=== PATIENT | female | born 1955 | race Caucasian/White ===

== ENCOUNTER 2017-01-05 08:18 | Emergency (ER) | payer OTHER ==
[~2017-01-05] VITALS: Ht 162.6 cm; Wt 109.1 kg
[~2017-01-05 08:18] MED LIST: ALBU18HF IH; FLUO40CA10 PO; LANT3I SC; LAS20 PO; LORA10TA3 PO; MONT10TA24 PO; NOVO3I SC; PANT40TA3 PO; PRED10TA PO; QUET300T5 PO; TIOT18CA INHALATION; TRAM-40 PO; TRAM50TA2 PO
[2017-01-05 08:22] VITALS: Ht 162.6 cm; Wt 109.1 kg
[2017-01-05] MEDS ORDERED: LORAZEPAM 1 MG TAB PO ONE (09:00)
[2017-01-05 09:19] LABS: ADD UMIC YES; URINE BILIRUBIN (Dip) NEGATIVE (NEGATIVE); URINE BLOOD (Dip) TRACE (NEGATIVE); URINE COLOR LT. YELLOW (YELLOW); URINE GLUCOSE (Dip) NEGATIVE (NEGATIVE); URINE KETONES (Dip) NEGATIVE (NEGATIVE); URINE LEUKOCYTE ESTERASE (Dip) NEGATIVE (NEGATIVE); URINE NITRITE (Dip) NEGATIVE (NEGATIVE); URINE TOTAL PROTEIN (Dip) NEGATIVE (NEGATIVE); URINE UROBILINOGEN (Dip) 0.2 E.U./dL (0.1-1.0)
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
[2017-01-05 09:40] LABS: BACTERIA,URINE FEW; URINE RBCS 0-2 /HPF (0)
[2017-01-05 09:42] LABS: OPIATES Positive (NEGATIVE)
[2017-01-05 09:50] LABS: BARBITURATES Negative (NEGATIVE); BENZODIAZEPINES Negative (NEGATIVE); CANNABINOIDS Negative (NEGATIVE); COCAINE Negative (NEGATIVE)
[2017-01-05 09:59] LABS: ADD SCAN DIFF NO
[2017-01-05 10:04] LABS: BASOPHIL # 0.1 10^3/ul (0.0-0.1); BASOPHILS % 0.5 % (0.0-2.0); EOSINOPHILS # 0.1 10^3/ul (0.0-0.5); EOSINOPHILS % 0.6 % (0.0-7.0); HEMATOCRIT 42.3 % (37.0-47.0); HEMOGLOBIN 13.3 g/dl (12.0-16.0); LYMPHOCYTES # 3.1 10^3/ul (0.8-2.9); LYMPHOCYTES % 30.4 % (15.0-51.0); MEAN CORPUSCULAR HGB CONC 31.4 g/dl (32.0-37.0); MEAN CORPUSCULAR VOLUME 66.8 fl (82.0-101.0); MONOCYTES % 9.7 % (0.0-11.0); NEUTROPHILS % 58.5 % (39.0-77.0); PLATELET COUNT 263 10^3/UL (140-415); RED BLOOD COUNT 6.33 10^6/ul (4.20-5.40); RED CELL DISTRIBUTION WIDTH 15.7 % (11.5-14.5); WHITE BLOOD COUNT 10.3 10^3/ul (4.8-10.8)
[2017-01-05 10:09] LABS: ALBUMIN 4.2 g/dl (3.3-4.9)
[2017-01-05 10:10] LABS: CHLORIDE 88 mmol/L (97-110); SODIUM 129 mmol/L (135-144)
[2017-01-05 10:12] LABS: ALBUMIN/GLOBULIN RATIO 1.07; ANION GAP 16 (8-16); ASPARTATE AMINO TRANSFERASE 33 IU/L (15-46); BILIRUBIN,INDIRECT 0.3 mg/dl (0-1.1); BILIRUBIN,TOTAL 0.3 mg/dl (0.2-1.3); CARBON DIOXIDE 29 mmol/L (21-31); CREATININE 0.51 mg/dl (0.44-1.00); TOTAL PROTEIN 8.1 g/dl (6.1-8.1)
[2017-01-05 10:13] LABS: ALANINE AMINOTRANSFERASE 21 IU/L (13-69); ALKALINE PHOSPHATASE 93 IU/L (42-121); BLOOD UREA NITROGEN 8 mg/dl (7-20); CALCIUM 9.7 mg/dl (8.4-10.2); GLUCOSE 110 mg/dl (70-220)
[2017-01-05 10:30] LABS: ACETAMINOPHEN < 10.0 ug/ml (10.0-30.0); ETHANOL < 10.0 mg/dl; SALICYLATE < 1.0 mg/dl (5.0-30.0)
[2017-01-05] MEDS ORDERED: IBUPROFEN 800 MG TAB PO ONE (12:00)
--- NOTE | 2017-01-05 12:52 | ERA ---
ER Documentation Chief Complaint Date/Time DATE: 01/05/17 TIME: 12:50 Chief Complaint BROUGHT IN VIA EMS DUE TO VERBALIZING SUICIDAL AND HOMICIDAL THOUGHTS HPI Patient is a 61-year-old female with anxiety and depression as well as diabetes who presents with thoughts of suicide. She had one episode of vomiting and diarrhea. She swallowed a handful of Soma and a suicide attempt. She also has a plan to stab herself in the neck with a knife. The patient was brought in by ambulance. She also says that she wants to kill her Arik Garcia. ROS All systems reviewed and are negative except as per history of present illness. Medications Home Meds Active Scripts Tramadol HCl (Tramadol HCl) 50 Mg Tablet, 50 MG PO Q12, #12 TAB Prov:JUNAID CHAHAL DO 10/30/16 Prednisone (Prednisone) 10 Mg Tab, 10 MG PO DAILY, #70 TAB Prov:NORY BARNETT MD 04/19/16 Insulin Glargine* (Lantus*) 100 Unit/Ml Soln, 25 UNIT SC HS, #1 VIAL Prov:NORY BARNETT MD 04/19/16 Insulin Aspart* (Novolog Insulin Pen*) 100 Unit/Ml Soln, 7 UNIT SC WITH MEALS, # 1 VIAL Prov:NORY BARNETT MD 04/19/16 Reported Medications Quetiapine Fumarate* (Seroquel* XR) 300 Mg Tab.sr.24h, 300 MG PO DAILY, #30 TAB 12/29/15 Tiotropium [place]* (Spiriva*) 18 Mcg Cap.w.dev, 1 CAP INHALATION DAILY, #30 CAP 12/29/15 Pantoprazole* (Protonix*) 40 Mg Tablet.dr, 40 MG PO DAILY, TAB 12/29/15 Tramadol Hcl* (Ultram*) 50 Mg Tablet, 50 MG PO Q8 Y for PAIN, TAB 12/29/15 Fluoxetine Hcl* (Prozac*) 40 Mg Capsule, 40 MG PO DAILY, CAP 12/29/15 Montelukast Sodium* (Montelukast Sodium*) 10 Mg Tablet, 10 MG PO DAILY 10/23/15 Loratadine* (Loratadine*) 10 Mg Tablet, 10 MG PO DAILY 10/23/15 Furosemide (Lasix) 20 Mg Tab, 20 MG PO BID 12/18/15 Albuterol Sulfate* (Ventolin HFA*) 18 Gm Hfa.aer.ad, 2 PUFF IH Q6 Y for WHEEZING AND RESP DISTRESS, EA 01/29/15 Allergies Allergies: Coded Allergies: No Known Allergies (Verified Allergy, Mild, 02/09/16) PMhx/Soc History of Surgery: Yes (partial hysterectomy) Anesthesia Reaction: No Hx Neurological Disorder: No Hx Cardiac Disorders: Yes (HTN) Hx Psychiatric Problems: Yes (Paranoid Schizophrenia, Depression) Hx Miscellaneous Medical Probl: No Hx Alcohol Use: Yes Hx Substance Use: Yes (Heroin) Hx Tobacco Use: Yes Smoking Status: Never smoker FmHx Family History: diabetes Physical Exam Vitals Vital Signs Date Time Temp Pulse Resp B/P Pulse Ox O2 Delivery O2 Flow Rate FiO2 01/05/17 08:22 98.5 104 18 180/91 98 Physical Exam Const: No acute distress Head: Atraumatic Eyes: Normal Conjunctiva ENT: Normal External Ears, Nose and Mouth. Neck: Full range of motion..~ No meningismus. Resp: Clear to auscultation bilaterally Cardio: Regular rate and rhythm, no murmurs Abd: Soft, non tender, non distended. Normal bowel sounds Skin: No petechiae or rashes Back: No midline or flank tenderness Ext: No cyanosis, or edema Neur: Awake and alert Psych: Admits to suicidal ideation with plan to stab herself in the neck Result Diagram: 01/05/17 0953 01/05/17 0953 Results 24 hrs Laboratory Tests Test 01/05/17 08:41 01/05/17 09:53 Urine Amphetamines Screen Negative Urine Bacteria FEW Urine Barbiturates Negative Urine Benzodiazepines Screen Negative Urine Bilirubin NEGATIVE Urine Cannabinoids Negative Urine Clarity CLEAR Urine Cocaine Screen Negative Urine Color LT. YELLOW Urine Glucose NEGATIVE% Urine Hemoglobin TRACE Urine Ketones NEGATIVE Urine Leukocyte Esterase NEGATIVE Urine Microscopic RBC 0-2/HPF Urine Microscopic WBC 0-2/HPF Urine Nitrite NEGATIVE Urine Opiates Screen Positive Urine Specific [place] 1.010 Urine Total Protein NEGATIVE Urine Urobilinogen 0.2 E.U./dL Urine pH 6.0 Acetaminophen Level < 10.0ug/ml Alanine Aminotransferase (ALT/SGPT) 21IU/L Albumin 4.2g/dl Albumin/Globulin Ratio 1.07 Alkaline Phosphatase 93IU/L Anion Gap 16 Aspartate Amino Transf (AST/SGOT) 33IU/L Basophils # 0.110^3/ul Basophils % 0.5% Blood Urea Nitrogen 8mg/dl Calcium Level 9.7mg/dl Carbon Dioxide Level 29mmol/L Chloride Level 88mmol/L Creatinine 0.51mg/dl Direct Bilirubin 0.00mg/dl Eosinophils # 0.110^3/ul Eosinophils % 0.6% Ethyl Alcohol Level < 10.0mg/dl Globulin 3.90g/dl Glucose Level 110mg/dl Hematocrit 42.3% Hemoglobin 13.3g/dl Indirect Bilirubin 0.3mg/dl Lymphocytes # 3.110^3/ul Lymphocytes % 30.4% Mean Corpuscular Hemoglobin 21.0pg Mean Corpuscular Hemoglobin Concent 31.4g/dl Mean Corpuscular Volume 66.8fl Mean Platelet Volume 11.0fl Monocytes # 1.010^3/ul Monocytes % 9.7% Neutrophils # 6.010^3/ul Neutrophils % 58.5% Nucleated Red Blood Cells # 0.010^3/ul Nucleated Red Blood Cells % 0.0/100WBC Platelet Count 35913^3/UL Potassium Level 4.0mmol/L Red Blood Count 6.3310^6/ul Red Cell Distribution Width 15.7% Salicylates Level < 1.0mg/dl Sodium Level 129mmol/L Total Bilirubin 0.3mg/dl Total Protein 8.1g/dl White Blood Count 10.310^3/ul Current Medications Medications (Trade) Dose Ordered Sig/Patric Route PRN Reason Start Time Stop Time Status Last Admin Dose Admin Lorazepam (Ativan) 1 mg ONCE ONCE PO 01/05/17 09:00 01/05/17 09:01 DC 01/05/17 08:43 Ibuprofen (Motrin) 800 mg ONCE ONCE PO 01/05/17 12:00 01/05/17 12:01 DC 01/05/17 12:04 Procedures/MDM EKG read by me: Rate/Rhythm: Regular rate and rhythm at a normal rate Intervals: Normal Impression: No evidence of ischemia or arrhythmia Smoking Cessation Therapy: Pt. was lectured for greater than 3 minutes on the health risks of continued smoking and the benefits of cessation. Patient is a 5-year-old female with psychiatric disease presents with homicidal and suicidal ideation. She had taken an overdose of Soma but is maintaining her airway and has no altered mental status at this time. Her laboratory studies are normal. Her urine drug screen shows positive for opiates. At this point the patient was given Ativan and ibuprofen. I believe she is now medically clear and she is willing to be transferred to a voluntary psychiatric facility. She did have a psychiatric evaluation done by Dr. Barnes from psychiatry. We will attempt to transfer the patient for voluntary admission at this time she is medically clear. Departure Diagnosis: Primary Impression: Homicidal ideation Additional Impression: Suicidal ideation Condition: FINA Contreras MD Jan 05, 2017 12:52
[2017-01-05 17:29] VITALS: BP 134/76; PULSE 86; RESP 18; TEMP 98.6
--- NOTE | 2017-01-05 19:21 | PSY ---
Date/Time of Note Date/Time of Note DATE: 01/05/17 TIME: 19:14 Psychiatric Subjective Eval Consent Pt consented to telemedicine: Yes Subjective Evaluation Patient location: emergency Chief Complaint: BROUGHT IN VIA EMS DUE TO VERBALIZING SUICIDAL AND HOMICIDAL THOUGHTS Reason for consult: Re-evaluation History of present illness Patient is a 61 year old female with schizophrenia who was brought in due to thoughts of wanting to kill herself and her . She was evaluated and transferred to an inpatient facility. However, she informed the facility that she required O2 at night and facility could not accommodate that need. Patient was transferred back to the ER. Patient reports that she has been increasing her use of [place] and then "flushed it down the toilette." She has been more irritable lately because of this. Also, she reports she has not been taking her Prozac and Seroquel for one week. She reports thoughts of wanting to and does not feel safe out of the hospital. She has thoughts of wanting to kill her because "he is responsible for all this." Pt admits to hearing her father's voice and her sister's voice. She states they are both and "there has been a lot of around me." Past psychiatric history See above. Past admissions Hospitalization: yes Family History Please see previous consult today Medical history Problems Medical Problems: (1) Abdominal pain Status: Acute (2) Anxiety Status: Acute (3) Anxiety attack Status: Acute (4) Constipation Status: Acute (5) COPD exacerbation Status: Acute (6) COPD with exacerbation Status: Acute (7) Dehydration Status: Acute (8) Homicidal ideation Status: Acute (9) Hypoxemia Status: Acute (10) Morbid obesity Status: Acute (11) Multiple complaints Status: Acute (12) Personality disorder Status: Acute (13) Schizophrenia, chronic with acute exacerbation Status: Acute (14) Seizure disorder Status: Acute (15) Shortness of breath Status: Acute (16) Suicidal ideation Status: Acute Allergies: Coded Allergies: No Known Allergies (Verified Allergy, Mild, 02/09/16) Substance Abuse Substance use: No known substance abuse (May have issue with norco) Social History Marital status: Level of education: hs DPA/Conservatorship: No Occupation/Penitentiary: disabled, lives with her Psychiatric Objective Eval Mental Status Examination: Appearance: Poor Hygiene Eye Contact: Fair Psychomotor Activity: Normal Behavior: Cooperative Speech: Soft AFFECT: Flat Mood: Depressed Though Process: Perseverative Thought Content: Hallucinations Suicidal: Yes Homicidal: Yes On 72 hour hold: No Orientation: x4 Cognition: Alert Insight: Impared Judgement: Impared Laboratory Results Laboratory Tests Test 01/05/17 08:41 01/05/17 09:53 Urine Amphetamines Screen Negative Urine Bacteria FEW Urine Barbiturates Negative Urine Benzodiazepines Screen Negative Urine Bilirubin NEGATIVE Urine Cannabinoids Negative Urine Clarity CLEAR Urine Cocaine Screen Negative Urine Color LT. YELLOW Urine Glucose NEGATIVE% Urine Hemoglobin TRACE Urine Ketones NEGATIVE Urine Leukocyte Esterase NEGATIVE Urine Microscopic RBC 0-2/HPF Urine Microscopic WBC 0-2/HPF Urine Nitrite NEGATIVE Urine Opiates Screen Positive Urine Specific [place] 1.010 Urine Total Protein NEGATIVE Urine Urobilinogen 0.2 E.U./dL Urine pH 6.0 Acetaminophen Level < 10.0ug/ml Alanine Aminotransferase (ALT/SGPT) 21IU/L Albumin 4.2g/dl Albumin/Globulin Ratio 1.07 Alkaline Phosphatase 93IU/L Anion Gap 16 Aspartate Amino Transf (AST/SGOT) 33IU/L Basophils # 0.110^3/ul Basophils % 0.5% Blood Urea Nitrogen 8mg/dl Calcium Level 9.7mg/dl Carbon Dioxide Level 29mmol/L Chloride Level 88mmol/L Creatinine 0.51mg/dl Direct Bilirubin 0.00mg/dl Eosinophils # 0.110^3/ul Eosinophils % 0.6% Ethyl Alcohol Level < 10.0mg/dl Globulin 3.90g/dl Glucose Level 110mg/dl Hematocrit 42.3% Hemoglobin 13.3g/dl Indirect Bilirubin 0.3mg/dl Lymphocytes # 3.110^3/ul Lymphocytes % 30.4% Mean Corpuscular Hemoglobin 21.0pg Mean Corpuscular Hemoglobin Concent 31.4g/dl Mean Corpuscular Volume 66.8fl Mean Platelet Volume 11.0fl Monocytes # 1.010^3/ul Monocytes % 9.7% Neutrophils # 6.010^3/ul Neutrophils % 58.5% Nucleated Red Blood Cells # 0.010^3/ul Nucleated Red Blood Cells % 0.0/100WBC Platelet Count 13715^3/UL Potassium Level 4.0mmol/L Red Blood Count 6.3310^6/ul Red Cell Distribution Width 15.7% Salicylates Level < 1.0mg/dl Sodium Level 129mmol/L Total Bilirubin 0.3mg/dl Total Protein 8.1g/dl White Blood Count 10.310^3/ul Assessment and Plan Assessment/Diagnosis [place] I: Schizophrenia F20.9 Recommendation/Plan Medication Management Per inpatient psychiatry. Can offer Zyprexa Zydis 5mg po q 6h prn agitation/ psychosis. Psychotherapy N/A Pt. Caregiver/Family Education N.A Previous note indicates warning to being given for Tarasoff. Follow-up/Disposition Transfer to inpatient psychiatry 5150 Recommendation: Place Hold (Patient with suicidal and homicidal ideation. Not safe out of the hospital. ) GENI MCDONALD Jan 05, 2017 19:21
[2017-01-05] MEDS ORDERED: CLON0.2T5 PO (20:39)
[2017-01-05] MEDS ORDERED: CLON2TAB3 PO (22:06)
== END 2017-01-05 17:30 | disposition short-term general hospital (02) ==
LOC: E/R 08:18
DX: F32.9 Major depressive disorder, single episode, unspecified (principal); R45.850 Homicidal ideations; R45.851 Suicidal ideations; E11.9 Type 2 diabetes mellitus without complications; I10 Essential (primary) hypertension; J44.9 Chronic obstructive pulmonary disease, unspecified; Z79.4 Long term (current) use of insulin; Z87.891 Personal history of nicotine dependence
CPT/HCPCS: 80053; 80306; 80307; 81001; 81003; 85025; 93005; Z7502; Z7610

== ENCOUNTER 2017-01-05 18:19 | Inpatient (IN) | payer OTHER ==
[~2017-01-05] VITALS: Ht 162.6 cm; Wt 109.0 kg
[2017-01-05 18:42] VITALS: Ht 162.6 cm; Wt 109.0 kg
--- NOTE | 2017-01-05 19:49 | ERA ---
ER Documentation Chief Complaint Date/Time DATE: 01/05/17 TIME: 19:46 Chief Complaint Sent back from [facility], already evaluated prior to transfer out HPI This is a 61-year-old female who is seen in the ER here earlier today because she wanted to stab and kill her . She also is complaining that she thinks that he is poisoning her. The patient was seen by tele-psych and was transferred to a psych facility however they sent her back because the patient is requiring oxygen at night and I do not have oxygen at this facility. She still states that she wants to stab her because she thinks that he is trying to poison him. She was reevaluated by psychiatry again and the same result is to transfer her to a psych facility this time to facility that has oxygen capabilities and do not need to repeat blood work ROS All systems reviewed and are negative except as per history of present illness. Medications Home Meds Active Scripts Tramadol HCl (Tramadol HCl) 50 Mg Tablet, 50 MG PO Q12, #12 TAB Prov:JUNAID CHAHAL DO 10/30/16 Prednisone (Prednisone) 10 Mg Tab, 10 MG PO DAILY, #70 TAB Prov:NORY BARNETT MD 04/19/16 Insulin Glargine* (Lantus*) 100 Unit/Ml Soln, 25 UNIT SC HS, #1 VIAL Prov:NORY BARNETT MD 04/19/16 Insulin Aspart* (Novolog Insulin Pen*) 100 Unit/Ml Soln, 7 UNIT SC WITH MEALS, # 1 VIAL Prov:NORY BARNETT MD 04/19/16 Reported Medications Quetiapine Fumarate* (Seroquel* XR) 300 Mg Tab.sr.24h, 300 MG PO DAILY, #30 TAB 12/29/15 Tiotropium [place]* (Spiriva*) 18 Mcg Cap.w.dev, 1 CAP INHALATION DAILY, #30 CAP 12/29/15 Pantoprazole* (Protonix*) 40 Mg Tablet.dr, 40 MG PO DAILY, TAB 12/29/15 Tramadol Hcl* (Ultram*) 50 Mg Tablet, 50 MG PO Q8 Y for PAIN, TAB 12/29/15 Fluoxetine Hcl* (Prozac*) 40 Mg Capsule, 40 MG PO DAILY, CAP 12/29/15 Montelukast Sodium* (Montelukast Sodium*) 10 Mg Tablet, 10 MG PO DAILY 10/23/15 Loratadine* (Loratadine*) 10 Mg Tablet, 10 MG PO DAILY 10/23/15 Furosemide (Lasix) 20 Mg Tab, 20 MG PO BID 10/23/15 Albuterol Sulfate* (Ventolin HFA*) 18 Gm Hfa.aer.ad, 2 PUFF IH Q6 Y for WHEEZING AND RESP DISTRESS, EA 01/29/15 Allergies Allergies: Coded Allergies: No Known Allergies (Verified Allergy, Mild, 02/09/16) PMhx/Soc History of Surgery: Yes (partial hysterectomy) Anesthesia Reaction: No Hx Neurological Disorder: No Hx Cardiac Disorders: Yes (HTN) Hx Psychiatric Problems: Yes (Paranoid Schizophrenia, Depression) Hx Miscellaneous Medical Probl: No Hx Alcohol Use: Yes Hx Substance Use: Yes (Heroin) Hx Tobacco Use: Yes Smoking Status: Current every day smoker FmHx Family History: No coronary disease Physical Exam Vitals Vital Signs Date Time Temp Pulse Resp B/P Pulse Ox O2 Delivery O2 Flow Rate FiO2 01/05/17 18:42 98.2 80 18 131/76 96 Physical Exam Const: Well-developed, well-nourished Head: Atraumatic, normocephalic Eyes: Normal Conjunctiva, PERRLA, EOMI, normal sclera, no nystagmus ENT: Normal External Ears, Nose and Mouth, moist mucus membranes. Neck: Full range of motion. No meningismus, no lymphadenopathy. Resp: Clear to auscultation bilaterally, no wheezing, rhonchi, rales Cardio: Regular rate and rhythm, no murmurs, S1 S2 present Abd: Soft, non tender x 4, non distended. Normal bowel sounds, no guarding or rebound, no pulsitile abdominal masses or bruits Skin: No petechiae or rashes, no ecchymosis , no maculopapular rash Back: No midline or flank tenderness Ext: No cyanosis, or edema, FROM x 4, normal inspection, neurovascularly intact x 4 Neur: Awake and alert, STR 5/5 x 4, sensation intact x 4, no focal findings, cerebellum intact Psych: [Homicidal, paranoid Departure Diagnosis: Primary Impression: Homicidal behavior Additional Impression: Paranoia Condition: Stable RODERICK BEAULIEU DO Jan 05, 2017 19:49
[2017-01-05] MEDS ORDERED: CLON0.2T5 PO (20:39)
[2017-01-05] MEDS ORDERED: QUETIAPINE 100 MG TAB PO ONE (21:00)
[2017-01-05] MEDS ORDERED: CLON2TAB3 PO (22:06)
[2017-01-06] MEDS ORDERED: traMADol 50 MG TAB PO ONE (03:00)
[2017-01-06] MEDS ORDERED: LORAZEPAM 0.5 MG TAB PO ONE (03:00)
[2017-01-06] MEDS ORDERED: CARISOPRODOL 350 MG TAB PO ONE (04:30)
[2017-01-06] MEDS ORDERED: clonAZEPAM 0.5 MG TAB PO ONE (08:30)
--- NOTE | 2017-01-06 10:01 | EN ---
Date/Time of Note Date/Time of Note DATE: 01/06/17 TIME: 10:00 ER Progress Note Observation Note: Time: 4 hours Family Hx: No Hypertension Evaluation: Patient was returned from psychiatric facility due to the fact that she does require oxygen at nighttime secondary to her COPD. This patient was complaining of anxiety was given 2 mg p.o. of Klonopin. This patient will try to be placed at a psychiatric facility with oxygen JUNAID CHAHAL DO Jan 06, 2017 10:01
[2017-01-06] MEDS ORDERED: HYDROCODONE/APAP (5/325) TAB PO ONE (13:30)
[2017-01-06] MEDS ORDERED: NICOTINE (21 MG/24 HR) PATCH TRANSDERM ONE (13:30)
--- NOTE | 2017-01-06 14:06 | PSY ---
Date/Time of Note Date/Time of Note DATE: 01/06/17 TIME: 13:55 Psychiatric Subjective Eval Consent Pt consented to telemedicine: Yes Subjective Evaluation Patient location: emergency Chief Complaint: Sent back from [facility], already evaluated prior to transfer out History of present illness Spoke with Monie MAHONEY, pt is 61 yo disabled female with hx schizophrenia who was seen by this hand sign writer 2 days ago; [facility] because she was paranoid and says she wants to kill her because she thought he had poisoned her. [facility] because she needs O2 at night. Pt states, seh still thinks about killing her and she will go home eventually "by herself". he was at her bedside. Pt was irritated by his presence and kept saying she does nto want him to be at home. She reports AH as well, non command. NO Vh . + Pi no SI. + HI toward her . I asked her if he feels safe about her and he acted quited odd : he said "she, probably, wouldn't do it" and gave the phone back to the pt. Past psychiatric history prior in Hospitalization: yes Medical history Problems Medical Problems: (1) Abdominal pain Status: Acute (2) Anxiety Status: Acute (3) Anxiety attack Status: Acute (4) Constipation Status: Acute (5) COPD exacerbation Status: Acute (6) COPD with exacerbation Status: Acute (7) Dehydration Status: Acute (8) Homicidal behavior Status: Acute (9) Homicidal ideation Status: Acute (10) Hypoxemia Status: Acute (11) Morbid obesity Status: Acute (12) Multiple complaints Status: Acute (13) Paranoia Status: Acute (14) Personality disorder Status: Acute (15) Schizophrenia, chronic with acute exacerbation Status: Acute (16) Seizure disorder Status: Acute (17) Shortness of breath Status: Acute (18) Suicidal ideation Status: Acute Allergies: Coded Allergies: No Known Allergies (Verified Allergy, Mild, 01/05/17) Substance Abuse Substance use: No known substance abuse Social History Marital status: DPA/Conservatorship: No Psychiatric Objective Eval Mental Status Examination: Appearance: Disheveled Eye Contact: Good Behavior: Cooperative Speech: Clear AFFECT: Appropriate Mood: Irritable Though Process: Circumstantial Thought Content: Delusions Suicidal: No Homicidal: Yes On 72 hour hold: Yes Cognition: Alert Insight: Impared Judgement: Impared Assessment and Plan Assessment/Diagnosis [place] I: SCHIZOAFFECTIVE D/O [place] II: DEFERED [place] III: PER RECORD [place] IV: MODERATE [place] V: GAF 25 Recommendation/Plan Medication Management PLEASE CONITNUE PT'S MEDS, PLEASE CONSIDER INCREASING SEROQUEL TO 300 MG POQHS ; FALLS PRECAUTIONS; MONITOR ECG Psychotherapy DEFER TO INPT Pt. Caregiver/Family Education TARASOFF IF NOT DONE Follow-up/Disposition 5150 FOR DTO; TRANSFER TO INPT PSYCH. 5150 Recommendation: Continue Hold JORDAN BOONE MD Jan 06, 2017 14:06
[2017-01-06] MEDS ORDERED: IBUPROFEN 800 MG TAB PO ONE (16:30)
[2017-01-06] MEDS: FLUOXETINE 20 MG CAP PO SCH (22:53)
[2017-01-06] MEDS: QUETIAPINE 100 MG TAB PO SCH (22:53)
[2017-01-06] MEDS: clonAZEPAM 0.5 MG TAB PO SCH (22:53)
[2017-01-06] MEDS: TIOTROPIUM 18 MCG CAPSULE INHA DEV INH SCH (22:53)
[2017-01-07] MEDS ORDERED: HYDROCODONE/APAP (5/325) TAB PO ONE ×2 (05:00→07:30)
[2017-01-07] MEDS ORDERED: clonAZEPAM 0.5 MG TAB PO SCH (09:00)
[2017-01-07] MEDS ORDERED: FLUOXETINE 20 MG CAP PO SCH (09:00)
[2017-01-07] MEDS: FLUOXETINE 20 MG CAP PO SCH (09:10)
[2017-01-07] MEDS: TIOTROPIUM 18 MCG CAPSULE INHA DEV INH SCH (09:11)
[2017-01-07] MEDS: clonAZEPAM 0.5 MG TAB PO SCH ×3 (09:12→20:28)
[2017-01-07] MEDS: QUETIAPINE 100 MG TAB PO SCH (20:28)
[2017-01-07] MEDS ORDERED: IBUPROFEN 600 MG TAB PO ONE (20:30)
[2017-01-08] MEDS ORDERED: ACETAMINOPHEN 325 MG TAB PO ONE ×2 (05:30→19:30)
[2017-01-08] MEDS ORDERED: IBUPROFEN 600 MG TAB PO ONE (08:00)
[2017-01-08] MEDS: TIOTROPIUM 18 MCG CAPSULE INHA DEV INH SCH (09:00)
[2017-01-08] MEDS: clonAZEPAM 0.5 MG TAB PO SCH ×3 (09:07→21:00)
[2017-01-08] MEDS: FLUOXETINE 20 MG CAP PO SCH ×2 (09:07→09:54)
[2017-01-08] MEDS: QUETIAPINE 100 MG TAB PO SCH (09:54)
[2017-01-09] MEDS ORDERED: IBUPROFEN 600 MG TAB PO ONE (00:30)
[2017-01-09] MEDS ORDERED: LORAZEPAM 1 MG TAB PO ONE (02:00)
--- NOTE | 2017-01-09 02:22 | PSY ---
Date/Time of Note Date/Time of Note DATE: 01/09/17 TIME: 01:57 Psychiatric Subjective Eval Consent Pt consented to telemedicine: Yes Subjective Evaluation Patient location: emergency Chief Complaint: Sent back from [facility], already evaluated prior to transfer out History of present illness patient is a 61 yo female with PPH Of schizophrenia who was on a 72 hr hold for DTO now , she states that she is in the ER because she wants to kill her , she tells that what she has not thought on how, she states that " he gets on my nerve" , she states that she has tried to kill him before but cant tell me how, she states that she has tried to kill herself before but denies feeling suicidal now. she states that she hears voices telling her to kill her . she believes that he is trying to kill her by poisoning her. Hospitalization: yes Family History denies Medical history Problems Medical Problems: (1) Abdominal pain Status: Acute (2) Anxiety Status: Acute (3) Anxiety attack Status: Acute (4) Constipation Status: Acute (5) COPD exacerbation Status: Acute (6) COPD with exacerbation Status: Acute (7) Dehydration Status: Acute (8) Homicidal behavior Status: Acute (9) Homicidal ideation Status: Acute (10) Hypoxemia Status: Acute (11) Morbid obesity Status: Acute (12) Multiple complaints Status: Acute (13) Paranoia Status: Acute (14) Personality disorder Status: Acute (15) Schizophrenia, chronic with acute exacerbation Status: Acute (16) Seizure disorder Status: Acute (17) Shortness of breath Status: Acute (18) Suicidal ideation Status: Acute Allergies: Coded Allergies: No Known Allergies (Verified Allergy, Mild, 01/05/17) Substance Abuse Substance use: No known substance abuse Social History Marital status: Level of education: hs DPA/Conservatorship: No Occupation/Assisted: disability Psychiatric Objective Eval Review of Systems: Review of Systems: Not Applicable Physical Examination: Physical Examination: Applicable Sleep: Insomnia Appetite: Decreased Energy: Decreased Interest: Decreased Mental Status Examination: Appearance: Disheveled Eye Contact: Good Psychomotor Activity: Normal Behavior: Cooperative Speech: Clear AFFECT: Libile Mood: Irritable Though Process: Linear Thought Content: Hallucinations Suicidal: No Homicidal: Yes On 72 hour hold: No Orientation: x2 Cognition: Alert Insight: Impared Judgement: Impared Attention Span: Intact Assessment and Plan Assessment/Diagnosis [place] I: schizophrenia paranoid type [place] II: deferred [place] III: as per record [place] IV: poor social support [place] V: gaf 25 Recommendation/Plan Medication Management continue current medication and consider adding seroquel 100 mg po qam Follow-up/Disposition Please admit patient on unvoluntary status due to Danger to other, In my opinion, patient currently MEETS criterion for inpatient care and CANNOT be safely treated at a lower level of care today as evidenced by the following risk factors: Current and Recent homicidal Ideation Previous suicide attempt Significant recent DETERIORATION in function, behavior and thought processes Command hallucinations with violent content Substance ABUSE in conjunction with another psychiatric disorder Non-Compliance with Outpatient Treatment Patient has failed outpatient and requires further inpatient assessment Medication changes require observation unavailable at a lower level of care 5150 Recommendation: MONIAC Steen MD Jan 09, 2017 02:17
[2017-01-09] MEDS: QUETIAPINE 100 MG TAB PO SCH (05:07)
[2017-01-09] MEDS: TIOTROPIUM 18 MCG CAPSULE INHA DEV INH SCH (09:00)
[2017-01-09] MEDS: clonAZEPAM 0.5 MG TAB PO SCH ×4 (09:00→23:00)
[2017-01-09] MEDS ORDERED: ALBUTEROL 0.5% (NEB) 2.5 MG/0.5 ML AMP HHN STA ×2 (09:16→13:02)
[2017-01-09] MEDS ORDERED: QUETIAPINE 100 MG TAB PO ONE (09:30)
[2017-01-09] MEDS ORDERED: predniSONE 50 MG TAB PO ONE (09:30)
--- NOTE | 2017-01-09 14:07 | EN ---
Date/Time of Note Date/Time of Note DATE: 01/09/17 TIME: 14:05 ER Progress Note I assumed care at 6 AM on 01/09/2017. Patient has been reassessed by tele-psych. Patient continues to meet criteria for 5150 hold and involuntary placement. She continues to be homicidal. From a medical standpoint, she continues to have wheezing which is been treated with intermittent albuterol treatments. She has no hypoxia or evidence of increased work of breathing has not required ongoing oxygen therapy. I have continued occasional bronchodilator therapy and has medicated both for asthma as well as her psychiatric medications. Patient will remain under observation until such time as an appropriate placement can be obtained. VICENTE YEAGER Jan 09, 2017 14:06
[2017-01-09] MEDS ORDERED: ALBUTEROL 0.5% (NEB) 2.5 MG/0.5 ML AMP INH STA (16:11)
[2017-01-09] MEDS ORDERED: IPRATROPIUM (NEB) 0.5 MG/2.5 ML AMP INH STA (16:11)
[2017-01-09] MEDS ORDERED: predniSONE 20 MG TAB PO STA (16:11)
[2017-01-09] MEDS ORDERED: IPRATROPIUM (NEB) 0.5 MG/2.5 ML AMP ONE (16:17)
[2017-01-09] MEDS ORDERED: ALBUTEROL 0.5% (NEB) 2.5 MG/0.5 ML AMP ONE (16:17)
[2017-01-09] MEDS ORDERED: ALBUTEROL 0.083% (NEB) 2.5 MG/3 ML AMP HHN ONE (16:30)
[2017-01-09 17:23] LABS: Allen Test ACCEPTAB; Arterial Base Excess 4.8 mmol/L (-3.0-3); Arterial COHb 0.5 % (0.0-3.0); Arterial Fraction of Oxyhgb 85.5 % (93.0-99.0); Arterial HCO3 30.4 mmol/L (22.0-26.0); Arterial MetHb 0.4 % (0.0-1.5); Arterial Total Hemglobin 13.9 g/dl (12.0-18.0); MODE ROOM AIR
--- NOTE | 2017-01-09 18:26 | EN ---
Date/Time of Note Date/Time of Note DATE: 01/09/17 TIME: 18:17 ER Progress Note HPI: 61-year-old woman has been here for over 95 hours after being placed on a 5150 psychiatric hold for homicidal ideation. Her 72 hour hold has and at this time she is not on a psychiatric hold. utilities ground worker saw and evaluated the patient this afternoon at the bedside and called the psychiatric mobile response team and discussed her case with them. PMRT refused to place the patient on another 72 hours psychiatric hold and did not feel she was a threat to herself or others. Their recommendation was for outpatient management. I spoke to the patient at the bedside, besides shortness of breath and wheezing she denies wanting to hurt herself or others, specifically she has no plans of killing her any longer. Past medical history: Psychiatric illness, COPD, hypertension, obesity Physical exam: GENERAL: Well-developed, well-nourished, well-hydrated, in no apparent distress , looks nontoxic in appearance HEENT: Moist mucous membranes, pink conjunctiva, no cervical spine tenderness or step-off deformities, no goiter, no jaundice or icterus, extraocular movements intact without pain. No submandibular induration, and no pharyngeal erythema NEURO: Alert and oriented 3, cranial nerves II through XII intact bilaterally, pupils equal round reactive to light, no focal deficits or facial asymmetry, sensation intact distally Strength 5/5 in upper and lower extremities bilaterally CARDIAC: Regular rate and rhythm, no murmurs rubs or gallops LUNGS: Bilateral wheezing, no crackles or stridor ABDOMEN: Soft nontender, no guarding, no rigidity, no rebound, no psoas sign no obturator sign. Normoactive bowel sounds SKIN: Warm and dry to touch, no abrasions, contusions, or hematomas, no lacerations, no ecchymosis, no target lesions, and without ulcers EXTREMITIES: No clubbing cyanosis or edema, calves are bilaterally symmetrical, no Homans sign, no popliteal cord sign. Distal pulses equal and bilateral PSYCH: Depressed affect Medical decision making: I administered albuterol 10 mg via nebulizer, ipratropium 1 mg via nebulizer, and prednisone 60 mg p.o. ABG performed, read by me revealed a pH of 7.41, PCO2 49, PO2 52 revealing chronic hypoventilation and hypoxemia secondary to severe COPD. I spoke to Dr. Manriquez regarding the patient's recent mental health issues and her medical issues. At this time she does not present an acute danger to herself or others, PMRT refused the second hold at this time, and she is not medically cleared. In fact she is currently having a COPD exacerbation and will require inpatient management. Diagnostic impression: #1 acute exacerbation of chronic obstructive pulmonary disease #2. Stable psychiatric illness JONO PULIDO MD Jan 09, 2017 18:26
--- NOTE | 2017-01-09 20:39 | QN ---
Documentation Comment [id number] MARIAM PASCUAL MD Jan 09, 2017 20:39
[2017-01-09 21:09] VITALS: TEMP 98.2
[2017-01-09 21:47] VITALS: PULSE 71
[2017-01-09 22:34] VITALS: BP 141/62; RESP 22
[2017-01-10] VITALS (13 sets, daily range): BP systolic 121–149; BP diastolic 59–73; PULSE 78–157; RESP 18–19
--- NOTE | 2017-01-10 03:19 | HP ---
DATE OF ADMISSION: 01/08/2017 HISTORY OF PRESENT ILLNESS: The patient is a 61-year-old female who has a history of COPD, initially was seen by Dr. Teja Santiago and then by Cali Fernandez. The patient has history of COPD, hypertension, obesity, psychiatric illness. The patient, as per Dr. Fernandez, is not on 5150 hold. At this point , the patient is cleared by the team to be admitted for COPD. The patient is denying any chest pain or palpitations at this point. PAST MEDICAL HISTORY: Positive for COPD, hypertension, obesity, history of paranoid schizophrenia, personality disorders, seizure disorder, anemia. ALLERGY HISTORY: NEGATIVE. FAMILY HISTORY: Negative. SOCIAL HISTORY: Positive for smoking. MEDICATION HISTORY: The patient has been on, in the past 1. Seroquel. 2. Ultram 3. Spiriva. 4. Protonix. 5. Singulair. 6. Loratadine. REVIEW OF SYSTEMS HEENT: Unremarkable. RESPIRATORY: On and off shortness of breath. CARDIOVASCULAR: No chest pain, palpitation. ABDOMEN: No dyspepsia. EXTREMITIES: On and off swelling. CENTRAL NERVOUS SYSTEM: Unremarkable. PHYSICAL EXAMINATION: GENERAL: The patient is overweight, obese female, awake and alert, not agitated , resting comfortably in bed. VITAL SIGNS: Pulse 80, blood pressure 110/56. HEAD: Atraumatic, normocephalic. Pupils equal, reactive to light. NECK: Supple. No JVD. LUNGS: Clear with few rhonchi. CARDIOVASCULAR: S1, S2 normal. ABDOMEN: Soft, obese, bowel sounds present, no palpable mass or hepatosplenomegaly. No guarding, rebound tenderness. EXTREMITIES: No cyanosis, clubbing. Edema positive. CENTRAL NERVOUS SYSTEM: The patient is awake, alert with no focal deficit. LABORATORY DATA: pH 7.41, pCO2 of 48, pO2 of 52. The patient had, on 2015, pCO2 of 46, pO2 of 65 in the past. IMPRESSION: The patient has 1. Chronic obstructive pulmonary disease. 2. Obesity. 3. Hypertension. 4. anxiety 5. Personal history of psychiatric disorder. PLAN: Continue home medication, oxygen, bronchodilator, and empiric antibiotics. Orders were done. Dictated By: MARIAM CHRISTINA/SOFIA Conf#: [id number] [facility]#: [id number] MTDD
[2017-01-10] MEDS: clonAZEPAM 0.5 MG TAB PO SCH ×3 (03:36→20:21)
[2017-01-10] MEDS ORDERED: LORAZEPAM 2 MG INJ IV PRN (06:30)
[2017-01-10] MEDS ORDERED: ALBUTEROL/IPRATROPIUM (NEB) 3 ML AMP HHN PRN (06:30)
[2017-01-10] MEDS: morphine 2 MG INJ IV PRN ×4 (07:04→19:30)
[2017-01-10] MEDS ORDERED: QUETIAPINE FUMARATE 300 MG PO SCH (09:00)
[2017-01-10] MEDS ORDERED: METHYLPREDNISOLONE 40 MG INJ IV SCH (09:00)
[2017-01-10] MEDS ORDERED: QUETIAPINE 100 MG TAB PO SCH (09:00)
[2017-01-10] MEDS: [UNRECOGNIZED DRUG - REMARK] XX SCH ×2 (10:40→16:00)
[2017-01-10] MEDS: TIOTROPIUM 18 MCG CAPSULE INHA DEV INH SCH (10:44)
[2017-01-10] MEDS: FLUOXETINE 20 MG CAP PO SCH (10:44)
[2017-01-10] MEDS: METHYLPREDNISOLONE 125 MG INJ IV SCH ×2 (10:44→20:21)
[2017-01-10] MEDS: ENOXAPARIN 40 MG/0.4 ML SYG SC SCH (10:51)
--- NOTE | 2017-01-10 21:14 | PN ---
Date/Time of Note Date/Time of Note DATE: 01/10/17 TIME: 21:13 Assessment/Plan VTE Prophylaxis VTE Prophylaxis Intervention: other Assessment/Plan Chief Complaint/Hosp Course IMPRESSION: The patient has 1. Chronic obstructive pulmonary disease. 2. Obesity. 3. Hypertension. 4. anxiety 5. Personal history of psychiatric disorder. plan labs ck abg Problems: Subjective 24 Hr Interval Summary Respiratory: shortness of breath (better) Cardiovascular: no complaints Exam/Review of Systems Vital Signs Vitals Vital Signs Date Time Temp Pulse Resp B/P Pulse Ox O2 Delivery O2 Flow Rate FiO2 01/10/17 20:07 82 01/10/17 19:50 98.4 19 130/59 93 01/10/17 08:05 Nasal Cannula 2.0 01/09/17 14:43 21 Intake and Output 01/09/17 01/09/17 01/10/17 15:00 23:00 07:00 Intake Total 900 ml Balance 900 ml Exam Respiratory: diminished breath sounds Cardiovascular: regular rate and rhythm Gastrointestinal: bowel sounds (+), soft Musculoskeletal: nl extremities to inspection Medications Medications Current Medications Clonazepam (Klonopin) 2 mg TID PO Last administered on 01/10/17 20:21; Admin Dose 2 MG; Start 01/09/17 at 21:00 Fluoxetine HCl (Prozac) 40 mg DAILY PO Last administered on 01/10/17 10:44; Admin Dose 40 MG; Start 01/10/17 at 09:00 Tiotropium [place] (Spiriva) 1 inh DAILY INH Last administered on 01/10/17 10: 44; Admin Dose 1 INH; Start 01/10/17 at 09:00 Miscellaneous Information 300 mg DAILY PO ; Start 01/10/17 at 09:00; Status UNV Morphine Sulfate (morphine) 2 mg Q4H PRN IV PAIN LEVEL 6-10 Last administered on 01/10/17 19:30; Admin Dose 2 MG; Start 01/10/17 at 06:30 Levofloxacin (Levaquin) 500 mg DAILY@06 PO ; Start 01/11/17 at 06:00 Lorazepam (Ativan) 1 mg Q6H PRN IV AGITATION/ANXIETY; Start 01/10/17 at 06:30 Enoxaparin Sodium (Lovenox) 40 mg DAILY SC Last administered on 01/10/17 10:51 ; Admin Dose 40 MG; Start 01/10/17 at 09:00 Methylprednisolone Sodium Succinate (Solu-Medrol) 60 mg Q12 IV Last administered on 01/10/17t 20:21; Admin Dose 60 MG; Start 01/10/17 at 09:00 Miscellaneous Information (*Order Clarification Bulletin) MEDICATION REQUIRES CLARIFICATI... Q8H XX ; Start 01/10/17 at 08:00 MARIAM PASCUAL MD Jan 10, 2017 21:14
[2017-01-11] VITALS (11 sets, daily range): BP systolic 130–145; BP diastolic 68–75; PULSE 77–104; RESP 19–22
[2017-01-11 00:04] LABS: AADO2 Arterial 40.4 mmHg (7.0-24.0); Allen Test ACCEPTAB; Arterial Base Excess 6.8 mmol/L (-3.0-3); Arterial COHb 0.4 % (0.0-3.0); Arterial Fraction of Oxyhgb 95.1 % (93.0-99.0); Arterial HCO3 33.8 mmol/L (22.0-26.0); Arterial MetHb 0.3 % (0.0-1.5); MODE NASAL CANNULA
[2017-01-11] MEDS: morphine 2 MG INJ IV PRN ×2 (02:46→06:51)
[2017-01-11] MEDS: LEVOFLOXACIN 500 MG TAB PO SCH (05:43)
[2017-01-11 07:24] LABS: ADD SCAN DIFF NO
[2017-01-11 07:40] LABS: POTASSIUM 3.9 mmol/L (3.5-5.1)
[2017-01-11 07:43] LABS: ALBUMIN/GLOBULIN RATIO 1.33; BILIRUBIN,INDIRECT 0.1 mg/dl (0-1.1); BILIRUBIN,TOTAL 0.1 mg/dl (0.2-1.3); CREATININE 0.5 mg/dl (0.44-1.00)
[2017-01-11 07:44] LABS: CALCIUM 9.3 mg/dl (8.4-10.2)
[2017-01-11 07:56] LABS: BASOPHILS % 0.1 % (0.0-2.0); HEMATOCRIT 42.5 % (37.0-47.0); HEMOGLOBIN 12.9 g/dl (12.0-16.0); LYMPHOCYTES # 1.4 10^3/ul (0.8-2.9); LYMPHOCYTES % 14.5 % (15.0-51.0); MEAN CORPUSCULAR HEMOGLOBIN 20.9 pg (29.0-33.0); MEAN CORPUSCULAR HGB CONC 30.4 g/dl (32.0-37.0); MEAN CORPUSCULAR VOLUME 68.8 fl (82.0-101.0); MEAN PLATELET VOLUME 11.5 fl (7.4-10.4); MONOCYTE # 0.3 10^3/ul (0.3-0.9); MONOCYTES % 3.3 % (0.0-11.0); NEUTROPHIL # 8.1 10^3/ul (1.6-7.5); NEUTROPHILS % 81.4 % (39.0-77.0); PLATELET COUNT 233 10^3/UL (140-415); RED BLOOD COUNT 6.18 10^6/ul (4.20-5.40); WHITE BLOOD COUNT 9.9 10^3/ul (4.8-10.8)
[2017-01-11] MEDS: [UNRECOGNIZED DRUG - REMARK] XX SCH ×3 (10:12→16:00)
[2017-01-11] MEDS: TIOTROPIUM 18 MCG CAPSULE INHA DEV INH SCH (10:13)
[2017-01-11] MEDS: METHYLPREDNISOLONE 125 MG INJ IV SCH (10:13)
[2017-01-11] MEDS: FLUOXETINE 20 MG CAP PO SCH (10:14)
[2017-01-11] MEDS: clonAZEPAM 0.5 MG TAB PO SCH ×3 (10:14→20:04)
[2017-01-11] MEDS: ENOXAPARIN 40 MG/0.4 ML SYG SC SCH (10:25)
[2017-01-11] MEDS ORDERED: predniSONE 20 MG TAB PO SCH (11:30)
[2017-01-11] MEDS: HYDROCODONE/APAP (5/325) TAB PO PRN ×3 (11:38→19:59)
--- NOTE | 2017-01-11 19:28 | PN ---
Date/Time of Note Date/Time of Note DATE: 01/11/17 TIME: 19:27 Assessment/Plan VTE Prophylaxis VTE Prophylaxis Intervention: other Lines/Catheters [facility] Saline Lock Assessment/Plan Chief Complaint/Hosp Course IMPRESSION: The patient has 1. Chronic obstructive pulmonary disease. 2. Obesity. 3. Hypertension. 4. anxiety 5. Personal history of psychiatric disorder. plan labs Problems: Subjective 24 Hr Interval Summary Respiratory: shortness of breath (better) Exam/Review of Systems Vital Signs Vitals Vital Signs Date Time Temp Pulse Resp B/P Pulse Ox O2 Delivery O2 Flow Rate FiO2 01/11/17 16:42 79 01/11/17 12:00 98.3 137/70 95 Nasal Cannula 2.0 01/11/17 08:00 22 01/09/17 14:43 21 Intake and Output 01/10/17 01/10/17 01/11/17 15:00 23:00 07:00 Intake Total 1700 ml 1800 ml Balance 1700 ml 1800 ml Exam Respiratory: clear to auscultation Cardiovascular: regular rate and rhythm Gastrointestinal: soft Genitourinary - Female: nl adnexae Results Result Diagram: 01/11/17 0640 01/11/17 0640 Results 24 hrs Laboratory Tests Test 01/10/17 22:00 01/11/17 06:40 Arterial Blood HCO3 33.8 H Arterial Blood Base Excess 6.8 H Arterial Blood Oxygen Saturation 95.8 Scottie Test ACCEPTAB Arterial Blood Gas Puncture Site Right Radial Arterial Blood Carboxyhemoglobin 0.4 Arterial Blood Date Drawn 01/10/2017 11:55:37 PM Arterial Blood Methemoglobin 0.3 Arterial Blood pCO2 (Temp correct) 58.8 H Arterial Blood pH (Temp corrected) 7.378 Arterial Blood pO2 (Temp corrected) 82.6 Blood Gas A-a O2 Differential 40.4 H Blood Gas Modality NASAL CANNULA Blood Gas Notified Time 01/11/2017 12:03:30 AM Blood Gas Notified Whom KAYLAN GUERIN Blood Gas Specimen Source Blood arterial Blood Gas Temperature 37.0 FiO2 27.0 Oxyhemoglobin Percent 95.1 Total Hemoglobin 14.0 Alanine Aminotransferase (ALT/SGPT) 34 Albumin 4.0 Albumin/Globulin Ratio 1.33 Alkaline Phosphatase 80 Anion Gap 14 Aspartate Amino Transf (AST/SGOT) 25 Basophils # 0.0 Basophils % 0.1 Blood Urea Nitrogen 21 H Calcium Level 9.3 Carbon Dioxide Level 34 H Chloride Level 98 Creatinine 0.50 Direct Bilirubin 0.00 Eosinophils # 0.0 Eosinophils % 0.0 Globulin 3.00 Glucose Level 194 Hematocrit 42.5 Hemoglobin 12.9 Indirect Bilirubin 0.1 Lymphocytes # 1.4 Lymphocytes % 14.5 L Mean Corpuscular Hemoglobin 20.9 L Mean Corpuscular Hemoglobin Concent 30.4 L Mean Corpuscular Volume 68.8 L Mean Platelet Volume 11.5 H Monocytes # 0.3 Monocytes % 3.3 Neutrophils # 8.1 H Neutrophils % 81.4 H Nucleated Red Blood Cells # 0.0 Nucleated Red Blood Cells % 0.0 Platelet Count 233 Potassium Level 3.9 Red Blood Count 6.18 H Red Cell Distribution Width 15.0 H Sodium Level 142 Total Bilirubin 0.1 L Total Protein 7.0 White Blood Count 9.9 Medications Medications Current Medications Clonazepam (Klonopin) 2 mg TID PO Last administered on 01/11/17 13:01; Admin Dose 2 MG; Start 01/09/17 at 21:00 Fluoxetine HCl (Prozac) 40 mg DAILY PO Last administered on 01/11/17 10:14; Admin Dose 40 MG; Start 01/10/17 at 09:00 Tiotropium [place] (Spiriva) 1 inh DAILY INH Last administered on 01/11/17 10: 13; Admin Dose 1 INH; Start 01/10/17 at 09:00 Miscellaneous Information 300 mg DAILY PO ; Start 01/10/17 at 09:00; Status UNV Morphine Sulfate (morphine) 2 mg Q4H PRN IV PAIN LEVEL 6-10 Last administered on 01/11/17 06:51; Admin Dose 2 MG; Start 01/10/17 at 06:30 Levofloxacin (Levaquin) 500 mg DAILY@06 PO Last administered on 01/11/17 05:43 ; Admin Dose 500 MG; Start 01/11/17 at 06:00 Lorazepam (Ativan) 1 mg Q6H PRN IV AGITATION/ANXIETY; Start 01/10/17 at 06:30 Enoxaparin Sodium (Lovenox) 40 mg DAILY SC Last administered on 01/11/17 10:25 ; Admin Dose 40 MG; Start 01/10/17 at 09:00 Miscellaneous Information (*Order Clarification Bulletin) MEDICATION REQUIRES CLARIFICATI... Q8H XX ; Start 01/10/17 at 08:00 Acetaminophen/ Hydrocodone Bitart ([place] (5/325)) 1 tab Q4H PRN PO pain Last administered on 01/11/17t 15:35; Admin Dose 1 TAB; Start 01/11/17 at 11:30 Prednisone (Prednisone) 40 mg BID PO ; Start 01/11/17 at 21:00 MARIAM PASCUAL MD Jan 11, 2017 19:28
[2017-01-11] MEDS: predniSONE 20 MG TAB PO SCH (20:04)
[2017-01-12] VITALS (13 sets, daily range): BP systolic 94–152; BP diastolic 47–74; PULSE 68–162; RESP 18
[2017-01-12] MEDS: HYDROCODONE/APAP (5/325) TAB PO PRN ×3 (06:18→15:19)
[2017-01-12] MEDS: LEVOFLOXACIN 500 MG TAB PO SCH (06:18)
[2017-01-12] MEDS: [UNRECOGNIZED DRUG - REMARK] XX SCH ×2 (07:54)
[2017-01-12] MEDS: clonAZEPAM 0.5 MG TAB PO SCH ×3 (08:36→20:46)
[2017-01-12] MEDS: TIOTROPIUM 18 MCG CAPSULE INHA DEV INH SCH (08:36)
[2017-01-12] MEDS: FLUOXETINE 20 MG CAP PO SCH (08:37)
[2017-01-12] MEDS: predniSONE 20 MG TAB PO SCH ×2 (08:37→20:47)
[2017-01-12] MEDS: ENOXAPARIN 40 MG/0.4 ML SYG SC SCH (08:44)
[2017-01-12] MEDS ORDERED: LORAZEPAM 1 MG TAB PO PRN (12:00)
[2017-01-12] MEDS: QUETIAPINE FUMARATE 50 MG PO SCH (18:44)
--- NOTE | 2017-01-12 20:59 | PN ---
Date/Time of Note Date/Time of Note DATE: 01/12/17 TIME: 20:58 Assessment/Plan VTE Prophylaxis VTE Prophylaxis Intervention: other Lines/Catheters IV Catheter Type (from Nrs): Saline Lock Assessment/Plan Chief Complaint/Hosp Course IMPRESSION: The patient has 1. Chronic obstructive pulmonary disease. 2. Obesity. 3. Hypertension. 4. anxiety 5. Personal history of psychiatric disorder. plan hhn home am Problems: Subjective 24 Hr Interval Summary Gastrointestinal: no complaints Genitourinary: no complaints Exam/Review of Systems Vital Signs Vitals Vital Signs Date Time Temp Pulse Resp B/P Pulse Ox O2 Delivery O2 Flow Rate FiO2 01/12/17 20:22 76 01/12/17 19:42 98.0 18 120/68 97 01/12/17 04:10 Nasal Cannula 2.0 01/09/17 14:43 21 Intake and Output 01/11/17 01/11/17 01/12/17 15:00 23:00 07:00 Intake Total 1680 ml 900 ml Balance 1680 ml 900 ml Exam Cardiovascular: regular rate and rhythm Gastrointestinal: soft Musculoskeletal: nl extremities to inspection Extremities: normal pulses Results Result Diagram: 01/11/17 0640 01/11/17 0640 Medications Medications Current Medications Clonazepam (Klonopin) 2 mg TID PO Last administered on 01/12/17 20:46; Admin Dose 2 MG; Start 01/09/17 at 21:00 Fluoxetine HCl (Prozac) 40 mg DAILY PO Last administered on 01/12/17 08:37; Admin Dose 40 MG; Start 01/10/17 at 09:00 Tiotropium [place] (Spiriva) 1 inh DAILY INH Last administered on 01/12/17 08: 36; Admin Dose 1 INH; Start 01/10/17 at 09:00 Morphine Sulfate (morphine) 2 mg Q4H PRN IV PAIN LEVEL 6-10 Last administered on 01/11/17 06:51; Admin Dose 2 MG; Start 01/10/17 at 06:30 Levofloxacin (Levaquin) 500 mg DAILY@06 PO Last administered on 01/12/17 06:18 ; Admin Dose 500 MG; Start 01/11/17 at 06:00 Enoxaparin Sodium (Lovenox) 40 mg DAILY SC Last administered on 01/12/17 08:44 ; Admin Dose 40 MG; Start 01/10/17 at 09:00 Acetaminophen/ Hydrocodone Bitart ([place] (5/325)) 1 tab Q4H PRN PO pain Last administered on 01/12/17 15:19; Admin Dose 1 TAB; Start 01/11/17 at 11:30 Prednisone (Prednisone) 40 mg BID PO Last administered on 01/12/17 20:47; Admin Dose 40 MG; Start 01/11/17 at 21:00 Lorazepam (Ativan) 1 mg Q6H PRN PO ANXIETY; Start 01/12/17 at 12:00 Quetiapine Fumarate (Seroquel Xr) 300 mg DAILY PO Last administered on 18:44; Admin Dose 300 MG; Start 01/12/17 at 16:30 MARIAM PASCUAL MD Jan 12, 2017 20:59
[2017-01-13] VITALS (13 sets, daily range): BP systolic 128–168; BP diastolic 64–107; PULSE 61–93; RESP 18–20
[2017-01-13] MEDS: HYDROCODONE/APAP (5/325) TAB PO PRN ×3 (00:52→19:28)
[2017-01-13] MEDS: LEVOFLOXACIN 500 MG TAB PO SCH (06:45)
[2017-01-13] MEDS: predniSONE 20 MG TAB PO SCH ×2 (08:50→20:56)
[2017-01-13] MEDS: clonAZEPAM 0.5 MG TAB PO SCH ×3 (08:50→20:59)
[2017-01-13] MEDS: FLUOXETINE 20 MG CAP PO SCH (08:50)
[2017-01-13] MEDS: ENOXAPARIN 40 MG/0.4 ML SYG SC SCH (08:54)
[2017-01-13] MEDS: QUETIAPINE FUMARATE 50 MG PO SCH (08:57)
[2017-01-13] MEDS: TIOTROPIUM 18 MCG CAPSULE INHA DEV INH SCH (08:58)
--- NOTE | 2017-01-13 13:24 | PDOCDIS ---
Discharge Instructions CONDITION Patient Condition: Stable ACTIVITY: Activity Restrictions: Slowly Increase Activity FOLLOW UP/APPOINTMENTS Appointments F/U OWN PCP 1 WK MARIAM PASCUAL MD Jan 13, 2017 13:24
[2017-01-13] MEDS ORDERED: LEVO500T10 PO (13:27)
[2017-01-13] MEDS ORDERED: HYDR-3498 PO (13:27)
[2017-01-13] MEDS ORDERED: LORA1TAB PO (13:27)
[2017-01-13] MEDS ORDERED: PRED10TA PO (13:27)
--- NOTE | 2017-01-13 14:13 | QN ---
Documentation Comment PT IS MEDICALLY CLEARED FOR DISCHARGE PT IS OFF O2 NOW MARIAM PASCUAL MD Jan 13, 2017 14:13
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
--- NOTE | 2017-01-13 17:48 | PN ---
Date/Time of Note Date/Time of Note DATE: 01/13/17 TIME: 17:47 Assessment/Plan VTE Prophylaxis VTE Prophylaxis Intervention: other Lines/Catheters [facility] Saline Lock Urinary Cath still in place: No Assessment/Plan Chief Complaint/Hosp Course IMPRESSION: The patient has 1. Chronic obstructive pulmonary disease. 2. Obesity. 3. Hypertension. 4. anxiety 5. Personal history of psychiatric disorder. plan hhn home Problems: Subjective 24 Hr Interval Summary Respiratory: no complaints Cardiovascular: no complaints Exam/Review of Systems Vital Signs Vitals Vital Signs Date Time Temp Pulse Resp B/P Pulse Ox O2 Delivery O2 Flow Rate FiO2 01/13/17 16:34 71 01/13/17 15:17 97.8 18 155/73 92 01/12/17 04:10 Nasal Cannula 2.0 01/09/17 14:43 21 Intake and Output 01/12/17 01/12/17 01/13/17 15:00 23:00 07:00 Intake Total 720 ml 310 ml Balance 720 ml 310 ml Exam Respiratory: clear to auscultation Cardiovascular: regular rate and rhythm Results Result Diagram: 01/11/17 0640 01/11/17 0640 Medications Medications Current Medications Clonazepam (Klonopin) 2 mg TID PO Last administered on 01/13/17 12:50; Admin Dose 2 MG; Start 01/09/17 at 21:00 Fluoxetine HCl (Prozac) 40 mg DAILY PO Last administered on 01/13/17 08:50; Admin Dose 40 MG; Start 01/10/17 at 09:00 Tiotropium [place] (Spiriva) 1 inh DAILY INH Last administered on 01/13/17 08: 58; Admin Dose 1 INH; Start 01/10/17 at 09:00 Morphine Sulfate (morphine) 2 mg Q4H PRN IV PAIN LEVEL 6-10 Last administered on 01/11/17 06:51; Admin Dose 2 MG; Start 01/10/17 at 06:30 Levofloxacin (Levaquin) 500 mg DAILY@06 PO Last administered on 01/13/17 06:45 ; Admin Dose 500 MG; Start 01/11/17 at 06:00 Enoxaparin Sodium (Lovenox) 40 mg DAILY SC Last administered on 01/13/17 08:54 ; Admin Dose 40 MG; Start 01/10/17 at 09:00 Acetaminophen/ Hydrocodone Bitart ([place] (5/325)) 1 tab Q4H PRN PO pain Last administered on 01/13/17 08:50; Admin Dose 1 TAB; Start 01/11/17 at 11:30 Prednisone (Prednisone) 40 mg BID PO Last administered on 01/13/17 08:50; Admin Dose 40 MG; Start 01/11/17 at 21:00 Lorazepam (Ativan) 1 mg Q6H PRN PO ANXIETY; Start 01/12/17 at 12:00 Quetiapine Fumarate (Seroquel Xr) 300 mg DAILY PO Last administered on 08:57; Admin Dose 300 MG; Start 01/12/17 at 16:30 MARIAM PASCUAL MD Jan 13, 2017 17:48
[2017-01-14] MEDS: LEVOFLOXACIN 500 MG TAB PO SCH (05:14)
[2017-01-14 07:00] VITALS: BP 135/83; RESP 20
[2017-01-14] MEDS: HYDROCODONE/APAP (5/325) TAB PO PRN ×2 (07:35→12:24)
[2017-01-14] MEDS: FLUOXETINE 20 MG CAP PO SCH (09:25)
[2017-01-14] MEDS: MUPIROCIN 2% 22 GM OINT TOP SCH (09:25)
[2017-01-14] MEDS: clonAZEPAM 0.5 MG TAB PO SCH ×3 (09:25→20:43)
[2017-01-14] MEDS: predniSONE 20 MG TAB PO SCH ×2 (09:25→20:42)
[2017-01-14] MEDS: TIOTROPIUM 18 MCG CAPSULE INHA DEV INH SCH (09:26)
[2017-01-14] MEDS: ENOXAPARIN 40 MG/0.4 ML SYG SC SCH (09:37)
[2017-01-14] MEDS: QUETIAPINE FUMARATE 50 MG PO SCH (10:23)
--- NOTE | 2017-01-14 11:27 | PN ---
Date/Time of Note Date/Time of Note DATE: 01/14/17 TIME: 11:20 Assessment/Plan VTE Prophylaxis VTE Prophylaxis Intervention: SCD's Lines/Catheters IV Catheter Type (from Nrs): Saline Lock Urinary Cath still in place: No Assessment/Plan Chief Complaint/Hosp Course The patient has 1. Chronic obstructive pulmonary disease. 2. Obesity. 3. Hypertension. 4. anxiety 5. Personal history of psychiatric disorder. 6. Pt is waiting transfer to mental institution, medically cleared Problems: Subjective 24 Hr Interval Summary Constitutional: other (pain and feeling needles in both legs) Eyes: no complaints ENT: no complaints Respiratory: no complaints Cardiovascular: no complaints Genitourinary: no complaints Musculoskeletal: other (leg pain 2/10, tingling) Skin: no complaints Neurologic: no complaints Endocrine: no complaints Lymphatic: no complaints Psychological: no complaints Immunologic: no complaints Exam/Review of Systems Vital Signs Vitals Vital Signs Date Time Temp Pulse Resp B/P Pulse Ox O2 Delivery O2 Flow Rate FiO2 01/14/17 07:00 98.4 69 20 135/83 96 01/12/17 04:10 Nasal Cannula 2.0 Intake and Output 01/13/17 01/13/17 01/14/17 15:00 23:00 07:00 Intake Total 720 ml 1020 ml Balance 720 ml 1020 ml Exam Constitutional: alert, oriented, well developed Psych: other (has a sitter), suicidal Head: atraumatic, normocephalic Eyes: EOMI, nl conjunctiva ENMT: nl external ears & nose Neck: supple Respiratory: clear to auscultation Cardiovascular: regular rate and rhythm Results Result Diagram: 01/11/1740 01/11/1740 Medications Medications Current Medications Clonazepam (Klonopin) 2 mg TID PO Last administered on 01/14/17 09:25; Admin Dose 2 MG; Start 01/09/17 at 21:00 Fluoxetine HCl (Prozac) 40 mg DAILY PO Last administered on 01/14/17 09:25; Admin Dose 40 MG; Start 01/10/17 at 09:00 Tiotropium [place] (Spiriva) 1 inh DAILY INH Last administered on 01/14/17 09: 26; Admin Dose 1 INH; Start 01/10/17 at 09:00 Morphine Sulfate (morphine) 2 mg Q4H PRN IV PAIN LEVEL 6-10 Last administered on 01/11/17 06:51; Admin Dose 2 MG; Start 01/10/17 at 06:30 Levofloxacin (Levaquin) 500 mg DAILY@06 PO Last administered on 01/14/17 05:14 ; Admin Dose 500 MG; Start 01/11/17 at 06:00 Enoxaparin Sodium (Lovenox) 40 mg DAILY SC Last administered on 01/14/17 09:37 ; Admin Dose 40 MG; Start 01/10/17 at 09:00 Acetaminophen/ Hydrocodone Bitart ([place] (5/325)) 1 tab Q4H PRN PO pain Last administered on 01/14/17 07:35; Admin Dose 1 TAB; Start 01/11/17 at 11:30 Prednisone (Prednisone) 40 mg BID PO Last administered on 01/14/17 09:25; Admin Dose 40 MG; Start 01/11/17 at 21:00 Lorazepam (Ativan) 1 mg Q6H PRN PO ANXIETY; Start 01/12/17 at 12:00 Quetiapine Fumarate (Seroquel Xr) 300 mg DAILY PO Last administered on 10:23; Admin Dose 300 MG; Start 01/12/17 at 16:30 Mupirocin (Bactroban) 1 applic DAILY TOP Last administered on 01/14/17 09:25; Admin Dose 1 APPLIC; Start 01/14/17 at 09:00 ORION QUINTERO Jan 14, 2017 11:27
[2017-01-14] MEDS: GABAPENTIN 100 MG CAP PO SCH ×2 (13:32→20:42)
[2017-01-14 20:30] VITALS: BP 135/60; PULSE 64; RESP 18
[2017-01-15] MEDS: LEVOFLOXACIN 500 MG TAB PO SCH (05:52)
[2017-01-15] MEDS: HYDROCODONE/APAP (5/325) TAB PO PRN ×3 (07:01→21:07)
[2017-01-15 07:22] VITALS: BP 137/71; RESP 20
[2017-01-15] MEDS: GABAPENTIN 100 MG CAP PO SCH ×3 (08:54→21:04)
[2017-01-15] MEDS: FLUOXETINE 20 MG CAP PO SCH (08:55)
[2017-01-15] MEDS: clonAZEPAM 0.5 MG TAB PO SCH ×3 (08:55→21:04)
[2017-01-15] MEDS: predniSONE 20 MG TAB PO SCH ×2 (08:55→21:04)
[2017-01-15] MEDS: TIOTROPIUM 18 MCG CAPSULE INHA DEV INH SCH (08:55)
[2017-01-15] MEDS: MUPIROCIN 2% 22 GM OINT TOP SCH (08:56)
[2017-01-15] MEDS: ENOXAPARIN 40 MG/0.4 ML SYG SC SCH (09:13)
[2017-01-15] MEDS: QUETIAPINE FUMARATE 50 MG PO SCH (09:25)
--- NOTE | 2017-01-15 16:53 | PN ---
Date/Time of Note Date/Time of Note DATE: 01/15/17 TIME: 16:52 Assessment/Plan VTE Prophylaxis VTE Prophylaxis Intervention: other Lines/Catheters IV [facility] Type (from [facility] Saline Lock Urinary Cath still in place: No Assessment/Plan Chief Complaint/Hosp Course IMPRESSION: The patient has 1. Chronic obstructive pulmonary disease. 2. Obesity. 3. Hypertension. 4. anxiety 5. Personal history of psychiatric disorder. plan hhn PLACEMENT Problems: Subjective 24 Hr Interval Summary Respiratory: no complaints Cardiovascular: no complaints Exam/Review of Systems Vital Signs Vitals Vital Signs Date Time Temp Pulse Resp B/P Pulse Ox O2 Delivery O2 Flow Rate FiO2 01/15/17 07:22 98.0 70 20 137/71 95 01/14/17 20:30 Room Air 01/12/17 04:10 2.0 Intake and Output 01/14/17 01/14/17 01/15/17 15:00 23:00 07:00 Intake Total 1640 ml 830 ml Balance 1640 ml 830 ml Exam Respiratory: clear to auscultation Cardiovascular: regular rate and rhythm Gastrointestinal: soft Musculoskeletal: nl extremities to inspection Results Result Diagram: 01/11/1740 01/11/17 0640 Medications Medications Current Medications Clonazepam (Klonopin) 2 mg TID PO Last administered on 01/15/17 12:45; Admin Dose 2 MG; Start 01/09/17 at 21:00 Fluoxetine HCl (Prozac) 40 mg DAILY PO Last administered on 01/15/17 08:55; Admin Dose 40 MG; Start 01/10/17 at 09:00 Tiotropium [place] (Spiriva) 1 inh DAILY INH Last administered on 01/15/17 08: 55; Admin Dose 1 INH; Start 01/10/17 at 09:00 Morphine Sulfate (morphine) 2 mg Q4H PRN IV PAIN LEVEL 6-10 Last administered on 01/11/17 06:51; Admin Dose 2 MG; Start 01/10/17 at 06:30 Levofloxacin (Levaquin) 500 mg DAILY@06 PO Last administered on 01/15/17 05:52 ; Admin Dose 500 MG; Start 01/11/17 at 06:00 Enoxaparin Sodium (Lovenox) 40 mg DAILY SC Last administered on 01/15/17 09:13 ; Admin Dose 40 MG; Start 01/10/17 at 09:00 Acetaminophen/ Hydrocodone Bitart ([place] (5/325)) 1 tab Q4H PRN PO pain Last administered on 01/15/17 12:45; Admin Dose 1 TAB; Start 01/11/17 at 11:30 Prednisone (Prednisone) 40 mg BID PO Last administered on 01/15/17 08:55; Admin Dose 40 MG; Start 01/11/17 at 21:00 Lorazepam (Ativan) 1 mg Q6H PRN PO ANXIETY; Start 01/12/17 at 12:00 Quetiapine Fumarate (Seroquel Xr) 300 mg DAILY PO Last administered on 09:25; Admin Dose 300 MG; Start 01/12/17 at 16:30 Mupirocin (Bactroban) 1 applic DAILY TOP Last administered on 01/15/17 08:56; Admin Dose 1 APPLIC; Start 01/14/17 at 09:00 Gabapentin (Neurontin) 100 mg TID PO Last administered on 01/15/17 12:45; Admin Dose 100 MG; Start 01/14/17 at 13:00 Zolpidem Tartrate (Ambien) 5 mg HS PRN PO INSOMNIA; Start 01/14/17 at 23:30 MARIAM PASCUAL MD Jan 15, 2017 16:53
[2017-01-15 20:00] VITALS: BP 151/73; PULSE 86; RESP 18
[2017-01-16] MEDS: LEVOFLOXACIN 500 MG TAB PO SCH (06:24)
[2017-01-16 07:34] VITALS: BP 140/76; RESP 18
[2017-01-16] MEDS: HYDROCODONE/APAP (5/325) TAB PO PRN ×2 (08:15→16:15)
[2017-01-16] MEDS: FLUOXETINE 20 MG CAP PO SCH (08:16)
[2017-01-16] MEDS: clonAZEPAM 0.5 MG TAB PO SCH ×3 (08:16→21:08)
[2017-01-16] MEDS: GABAPENTIN 100 MG CAP PO SCH ×3 (08:16→21:07)
[2017-01-16] MEDS: TIOTROPIUM 18 MCG CAPSULE INHA DEV INH SCH (08:16)
[2017-01-16] MEDS: MUPIROCIN 2% 22 GM OINT TOP SCH (08:17)
[2017-01-16] MEDS: predniSONE 20 MG TAB PO SCH ×2 (08:17→21:07)
[2017-01-16] MEDS: ENOXAPARIN 40 MG/0.4 ML SYG SC SCH (08:20)
[2017-01-16] MEDS: QUETIAPINE FUMARATE 50 MG PO SCH (08:54)
--- NOTE | 2017-01-16 16:12 | PN ---
Date/Time of Note Date/Time of Note DATE: 01/16/17 TIME: 16:10 Assessment/Plan VTE Prophylaxis VTE Prophylaxis Intervention: other Lines/Catheters [facility] Saline Lock Urinary Cath still in place: No Assessment/Plan Chief Complaint/Hosp Course IMPRESSION: The patient has 1. Chronic obstructive pulmonary disease. 2. Obesity. 3. Hypertension. 4. anxiety 5. Personal history of psychiatric disorder. 6 possible mrsa colonization plan PLACEMENT Problems: Subjective 24 Hr Interval Summary Subjective hx not possible: other (neg) Constitutional: no complaints Eyes: no complaints ENT: no complaints Respiratory: no complaints Cardiovascular: no complaints Gastrointestinal: no complaints Musculoskeletal: no complaints Skin: no complaints Neurologic: no complaints Exam/Review of Systems Vital Signs Vitals Vital Signs Date Time Temp Pulse Resp B/P Pulse Ox O2 Delivery O2 Flow Rate FiO2 01/16/17 07:34 98.2 80 18 140/76 96 01/15/17 20:00 Room Air Intake and Output 01/15/17 01/15/17 01/16/17 15:00 23:00 07:00 Intake Total 360 ml Balance 360 ml Exam Cardiovascular: regular rate and rhythm Gastrointestinal: soft Musculoskeletal: nl extremities to inspection Extremities: normal pulses Medications Medications Current Medications Clonazepam (Klonopin) 2 mg TID PO Last administered on 01/16/17 13:10; Admin Dose 2 MG; Start 01/09/17 at 21:00 Fluoxetine HCl (Prozac) 40 mg DAILY PO Last administered on 01/16/17 08:16; Admin Dose 40 MG; Start 01/10/17 at 09:00 Tiotropium [place] (Spiriva) 1 inh DAILY INH Last administered on 01/16/17 08: 16; Admin Dose 1 INH; Start 01/10/17 at 09:00 Morphine Sulfate (morphine) 2 mg Q4H PRN IV PAIN LEVEL 6-10 Last administered on 01/11/17 06:51; Admin Dose 2 MG; Start 01/10/17 at 06:30 Levofloxacin (Levaquin) 500 mg DAILY@06 PO Last administered on 01/16/17 06:24 ; Admin Dose 500 MG; Start 01/11/17 at 06:00 Enoxaparin Sodium (Lovenox) 40 mg DAILY SC Last administered on 01/16/17 08:20 ; Admin Dose 40 MG; Start 01/10/17 at 09:00 Acetaminophen/ Hydrocodone Bitart ([place] (5/325)) 1 tab Q4H PRN PO pain Last administered on 01/16/17 08:15; Admin Dose 1 TAB; Start 01/11/17 at 11:30 Prednisone (Prednisone) 40 mg BID PO Last administered on 01/16/17 08:17; Admin Dose 40 MG; Start 01/11/17 at 21:00 Lorazepam (Ativan) 1 mg Q6H PRN PO ANXIETY; Start 01/12/17 at 12:00 Quetiapine Fumarate (Seroquel Xr) 300 mg DAILY PO Last administered on 08:54; Admin Dose 300 MG; Start 01/12/17 at 16:30 Mupirocin (Bactroban) 1 applic DAILY TOP Last administered on 01/16/17 08:17; Admin Dose 1 APPLIC; Start 01/14/17 at 09:00 Gabapentin (Neurontin) 100 mg TID PO Last administered on 01/16/17 13:10; Admin Dose 100 MG; Start 01/14/17 at 13:00 Zolpidem Tartrate (Ambien) 5 mg HS PRN PO INSOMNIA; Start 01/14/17 at 23:30 Diagnostic Test (Pha) (Accucheck) 1 ea 02 XX ; Start 01/17/17 at 02:00 Miscellaneous Information 1 ea NOTE XX ; Start 01/16/17 at 16:30 Glucose (Glutose) 15 gm Q15M PRN PO DECREASED GLUCOSE; Start 01/16/17 at 16:30 Glucose (Glutose) 22.5 gm Q15M PRN PO DECREASED GLUCOSE; Start 01/16/17 at 16: 30 Dextrose (D50w Syringe) 25 ml Q15M PRN IV DECREASED GLUCOSE; Start 01/16/17 at 16:30 Dextrose (D50w Syringe) 50 ml Q15M PRN IV DECREASED GLUCOSE; Start 01/16/17 at 16:30 Glucagon (Glucagen) 1 mg Q15M PRN IM DECREASED GLUCOSE; Start 01/16/17 at 16:30 Glucose (Glutose) 15 gm Q15M PRN BUCCAL DECREASED GLUCOSE; Start 01/16/17 at 16 :30 MARIAM PASCUAL MD Jan 16, 2017 16:11
[2017-01-16] MEDS ORDERED: GLUCAGON 1 MG INJ IM PRN (16:30)
[2017-01-16] MEDS ORDERED: GLUCOSE GEL 15 GRAM TUBE BUCCAL PRN (16:30)
[2017-01-16] MEDS ORDERED: GLUCOSE GEL 15 GRAM TUBE PO PRN ×2 (16:30)
[2017-01-16] MEDS ORDERED: DEXTROSE 50% 50 ML SYRINGE IV PRN ×2 (16:30)
[2017-01-16] MEDS: INSULIN ASPART [NOVOLOG] 3 ML PEN SC SCH ×2 (17:37→21:14)
[2017-01-16] MEDS ORDERED: INSULIN ASPART [NOVOLOG] 3 ML PEN SC SCH (18:00)
[2017-01-16 19:17] VITALS: BP 139/65; RESP 18
[2017-01-17] MEDS: ZOLPIDEM 5 MG TAB PO PRN ×2 (01:56→21:19)
[2017-01-17] MEDS: ACCUCHECK XX SCH (01:58)
[2017-01-17] MEDS ORDERED: ACCUCHECK XX SCH ×2 (02:00)
[2017-01-17] MEDS: LEVOFLOXACIN 500 MG TAB PO SCH (05:34)
[2017-01-17 07:22] VITALS: BP 165/75; RESP 20
[2017-01-17] MEDS: INSULIN ASPART [NOVOLOG] 3 ML PEN SC SCH ×4 (07:40→21:00)
[2017-01-17] MEDS: predniSONE 20 MG TAB PO SCH ×2 (07:49→20:07)
[2017-01-17] MEDS: TIOTROPIUM 18 MCG CAPSULE INHA DEV INH SCH (07:49)
[2017-01-17] MEDS: FLUOXETINE 20 MG CAP PO SCH (07:49)
[2017-01-17] MEDS: GABAPENTIN 100 MG CAP PO SCH ×3 (07:50→20:07)
[2017-01-17] MEDS: clonAZEPAM 0.5 MG TAB PO SCH ×3 (07:50→21:00)
[2017-01-17] MEDS: ENOXAPARIN 40 MG/0.4 ML SYG SC SCH (08:06)
[2017-01-17] MEDS: QUETIAPINE FUMARATE 50 MG PO SCH (08:37)
[2017-01-17] MEDS: HYDROCODONE/APAP (5/325) TAB PO PRN ×2 (08:37→20:07)
[2017-01-17] MEDS: MUPIROCIN 2% 22 GM OINT TOP SCH (08:37)
[2017-01-17 19:26] VITALS: BP 142/74; RESP 16
[2017-01-18] MEDS: ACCUCHECK XX SCH (02:00)
[2017-01-18] MEDS: LEVOFLOXACIN 500 MG TAB PO SCH (06:14)
[2017-01-18] MEDS: INSULIN ASPART [NOVOLOG] 3 ML PEN SC SCH ×4 (08:15→22:00)
[2017-01-18 08:30] VITALS: BP 148/69; RESP 19
[2017-01-18] MEDS: GABAPENTIN 100 MG CAP PO SCH ×3 (08:40→20:19)
[2017-01-18] MEDS: TIOTROPIUM 18 MCG CAPSULE INHA DEV INH SCH (08:40)
[2017-01-18] MEDS: clonAZEPAM 0.5 MG TAB PO SCH ×3 (08:40→20:19)
[2017-01-18] MEDS: FLUOXETINE 20 MG CAP PO SCH (08:40)
[2017-01-18] MEDS: MUPIROCIN 2% 22 GM OINT TOP SCH (08:41)
[2017-01-18] MEDS: HYDROCODONE/APAP (5/325) TAB PO PRN ×3 (08:45→20:20)
[2017-01-18] MEDS: ENOXAPARIN 40 MG/0.4 ML SYG SC SCH (08:47)
[2017-01-18] MEDS ORDERED: predniSONE 20 MG TAB PO SCH (09:00)
[2017-01-18] MEDS: QUETIAPINE FUMARATE 50 MG PO SCH ×2 (09:00→11:24)
[2017-01-18 19:36] VITALS: BP 126/56; RESP 18
--- NOTE | 2017-01-18 20:06 | PN ---
Date/Time of Note Date/Time of Note DATE: 01/18/17 TIME: 20:05 Assessment/Plan VTE Prophylaxis VTE Prophylaxis Intervention: other Lines/Catheters IV Catheter Type (from Nrs): Saline Lock Urinary Cath still in place: No Assessment/Plan Chief Complaint/Hosp Course IMPRESSION: The patient has 1. Chronic obstructive pulmonary disease. 2. Obesity. 3. Hypertension. 4. anxiety 5. Personal history of psychiatric disorder. 6 possible mrsa colonization plan PLACEMENT Problems: Subjective 24 Hr Interval Summary Respiratory: no complaints Exam/Review of Systems Vital Signs Vitals Vital Signs Date Time Temp Pulse Resp B/P Pulse Ox O2 Delivery O2 Flow Rate FiO2 01/18/17 19:36 98.4 76 18 126/56 98 01/15/17 20:00 Room Air Intake and Output 01/17/17 01/17/17 01/18/17 15:00 23:00 07:00 Intake Total 1000 ml 640 ml Balance 1000 ml 640 ml Exam Neck: supple Respiratory: clear to auscultation Cardiovascular: regular rate and rhythm Gastrointestinal: soft Results Results 24 hrs Laboratory Tests Test 01/17/17 21:18 01/17/17 21:25 01/18/17 08:06 01/18/17 12:16 Bedside Glucose 141 133 318 H Hemoglobin A1c 6.4 H Test 01/18/17 17:15 Bedside Glucose 328 H Medications Medications Current Medications Clonazepam (Klonopin) 2 mg TID PO Last administered on 01/18/17 12:24; Admin Dose 2 MG; Start 01/09/17 at 21:00 Fluoxetine HCl (Prozac) 40 mg DAILY PO Last administered on 01/18/17 08:40; Admin Dose 40 MG; Start 01/10/17 at 09:00 Tiotropium [place] (Spiriva) 1 inh DAILY INH Last administered on 01/18/17 08: 40; Admin Dose 1 INH; Start 01/10/17 at 09:00 Morphine Sulfate (morphine) 2 mg Q4H PRN IV PAIN LEVEL 6-10 Last administered on 01/11/17 06:51; Admin Dose 2 MG; Start 01/10/17 at 06:30 Levofloxacin (Levaquin) 500 mg DAILY@06 PO Last administered on 01/18/17 06:14 ; Admin Dose 500 MG; Start 01/11/17 at 06:00 Enoxaparin Sodium (Lovenox) 40 mg DAILY SC Last administered on 01/18/17 08:47 ; Admin Dose 40 MG; Start 01/10/17 at 09:00 Acetaminophen/ Hydrocodone Bitart ([place] (5/325)) 1 tab Q4H PRN PO pain Last administered on 01/18/17 13:47; Admin Dose 1 TAB; Start 01/11/17 at 11:30 Lorazepam (Ativan) 1 mg Q6H PRN PO ANXIETY; Start 01/12/17 at 12:00 Quetiapine Fumarate (Seroquel Xr) 300 mg DAILY PO Last administered on 11:24; Admin Dose 300 MG; Start 01/12/17 at 16:30 Mupirocin (Bactroban) 1 applic DAILY TOP Last administered on 01/18/17 08:41; Admin Dose 1 APPLIC; Start 01/14/17 at 09:00 Gabapentin (Neurontin) 100 mg TID PO Last administered on 01/18/17 12:24; Admin Dose 100 MG; Start 01/14/17 at 13:00 Zolpidem Tartrate (Ambien) 5 mg HS PRN PO INSOMNIA Last administered on 21:19; Admin Dose 5 MG; Start 01/14/17 at 23:30 Miscellaneous Information 1 ea NOTE XX ; Start 01/16/17 at 16:30 Glucose (Glutose) 15 gm Q15M PRN PO DECREASED GLUCOSE; Start 01/16/17 at 16:30 Glucose (Glutose) 22.5 gm Q15M PRN PO DECREASED GLUCOSE; Start 01/16/17 at 16: 30 Dextrose (D50w Syringe) 25 ml Q15M PRN IV DECREASED GLUCOSE; Start 01/16/17 at 16:30 Dextrose (D50w Syringe) 50 ml Q15M PRN IV DECREASED GLUCOSE; Start 01/16/17 at 16:30 Glucagon (Glucagen) 1 mg Q15M PRN IM DECREASED GLUCOSE; Start 01/16/17 at 16:30 Glucose (Glutose) 15 gm Q15M PRN BUCCAL DECREASED GLUCOSE; Start 01/16/17 at 16 :30 Diagnostic Test (Pha) (Accucheck) 1 ea 02 XX Last administered on 01/17/17 01: 58; Admin Dose 1 EA; Start 01/17/17 at 02:00 Prednisone (Prednisone) 20 mg BID PO Last administered on 01/18/17t 08:40; Admin Dose 20 MG; Start 01/18/17 at 09:00 MARIAM PASCUAL MD Jan 18, 2017 20:06
[2017-01-18] MEDS ORDERED: INSULIN ASPART [NOVOLOG] 3 ML PEN SC ONE (22:30)
[2017-01-19] MEDS: ACCUCHECK XX SCH (02:00)
[2017-01-19] MEDS: LEVOFLOXACIN 500 MG TAB PO SCH (06:48)
[2017-01-19] MEDS: INSULIN ASPART [NOVOLOG] 3 ML PEN SC SCH ×2 (07:59→12:33)
[2017-01-19 08:30] VITALS: BP 109/61; PULSE 100; RESP 18
[2017-01-19] MEDS: FLUOXETINE 20 MG CAP PO SCH (08:38)
[2017-01-19] MEDS: GABAPENTIN 100 MG CAP PO SCH ×2 (08:38→12:28)
[2017-01-19] MEDS: ENOXAPARIN 40 MG/0.4 ML SYG SC SCH (08:45)
[2017-01-19] MEDS ORDERED: predniSONE 20 MG TAB PO SCH (09:00)
[2017-01-19] MEDS: TIOTROPIUM 18 MCG CAPSULE INHA DEV INH SCH (09:28)
[2017-01-19] MEDS: MUPIROCIN 2% 22 GM OINT TOP SCH (09:28)
[2017-01-19] MEDS: HYDROCODONE/APAP (5/325) TAB PO PRN (09:29)
[2017-01-19] MEDS: clonAZEPAM 0.5 MG TAB PO SCH ×2 (09:30→13:26)
[2017-01-19] MEDS ORDERED: LOPERAMIDE 2 MG CAP PO ONE (10:00)
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
[2017-01-19] MEDS: QUETIAPINE FUMARATE 50 MG PO SCH (10:36)
--- NOTE | 2017-01-19 12:17 | PN ---
Date/Time of Note Date/Time of Note DATE: 01/19/17 TIME: 12:16 Assessment/Plan VTE Prophylaxis VTE Prophylaxis Intervention: other Lines/Catheters IV [facility]ter Type (from [facility]): Saline Lock Urinary Cath still in place: No Assessment/Plan Chief Complaint/Hosp Course IMPRESSION: The patient has 1. Chronic obstructive pulmonary disease. 2. Obesity. 3. Hypertension. 4. anxiety 5. Personal history of psychiatric disorder. 6 mrsa treated now negative plan PLACEMENT Problems: Subjective 24 Hr Interval Summary Respiratory: no complaints Cardiovascular: no complaints Exam/Review of Systems Vital Signs Vitals Vital Signs Date Time Temp Pulse Resp B/P Pulse Ox O2 Delivery O2 Flow Rate FiO2 01/19/17 08:30 97.7 100 18 109/61 96 Room Air Intake and Output 01/18/17 01/18/17 01/19/17 15:00 23:00 07:00 Intake Total 780 ml Balance 780 ml Exam Neck: supple Respiratory: clear to auscultation Cardiovascular: regular rate and rhythm Gastrointestinal: soft Musculoskeletal: nl extremities to inspection Results Results 24 hrs Laboratory Tests Test 01/18/17 17:15 01/18/17 22:03 01/19/17 02:11 01/19/17 07:54 Bedside Glucose 328 H 324 H 193 111 Medications Medications Current Medications Clonazepam (Klonopin) 2 mg TID PO Last administered on 01/19/17 09:30; Admin Dose 2 MG; Start 01/09/17 at 21:00 Fluoxetine HCl (Prozac) 40 mg DAILY PO Last administered on 01/19/17 08:38; Admin Dose 40 MG; Start 01/10/17 at 09:00 Tiotropium [place] (Spiriva) 1 inh DAILY INH Last administered on 01/19/17 09: 28; Admin Dose 1 INH; Start 01/10/17 at 09:00 Morphine Sulfate (morphine) 2 mg Q4H PRN IV PAIN LEVEL 6-10 Last administered on 01/11/17 06:51; Admin Dose 2 MG; Start 01/10/17 at 06:30 Levofloxacin (Levaquin) 500 mg DAILY@06 PO Last administered on 01/19/17 06:48 ; Admin Dose 500 MG; Start 01/11/17 at 06:00 Enoxaparin Sodium (Lovenox) 40 mg DAILY SC Last administered on 01/19/17 08:45 ; Admin Dose 40 MG; Start 01/10/17 at 09:00 Acetaminophen/ Hydrocodone Bitart ([place] (5/325)) 1 tab Q4H PRN PO pain Last administered on 01/19/17 09:29; Admin Dose 1 TAB; Start 01/11/17 at 11:30 Lorazepam (Ativan) 1 mg Q6H PRN PO ANXIETY; Start 01/12/17 at 12:00 Quetiapine Fumarate (Seroquel Xr) 300 mg DAILY PO Last administered on 10:36; Admin Dose 300 MG; Start 01/12/17 at 16:30 Mupirocin (Bactroban) 1 applic DAILY TOP Last administered on 01/19/17 09:28; Admin Dose 1 APPLIC; Start 01/14/17 at 09:00 Gabapentin (Neurontin) 100 mg TID PO Last administered on 01/19/17 08:38; Admin Dose 100 MG; Start 01/14/17 at 13:00 Zolpidem Tartrate (Ambien) 5 mg HS PRN PO INSOMNIA Last administered on 21:19; Admin Dose 5 MG; Start 01/14/17 at 23:30 Miscellaneous Information 1 ea NOTE XX ; Start 01/16/17 at 16:30 Glucose (Glutose) 15 gm Q15M PRN PO DECREASED GLUCOSE; Start 01/16/17 at 16:30 Glucose (Glutose) 22.5 gm Q15M PRN PO DECREASED GLUCOSE; Start 01/16/17 at 16: 30 Dextrose (D50w Syringe) 25 ml Q15M PRN IV DECREASED GLUCOSE; Start 01/16/17 at 16:30 Dextrose (D50w Syringe) 50 ml Q15M PRN IV DECREASED GLUCOSE; Start 01/16/17 at 16:30 Glucagon (Glucagen) 1 mg Q15M PRN IM DECREASED GLUCOSE; Start 01/16/17 at 16:30 Glucose (Glutose) 15 gm Q15M PRN BUCCAL DECREASED GLUCOSE; Start 01/16/17 at 16 :30 Diagnostic Test (Pha) (Accucheck) 1 ea 02 XX Last administered on 01/17/17 01: 58; Admin Dose 1 EA; Start 01/17/17 at 02:00 Prednisone (Prednisone) 20 mg DAILY PO Last administered on 01/19/17 08:39; Admin Dose 20 MG; Start 01/19/17 at 09:00 MARIAM PASCUAL MD Jan 19, 2017 12:17
[2017-01-19] MEDS ORDERED: GABA100C14 PO (15:50)
[2017-01-19] MEDS ORDERED: ALBU8.5H3 INH (15:50)
[2017-01-19] MEDS ORDERED: QUET50TA4 PO (15:50)
[2017-01-19] MEDS ORDERED: MTF1000T PO (15:50)
[2017-01-19 16:11] VITALS: BP 131/67; RESP 20
== END 2017-01-19 16:50 | disposition other institution (70) | DRG 191 ==
LOC: E/R 18:19 → TEL 01-08 12:00 → MS2 01-13 19:30
PROVIDERS: ADMIT Internal Medicine Nephrology; ATTEND Internal Medicine Nephrology
DX: J44.1 Chronic obstructive pulmonary disease with (acute) exacerbation (principal); Z68.41 Body mass index [BMI] 40.0-44.9, adult; R45.851 Suicidal ideations; F20.0 Paranoid schizophrenia; F17.200 Nicotine dependence, unspecified, uncomplicated; I10 Essential (primary) hypertension; E66.01 Morbid (severe) obesity due to excess calories; G40.909 Epilepsy, unspecified, not intractable, without status epilepticus; R45.850 Homicidal ideations; F60.9 Personality disorder, unspecified; E86.0 Dehydration; J45.909 Unspecified asthma, uncomplicated; R09.02 Hypoxemia
CPT/HCPCS: 36600; 80053; 82803; 82962; 83036; 85025; 87081; 94640; 94644; 94664; 99285; J1650; J1815; J2060; J2270; J2930; J7512

== ENCOUNTER 2017-02-19 14:18 | Emergency (ER) | payer OTHER ==
[~2017-02-19] VITALS: Ht 162.6 cm; Wt 136.0 kg
[~2017-02-19 14:18] MED LIST changes: -ALBU18HF IH; +ALBU8.5H3 INH; +CLON2TAB3 PO; +GABA100C14 PO; +HYDR-3498 PO; -LANT3I SC; -LAS20 PO; +LEVO500T10 PO; -LORA10TA3 PO; +LORA1TAB PO; -MONT10TA24 PO; +MTF1000T PO; -NOVO3I SC; -PANT40TA3 PO; +QUET50TA4 PO; -TRAM-40 PO; -TRAM50TA2 PO
[2017-02-19 14:21] VITALS: Ht 162.6 cm; Wt 136.0 kg
[2017-02-19] MEDS ORDERED: IBUPROFEN 600 MG TAB PO ONE (16:00)
[2017-02-19] MEDS ORDERED: FLUC150T17 PO (16:02)
[2017-02-19] MEDS ORDERED: METR500T PO (16:02)
[2017-02-19] MEDS ORDERED: IBUP-1542 PO (16:02)
[2017-02-19] MEDS ORDERED: CEPH-443 PO (16:02)
[2017-02-19 16:13] LABS: ADD UMIC YES; URINE BILIRUBIN (Dip) 1+ (NEGATIVE); URINE BLOOD (Dip) NEGATIVE (NEGATIVE); URINE COLOR YELLOW (YELLOW); URINE GLUCOSE (Dip) NEGATIVE (NEGATIVE); URINE KETONES (Dip) NEGATIVE (NEGATIVE); URINE LEUKOCYTE ESTERASE (Dip) NEGATIVE (NEGATIVE); URINE NITRITE (Dip) NEGATIVE (NEGATIVE); URINE TOTAL PROTEIN (Dip) TRACE (NEGATIVE); URINE UROBILINOGEN (Dip) 1.0 E.U./dL (0.1-1.0)
[2017-02-19 16:25] LABS: ICTOTEST NEGATIVE (NEGATIVE); MUCUS,URINE FEW; SQUAMOUS EPITHELIAL CELL,UR MODERATE; URINE RBCS NONE SEEN /HPF (0)
--- NOTE | 2017-02-19 20:24 | ERD ---
ER Documentation Chief Complaint Date/Time DATE: 02/19/17 TIME: 20:21 Chief Complaint DYSURIA 2-3 DAYS HPI 61-year-old woman complains of dysuria 3 days with itching and white clumpy rash around the vaginal and external genitalia. She denies recent unprotected sex, no fevers or chills, no weight loss, no vaginal bleeding, no chest pain or shortness of breath, no pelvic pain or discomfort. ROS All systems reviewed and are negative except as per history of present illness. Medications Home Meds Active Scripts Ibuprofen* (Motrin*) 600 Mg Tab, 600 MG PO Q8 Y for PAIN AND/OR INFLAMMATION, # 30 TAB Prov:JONO PULIDO MD 02/19/17 Fluconazole* (Diflucan*) 150 Mg Tablet, 200 MG PO ONCE, #1 TAB Prov:JONO PULIDO MD 02/19/17 Metronidazole* (Flagyl*) 500 Mg Tablet, 500 MG PO BID for 5 Days, TAB Prov:JONO PULIDO MD 02/19/17 Cephalexin* (Keflex*) 500 Mg Capsule, 500 MG PO QID for 5 Days, CAP Prov:JONO PULIDO MD 02/19/17 Metformin* (Glucophage*) 1,000 Mg Tablet, 1000 MG PO DAILY, #30 TAB Prov:MARIAM PASCUAL MD 01/19/17 Albuterol Sulfate* (Proair HFA*) 8.5 Gm Hfa.aer.ad, 2 PUFF INH Q6, #1 INHALER Prov:MARIAM PASCUAL MD 01/19/17 Quetiapine Fumarate* (Seroquel* XR) 50 Mg Tab.sr.24h, 300 MG PO DAILY for 28 Days Prov:MARIAM PASCUAL MD 01/19/17 Gabapentin* (Gabapentin*) 100 Mg Capsule, 100 MG PO TID for 28 Days, CAP Prov:MARIAM PASCUAL MD 01/19/17 Prednisone* (Prednisone*) 10 Mg Tab, 10 MG PO DAILY for 10 Days, TAB Prov:MARIAM PASCUAL MD 01/13/17 Lorazepam* (Lorazepam*) 1 Mg Tablet, 1 MG PO Q6H Y for ANXIETY for 7 Days, TAB Prov:MARIAM PASCUAL MD 01/13/17 Levofloxacin* (Levofloxacin*) 500 Mg Tablet, 500 MG PO DAILY@06 for 7 Days, TAB Prov:MARIAM PASCUAL MD 01/13/17 Hydrocodone Bit-Acetaminophen (Hydrocodone Bit-APAP) 5-325MG Tablet, 1 TAB PO Q4H Y for pain for 14 Days, TAB Prov:MARIAM PASCUAL MD 01/13/17 Reported Medications Clonazepam* (Clonazepam*) 2 Mg Tablet, 2 MG PO TID, TAB 01/05/17 Quetiapine Fumarate* (Seroquel* XR) 300 Mg Tab.sr.24h, 300 MG PO DAILY, #30 TAB 12/29/15 Tiotropium [place]* (Spiriva*) 18 Mcg Cap.w.dev, 1 CAP INHALATION DAILY, #30 CAP 12/29/15 Fluoxetine Hcl* (Prozac*) 40 Mg Capsule, 40 MG PO DAILY, CAP 12/29/15 Allergies Allergies: Coded Allergies: No Known Allergies (Verified Allergy, Mild, 01/09/17) PMhx/Soc Obesity, asthma, psychiatric illness, hypertension, diabetes mellitus History of Surgery: Yes (hysterectomy) Anesthesia Reaction: No Hx Neurological Disorder: Yes (stroke , neuropathy to feet) Hx Respiratory Disorders: Yes (copd, pna, asthma) Hx Cardiac Disorders: Yes (enlarged heart, htn, ) Hx Psychiatric Problems: Yes (paranoid schizophrenic, depression, anxiety) Hx Miscellaneous Medical Probl: No Hx Alcohol Use: No Hx Substance Use: No (has prescribed norco, soma, klonipin) Hx Tobacco Use: Yes Smoking Status: Current some day smoker FmHx Family History: diabetes Physical Exam Vitals Vital Signs Date Time Temp Pulse Resp B/P Pulse Ox O2 Delivery O2 Flow Rate FiO2 02/19/17 14:21 98.8 84 16 169/87 98 Physical Exam GENERAL: Well-developed, well-nourished, well-hydrated, in no apparent distress , looks nontoxic in appearance HEENT: Moist mucous membranes, pink conjunctiva, no cervical spine tenderness or step-off deformities, no goiter, no jaundice or icterus, extraocular movements intact without pain. No submandibular induration, and no pharyngeal erythema NEURO: Alert and oriented 3, cranial nerves II through XII intact bilaterally, pupils equal round reactive to light, no focal deficits or facial asymmetry, sensation intact distally Strength 5/5 in upper and lower extremities bilaterally CARDIAC: Regular rate and rhythm, no murmurs rubs or gallops LUNGS: Clear bilaterally no wheezing crackles or stridor ABDOMEN: Soft nontender, no guarding, no rigidity, no rebound, no psoas sign no obturator sign. Normoactive bowel sounds SKIN: Warm and dry to touch, no abrasions, contusions, or hematomas, no lacerations, no ecchymosis, no target lesions, and without ulcers EXTREMITIES: No clubbing cyanosis or edema, calves are bilaterally symmetrical, no Homans sign, no popliteal cord sign. Distal pulses equal and bilateral PSYCH: Normal affect without agitation or irritability Results 24 hrs Laboratory Tests Test 02/19/17 15:48 Urine Color YELLOW Urine Clarity SLIGHTLY CLOUDY Urine pH 5.5 Urine Specific [place] 1.025 Urine Ketones NEGATIVE Urine Nitrite NEGATIVE Urine Bilirubin 1+ Urine Ictotest NEGATIVE Urine Urobilinogen 1.0 E.U./dL Urine Leukocyte Esterase NEGATIVE Urine Microscopic RBC NONE SEEN/HPF Urine Microscopic WBC 0-2/HPF Urine Squamous Epithelial Cells MODERATE Urine Calcium Oxalate Crystals FEW Urine Mucus FEW Urine Hemoglobin NEGATIVE Urine Glucose NEGATIVE% Urine Total Protein TRACE Current Medications Medications (Trade) Dose Ordered Sig/Patric Route PRN Reason Start Time Stop Time Status Last Admin Dose Admin Ibuprofen (Motrin) 600 mg ONCE ONCE PO 02/19/17 16:00 02/19/17 16:01 DC 02/19/17 16:03 Procedures/MDM Urine analysis was unremarkable and I suspect bacterial and Diana vaginitis, although I will prescribe her antibiotics as well. Patient will be treated as an outpatient with cephalexin, metronidazole, and fluconazole 1 after those medications are complete I administered ibuprofen 600 mg p.o. here for complaints of pain. Differential diagnoses considered, included but not limited to acute coronary syndrome, pulmonary embolism, aortic dissection, abdominal aortic aneurysm, sepsis, stroke, meningitis, encephalitis, pneumonia, appendicitis, cholecystitis , bowel obstruction, pyelonephritis, nephrolithiasis, cystitis, as well as metabolic, hematologic, and electrolyte abnormalities. As well as abscess, cellulitis, fractures, and dislocations. Patient feels much better at this time, and vital signs are normal, symptoms have improved. I did give strict instructions to return to the ED if symptoms continue or worsen, patient will otherwise follow-up with primary care physician. Patient understood instructions and agreed to plan. Departure Diagnosis: Primary Impression: Vaginal candidiasis Additional Impressions: BV (bacterial vaginosis) UTI (urinary tract infection) Urinary tract infection type: acute cystitis Hematuria presence: without hematuria Qualified Code: N30.00 - Acute cystitis without hematuria Condition: Good Patient Instructions: Vaginal Infection: Bacterial Vaginosis, Bladder Infection , Female (Adult), Vaginitis, Diana JONO PULIDO MD Feb 19, 2017 20:23
== END 2017-02-19 16:22 | disposition home or self-care (01) ==
LOC: FTE 14:18
DX: B37.3 Candidiasis of vulva and vagina (principal); N76.0 Acute vaginitis; N30.00 Acute cystitis without hematuria; I10 Essential (primary) hypertension; E11.9 Type 2 diabetes mellitus without complications; J44.9 Chronic obstructive pulmonary disease, unspecified; J45.909 Unspecified asthma, uncomplicated; F17.210 Nicotine dependence, cigarettes, uncomplicated; Z79.84 Long term (current) use of oral hypoglycemic drugs
CPT/HCPCS: 81001; 87086; Z7502; Z7610; 81003; 99284

== ENCOUNTER 2017-02-21 12:21 | Inpatient (IN) | payer OTHER ==
[~2017-02-21] VITALS: Ht 162.6 cm; Wt 115.0 kg
[~2017-02-21 12:21] MED LIST changes: +CEPH-443 PO; +FLUC150T17 PO; +IBUP-1542 PO; +METR500T PO
--- NOTE | 2017-02-21 12:25 | ERA ---
ER Documentation Chief Complaint Date/Time DATE: 02/21/17 TIME: 12:25 Chief Complaint Suicidal HPI The patient is a 71-year-old female, presenting to the ER because of acute suicidal ideation. She complains of auditory hallucination but asked her to kill herself with a knife. She has been off of Prozac and Klonopin for a week; she has similar symptoms previously and was hospitalized psychiatric hospital. She denies fever, chills, neck pain, chest pain, dyspnea. She complains of intermittent abdominal pain for 1 week, associated with constipation and painful urination. She was seen in the ER recently and treated with Keflex for UTI. She smokes a pack a day, denies drinking or using illicit drug Past medical history: Diabetes mellitus, COPD, hypertension, anxiety, personality disorder, schizophrenia, depression ROS All systems reviewed and are negative except as per history of present illness. Medications Home Meds Active Scripts Ibuprofen* (Motrin*) 600 Mg Tab, 600 MG PO Q8 Y for PAIN AND/OR INFLAMMATION, # 30 TAB Prov:JONO PULIDO MD 02/19/17 Fluconazole* (Diflucan*) 150 Mg Tablet, 200 MG PO ONCE, #1 TAB Prov:JONO PULIDO MD 02/19/17 Metronidazole* (Flagyl*) 500 Mg Tablet, 500 MG PO BID for 5 Days, TAB Prov:JONO PULIDO MD 02/19/17 Cephalexin* (Keflex*) 500 Mg Capsule, 500 MG PO QID for 5 Days, CAP Prov:JONO PULIDO MD 02/19/17 Metformin* (Glucophage*) 1,000 Mg Tablet, 1000 MG PO DAILY, #30 TAB Prov:MARIAM PASCUAL MD 01/19/17 Albuterol Sulfate* (Proair HFA*) 8.5 Gm Hfa.aer.ad, 2 PUFF INH Q6, #1 INHALER Prov:MARIAM PASCUAL MD 01/19/17 Quetiapine Fumarate* (Seroquel* XR) 50 Mg Tab.sr.24h, 300 MG PO DAILY for 28 Days Prov:MARIAM PASCUAL MD 01/19/17 Gabapentin* (Gabapentin*) 100 Mg Capsule, 100 MG PO TID for 28 Days, CAP Prov:MARIAM PASCUAL MD 01/19/17 Lorazepam* (Lorazepam*) 1 Mg Tablet, 1 MG PO Q6H Y for ANXIETY for 7 Days, TAB Prov:MARIAM PASCUAL MD 01/13/17 Levofloxacin* (Levofloxacin*) 500 Mg Tablet, 500 MG PO DAILY@06 for 7 Days, TAB Prov:MARIAM PASCUAL MD 01/13/17 Hydrocodone Bit-Acetaminophen (Hydrocodone Bit-APAP) 5-325MG Tablet, 1 TAB PO Q4H Y for pain for 14 Days, TAB Prov:MARIAM PASCUAL MD 01/13/17 Reported Medications Clonazepam* (Clonazepam*) 2 Mg Tablet, 2 MG PO TID, TAB 01/05/17 Quetiapine Fumarate* (Seroquel* XR) 300 Mg Tab.sr.24h, 300 MG PO DAILY, #30 TAB 12/29/15 Tiotropium [place]* (Spiriva*) 18 Mcg Cap.w.dev, 1 CAP INHALATION DAILY, #30 CAP 12/29/15 Fluoxetine Hcl* (Prozac*) 40 Mg Capsule, 40 MG PO DAILY, CAP 12/29/15 Discontinued Scripts Prednisone* (Prednisone*) 10 Mg Tab, 10 MG PO DAILY for 10 Days, TAB Prov:MARIAM PASCUAL MD 01/13/17 Allergies Allergies: Coded Allergies: No Known Allergies (Verified Allergy, Mild, 02/21/17) PMhx/Soc History of Surgery: Yes (hysterectomy) Anesthesia Reaction: No Hx Neurological Disorder: Yes (stroke , neuropathy to feet) Hx Respiratory Disorders: Yes (copd, pna, asthma) Hx Cardiac Disorders: Yes (enlarged heart, htn, ) Hx Psychiatric Problems: Yes (paranoid schizophrenic, depression, anxiety) Hx Miscellaneous Medical Probl: No Hx Alcohol Use: No Hx Substance Use: No (has prescribed norco, soma, klonipin) Hx Tobacco Use: Yes Physical Exam Vitals Vital Signs Date Time Temp Pulse Resp B/P Pulse Ox O2 Delivery O2 Flow Rate FiO2 02/21/17 16:53 98.6 72 16 168/82 98 Room Air 02/21/17 12:49 79 20 96 21 02/21/17 12:32 98.8 80 18 175/79 96 Physical Exam Const: No acute distress. Head: Atraumatic. Eyes: Normal Conjunctiva. ENT: Normal External Ears, Nose and Mouth. Neck: Full range of motion. No meningismus. Resp: Minimal bilateral expiratory wheezes Cardio: Regular rate and rhythm, no murmurs. Abd: Soft, non distended, normal bowel sounds, diffuse and vague abdominal tenderness, no rigidity, rebound, CVA tenderness Skin: No petechiae or rashes. Back: No midline or flank tenderness. Ext: No cyanosis, or edema. Neur: Awake and alert. No focal deficit Psych: Depressed and suicidal Result Diagram: 02/21/17 1300 02/21/17 1300 Results 24 hrs Laboratory Tests Test 02/21/17 13:00 02/21/17 13:11 White Blood Count 7.510^3/ul Red Blood Count 5.9510^6/ul Hemoglobin 12.1g/dl Hematocrit 39.8% Mean Corpuscular Volume 66.9fl Mean Corpuscular Hemoglobin 20.3pg Mean Corpuscular Hemoglobin Concent 30.4g/dl Red Cell Distribution Width 16.5% Platelet Count 54224^3/UL Mean Platelet Volume 10.7fl Neutrophils % 60.3% Lymphocytes % 29.4% Monocytes % 9.2% Eosinophils % 0.4% Basophils % 0.4% Nucleated Red Blood Cells % 0.0/100WBC Neutrophils # 4.510^3/ul Lymphocytes # 2.210^3/ul Monocytes # 0.710^3/ul Eosinophils # 0.010^3/ul Basophils # 0.010^3/ul Nucleated Red Blood Cells # 0.010^3/ul Sodium Level 138mmol/L Potassium Level 3.1mmol/L Chloride Level 102mmol/L Carbon Dioxide Level 26mmol/L Anion Gap 13 Blood Urea Nitrogen 6mg/dl Creatinine 0.51mg/dl Glucose Level 142mg/dl Calcium Level 9.0mg/dl Total Bilirubin 0.2mg/dl Direct Bilirubin 0.00mg/dl Indirect Bilirubin 0.2mg/dl Aspartate Amino Transf (AST/SGOT) 23IU/L Alanine Aminotransferase (ALT/SGPT) 34IU/L Alkaline Phosphatase 73IU/L Total Protein 6.3g/dl Albumin 3.4g/dl Globulin 2.90g/dl Albumin/Globulin Ratio 1.17 Lipase 72U/L Salicylates Level 2.8mg/dl Urine Opiates Screen POSITIVE Acetaminophen Level < 10.0ug/ml Urine Barbiturates Negative Urine Amphetamines Screen Negative Urine Benzodiazepines Screen POSITIVE Urine Cocaine Screen POSITIVE Urine Cannabinoids POSITIVE Ethyl Alcohol Level < 10.0mg/dl Bedside Urine pH (LAB) 5.5 Bedside Urine Protein (LAB) 1+ Bedside Urine Glucose (UA) Negative Bedside Urine Ketones (LAB) Negative Bedside Urine Blood Negative Bedside Urine Nitrite (LAB) Negative Bedside Urine Leukocyte Esterase (L Trace Current Medications Medications (Trade) Dose Ordered Sig/Patric Route PRN Reason Start Time Stop Time Status Last Admin Dose Admin Levalbuterol (Xopenex Neb) 1.25 mg ONCE ONCE HHN 02/21/17 13:00 02/21/17 13:01 DC 02/21/17 12:48 Ipratropium [place] (Atrovent 0.02% (Neb)) 0.5 mg ONCE ONCE HHN 02/21/17 13:00 02/21/17 13:01 DC 02/21/17 12:48 Ketorolac Tromethamine (Toradol) 60 mg ONCE STAT IM 02/21/17 13:21 02/21/17 13:22 DC 02/21/17 13:32 Potassium Chloride (Klor-Con 20) 40 meq ONCE STAT PO 02/21/17 13:51 02/21/17 13:56 DC 02/21/17 14:55 Lorazepam (Ativan) 0.5 mg ONCE ONCE PO 02/21/17 16:00 02/21/17 16:01 DC 02/21/17 15:49 Acetaminophen/ Hydrocodone Bitart ([place] (10/325)) 1 tab ONCE ONCE PO 02/21/17 17:00 02/21/17 17:01 DC 02/21/17 17:04 Ondansetron HCl (Zofran Odt) 4 mg ONCE STAT ODT 02/21/17 16:57 02/21/17 16:59 DC 02/21/17 17:05 Procedures/[place] [id number] Radiology Main Line: [phone] DIAGNOSTIC IMAGING REPORT Patient: INDIGO CHAVEZ : 1955 Age: 61 Sex: F MR #: [id number] DOS: 02/21/17 1236 Ordering MD: ALYSHA ANGELES MD Location: E/R Room/Bed: PROCEDURE: XR Chest. CLINICAL INDICATION: Altered level of consciousness. TECHNIQUE: Single frontal view of the chest was obtained COMPARISON: Chest x-ray 05/05/2016 06:39 p.m. FINDINGS: The soft tissues are normal. There are osteophytes in the thoracic spine. The heart, cardiomediastinal silhouette and hilar structures are normal. The pulmonary vasculature is normal. There is a left-sided aorta. The lungs are clear. The costophrenic angles are normal. IMPRESSION: 1. Spondylosis of the thoracic spine with no evidence of active cardiopulmonary disease. RPTAT:AAJJ Physician Ugo Date Time Electronically viewed and signed by Tomas Gutierrez Physician on 02/21/2017 13:47 JM/ CC: ALYSHA ANGELES MD [place] [id number] Radiology Main Line: [phone] DIAGNOSTIC IMAGING REPORT Patient: INDIGO CHAVEZ : 1955 Age: 61 Sex: F MR #: [id number] DOS: 02/21/17 1236 Ordering MD: ALYSHA ANGELES MD Location: E/R Room/Bed: PROCEDURE: CT Abdomen and Pelvis without contrast. CLINICAL INDICATION: Abdominal and pelvic pain. Lower abdominal pain. TECHNIQUE: CT scan of the abdomen and pelvis without contrast was performed. Coronal and sagittal reformatted images were obtained from the axial source images. Images were reviewed on a high-resolution PACS workstation. Total exam DLP is 1576.08 mGy-cm. CTDIvol is 23.79 mGy. One or more of the following dose reduction techniques were used: Automated exposure control, adjustment of the mA and/or kV according to patient size, use of iterative reconstruction technique. COMPARISON: CT scan of the abdomen and pelvis dated 10/30/2016 which demonstrated mild right basilar atelectasis, previous hysterectomy, atherosclerosis, and degenerative changes of the spine. FINDINGS: There is mild right basilar atelectasis, unchanged. The lung bases are otherwise normal. There is no pleural effusion. The liver is normal in size and attenuation. There is no focal hepatic lesion. The gallbladder and bile ducts are normal. The spleen is normal in size. There is no focal splenic lesion. Both adrenals are normal with no enlargement or mass. The pancreas is unremarkable with no mass or evidence of pancreatitis. There is no renal mass or hydronephrosis. There is no renal calculus or ureteral calculus. The abdominal aorta is not dilated. There is calcification in the aorta consistent with atherosclerosis. There is no retroperitoneal lymphadenopathy or mass. There is no pelvic lymphadenopathy or mass. The uterus is surgically absent. The bladder and distal ureters are normal. The periappendiceal region is unremarkable with no evidence of appendicitis. The appendix is well seen and appears normal. The bowel and mesentery are normal. There is no free fluid or free gas. There are degenerative changes of the spine. There is no fracture or lytic lesion. IMPRESSION: 1. Mild atelectasis at the right lung base posteriorly, unchanged. 2. Atherosclerosis. 3. Status post hysterectomy. 4. Normal appendix. 5. No urinary tract calculus or hydronephrosis. 6. Degenerative changes of the spine. 7. No significant change from 10/30/2016. RPTAT: QQ .Jignesh Shelley MD, MD Date Time Electronically viewed and signed by .Jignesh Shelley MD, MD on 02/21/2017 14:24 .R/ CC: ALYSHA ANGELES MD MEDICAL MAKING DECISION: The patient is a 61-year-old female, presenting with acute suicidal ideation, acute hypokalemia, acute abdominal pain of unclear etiology. She was treated with Xopenex 125 mg and Atrovent 0.5 for wheezing, Toradol 60 mg IM and [place] 10 mg p.o. for pain and Zofran ODT for nausea potassium chloride 40 mEq p.o. for low potassium and Ativan 0.5 mg p.o. for acute anxiety with good response The differential diagnoses considered include but are not limited to psychosis, decompensated psychiatric illness, medical noncompliance, acute anxiety attack, acute panic attack The differential diagnoses for acute abdominal pain considered include but are not limited to cholelithiasis, cholecystitis, cystitis, pancreatitis, hepatitis , gastritis, peptic ulcer disease, gastric ulcer, appendicitis, diverticulitis, cholangitis, choledocholithiasis, partial small bowel obstruction. Departure Diagnosis: Primary Impression: Suicidal ideation Additional Impressions: Hypokalemia Abdominal pain Condition: Stable Comments The patient was even admitted by telepsychiatrist who put her on 5150 hold ALYSHA ANGELES MD Feb 21, 2017 12:25
[2017-02-21] MEDS ORDERED: LEVALBUTEROL (NEB) 1.25 MG/0.5 ML AMP HHN ONE (13:00)
[2017-02-21] MEDS ORDERED: IPRATROPIUM (NEB) 0.5 MG/2.5 ML AMP HHN ONE (13:00)
[2017-02-21 13:11] LABS: URINE BLOOD (Dip) POC Negative (NEGATIVE)
[2017-02-21 13:17] LABS: ADD SCAN DIFF NO
[2017-02-21 13:19] LABS: BASOPHILS % 0.4 % (0.0-2.0); EOSINOPHILS % 0.4 % (0.0-7.0); HEMATOCRIT 39.8 % (37.0-47.0); HEMOGLOBIN 12.1 g/dl (12.0-16.0); LYMPHOCYTES # 2.2 10^3/ul (0.8-2.9); LYMPHOCYTES % 29.4 % (15.0-51.0); MEAN CORPUSCULAR HEMOGLOBIN 20.3 pg (29.0-33.0); MEAN CORPUSCULAR HGB CONC 30.4 g/dl (32.0-37.0); MEAN CORPUSCULAR VOLUME 66.9 fl (82.0-101.0); MEAN PLATELET VOLUME 10.7 fl (7.4-10.4); MONOCYTE # 0.7 10^3/ul (0.3-0.9); MONOCYTES % 9.2 % (0.0-11.0); NEUTROPHIL # 4.5 10^3/ul (1.6-7.5); NEUTROPHILS % 60.3 % (39.0-77.0); PLATELET COUNT 223 10^3/UL (140-415); RED BLOOD COUNT 5.95 10^6/ul (4.20-5.40); RED CELL DISTRIBUTION WIDTH 16.5 % (11.5-14.5); WHITE BLOOD COUNT 7.5 10^3/ul (4.8-10.8)
[2017-02-21] MEDS ORDERED: KETOROLAC 60 MG INJ IM STA (13:21)
[2017-02-21 13:33] LABS: ALBUMIN 3.4 g/dl (3.3-4.9)
[2017-02-21 13:34] LABS: CHLORIDE 102 mmol/L (97-110); POTASSIUM 3.1 mmol/L (3.5-5.1); SODIUM 138 mmol/L (135-144)
[2017-02-21 13:36] LABS: ANION GAP 13 (8-16); ASPARTATE AMINO TRANSFERASE 23 IU/L (15-46); BILIRUBIN,INDIRECT 0.2 mg/dl (0-1.1); BILIRUBIN,TOTAL 0.2 mg/dl (0.2-1.3); CARBON DIOXIDE 26 mmol/L (21-31); CREATININE 0.51 mg/dl (0.44-1.00)
[2017-02-21 13:37] LABS: ALANINE AMINOTRANSFERASE 34 IU/L (13-69); ALKALINE PHOSPHATASE 73 IU/L (42-121); BLOOD UREA NITROGEN 6 mg/dl (7-20); GLUCOSE 142 mg/dl (70-220); SALICYLATE 2.8 mg/dl (5.0-30.0); TOTAL PROTEIN 6.3 g/dl (6.1-8.1)
[2017-02-21 13:38] LABS: ACETAMINOPHEN < 10.0 ug/ml (10.0-30.0); ALBUMIN/GLOBULIN RATIO 1.17
--- NOTE | 2017-02-21 13:47 | RADRPT ---
PROCEDURE: XR Chest. CLINICAL INDICATION: Altered level of consciousness. TECHNIQUE: Single frontal view of the chest was obtained COMPARISON: Chest x-ray 05/05/2016 06:39 p.m. FINDINGS: The soft tissues are normal. There are osteophytes in the thoracic spine. The heart, cardiomediast inal silhouette and hilar structures are normal. The pulmonary vasculature is normal. There is a lef t-sided aorta. The lungs are clear. The costophrenic angles are normal. IMPRESSION: 1. Spondylosis of the thoracic spine with no evidence of active cardiopulmonary disease. RPTAT:AAJJ Physician Ugo Date Time Electronically viewed and signed by Tomas Gutierrez Physician on 02/21/2017 13:47 /
[2017-02-21 13:49] LABS: BARBITURATES Negative (NEGATIVE)
[2017-02-21] MEDS ORDERED: POTASSIUM CHLORIDE (SR) 20 MEQ TAB PO STA (13:51)
[2017-02-21 14:04] LABS: ETHANOL < 10.0 mg/dl
--- NOTE | 2017-02-21 14:25 | RADRPT ---
PROCEDURE: CT Abdomen and Pelvis without contrast. CLINICAL INDICATION: Abdominal and pelvic pain. Lower abdominal pain. TECHNIQUE: CT scan of the abdomen and pelvis without contrast was performed. Coronal and sagittal reformatted images were obtained from the axial source images. Images were reviewed on a high-resolu [employer] PACS workstation. Total exam DLP is 1576.08 mGy-cm. CTDIvol is 23.79 mGy. One or more of the following dose reduction techniques were used: Automated exposure control, adjustment of the mA and/ or kV according to patient size, use of iterative reconstruction technique. COMPARISON: CT scan of the abdomen and pelvis dated 10/30/2016 which demonstrated mild right basil ar atelectasis, previous hysterectomy, atherosclerosis, and degenerative changes of the spine. FINDINGS: There is mild right basilar atelectasis, unchanged. The lung bases are otherwise normal. There is no pleural effusion. The liver is normal in size and attenuation. There is no focal hepatic lesion. The gallbladder and bile ducts are normal. The spleen is normal in size. There is no focal splenic lesion. Both adrenals are normal with no enlargement or mass. The pancreas is unremarkable with no mass or evidence of pancreatitis. There is no renal mass or hydronephrosis. There is no renal calculus or ureteral calculus. The abdominal aorta is not dilated. There is calcification in the aorta consistent with atherosclero sis. There is no retroperitoneal lymphadenopathy or mass. There is no pelvic lymphadenopathy or mass. The uterus is surgically absent. The bladder and distal ureters are normal. The periappendiceal region is unremarkable with no evidence of appendicitis. The appendix is well se en and appears normal. The bowel and mesentery are normal. There is no free fluid or free gas. There are degenerative changes of the spine. There is no fracture or lytic lesion. IMPRESSION: 1. Mild atelectasis at the right lung base posteriorly, unchanged. 2. Atherosclerosis. 3. Status post hysterectomy. 4. Normal appendix. 5. No urinary tract calculus or hydronephrosis. 6. Degenerative changes of the spine. 7. No significant change from 10/30/2016. RPTAT: QQ .Jignesh Shelley MD, MD Date Time Electronically viewed and signed by .Jignesh Shelley MD, MD on 02/21/2017 14:24 .R/
[2017-02-21 15:53] LABS: BENZODIAZEPINES POSITIVE (NEGATIVE); CANNABINOIDS POSITIVE (NEGATIVE); COCAINE POSITIVE (NEGATIVE); OPIATES POSITIVE (NEGATIVE)
--- NOTE | 2017-02-21 15:59 | PSY ---
Date/Time of Note Date/Time of Note DATE: 02/21/17 TIME: 15:53 Psychiatric Subjective Eval Consent Pt consented to telemedicine: Yes Subjective Evaluation Patient location: emergency Chief Complaint: Pt BIB RA 89 for SI and abdominal pain, recent UTI. History of present illness Pt is 61 yo female with hx schizophrenia BIB EMS due to c/o abdominal pain, SI with a plan to stab herself and HI toward her . The pt is well known to me from priro evals and similar presentations. Pt is oriented to place and person, says today is "April 29, the 1999"; she does not know her meds but insists she needs to be given something for pain and anxiety, She says she will kill her if sent back home and herself as well. + command AH no VH. + PI. Irritable. Off meds. Past psychiatric history multiple inpt Hospitalization: no Family History denies Medical history Problems Medical Problems: (1) Abdominal pain Status: Acute (2) Anxiety Status: Acute (3) Anxiety attack Status: Acute (4) BV (bacterial vaginosis) Status: Acute (5) BV (bacterial vaginosis) Status: Acute (6) Constipation Status: Acute (7) COPD (chronic obstructive pulmonary disease) Status: Acute (8) COPD exacerbation Status: Acute (9) COPD with exacerbation Status: Acute (10) Dehydration Status: Acute (11) Homicidal behavior Status: Acute (12) Homicidal ideation Status: Acute (13) Hypoxemia Status: Acute (14) Morbid obesity Status: Acute (15) Multiple complaints Status: Acute (16) Paranoia Status: Acute (17) Personality disorder Status: Acute (18) Schizophrenia, chronic with acute exacerbation Status: Acute (19) Seizure disorder Status: Acute (20) Shortness of breath Status: Acute (21) Suicidal ideation Status: Acute (22) UTI (urinary tract infection) Status: Acute (23) UTI (urinary tract infection) Status: Acute (24) Vaginal candidiasis Status: Acute (25) Vaginal candidiasis Status: Acute Allergies: Coded Allergies: No Known Allergies (Verified Allergy, Mild, 02/21/17) Substance Abuse Substance use: No known substance abuse Social History Marital status: Level of education: High School. 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 Psychiatric Objective Eval Review of Systems: Review of Systems: Not Applicable Physical Examination: Physical Examination: Not Applicable Sleep: Insomnia Appetite: Increased Energy: Decreased Interest: Decreased Mental Status Examination: Appearance: Disheveled Eye Contact: Good Psychomotor Activity: Normal Behavior: Cooperative Speech: Clear AFFECT: Anxious Mood: Irritable Though Process: Circumstantial, Perseverative Thought Content: Hallucinations Suicidal: Yes Homicidal: Yes On 72 hour hold: No Orientation: x2 Cognition: Alert Insight: Impared Judgement: Impared Laboratory Results Laboratory Tests Test 02/21/17 13:00 02/21/17 13:11 White Blood Count 7.510^3/ul Red Blood Count 5.9510^6/ul Hemoglobin 12.1g/dl Hematocrit 39.8% Mean Corpuscular Volume 66.9fl Mean Corpuscular Hemoglobin 20.3pg Mean Corpuscular Hemoglobin Concent 30.4g/dl Red Cell Distribution Width 16.5% Platelet Count 40190^3/UL Mean Platelet Volume 10.7fl Neutrophils % 60.3% Lymphocytes % 29.4% Monocytes % 9.2% Eosinophils % 0.4% Basophils % 0.4% Nucleated Red Blood Cells % 0.0/100WBC Neutrophils # 4.510^3/ul Lymphocytes # 2.210^3/ul Monocytes # 0.710^3/ul Eosinophils # 0.010^3/ul Basophils # 0.010^3/ul Nucleated Red Blood Cells # 0.010^3/ul Sodium Level 138mmol/L Potassium Level 3.1mmol/L Chloride Level 102mmol/L Carbon Dioxide Level 26mmol/L Anion Gap 13 Blood Urea Nitrogen 6mg/dl Creatinine 0.51mg/dl Glucose Level 142mg/dl Calcium Level 9.0mg/dl Total Bilirubin 0.2mg/dl Direct Bilirubin 0.00mg/dl Indirect Bilirubin 0.2mg/dl Aspartate Amino Transf (AST/SGOT) 23IU/L Alanine Aminotransferase (ALT/SGPT) 34IU/L Alkaline Phosphatase 73IU/L Total Protein 6.3g/dl Albumin 3.4g/dl Globulin 2.90g/dl Albumin/Globulin Ratio 1.17 Lipase 72U/L Salicylates Level 2.8mg/dl Acetaminophen Level < 10.0ug/ml Urine Barbiturates Negative Urine Amphetamines Screen Negative Ethyl Alcohol Level < 10.0mg/dl Bedside Urine pH (LAB) 5.5 Bedside Urine Protein (LAB) 1+ Bedside Urine Glucose (UA) Negative Bedside Urine Ketones (LAB) Negative Bedside Urine Blood Negative Bedside Urine Nitrite (LAB) Negative Bedside Urine Leukocyte Esterase (L Trace Assessment and Plan Assessment/Diagnosis [place] I: SCHIZOAFFECTIVE DISORDER [place] II: BORDERLINE PD [place] III: PER RECORD [place] IV: MODERATE [place] V: GAF 25 Recommendation/Plan Medication Management PLEASE RESUME PT'S MEDS PER RECORD Psychotherapy DEFER TO INPT Pt. Caregiver/Family Education SW - PLEASE INFORM OF PT'S THREATS. PLEASE FILE TARASOFF. Follow-up/Disposition 5150 FOR DTS, DTO; TRANSFER TO INPT PSYCH IF MEDICALLY CLEARED. 5150 Recommendation: [facility] JORDAN BOONE MD Feb 21, 2017 15:59
[2017-02-21] MEDS ORDERED: LORAZEPAM 0.5 MG TAB PO ONE (16:00)
[2017-02-21] MEDS ORDERED: ONDANSETRON (ODT) 4 MG TAB ODT STA (16:57)
[2017-02-21] MEDS ORDERED: HYDROCODONE/APAP (10/325) TAB PO ONE ×2 (17:00→22:30)
[2017-02-21] MEDS ORDERED: LORAZEPAM 1 MG TAB PO ONE (22:30)
[2017-02-21] MEDS ORDERED: QUETIAPINE 100 MG TAB PO ONE (22:30)
[2017-02-22] MEDS ORDERED: HYDROCODONE/APAP (5/325) TAB PO ONE (13:00)
[2017-02-22] MEDS ORDERED: LORAZEPAM 1 MG TAB PO ONE (13:00)
[2017-02-22] MEDS ORDERED: LORAZEPAM 2 MG INJ IM ONE (22:30)
--- NOTE | 2017-02-23 05:10 | EN ---
Date/Time of Note Date/Time of Note DATE: 02/23/17 TIME: 05:10 ER Progress Note Observation Note: Time: 4 hours Family Hx: No Hypertension Evaluation: Patient in no acute distress, no agitation, pending transfer at this time] JUNAID CHAHAL DO Feb 23, 2017 05:10
[2017-02-23] MEDS ORDERED: LORAZEPAM 1 MG TAB PO ONE (09:30)
--- NOTE | 2017-02-23 09:50 | PSY ---
Date/Time of Note Date/Time of Note DATE: 02/23/17 TIME: 09:45 Psychiatric Subjective Eval Consent Pt consented to telemedicine: Yes Subjective Evaluation Patient location: emergency Chief Complaint: Pt BIB RA 89 for SI and abdominal pain, recent UTI. Reason for consult: re-eval History of present illness Spoke with Dr Schofield: pt denies SI and HI this AM to JOSE and . Pt tells me, she is sucidal and she "lied" earlier about it. Then I inquired if she is lying now and we should send her home, the patient replied: "Whatever - but you are going to see a bloody mess". Frustrated about not receiving her psych meds in ED. Irritable. Reprots HI toward her and command . Past psychiatric history multiple inpt Hospitalization: Suicidal Attempt(s) Family History denies Medical history Problems Medical Problems: (1) Abdominal pain Status: Acute (2) Anxiety Status: Acute (3) Anxiety attack Status: Acute (4) BV (bacterial vaginosis) Status: Acute (5) BV (bacterial vaginosis) Status: Acute (6) Constipation Status: Acute (7) COPD (chronic obstructive pulmonary disease) Status: Acute (8) COPD exacerbation Status: Acute (9) COPD with exacerbation Status: Acute (10) Dehydration Status: Acute (11) Homicidal behavior Status: Acute (12) Homicidal ideation Status: Acute (13) Hypokalemia Status: Acute (14) Hypoxemia Status: Acute (15) Morbid obesity Status: Acute (16) Multiple complaints Status: Acute (17) Paranoia Status: Acute (18) Personality disorder Status: Acute (19) Schizophrenia, chronic with acute exacerbation Status: Acute (20) Seizure disorder Status: Acute (21) Shortness of breath Status: Acute (22) Suicidal ideation Status: Acute (23) Suicidal ideation Status: Acute (24) UTI (urinary tract infection) Status: Acute (25) UTI (urinary tract infection) Status: Acute (26) Vaginal candidiasis Status: Acute (27) Vaginal candidiasis Status: Acute Allergies: Coded Allergies: No Known Allergies (Verified Allergy, Mild, 02/21/17) Substance Abuse Substance use: No known substance abuse Social History Marital status: Level of education: High School. 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 Psychiatric Objective Eval Mental Status Examination: Eye Contact: Good Psychomotor Activity: Normal Behavior: Cooperative Speech: Clear AFFECT: Appropriate Mood: Irritable Though Process: Perseverative Thought Content: Hallucinations Suicidal: Yes Homicidal: Yes Orientation: x2 Cognition: Alert Insight: Impared Judgement: Impared Laboratory Results Laboratory Tests Test 02/21/17 13:00 02/21/17 13:11 White Blood Count 7.510^3/ul Red Blood Count 5.9510^6/ul Hemoglobin 12.1g/dl Hematocrit 39.8% Mean Corpuscular Volume 66.9fl Mean Corpuscular Hemoglobin 20.3pg Mean Corpuscular Hemoglobin Concent 30.4g/dl Red Cell Distribution Width 16.5% Platelet Count 14726^3/UL Mean Platelet Volume 10.7fl Neutrophils % 60.3% Lymphocytes % 29.4% Monocytes % 9.2% Eosinophils % 0.4% Basophils % 0.4% Nucleated Red Blood Cells % 0.0/100WBC Neutrophils # 4.510^3/ul Lymphocytes # 2.210^3/ul Monocytes # 0.710^3/ul Eosinophils # 0.010^3/ul Basophils # 0.010^3/ul Nucleated Red Blood Cells # 0.010^3/ul Sodium Level 138mmol/L Potassium Level 3.1mmol/L Chloride Level 102mmol/L Carbon Dioxide Level 26mmol/L Anion Gap 13 Blood Urea Nitrogen 6mg/dl Creatinine 0.51mg/dl Glucose Level 142mg/dl Calcium Level 9.0mg/dl Total Bilirubin 0.2mg/dl Direct Bilirubin 0.00mg/dl Indirect Bilirubin 0.2mg/dl Aspartate Amino Transf (AST/SGOT) 23IU/L Alanine Aminotransferase (ALT/SGPT) 34IU/L Alkaline Phosphatase 73IU/L Total Protein 6.3g/dl Albumin 3.4g/dl Globulin 2.90g/dl Albumin/Globulin Ratio 1.17 Lipase 72U/L Salicylates Level 2.8mg/dl Urine Opiates Screen POSITIVE Acetaminophen Level < 10.0ug/ml Urine Barbiturates Negative Urine Amphetamines Screen Negative Urine Benzodiazepines Screen POSITIVE Urine Cocaine Screen POSITIVE Urine Cannabinoids POSITIVE Ethyl Alcohol Level < 10.0mg/dl Bedside Urine pH (LAB) 5.5 Bedside Urine Protein (LAB) 1+ Bedside Urine Glucose (UA) Negative Bedside Urine Ketones (LAB) Negative Bedside Urine Blood Negative Bedside Urine Nitrite (LAB) Negative Bedside Urine Leukocyte Esterase (L Trace Assessment and Plan Assessment/Diagnosis [place] I: SCHIZOAFFECTIVE DISORDER [employer] [employer] II: BORDERLINE PD [place] III: PER RECORD [place] [employer] IV: MODERATE [place] V: GAF 25 Recommendation/Plan Medication Management PLEASE RESUME PSYCHOTROPIC MEDS REGIME: PROZAC 20 MG POQD; SEROQUEL 100 MG POQAM AND 200 MG POQHS, KLONOPIN 0.5 MG PO TID. Psychotherapy DEFER TO INPT Pt. Caregiver/Family Education SW - PLEASE CONSIDER APS INVOLVEMENT - PT REPEATEDLY MAKES THREATS TOWARD HER . Follow-up/Disposition TRANSFER TO INPT PSYCH FOR DTS, DTO. JORDAN BOONE MD Feb 23, 2017 09:50
--- NOTE | 2017-02-23 10:13 | EN ---
Date/Time of Note Date/Time of Note DATE: 02/23/17 TIME: 10:12 ER Progress Note The patient was reevaluated by telemetry medicine psychiatry this morning. Dr. Barnes reevaluated the patient however the patient still reports suicidal and homicidal ideation despite what she was told her social service agency director. for this reason the patient cannot be cleared by psychiatry. The patient is awaiting placement. I have ordered some of her regular anxiety and psychiatric medications to be scheduled. Klonopin 2 mg p.o. 3 times daily as needed for anxiety Prozac 40 mg daily Seroquel 300 mg divided twice daily as we do not have the XR on our formulary The patient is pending psychiatric placement CLAUDIA HDEZ MD Feb 23, 2017 10:13
[2017-02-23] MEDS ORDERED: IBUPROFEN 200 MG TAB PO ONE (15:30)
[2017-02-23] MEDS: clonAZEPAM 0.5 MG TAB PO PRN (18:42)
[2017-02-23] MEDS: QUETIAPINE 100 MG TAB PO SCH ×2 (19:02→21:00)
[2017-02-23] MEDS: FLUOXETINE 20 MG CAP PO SCH (19:02)
--- NOTE | 2017-02-24 07:19 | PSY ---
Date/Time of Note Date/Time of Note DATE: 02/24/17 TIME: 07:18 Psychiatric Subjective Eval Consent Pt consented to telemedicine: Yes Subjective Evaluation Patient location: emergency Chief Complaint: Pt BIB RA 89 for SI and abdominal pain, recent UTI. Reason for consult: re-eval Hospitalization: Suicidal Attempt(s) Medical history Problems Medical Problems: (1) Abdominal pain Status: Acute (2) Anxiety Status: Acute (3) Anxiety attack Status: Acute (4) BV (bacterial vaginosis) Status: Acute (5) BV (bacterial vaginosis) Status: Acute (6) Constipation Status: Acute (7) COPD (chronic obstructive pulmonary disease) Status: Acute (8) COPD exacerbation Status: Acute (9) COPD with exacerbation Status: Acute (10) Dehydration Status: Acute (11) Homicidal behavior Status: Acute (12) Homicidal ideation Status: Acute (13) Hypokalemia Status: Acute (14) Hypoxemia Status: Acute (15) Morbid obesity Status: Acute (16) Multiple complaints Status: Acute (17) Paranoia Status: Acute (18) Personality disorder Status: Acute (19) Schizophrenia, chronic with acute exacerbation Status: Acute (20) Seizure disorder Status: Acute (21) Shortness of breath Status: Acute (22) Suicidal ideation Status: Acute (23) Suicidal ideation Status: Acute (24) UTI (urinary tract infection) Status: Acute (25) UTI (urinary tract infection) Status: Acute (26) Vaginal candidiasis Status: Acute (27) Vaginal candidiasis Status: Acute Allergies: Coded Allergies: No Known Allergies (Verified Allergy, Mild, 02/21/17) Social History Marital status: Level of education: High School. 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 SOURCES OF INFORMATION: The patient who appears to be somewhat reliable and the medical records; the nursing staff. CHIEF COMPLAINT: "suicidal". HISTORY OF PRESENT ILLNESS: The patient was interviewed via telemedicine in the presence of and under the supervision of nursing staff of the hospital. The consent to conducting this interview via telemedicine was obtained by the nursing staff at the hospital. MARU He reports that the patient presented with SI and HI. Pt threatened to stab her in the past. Is on a hold; per 5150 ppw, the patient is agitated, aggressive, stated she has SI with plan to stab herself and find the main artery, HI towards and friends, as well as having severe anxiety. The patient was evaluated by Dr. Barnes twice. Last evaluation was in February 23. According to that documentation, the patient initially denied having suicidal or homicidal ideation to the social economist as well as the emergency room physician, but later stated to the psychiatrist that she was lying about it. She then threatened that you're going to see a bloody mess. The patient was frustrated about not receiving her psychiatric medications while in the emergency room and was irritable on exam. The patient admitted to having command auditory hallucinations as well as homicidal ideation towards her . It was recommended the patient be continued on Prozac 20 mg by mouth daily, Seroquel 100 mg by mouth every morning, 200 mg by mouth at bedtime, clonazepam 0.5 mg by mouth 3 times a day. Inpatient admission to psychiatry was recommended. Diagnosis was schizoaffective disorder, borderline personality disorder. The patient was evaluated on February [address] Barnes. According to that evaluation , the patient with a history of schizophrenia was brought in by ambulance with suicidal ideation with a plan to stab herself as well as homicidal ideation toward her . The patient admitted to having command auditory hallucinations. The patient reports that she has had SI with plan to stab herself since 1 week ago. The patient reports still having suicidal thoughts at this time. The patient reports that she still has HI towards her because he is not treating her well. Reports that she did not talk to her at all when he visited. She reports that she is angry because her is not treating her well, and may be poisoning her food with a drug since approximately one week ago. Admits to having been depressed, and admits to anhedonia. Reports that her sleep was not good prior to coming to the hospital, but she slept okay yesterday with the Seroquel. Admits to low appetite, hopelessness, helplessness. Admits to AH telling her to kill herself. Admits to having VH of bugs on her sts. The patient denies having any side effects from her medications. The patient denies using alcohol heavily or regularly. The patient denies using any other substances. In terms of past psychiatric history, the patient reports having a history of multiple psychiatric hospitalizations for schizophrenia. The patient reports having a history of past suicide attempts. PAST MEDICAL HISTORY: stroke, copd, asthma, HTN, cardiomegaly, schizophrenia, depression/anxiety, DM. HOME MEDICATIONS: medications for DM and HTN (can't remember) seroquel 200 mg po bid, clonazepam 2 mg po qid, prosac 20 mg po qday. CURRENT PSYCHIATRIC MEDICATIONS: seroquel 150 mg po bid, clonazepam 2 mg po tid, prosac 40 mg po qday. ALLERGIES TO MEDICATIONS: NKDA. 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 LABORATORY TESTS: CBC unremarkable, CMP with potassium of 3.1, otherwise unremarkable, UDS positive for opiates, benzodiazepines, cocaine, cannabinoids. Alcohol was not detected. REVIEW OF SYSTEMS: Constitutional (e.g., fever, weight loss): negative; Eyes, Ears, Nose, Mouth, Throat: negative; Cardiovascular: negative; Respiratory: negative; Gastrointestinal: negative; Genitourinary: negative; Musculoskeletal: negative; Integumentary (skin and/or breast): negative; Neurological: negative; Psychiatric: as per HPI; Endocrine: negative; Hematologic/Lymphatic: negative; Allergic/Immunologic: negative. MENTAL STATUS EXAMINATION: General Appearance and Behavior: Calm, cooperative with the interview, pleasant with the current interviewer, makes poor eye contact, poorly groomed, no abnormal movements noted. Speech: Slow rate, regular rhythm, normal latency, low volume, decreased amount. Flow of thought: sequential, logical, goal-directed at times, illogical at other times. Content of thought: positive for auditory hallucinations, positive for visual hallucinations, positive for delusions, positive for suicidal ideation; no homicidal ideation. Mood: "depressed". Affect: dysthymic, dysphoric, not reactive. Attention: normal based on the interview. Insight: fair. Judgment: poor. Memory: normal based on the interview. Sensorium: alert and oriented to person, place and date. ASSESSMENT: The patient's presentation and history are consistent with the diagnosis of schizophrenia, Cluster B personality disorder traits, rule out cocaine use disorder. The patient presents with an exacerbation of psychosis in the context of possible cocaine and marijuana use. [place] I: schizophrenia. [place] II: Cluster B personality disorder traits. [place] III: see PMH. [place] IV: social stressors. [place] V: GAF: 10. PLAN: - Medication management: Would increase seroquel to 200 mg po bid. Would continue clonazepam 2 mg po tid, prosac 40 mg po qday. Would start haloperidol 5 mg IM PRN severe agitation q4 hours. Would start diphenhydramine 50 mg IM PRN severe agitation q4 hours. Would start lorazepam 2 mg IM PRN severe agitation q4 hours Will defer to the inpatient psychiatry team for other medication changes. - Labs: No other laboratory tests are needed at this time. - Psychotherapy: Provided supportive psychotherapy and psychoeducation. - Disposition: Would recommend involuntary admission to the inpatient psychiatric unit given the severity of the patient's psychiatric condition and the fact that the patient is an imminent danger to self and/or others so long as the patient has been cleared medically for admission to psychiatry. Inpatient psychiatric admission is at this time the least restrictive environment where the patient can receive the psychiatric care that is needed. Would place on suicide precautions. The patient fulfills criteria for being placed on involuntary hold due to being a danger to self and others. Discussed about the above plan with Dr. Cisneros. CAM GOODE MD Feb 24, 2017 07:19
[2017-02-24] MEDS: QUETIAPINE 100 MG TAB PO SCH ×2 (09:28→21:04)
[2017-02-24] MEDS: FLUOXETINE 20 MG CAP PO SCH (09:28)
[2017-02-24] MEDS: clonAZEPAM 0.5 MG TAB PO PRN ×2 (09:29→16:42)
--- NOTE | 2017-02-24 22:34 | PSY ---
Date/Time of Note Date/Time of Note DATE: 02/24/17 TIME: 22:30 Psychiatric Subjective Eval Consent Pt consented to telemedicine: Yes Subjective Evaluation Patient location: emergency Chief Complaint: Pt BIB RA 89 for SI and abdominal pain, recent UTI. Reason for consult: re-eval History of present illness Pt is depressed, irritable, hearing voices, wants to stab herself and "shut up" her . Patient is also wanting to beat up patients in the ER. She reports feeling bad for about one week. Does not feel safe out of the hospital. Voices are telling her to "do it" (stab herself). Past psychiatric history Multiple admissions. Diagnosed with schizophrenia versus schizoaffective. Hospitalization: yes Family History N/A Medical history Problems Medical Problems: (1) Abdominal pain Status: Acute (2) Anxiety Status: Acute (3) Anxiety attack Status: Acute (4) BV (bacterial vaginosis) Status: Acute (5) BV (bacterial vaginosis) Status: Acute (6) Constipation Status: Acute (7) COPD (chronic obstructive pulmonary disease) Status: Acute (8) COPD exacerbation Status: Acute (9) COPD with exacerbation Status: Acute (10) Dehydration Status: Acute (11) Homicidal behavior Status: Acute (12) Homicidal ideation Status: Acute (13) Hypokalemia Status: Acute (14) Hypoxemia Status: Acute (15) Morbid obesity Status: Acute (16) Multiple complaints Status: Acute (17) Paranoia Status: Acute (18) Personality disorder Status: Acute (19) Schizophrenia, chronic with acute exacerbation Status: Acute (20) Seizure disorder Status: Acute (21) Shortness of breath Status: Acute (22) Suicidal ideation Status: Acute (23) Suicidal ideation Status: Acute (24) UTI (urinary tract infection) Status: Acute (25) UTI (urinary tract infection) Status: Acute (26) Vaginal candidiasis Status: Acute (27) Vaginal candidiasis Status: Acute Allergies: Coded Allergies: No Known Allergies (Verified Allergy, Mild, 02/21/17) Substance Abuse Substance use: No known substance abuse Social History Marital status: Level of education: High School. 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 Agree with Seroquel 200mg bid while in ER. Psychotherapy N.A Pt. Caregiver/Family Education N/A Follow-up/Disposition Transfer to inpatient psychiatry. Continue/restart 5150 as patient is a danger to self and a danger to her . Please provide information to ( Ayah). 5[address] Recommendation: [facility] GENI MCDONALD Feb 24, 2017 22:34
[2017-02-25] MEDS: QUETIAPINE 100 MG TAB PO SCH ×2 (11:32→22:03)
[2017-02-25] MEDS: FLUOXETINE 20 MG CAP PO SCH (11:32)
--- NOTE | 2017-02-25 20:47 | PSY ---
Date/Time of Note Date/Time of Note DATE: 02/25/17 TIME: 23:43 Psychiatric Subjective Eval Consent Pt consented to telemedicine: Yes Subjective Evaluation Patient location: emergency Chief Complaint: Pt BIB RA 89 for SI and abdominal pain, recent UTI. Reason for consult: re-eval History of present illness Pls refer to previous notes for full hx. Briefly, pt is 61 yo female with schizophrenia vs schizoaffective do. She came to the ER with SI to kill self as well as CAH and HI to kill her . ER staff has been trying to send pt to hospital but she is on permanent oxygen and so has been difficult to dispo. This MD was asked to reconsult today as pt wants to go home. MD spoke with pt. Pt denies ever having or saying HI or CAH, but admits to previous SI. Reports she just wants to go home and is tired of being in ER. MD explained the importance of monitoring and ensuring Si and HI are gone. Pt agreed with MD rec and agreed to stay. Rest of hx as per previous notes. Plan: continue current plan to admit to inpatient unit. Continue current meds. Hospitalization: yes Family History as in previous notes Medical history Problems Medical Problems: (1) Abdominal pain Status: Acute (2) Anxiety Status: Acute (3) Anxiety attack Status: Acute (4) BV (bacterial vaginosis) Status: Acute (5) BV (bacterial vaginosis) Status: Acute (6) Constipation Status: Acute (7) COPD (chronic obstructive pulmonary disease) Status: Acute (8) COPD exacerbation Status: Acute (9) COPD with exacerbation Status: Acute (10) Dehydration Status: Acute (11) Homicidal behavior Status: Acute (12) Homicidal ideation Status: Acute (13) Hypokalemia Status: Acute (14) Hypoxemia Status: Acute (15) Morbid obesity Status: Acute (16) Multiple complaints Status: Acute (17) Paranoia Status: Acute (18) Personality disorder Status: Acute (19) Schizophrenia, chronic with acute exacerbation Status: Acute (20) Seizure disorder Status: Acute (21) Shortness of breath Status: Acute (22) Suicidal ideation Status: Acute (23) Suicidal ideation Status: Acute (24) UTI (urinary tract infection) Status: Acute (25) UTI (urinary tract infection) Status: Acute (26) Vaginal candidiasis Status: Acute (27) Vaginal candidiasis Status: Acute Allergies: Coded Allergies: No Known Allergies (Verified Allergy, Mild, 02/21/17) Social History Marital status: Level of education: High School. 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
--- NOTE | 2017-02-25 21:02 | PSY ---
Date/Time of Note Date/Time of Note DATE: 02/26/17 TIME: 00:01 Psychiatric Subjective Eval Subjective Evaluation Patient location: emergency Chief Complaint: Pt BIB RA 89 for SI and abdominal pain, recent UTI. Reason for consult: re-eval Hospitalization: yes Family History Addendum: pt had admitted active si and hi up until yesterday. Today admitted that she wants to go home to be comfortable and does not even remember or not willing to acknowledge previous HI. This is very concerning and suggests reliability may be limited. Given the severity and recency of her sxs, as well as limited reliability, she remains a severe and acute/imminent risk of harm to herself. Before she can be discharged she would have to demonstrate a consistent and reliable lack of SI/HI. In addition, the rest of her mental status exam would have to improve, as opposed to being similar to before (today same as yesterday with noted exceptions). In addition, would have to obtain parallel hx from with discharge plan, as well as speak with her outpatient provider and set up very close care and monitoring. Until all of these things can happen, pt will remain at high risk of harm to herself and others. Medical history Problems Medical Problems: (1) Abdominal pain Status: Acute (2) Anxiety Status: Acute (3) Anxiety attack Status: Acute (4) BV (bacterial vaginosis) Status: Acute (5) BV (bacterial vaginosis) Status: Acute (6) Constipation Status: Acute (7) COPD (chronic obstructive pulmonary disease) Status: Acute (8) COPD exacerbation Status: Acute (9) COPD with exacerbation Status: Acute (10) Dehydration Status: Acute (11) Homicidal behavior Status: Acute (12) Homicidal ideation Status: Acute (13) Hypokalemia Status: Acute (14) Hypoxemia Status: Acute (15) Morbid obesity Status: Acute (16) Multiple complaints Status: Acute (17) Paranoia Status: Acute (18) Personality disorder Status: Acute (19) Schizophrenia, chronic with acute exacerbation Status: Acute (20) Seizure disorder Status: Acute (21) Shortness of breath Status: Acute (22) Suicidal ideation Status: Acute (23) Suicidal ideation Status: Acute (24) UTI (urinary tract infection) Status: Acute (25) UTI (urinary tract infection) Status: Acute (26) Vaginal candidiasis Status: Acute (27) Vaginal candidiasis Status: Acute Allergies: Coded Allergies: No Known Allergies (Verified Allergy, Mild, 02/21/17) Social History Marital status: Level of education: High School. 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
[2017-02-25] MEDS: clonAZEPAM 0.5 MG TAB PO PRN (21:48)
[2017-02-25] MEDS ORDERED: BISACODYL (EC) 5 MG TAB PO ONE (22:30)
[2017-02-26] MEDS: FLUOXETINE 20 MG CAP PO SCH (10:01)
[2017-02-26] MEDS: QUETIAPINE 100 MG TAB PO SCH ×2 (10:02→23:40)
[2017-02-26 10:17] VITALS: TEMP 97.9
[2017-02-26] MEDS ORDERED: DEXAMETHASONE 10 MG/ML 1 ML INJ IV ONE (12:00)
[2017-02-26] MEDS ORDERED: AZITHROMYCIN 250 MG TAB PO ONE (12:00)
[2017-02-26] MEDS: clonAZEPAM 0.5 MG TAB PO PRN (13:18)
--- NOTE | 2017-02-26 13:24 | EN ---
Date/Time of Note Date/Time of Note DATE: 02/26/17 TIME: 13:23 ER Progress Note The patient now remains in the emergency department for 120 hours. The patient still has hypoxia. We are unable to find placement for psychiatry because of this oxygen requirement. In my opinion I believe medical admission for management of COPD with exacerbation will be appropriate. The patient was given Decadron, azithromycin. Accepting care team and consultations: I discussed the current laboratory data, diagnostic imaging and emergency care provided. Admitting team: Dr. Manriquez Admitting team indication: Insurance directed, [facility] The patient remains on a 5150 hold. A sitter has been arranged for the medical surgical service floor. The patient will be admitted. Diagnostic impression: COPD with exacerbation Hypoxia Suicidal ideation CLAUDIA HDEZ MD Feb 26, 2017 13:24
[2017-02-26] MEDS ORDERED: ONDANSETRON 4 MG INJ IV PRN ×2 (13:30→17:30)
[2017-02-26] MEDS ORDERED: ACETAMINOPHEN 325 MG TAB PO PRN ×2 (13:30→17:30)
[2017-02-26 14:37] VITALS: PULSE 85
[2017-02-26 15:00] VITALS: BP 137/68; RESP 18
[2017-02-26] MEDS ORDERED: IBUPROFEN 600 MG TAB PO PRN (16:30)
[2017-02-26 16:35] VITALS: Ht 162.6 cm; Wt 115.0 kg
[2017-02-26] MEDS: HYDROCODONE/APAP (5/325) TAB PO PRN ×2 (16:58→21:59)
[2017-02-26] MEDS ORDERED: GLUCOSE GEL 15 GRAM TUBE BUCCAL PRN (17:00)
[2017-02-26] MEDS ORDERED: GLUCOSE GEL 15 GRAM TUBE PO PRN ×2 (17:00)
[2017-02-26] MEDS ORDERED: DEXTROSE 50% 50 ML SYRINGE IV PRN ×2 (17:00)
[2017-02-26] MEDS ORDERED: GLUCAGON 1 MG INJ IM PRN (17:00)
--- NOTE | 2017-02-26 17:22 | QN ---
Documentation Comment [id number] MARIAM PASCUAL MD Feb 26, 2017 17:22
[2017-02-26] MEDS ORDERED: ACETAMINOPHEN 650 MG SUPP PR PRN (17:30)
[2017-02-26] MEDS ORDERED: NACL 0.9% 3 ML SYG IV SCH (17:30)
[2017-02-26] MEDS ORDERED: BISACODYL (EC) 5 MG TAB PO PRN (17:30)
[2017-02-26] MEDS ORDERED: MAGNESIUM HYDROXIDE 30ML CUP PO PRN (17:30)
[2017-02-26] MEDS ORDERED: ALBUTEROL HFA 8 GM INHALER INH SCH (18:00)
[2017-02-26 20:24] VITALS: BP 151/72; RESP 16
[2017-02-26] MEDS: ALBUTEROL 18 GM INHALER INH SCH (20:35)
[2017-02-26] MEDS: clonAZEPAM 0.5 MG TAB PO SCH (20:36)
[2017-02-26] MEDS: ALBUTEROL/IPRATROPIUM (NEB) 3 ML AMP HHN SCH (21:18)
[2017-02-26] MEDS: GABAPENTIN 100 MG CAP PO SCH (22:01)
[2017-02-27] MEDS: ALBUTEROL 18 GM INHALER INH SCH ×4 (01:12→20:31)
[2017-02-27] MEDS: ALBUTEROL/IPRATROPIUM (NEB) 3 ML AMP HHN SCH ×4 (01:44→19:57)
[2017-02-27 06:27] LABS: ALBUMIN 3.6 g/dl (3.3-4.9); POTASSIUM 3.4 mmol/L (3.5-5.1)
[2017-02-27 06:29] LABS: BILIRUBIN,INDIRECT 0.3 mg/dl (0-1.1); BILIRUBIN,TOTAL 0.3 mg/dl (0.2-1.3); CREATININE 0.53 mg/dl (0.44-1.00)
[2017-02-27 06:30] LABS: ALBUMIN/GLOBULIN RATIO 1.16; TOTAL PROTEIN 6.7 g/dl (6.1-8.1)
[2017-02-27 06:31] LABS: CALCIUM 9.4 mg/dl (8.4-10.2)
--- NOTE | 2017-02-27 06:59 | HP ---
DATE OF ADMISSION: 02/26/2017 HISTORY OF PRESENT ILLNESS: Tracie Bean is a 61-year-old female who initially presented to the ER for acute psychiatric decompensation, was seen by _ [facility] psychiatrist with history of schizophrenia. The patient was admitted for the plan to stab herself, and patient could not be transferred. The patient's diagnoses were listed as abdominal pain, anxiety, bacterial vaginosis, COPD, ideation, morbid obesity. The patient needed to be admitted for medical admission since patient has COPD with oxygen requirement. The patient's case was discussed with Dr. Pepe Schofield since patient was seen by Asa Dacosta from telepsychiatry and was placed on hold. The patient has been taking Klonopin, Prozac and Seroquel. The patient was initially seen on 02/[address] Michael Puente and recommendations were to transfer to a psych facility. The patient right now is not suicidal, but claims that she needs oxygen and says she is short of breath. PAST MEDICAL HISTORY: Please review the old chart. Briefly, history of COPD, obesity, hypertension, history of anxiety, schizophrenia, history of MRSA treated in the past. The patient's other history includes a history of hypertension, personality disorder, history of seizure disorder as per old record, history of anemia. ALLERGY HISTORY: NEGATIVE. FAMILY HISTORY: She denies. SOCIAL HISTORY: She denies at this point for any smoking or drinking. HOME MEDICATION: Patient is on: 1. Hydrocodone. 2. Albuterol. 3. Keflex. 4. Clonazepam. 5. Diflucan. 6. Prozac. 7. Gabapentin. 8. Ibuprofen. 9. Levofloxacin. 10. Lorazepam. 11. Metformin. 12. Flagyl. 13. Seroquel. 14. Spiriva. The patient is not taking any current antibiotics. REVIEW OF SYSTEMS: HEENT: Unremarkable. RESPIRATORY: On and off short of breath, cough. CARDIOVASCULAR: No chest pain, palpitation. ABDOMEN: Unremarkable. EXTREMITIES: Unremarkable. CENTRAL NERVOUS SYSTEM: Unremarkable for numbness and tingling. PSYCHIATRIC: As mentioned above. PHYSICAL EXAMINATION GENERAL: Obese female, awake, alert. VITAL SIGNS: Pulse 83, blood pressure 137/68. HEAD: Atraumatic, normocephalic. Pupils equal, reactive to light. NECK: Supple. No JVD. LUNGS: Rhonchi noted bilaterally. CARDIOVASCULAR: S1, S2 normal. ABDOMEN: Soft, nontender. Bowel sounds positive. No palpable mass or hepatosplenomegaly. No guarding, rebound tenderness. EXTREMITIES: There is no cyanosis, clubbing, or edema. CENTRAL NERVOUS SYSTEM: The patient is awake, alert, no focal deficit. LABORATORY DATA: Patient's potassium was 3.1 earlier. DIAGNOSTIC DATA: Chest x-ray shows spondylosis of the thoracic spine. CT abdomen shows mild atelectasis, atherosclerosis, status post hysterectomy, normal appendix. No UTI, no urinary tract calculus . IMPRESSION: 1. Acute psychiatric decompensation. 2. The patient had hypokalemia. 3. Hypertension. 4. Chronic obstructive pulmonary disease. 5. The patient has questionable history of diabetes. 6. Noncompliance. 7. Chronic pain. PLAN: Obtain laboratory data. Continue breathing treatment. Psychiatric follow up will be needed. Home oxygen, bronchodilator orders were done. Dictated By: MARIAM CHRISTINA/SOFIA Conf#: [id number] DID#: [id number] MTDD
[2017-02-27 07:49] VITALS: BP 140/81; RESP 16
[2017-02-27] MEDS ORDERED: metFORMIN 500 MG TAB PO SCH (08:15)
[2017-02-27] MEDS: TIOTROPIUM 18 MCG CAPSULE INHA DEV INH SCH (08:29)
[2017-02-27] MEDS: clonAZEPAM 0.5 MG TAB PO SCH ×3 (08:30→20:30)
[2017-02-27] MEDS: QUETIAPINE 100 MG TAB PO SCH ×2 (08:30→20:30)
[2017-02-27] MEDS: GABAPENTIN 100 MG CAP PO SCH ×3 (08:30→20:30)
[2017-02-27] MEDS: FLUOXETINE 20 MG CAP PO SCH ×2 (08:31→08:32)
[2017-02-27] MEDS: INSULIN ASPART [NOVOLOG] 3 ML PEN SC SCH ×3 (12:30→20:29)
[2017-02-27] MEDS: HYDROCODONE/APAP (5/325) TAB PO PRN ×2 (12:35→21:43)
[2017-02-27] MEDS: DOCUSATE SODIUM 100 MG CAP PO PRN (12:44)
--- NOTE | 2017-02-27 16:38 | PN ---
Date/Time of Note Date/Time of Note DATE: 02/27/17 TIME: 16:37 Assessment/Plan VTE Prophylaxis VTE Prophylaxis Intervention: other Lines/Catheters [facility] Saline Lock Urinary Cath still in place: No Assessment/Plan Chief Complaint/Hosp Course IMPRESSION: 1. Acute psychiatric decompensation. 2. The patient had hypokalemia. 3. Hypertension. 4. Chronic obstructive pulmonary disease. 5. The patient has questionable history of diabetes. 6. Noncompliance. 7. Chronic pain 8 drug abuse plan kcl Problems: Subjective 24 Hr Interval Summary Respiratory: shortness of breath (better) Cardiovascular: no complaints Exam/Review of Systems Vital Signs Vitals Vital Signs Date Time Temp Pulse Resp B/P Pulse Ox O2 Delivery O2 Flow Rate FiO2 02/27/17 07:49 97.3 84 16 140/81 99 02/27/17 07:34 1.0 02/27/17 07:34 Nasal Cannula Intake and Output 02/26/17 02/26/17 02/27/17 15:00 23:00 07:00 Intake Total 680 ml 480 ml Balance 680 ml 480 ml Exam Neck: supple Respiratory: diminished breath sounds Cardiovascular: regular rate and rhythm Gastrointestinal: soft Musculoskeletal: nl extremities to inspection Extremities: normal pulses Results Result Diagram: 02/27/17 0519 Results 24 hrs Laboratory Tests Test 02/27/17 05:19 02/27/17 08:27 02/27/17 11:16 02/27/17 12:11 Sodium Level 140 Potassium Level 3.4 L Chloride Level 105 Carbon Dioxide Level 23 Anion Gap 15 Blood Urea Nitrogen 17 Creatinine 0.53 Glucose Level 224 H Calcium Level 9.4 Total Bilirubin 0.3 Direct Bilirubin 0.00 Indirect Bilirubin 0.3 Aspartate Amino Transf (AST/SGOT) 25 Alanine Aminotransferase (ALT/SGPT) 25 Alkaline Phosphatase 62 Total Protein 6.7 Albumin 3.6 Globulin 3.10 Albumin/Globulin Ratio 1.16 Bedside Glucose 237 H 279 H Hemoglobin A1c 6.4 H Medications Medications Current Medications Clonazepam (Klonopin) 2 mg TID PRN PO anxiety Last administered on 02/26/17 13 :18; Admin Dose 2 MG; Start 02/23/17 at 10:30 Quetiapine Fumarate (Seroquel) 200 mg BID PO Last administered on 02/27/17 08: 30; Admin Dose 200 MG; Start 02/24/17 at 09:00 Clonazepam (Klonopin) 2 mg TID PO Last administered on 02/27/17 12:35; Admin Dose 2 MG; Start 02/26/17 at 21:00 Fluoxetine HCl (Prozac) 40 mg DAILY PO ; Start 02/27/17 at 09:00 Gabapentin (Neurontin) 100 mg TID PO Last administered on 02/27/17 12:35; Admin Dose 100 MG; Start 02/26/17 at 21:00 Acetaminophen/ Hydrocodone Bitart ([place] (5/325)) 1 tab Q4H PRN PO pain Last administered on 02/27/17 12:35; Admin Dose 1 TAB; Start 02/26/17 at 16:30 Ibuprofen (Motrin) 600 mg Q8 PRN PO PAIN AND/OR INFLAMMATION; Start 02/26/17 at 16:30 Lorazepam (Ativan) 1 mg Q6H PRN PO ANXIETY; Start 02/26/17 at 16:30 Tiotropium [place] (Spiriva) 1 inh DAILY INH Last administered on 02/27/17 08: 29; Admin Dose 1 INH; Start 02/27/17 at 09:00 Miscellaneous Information 1 ea NOTE XX ; Start 02/26/17 at 17:00 Glucose (Glutose) 15 gm Q15M PRN PO DECREASED GLUCOSE; Start 02/26/17 at 17:00 Glucose (Glutose) 22.5 gm Q15M PRN PO DECREASED GLUCOSE; Start 02/26/17 at 17: 00 Dextrose (D50w Syringe) 25 ml Q15M PRN IV DECREASED GLUCOSE; Start 02/26/17 at 17:00 Dextrose (D50w Syringe) 50 ml Q15M PRN IV DECREASED GLUCOSE; Start 02/26/17 at 17:00 Glucagon (Glucagen) 1 mg Q15M PRN IM DECREASED GLUCOSE; Start 02/26/17 at 17:00 Glucose (Glutose) 15 gm Q15M PRN BUCCAL DECREASED GLUCOSE; Start 02/26/17 at 17 :00 Ondansetron HCl (Zofran Inj) 4 mg Q6H PRN IV NAUSEA AND/OR VOMITING; Start at 17:30 Acetaminophen (Tylenol Tab) 650 mg Q6H PRN PO PAIN LEVEL 1-3 OR FEVER Last administered on 02/27/17 05:08; Admin Dose 650 MG; Start 02/26/17 at 17:30 Acetaminophen (Tylenol Supp) 650 mg Q6H PRN [place] PAIN LEVEL 1-3 OR FEVER; Start 02/26/17 at 17:30 Docusate Sodium (Colace) 100 mg Q12H PRN PO CONSTIPATION Last administered on 12:44; Admin Dose 100 MG; Start 02/26/17 at 17:30 Magnesium Hydroxide (Milk Of Mag) 30 ml DAILY PRN PO CONSTIPATION; Start at 17:30 Bisacodyl (Dulcolax) 5 mg DAILY PRN PO CONSTIPATION; Start 02/26/17 at 17:30 Zolpidem Tartrate (Ambien) 5 mg QHS PRN PO SLEEP; Start 02/26/17 at 17:30 Diagnostic Test (Pha) (Accu-Chek) 1 ea 02 XX ; Start 02/28/17 at 02:00 MARIAM PASCUAL MD Feb 27, 2017 16:38
[2017-02-27] MEDS: LORAZEPAM 1 MG TAB PO PRN (17:49)
[2017-02-27] MEDS: metFORMIN 500 MG TAB PO SCH (17:49)
[2017-02-27 19:54] VITALS: BP 147/82; RESP 20
[2017-02-27] MEDS: POTASSIUM CHLORIDE (SR) 10 MEQ TAB PO SCH (20:30)
[2017-02-27] MEDS: ZOLPIDEM 5 MG TAB PO PRN (22:25)
[2017-02-28] MEDS: ALBUTEROL/IPRATROPIUM (NEB) 3 ML AMP HHN SCH ×4 (01:31→20:13)
[2017-02-28] MEDS: ACCU-CHEK XX SCH (02:20)
[2017-02-28] MEDS: ALBUTEROL 18 GM INHALER INH SCH ×2 (02:41→08:03)
[2017-02-28] MEDS: LORAZEPAM 1 MG TAB PO PRN (06:08)
[2017-02-28 06:23] LABS: CALCIUM 8.9 mg/dl (8.4-10.2); CREATININE 0.49 mg/dl (0.44-1.00); POTASSIUM 3.6 mmol/L (3.5-5.1)
[2017-02-28 07:39] VITALS: BP 115/53; RESP 18
[2017-02-28] MEDS: metFORMIN 500 MG TAB PO SCH ×2 (08:04→17:32)
[2017-02-28] MEDS: INSULIN ASPART [NOVOLOG] 3 ML PEN SC SCH ×4 (08:09→20:35)
[2017-02-28] MEDS: FLUOXETINE 20 MG CAP PO SCH (08:56)
[2017-02-28] MEDS: QUETIAPINE 100 MG TAB PO SCH ×2 (08:56→20:29)
[2017-02-28] MEDS: GABAPENTIN 100 MG CAP PO SCH ×3 (08:56→20:29)
[2017-02-28] MEDS: clonAZEPAM 0.5 MG TAB PO SCH ×3 (08:57→20:30)
[2017-02-28] MEDS: POTASSIUM CHLORIDE (SR) 10 MEQ TAB PO SCH ×2 (08:57→20:30)
[2017-02-28] MEDS: TIOTROPIUM 18 MCG CAPSULE INHA DEV INH SCH (09:06)
[2017-02-28] MEDS: HYDROCODONE/APAP (5/325) TAB PO PRN ×2 (09:07→21:08)
--- NOTE | 2017-02-28 19:12 | PN ---
Date/Time of Note Date/Time of Note DATE: 02/28/17 TIME: 19:12 Assessment/Plan VTE Prophylaxis VTE Prophylaxis Intervention: other Lines/Catheters IV [facility]from [facility] Saline Lock Urinary Cath still in place: No Assessment/Plan Chief Complaint/Hosp Course IMPRESSION: 1. Acute psychiatric decompensation. 2. The patient had hypokalemia.BETTER 3. Hypertension. 4. Chronic obstructive pulmonary disease. 5. The patient has questionable history of diabetes. 6. Noncompliance. 7. Chronic pain 8 drug abuse 9 DM plan STARLIX Problems: Subjective 24 Hr Interval Summary Respiratory: no complaints Cardiovascular: no complaints Exam/Review of Systems Vital Signs Vitals Vital Signs Date Time Temp Pulse Resp B/P Pulse Ox O2 Delivery O2 Flow Rate FiO2 02/28/17 14:27 82 16 94 21 02/28/17 07:39 97.8 115/53 02/28/17 01:31 Nasal Cannula 2.0 Intake and Output 02/27/17 02/27/17 02/28/17 15:00 23:00 07:00 Intake Total 920 ml 480 ml Output Total 900 ml 850 ml Balance 20 ml -370 ml Exam Respiratory: clear to auscultation Cardiovascular: regular rate and rhythm Gastrointestinal: soft Genitourinary - Female: nl adnexae Musculoskeletal: nl extremities to inspection Extremities: normal pulses Results Result Diagram: 02/28/17 0530 Results 24 hrs Laboratory Tests Test 02/27/17 20:24 02/28/17 02:16 02/28/17 05:30 02/28/17 08:00 Bedside Glucose 214 236 H 191 Sodium Level 141 Potassium Level 3.6 Chloride Level 108 Carbon Dioxide Level 27 Anion Gap 10 # Blood Urea Nitrogen 16 Creatinine 0.49 Glucose Level 173 Calcium Level 8.9 Test 02/28/17 11:37 02/28/17 17:30 Bedside Glucose 224 H 144 Medications Medications Current Medications Clonazepam (Klonopin) 2 mg TID PRN PO anxiety Last administered on 02/26/17 13 :18; Admin Dose 2 MG; Start 02/23/17 at 10:30 Quetiapine Fumarate (Seroquel) 200 mg BID PO Last administered on 02/28/17 08: 56; Admin Dose 200 MG; Start 02/24/17 at 09:00 Clonazepam (Klonopin) 2 mg TID PO Last administered on 02/28/17 12:30; Admin Dose 2 MG; Start 02/26/17 at 21:00 Fluoxetine HCl (Prozac) 40 mg DAILY PO Last administered on 02/28/17 08:56; Admin Dose 40 MG; Start 02/27/17 at 09:00 Gabapentin (Neurontin) 100 mg TID PO Last administered on 02/28/17 12:29; Admin Dose 100 MG; Start 02/26/17 at 21:00 Acetaminophen/ Hydrocodone Bitart ([place] (5/325)) 1 tab Q4H PRN PO pain Last administered on 02/28/17 09:07; Admin Dose 1 TAB; Start 02/26/17 at 16:30 Ibuprofen (Motrin) 600 mg Q8 PRN PO PAIN AND/OR INFLAMMATION; Start 02/26/17 at 16:30 Lorazepam (Ativan) 1 mg Q6H PRN PO ANXIETY Last administered on 02/28/17 06:08 ; Admin Dose 1 MG; Start 02/26/17 at 16:30 Tiotropium [place] (Spiriva) 1 inh DAILY INH Last administered on 02/28/17 09: 06; Admin Dose 1 INH; Start 02/27/17 at 09:00 Miscellaneous Information 1 ea NOTE XX ; Start 02/26/17 at 17:00 Glucose (Glutose) 15 gm Q15M PRN PO DECREASED GLUCOSE; Start 02/26/17 at 17:00 Glucose (Glutose) 22.5 gm Q15M PRN PO DECREASED GLUCOSE; Start 02/26/17 at 17: 00 Dextrose (D50w Syringe) 25 ml Q15M PRN IV DECREASED GLUCOSE; Start 02/26/17 at 17:00 Dextrose (D50w Syringe) 50 ml Q15M PRN IV DECREASED GLUCOSE; Start 02/26/17 at 17:00 Glucagon (Glucagen) 1 mg Q15M PRN IM DECREASED GLUCOSE; Start 02/26/17 at 17:00 Glucose (Glutose) 15 gm Q15M PRN BUCCAL DECREASED GLUCOSE; Start 02/26/17 at 17 :00 Ondansetron HCl (Zofran Inj) 4 mg Q6H PRN IV NAUSEA AND/OR VOMITING; Start at 17:30 Acetaminophen (Tylenol Tab) 650 mg Q6H PRN PO PAIN LEVEL 1-3 OR FEVER Last administered on 02/27/17 05:08; Admin Dose 650 MG; Start 02/26/17 at 17:30 Acetaminophen (Tylenol Supp) 650 mg Q6H PRN [place] PAIN LEVEL 1-3 OR FEVER; Start 02/26/17 at 17:30 Docusate Sodium (Colace) 100 mg Q12H PRN PO CONSTIPATION Last administered on 12:44; Admin Dose 100 MG; Start 02/26/17 at 17:30 Magnesium Hydroxide (Milk Of Mag) 30 ml DAILY PRN PO CONSTIPATION; Start at 17:30 Bisacodyl (Dulcolax) 5 mg DAILY PRN PO CONSTIPATION Last administered on 06:05; Admin Dose 5 MG; Start 02/26/17 at 17:30 Zolpidem Tartrate (Ambien) 5 mg QHS PRN PO SLEEP Last administered on 22:25; Admin Dose 5 MG; Start 02/26/17 at 17:30 Diagnostic Test (Pha) (Accu-Chek) 1 ea 02 XX Last administered on 02/28/17 02: 20; Admin Dose 1 EA; Start 02/28/17 at 02:00 Potassium Chloride (Klor-Con 10) 10 meq BID PO Last administered on 02/28/17 08:57; Admin Dose 10 MEQ; Start 02/27/17 at 21:00 MARIAM PASCUAL MD Feb 28, 2017 19:12
[2017-02-28 19:53] VITALS: BP 119/66; RESP 20
[2017-03-01] MEDS: ACCU-CHEK XX SCH (02:00)
[2017-03-01] MEDS: ALBUTEROL/IPRATROPIUM (NEB) 3 ML AMP HHN SCH ×4 (02:00→20:40)
[2017-03-01 07:28] VITALS: BP 108/69; RESP 20
[2017-03-01] MEDS: INSULIN ASPART [NOVOLOG] 3 ML PEN SC SCH ×4 (08:15→20:22)
[2017-03-01] MEDS: TIOTROPIUM 18 MCG CAPSULE INHA DEV INH SCH (08:17)
[2017-03-01] MEDS: metFORMIN 500 MG TAB PO SCH ×2 (08:18→17:28)
[2017-03-01] MEDS: NATEGLINIDE 60 MG TAB PO SCH ×3 (08:19→17:28)
[2017-03-01] MEDS: GABAPENTIN 100 MG CAP PO SCH ×3 (08:19→20:27)
[2017-03-01] MEDS: POTASSIUM CHLORIDE (SR) 10 MEQ TAB PO SCH ×2 (08:20→20:27)
[2017-03-01] MEDS: QUETIAPINE 100 MG TAB PO SCH ×2 (08:20→20:27)
[2017-03-01] MEDS: FLUOXETINE 20 MG CAP PO SCH (08:21)
[2017-03-01] MEDS: clonAZEPAM 0.5 MG TAB PO SCH ×3 (08:22→20:27)
[2017-03-01] MEDS: HYDROCODONE/APAP (5/325) TAB PO PRN ×2 (09:42→18:47)
[2017-03-01 12:26] VITALS: BP 122/77
[2017-03-01 18:38] VITALS: BP 111/63
[2017-03-01] MEDS: DOCUSATE SODIUM 100 MG CAP PO PRN (18:47)
[2017-03-01 19:16] VITALS: BP 107/61; RESP 18
--- NOTE | 2017-03-01 23:16 | PN ---
Date/Time of Note Date/Time of Note DATE: 03/01/17 TIME: 23:15 Assessment/Plan VTE Prophylaxis VTE Prophylaxis Intervention: other Lines/Catheters IV [facility] Type [facility]from [facility]): Saline Lock Urinary Cath still in place: No Assessment/Plan Chief Complaint/Hosp Course IMPRESSION: 1. Acute psychiatric decompensation. 2. The patient had hypokalemia.BETTER 3. Hypertension. 4. Chronic obstructive pulmonary disease. 5. The patient has questionable history of diabetes. 6. Noncompliance. 7. Chronic pain 8 drug abuse 9 DM plan STARLIX Problems: Subjective 24 Hr Interval Summary Subjective hx not possible: other (need placement) Gastrointestinal: no complaints Genitourinary: no complaints Musculoskeletal: no complaints Exam/Review of Systems Vital Signs Vitals Vital Signs Date Time Temp Pulse Resp B/P Pulse Ox O2 Delivery O2 Flow Rate FiO2 03/01/17 20:40 1.0 03/01/17 20:40 74 19 97 Nasal Cannula 03/01/17 19:16 98.0 107/61 02/28/17 14:27 21 Intake and Output 02/28/17 02/28/17 03/01/17 15:00 23:00 07:00 Intake Total 1840 ml 240 ml Output Total 200 ml 420 ml Balance 1640 ml -180 ml Exam Neck: supple Respiratory: clear to auscultation Cardiovascular: regular rate and rhythm Gastrointestinal: soft Results Result Diagram: 02/28/17 0530 Results 24 hrs Laboratory Tests Test 03/01/17 02:23 03/01/17 08:14 03/01/17 12:20 03/01/17 17:25 Bedside Glucose 100 113 92 87 Test 03/01/17 20:18 Bedside Glucose 104 Medications Medications Current Medications Clonazepam (Klonopin) 2 mg TID PRN PO anxiety Last administered on 02/26/17 13 :18; Admin Dose 2 MG; Start 02/23/17 at 10:30 Quetiapine Fumarate (Seroquel) 200 mg BID PO Last administered on 03/01/17 20: 27; Admin Dose 200 MG; Start 02/24/17 at 09:00 Clonazepam (Klonopin) 2 mg TID PO Last administered on 03/01/17 20:27; Admin Dose 2 MG; Start 02/26/17 at 21:00 Fluoxetine HCl (Prozac) 40 mg DAILY PO Last administered on 03/01/17 08:21; Admin Dose 40 MG; Start 02/27/17 at 09:00 Gabapentin (Neurontin) 100 mg TID PO Last administered on 03/01/17 20:27; Admin Dose 100 MG; Start 02/26/17 at 21:00 Acetaminophen/ Hydrocodone Bitart ([place] (5/325)) 1 tab Q4H PRN PO pain Last administered on 03/01/17 18:47; Admin Dose 1 TAB; Start 02/26/17 at 16:30 Ibuprofen (Motrin) 600 mg Q8 PRN PO PAIN AND/OR INFLAMMATION; Start 02/26/17 at 16:30 Lorazepam (Ativan) 1 mg Q6H PRN PO ANXIETY Last administered on 02/28/17 06:08 ; Admin Dose 1 MG; Start 02/26/17 at 16:30 Tiotropium [place] (Spiriva) 1 inh DAILY INH Last administered on 03/01/17 08: 17; Admin Dose 1 INH; Start 02/27/17 at 09:00 Miscellaneous Information 1 ea NOTE XX ; Start 02/26/17 at 17:00 Glucose (Glutose) 15 gm Q15M PRN PO DECREASED GLUCOSE; Start 02/26/17 at 17:00 Glucose (Glutose) 22.5 gm Q15M PRN PO DECREASED GLUCOSE; Start 02/26/17 at 17: 00 Dextrose (D50w Syringe) 25 ml Q15M PRN IV DECREASED GLUCOSE; Start 02/26/17 at 17:00 Dextrose (D50w Syringe) 50 ml Q15M PRN IV DECREASED GLUCOSE; Start 02/26/17 at 17:00 Glucagon (Glucagen) 1 mg Q15M PRN IM DECREASED GLUCOSE; Start 02/26/17 at 17:00 Glucose (Glutose) 15 gm Q15M PRN BUCCAL DECREASED GLUCOSE; Start 02/26/17 at 17 :00 Ondansetron HCl (Zofran Inj) 4 mg Q6H PRN IV NAUSEA AND/OR VOMITING; Start at 17:30 Acetaminophen (Tylenol Tab) 650 mg Q6H PRN PO PAIN LEVEL 1-3 OR FEVER Last administered on 02/27/17 05:08; Admin Dose 650 MG; Start 02/26/17 at 17:30 Acetaminophen (Tylenol Supp) 650 mg Q6H PRN [place] PAIN LEVEL 1-3 OR FEVER; Start 02/26/17 at 17:30 Docusate Sodium (Colace) 100 mg Q12H PRN PO CONSTIPATION Last administered on 18:47; Admin Dose 100 MG; Start 02/26/17 at 17:30 Magnesium Hydroxide (Milk Of Mag) 30 ml DAILY PRN PO CONSTIPATION Last administered on 03/01/17 09:42; Admin Dose 30 ML; Start 02/26/17 at 17:30 Bisacodyl (Dulcolax) 5 mg DAILY PRN PO CONSTIPATION Last administered on 06:05; Admin Dose 5 MG; Start 02/26/17 at 17:30 Zolpidem Tartrate (Ambien) 5 mg QHS PRN PO SLEEP Last administered on 22:25; Admin Dose 5 MG; Start 02/26/17 at 17:30 Diagnostic Test (Pha) (Accu-Chek) 1 ea 02 XX Last administered on 03/01/17 02: 00; Admin Dose 1 EA; Start 02/28/17 at 02:00 Potassium Chloride (Klor-Con 10) 10 meq BID PO Last administered on 03/01/17 20:27; Admin Dose 10 MEQ; Start 02/27/17 at 21:00 MARIAM PASCUAL MD Mar 01, 2017 23:16
[2017-03-02] MEDS: ZOLPIDEM 5 MG TAB PO PRN ×2 (01:24→20:51)
[2017-03-02] MEDS: ACCU-CHEK XX SCH (02:00)
[2017-03-02] MEDS: ALBUTEROL/IPRATROPIUM (NEB) 3 ML AMP HHN SCH ×4 (02:00→21:34)
[2017-03-02 07:49] VITALS: BP 119/70; RESP 20
[2017-03-02] MEDS: INSULIN ASPART [NOVOLOG] 3 ML PEN SC SCH ×4 (08:15→20:48)
[2017-03-02] MEDS: metFORMIN 500 MG TAB PO SCH ×2 (08:46→16:50)
[2017-03-02] MEDS: NATEGLINIDE 60 MG TAB PO SCH ×3 (08:46→16:51)
[2017-03-02] MEDS: clonAZEPAM 0.5 MG TAB PO SCH ×3 (10:04→20:44)
[2017-03-02] MEDS: QUETIAPINE 100 MG TAB PO SCH ×2 (10:04→20:38)
[2017-03-02] MEDS: POTASSIUM CHLORIDE (SR) 10 MEQ TAB PO SCH ×2 (10:05→20:38)
[2017-03-02] MEDS: FLUOXETINE 20 MG CAP PO SCH (10:05)
[2017-03-02] MEDS: GABAPENTIN 100 MG CAP PO SCH ×3 (10:05→20:38)
[2017-03-02] MEDS: HYDROCODONE/APAP (5/325) TAB PO PRN ×2 (10:06→16:51)
[2017-03-02] MEDS: TIOTROPIUM 18 MCG CAPSULE INHA DEV INH SCH (12:23)
--- NOTE | 2017-03-02 13:57 | PSY ---
Date/Time of Note Date/Time of Note DATE: 03/02/17 TIME: 13:51 Psychiatric Subjective Eval Consent Pt consented to telemedicine: Yes Subjective Evaluation Patient location: inpatient Chief Complaint: Pt BIB RA 89 for SI and abdominal pain, recent UTI. Reason for consult: re-eval History of present illness Pt seen, evaluated, chart reviewed. Pt is 61 yo disabled female with hx schizoaffective disorder repeatedly admitted due to active Si and HI toward her . Pt seen today with JOSE Hugo, at bedside. Pt is medically cleared , she wants to be discharged to a board and care; she does nto want to go home with her . Denies I. + AH, no VH + PI : "My puts drugs in my food". No HI. Past psychiatric history see prior evals Hospitalization: yes Medical history Problems Medical Problems: (1) Abdominal pain Status: Acute (2) Anxiety Status: Acute (3) Anxiety attack Status: Acute (4) BV (bacterial vaginosis) Status: Acute (5) BV (bacterial vaginosis) Status: Acute (6) Constipation Status: Acute (7) COPD (chronic obstructive pulmonary disease) Status: Acute (8) COPD exacerbation Status: Acute (9) COPD with exacerbation Status: Acute (10) Dehydration Status: Acute (11) Homicidal behavior Status: Acute (12) Homicidal ideation Status: Acute (13) Hypokalemia Status: Acute (14) Hypoxemia Status: Acute (15) Morbid obesity Status: Acute (16) Multiple complaints Status: Acute (17) Paranoia Status: Acute (18) Personality disorder Status: Acute (19) Schizophrenia, chronic with acute exacerbation Status: Acute (20) Seizure disorder Status: Acute (21) Shortness of breath Status: Acute (22) Suicidal ideation Status: Acute (23) Suicidal ideation Status: Acute (24) UTI (urinary tract infection) Status: Acute (25) UTI (urinary tract infection) Status: Acute (26) Vaginal candidiasis Status: Acute (27) Vaginal candidiasis Status: Acute Allergies: Coded Allergies: No Known Allergies (Verified Allergy, Mild, 02/21/17) Social History Marital status: Level of education: High School. 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 Psychiatric Objective Eval Mental Status Examination: Appearance: Disheveled Eye Contact: Good Psychomotor Activity: Normal Behavior: Cooperative Speech: Clear AFFECT: Appropriate Mood: Appropriate/Full Though Process: Linear Thought Content: Delusions Suicidal: No Homicidal: No On 72 hour hold: No Orientation: x4 Cognition: Alert Insight: Impared Judgement: Impared Laboratory Results Laboratory Tests Test 02/28/17 17:30 02/28/17 20:28 03/01/17 02:23 03/01/17 08:14 Bedside Glucose 144mg/dL 182mg/dL 100mg/dL 113mg/dL Test 03/01/17 12:20 03/01/17 17:25 03/01/17 20:18 03/02/17 08:08 Bedside Glucose 92mg/dL 87mg/dL 104mg/dL 95mg/dL Test 03/02/17 11:50 Bedside Glucose 82mg/dL Assessment and Plan Assessment/Diagnosis [place] I: SCHIZOAFFECTIVE DISORDER [place] II: BORDERLINE PD [place] III: PER RECORD [place] IV: SEVEREE [place] V: GAF 35 Recommendation/Plan Medication Management CONTINUE CURRENT MEDS Follow-up/Disposition PT AWAD SNOT PRESENT DTS, DTO; PT CAN BE DISCHARGED TO A BOARD AND CARE. JORDAN BOONE MD Mar 02, 2017 13:56
--- NOTE | 2017-03-02 16:01 | PDOCDIS ---
Discharge Instructions CONDITION Patient Condition: Stable HOME CARE INSTRUCTIONS: Special Diet: Low chol, low fat, 2gm NA, ADA ACTIVITY: Activity Restrictions: Slowly Increase Activity FOLLOW UP/APPOINTMENTS Appointments f/u w own pcp 1 wk MARIAM PASCUAL MD Mar 02, 2017 16:01
--- NOTE | 2017-03-02 16:02 | PDOCDIS ---
Discharge Instructions CONDITION Patient Condition: Stable HOME CARE INSTRUCTIONS: Special Diet: Low chol, low fat, 2gm NA, ADA ACTIVITY: Activity Restrictions: Slowly Increase Activity FOLLOW UP/APPOINTMENTS Appointments f/u own psychiatry 1 wk MARIAM PASCUAL MD Mar 02, 2017 16:02
[2017-03-02] MEDS ORDERED: HYDR-3498 PO (16:08)
[2017-03-02] MEDS ORDERED: TIOT18CA INHALATION (16:08)
[2017-03-02] MEDS ORDERED: FLUO40CA10 PO (16:08)
[2017-03-02] MEDS ORDERED: CLON2TAB3 PO (16:08)
[2017-03-02] MEDS ORDERED: METF500T PO (16:09)
[2017-03-02] MEDS ORDERED: LORA1TAB PO (16:09)
[2017-03-02] MEDS ORDERED: IBUP-1542 PO (16:09)
[2017-03-02] MEDS ORDERED: QUET100T32 PO (16:09)
[2017-03-02] MEDS ORDERED: ZOLP5TAB7 PO (16:09)
[2017-03-02] MEDS ORDERED: GABA100C14 PO (16:09)
[2017-03-02] MEDS ORDERED: IPRA3AMP HHN (16:09)
[2017-03-02] MEDS ORDERED: NATE60TA PO (16:09)
[2017-03-02] MEDS ORDERED: ALBU8.5H3 INH (16:09)
[2017-03-02] MEDS ORDERED: ACET325T40 PO (16:09)
[2017-03-02 18:01] LABS: POTASSIUM 3.7 mmol/L (3.5-5.1)
[2017-03-02 18:03] LABS: CREATININE 0.61 mg/dl (0.44-1.00)
[2017-03-02 18:04] LABS: CALCIUM 8.8 mg/dl (8.4-10.2)
--- NOTE | 2017-03-02 18:36 | PN ---
Date/Time of Note Date/Time of Note DATE: 03/02/17 TIME: 18:35 Assessment/Plan VTE Prophylaxis VTE Prophylaxis Intervention: other Lines/Catheters [facility] Saline Lock Urinary Cath still in place: No Assessment/Plan Chief Complaint/Hosp Course IMPRESSION: 1. Acute psychiatric decompensation. 2. The patient had hypokalemia.BETTER 3. Hypertension. 4. Chronic obstructive pulmonary disease. 5. The patient has questionable history of diabetes. 6. Noncompliance. 7. Chronic pain 8 drug abuse 9 DM plan [facility] home am Problems: Subjective 24 Hr Interval Summary Subjective hx not possible: other (will go home b c tomorrow) Exam/Review of Systems Vital Signs Vitals Vital Signs Date Time Temp Pulse Resp B/P Pulse Ox O2 Delivery O2 Flow Rate FiO2 03/02/17 14:50 72 20 95 03/02/17 07:49 97.8 119/70 03/02/17 02:00 Nasal Cannula 1.0 02/28/17 14:27 21 Intake and Output 03/01/17 03/01/17 03/02/17 15:00 23:00 07:00 Intake Total 900 ml 600 ml Output Total 500 ml 300 ml Balance 400 ml 300 ml Exam Neck: supple Respiratory: clear to auscultation Cardiovascular: regular rate and rhythm Gastrointestinal: soft Musculoskeletal: nl extremities to inspection Results Result Diagram: 03/02/17 1701 Results 24 hrs Laboratory Tests Test 03/01/17 20:18 03/02/17 08:08 03/02/17 11:50 03/02/17 16:49 Bedside Glucose 104 95 82 154 Test 03/02/17 17:05 Sodium Level 138 Potassium Level 3.7 Chloride Level 98 Carbon Dioxide Level 33 H Anion Gap 11 Blood Urea Nitrogen 23 H Creatinine 0.61 Glucose Level 142 Calcium Level 8.8 Medications Medications Current Medications Clonazepam (Klonopin) 2 mg TID PRN PO anxiety Last administered on 02/26/17 13 :18; Admin Dose 2 MG; Start 02/23/17 at 10:30 Quetiapine Fumarate (Seroquel) 200 mg BID PO Last administered on 03/02/17 10: 04; Admin Dose 200 MG; Start 02/24/17 at 09:00 Clonazepam (Klonopin) 2 mg TID PO Last administered on 03/02/17 12:23; Admin Dose 2 MG; Start 02/26/17 at 21:00 Fluoxetine HCl (Prozac) 40 mg DAILY PO Last administered on 03/02/17 10:05; Admin Dose 40 MG; Start 02/27/17 at 09:00 Gabapentin (Neurontin) 100 mg TID PO Last administered on 03/02/17 12:23; Admin Dose 100 MG; Start 02/26/17 at 21:00 Acetaminophen/ Hydrocodone Bitart ([place] (5/325)) 1 tab Q4H PRN PO pain Last administered on 03/02/17 16:51; Admin Dose 1 TAB; Start 02/26/17 at 16:30 Ibuprofen (Motrin) 600 mg Q8 PRN PO PAIN AND/OR INFLAMMATION; Start 02/26/17 at 16:30 Lorazepam (Ativan) 1 mg Q6H PRN PO ANXIETY Last administered on 02/28/17 06:08 ; Admin Dose 1 MG; Start 02/26/17 at 16:30 Tiotropium Star (Spiriva) 1 inh DAILY INH Last administered on 03/02/17 12: 23; Admin Dose 1 INH; Start 02/27/17 at 09:00 Miscellaneous Information 1 ea NOTE XX ; Start 02/26/17 at 17:00 Glucose (Glutose) 15 gm Q15M PRN PO DECREASED GLUCOSE; Start 02/26/17 at 17:00 Glucose (Glutose) 22.5 gm Q15M PRN PO DECREASED GLUCOSE; Start 02/26/17 at 17: 00 Dextrose (D50w Syringe) 25 ml Q15M PRN IV DECREASED GLUCOSE; Start 02/26/17 at 17:00 Dextrose (D50w Syringe) 50 ml Q15M PRN IV DECREASED GLUCOSE; Start 02/26/17 at 17:00 Glucagon (Glucagen) 1 mg Q15M PRN IM DECREASED GLUCOSE; Start 02/26/17 at 17:00 Glucose (Glutose) 15 gm Q15M PRN BUCCAL DECREASED GLUCOSE; Start 02/26/17 at 17 :00 Ondansetron HCl (Zofran Inj) 4 mg Q6H PRN IV NAUSEA AND/OR VOMITING; Start at 17:30 Acetaminophen (Tylenol Tab) 650 mg Q6H PRN PO PAIN LEVEL 1-3 OR FEVER Last administered on 02/27/17 05:08; Admin Dose 650 MG; Start 02/26/17 at 17:30 Acetaminophen (Tylenol Supp) 650 mg Q6H PRN MO PAIN LEVEL 1-3 OR FEVER; Start 02/26/17 at 17:30 Docusate Sodium (Colace) 100 mg Q12H PRN PO CONSTIPATION Last administered on 18:47; Admin Dose 100 MG; Start 02/26/17 at 17:30 Magnesium Hydroxide (Milk Of Mag) 30 ml DAILY PRN PO CONSTIPATION Last administered on 03/01/17 09:42; Admin Dose 30 ML; Start 02/26/17 at 17:30 Bisacodyl (Dulcolax) 5 mg DAILY PRN PO CONSTIPATION Last administered on 06:05; Admin Dose 5 MG; Start 02/26/17 at 17:30 Zolpidem Tartrate (Ambien) 5 mg QHS PRN PO SLEEP Last administered on 01:24; Admin Dose 5 MG; Start 02/26/17 at 17:30 Diagnostic Test (Pha) (Accu-Chek) 1 ea 02 XX Last administered on 03/01/17 02: 00; Admin Dose 1 EA; Start 02/28/17 at 02:00 Potassium Chloride (Klor-Con 10) 10 meq BID PO Last administered on 03/02/17 10:05; Admin Dose 10 MEQ; Start 02/27/17 at 21:00 MARIAM PASCUAL MD Mar 02, 2017 18:36
[2017-03-02 19:29] VITALS: BP 129/70; RESP 19
[2017-03-03] MEDS: ALBUTEROL/IPRATROPIUM (NEB) 3 ML AMP HHN SCH ×2 (01:58→07:46)
[2017-03-03] MEDS: ACCU-CHEK XX SCH (02:31)
[2017-03-03 07:34] VITALS: BP 146/60; RESP 16
[2017-03-03] MEDS: INSULIN ASPART [NOVOLOG] 3 ML PEN SC SCH ×2 (08:15→11:53)
[2017-03-03] MEDS: TIOTROPIUM 18 MCG CAPSULE INHA DEV INH SCH (08:28)
[2017-03-03] MEDS: FLUOXETINE 20 MG CAP PO SCH (08:28)
[2017-03-03] MEDS: metFORMIN 500 MG TAB PO SCH (08:28)
[2017-03-03] MEDS: clonAZEPAM 0.5 MG TAB PO SCH (08:28)
[2017-03-03] MEDS: QUETIAPINE 100 MG TAB PO SCH (08:29)
[2017-03-03] MEDS: POTASSIUM CHLORIDE (SR) 10 MEQ TAB PO SCH (08:29)
[2017-03-03] MEDS: GABAPENTIN 100 MG CAP PO SCH (08:29)
[2017-03-03] MEDS: NATEGLINIDE 60 MG TAB PO SCH ×2 (08:29→11:54)
[2017-03-03] MEDS: HYDROCODONE/APAP (5/325) TAB PO PRN (08:32)
--- NOTE | 2017-03-03 17:54 | PN ---
Date/Time of Note Date/Time of Note DATE: 03/03/17 TIME: 17:52 Assessment/Plan VTE Prophylaxis VTE Prophylaxis Intervention: ambulation Lines/Catheters IV [facility] Type (from [facility] Saline Lock Urinary Cath still in place: No Assessment/Plan Chief Complaint/Hosp Course 1. psychiatric decompensation 2. COPD exacerbation 3. Morbid obesity Problems: Assessment/Plan 1. Pt is discharging Subjective 24 Hr Interval Summary Constitutional: improved Eyes: no complaints ENT: no complaints Respiratory: no complaints Cardiovascular: no complaints Exam/Review of Systems Vital Signs Vitals Vital Signs Date Time Temp Pulse Resp B/P Pulse Ox O2 Delivery O2 Flow Rate FiO2 03/03/17 07:47 101 18 92 03/03/17 07:47 1.0 03/03/17 07:34 97.3 146/60 03/02/17 21:34 21 03/02/17 02:00 Nasal Cannula Intake and Output 03/02/17 03/02/17 03/03/17 15:00 23:00 07:00 Intake Total 600 ml 300 ml Balance 600 ml 300 ml Exam Constitutional: alert, obese, oriented Psych: nl mood/affect Head: normocephalic Eyes: nl conjunctiva Respiratory: clear to auscultation Cardiovascular: regular rate and rhythm Gastrointestinal: soft Results Result Diagram: 03/02/17 1705 Results 24 hrs Laboratory Tests Test 03/02/17 20:39 03/03/17 02:21 03/03/17 08:03 03/03/17 11:52 Bedside Glucose 220 112 109 74 ORION QUINTERO Mar 03, 2017 17:54
== END 2017-03-03 12:55 | disposition home or self-care (01) | DRG 885 ==
LOC: E/R 12:21 → MS2 02-26 13:22
PROVIDERS: ADMIT Internal Medicine Nephrology; ATTEND Internal Medicine Nephrology
DX: F23 Brief psychotic disorder (principal); R45.851 Suicidal ideations; J44.1 Chronic obstructive pulmonary disease with (acute) exacerbation; N39.0 Urinary tract infection, site not specified; Z68.41 Body mass index [BMI] 40.0-44.9, adult; F19.10 Other psychoactive substance abuse, uncomplicated; E87.6 Hypokalemia; E66.01 Morbid (severe) obesity due to excess calories; F25.9 Schizoaffective disorder, unspecified; Z72.0 Tobacco use; F60.3 Borderline personality disorder; R45.850 Homicidal ideations; E11.9 Type 2 diabetes mellitus without complications; Z91.14 Patient's other noncompliance with medication regimen; G89.29 Other chronic pain; R10.9 Unspecified abdominal pain
CPT/HCPCS: 71010; 74176; 80048; 80053; 80306; 80307; 81003; 82962; 83036; 83690; 85025; 87081; 87086; 94640; 94664; 96372; 97162; J1100; J1815; J1885; J2060

== ENCOUNTER 2017-09-05 09:37 | Emergency (ER) | payer OTHER ==
[~2017-09-05] VITALS: Ht 160 cm; Wt 130.0 kg
[~2017-09-05 09:37] MED LIST changes: +ACET325T40 PO; -CEPH-443 PO; -FLUC150T17 PO; +IPRA3AMP HHN; -LEVO500T10 PO; +METF500T PO; -METR500T PO; +NATE60TA PO; -PRED10TA PO; +QUET100T32 PO; -QUET300T5 PO; -QUET50TA4 PO; +ZOLP5TAB7 PO
[2017-09-05 10:15] VITALS: Ht 160 cm; Wt 130.0 kg
--- NOTE | 2017-09-05 10:37 | RADRPT ---
PROCEDURE: CT BRAIN WITHOUT CONTRAST. CLINICAL INDICATION: Altered level of consciousness. Status post fall TECHNIQUE: A CT of the brain was performed on a multidetector high-resolution CT scanner utilizing axial imaging from the skull base through the vertex without IV contrast. Multiplanar reformatted images were made. Images were reviewed on a PACS workstation. The CTDIvol is 44.8 mGy and the DLP is 720.2 mGycm. One or more of the following dose reduction techniques were used: - Automated exposure control. - Adjustment of the mA and/or kV according to patient size. - Use of iterative reconstruction technique. COMPARISON: April 21, 2015 FINDINGS: The posterior fossa structures are unremarkable. The mark, midbrain, and medulla appear to be with n ormal limits. There is no evidence of acute intracranial hemorrhage, infarct, or extra-axial fluid collection. No gross mass effect or midline shift. Cerebral sulci, cisternal spaces, and ventricles are prominent w ith mild periventricular white matter lucencies.. The visualized paranasal sinuses are clear. The mastoid air cells are well-aerated. The calvarium is unremarkable. IMPRESSION: 1. No evidence of acute intracranial hemorrhage, infarct, or extra-axial fluid collection. 2. Cortical atrophy and mild periventricular/subcortical white matter changes, likely consistent wit h chronic microvascular angiopathy . RPTAT: AAPP Physician Inna Date Time Electronically viewed and signed by Physician Inna on 09/05/2017 10:36 VIC/
[2017-09-05 11:27] LABS: BASOPHILS % 0.3 % (0.0-2.0); EOSINOPHILS # 0.1 10^3/ul (0.0-0.5); EOSINOPHILS % 1.4 % (0.0-7.0); HEMATOCRIT 37.4 % (37.0-47.0); HEMOGLOBIN 11.4 g/dl (12.0-16.0); LYMPHOCYTES # 2.2 10^3/ul (0.8-2.9); LYMPHOCYTES % 37.7 % (15.0-51.0); MEAN CORPUSCULAR HEMOGLOBIN 20.5 pg (29.0-33.0); MEAN CORPUSCULAR HGB CONC 30.5 g/dl (32.0-37.0); MEAN CORPUSCULAR VOLUME 67.3 fl (82.0-101.0); MEAN PLATELET VOLUME 10.2 fl (7.4-10.4); MONOCYTE # 0.6 10^3/ul (0.3-0.9); MONOCYTES % 10.6 % (0.0-11.0); NEUTROPHIL # 2.9 10^3/ul (1.6-7.5); NEUTROPHILS % 49.8 % (39.0-77.0); PLATELET COUNT 184 10^3/UL (140-415); RED BLOOD COUNT 5.56 10^6/ul (4.20-5.40); RED CELL DISTRIBUTION WIDTH 16.1 % (11.5-14.5); WHITE BLOOD COUNT 5.7 10^3/ul (4.8-10.8)
[2017-09-05 12:06] LABS: ALANINE AMINOTRANSFERASE 36 IU/L (13-69); ALBUMIN 3.6 g/dl (3.3-4.9); ALBUMIN/GLOBULIN RATIO 1.09; ALKALINE PHOSPHATASE 69 IU/L (42-121); ANION GAP 11 (8-16); ASPARTATE AMINO TRANSFERASE 28 IU/L (15-46); BILIRUBIN,INDIRECT 0.3 mg/dl (0-1.1); BILIRUBIN,TOTAL 0.3 mg/dl (0.2-1.3); BLOOD UREA NITROGEN 17 mg/dl (7-20); CALCIUM 9.2 mg/dl (8.4-10.2); CARBON DIOXIDE 31 mmol/L (21-31); CHLORIDE 105 mmol/L (97-110); CREATININE 0.69 mg/dl (0.44-1.00); GLUCOSE 80 mg/dl (70-220); POTASSIUM 4.1 mmol/L (3.5-5.1); SODIUM 143 mmol/L (135-144); TOTAL PROTEIN 6.9 g/dl (6.1-8.1)
[2017-09-05 12:07] LABS: ETHANOL < 10.0 mg/dl
[2017-09-05 12:09] LABS: ADD UMIC NO; UR ASCORBIC ACID NEGATIVE (NEGATIVE); UR BILIRUBIN (Dip) NEGATIVE (NEGATIVE); UR BLOOD (Dip) NEGATIVE (NEGATIVE); UR CLARITY CLEAR (CLEAR); UR COLOR YELLOW (YELLOW); UR GLUCOSE (Dip) NEGATIVE (NEGATIVE); UR KETONES (Dip) NEGATIVE (NEGATIVE); UR LEUKOCYTE ESTERASE (Dip) NEGATIVE Leu/ul (NEGATIVE); UR NITRITE (Dip) NEGATIVE (NEGATIVE); UR SPECIFIC GRAVITY (Dip) 1.005 (1.003-1.030); UR TOTAL PROTEIN (Dip) NEGATIVE (NEGATIVE); UR UROBILINOGEN (Dip) NEGATIVE (NEGATIVE)
[2017-09-05 12:39] LABS: OPIATES Positive (NEGATIVE)
[2017-09-05 12:40] LABS: BARBITURATES Negative (NEGATIVE); BENZODIAZEPINES Positive (NEGATIVE); CANNABINOIDS Negative (NEGATIVE); COCAINE Negative (NEGATIVE)
[2017-09-05 12:50] LABS: ACETAMINOPHEN < 10.0 ug/ml (10.0-30.0); SALICYLATE < 1.0 mg/dl (5.0-30.0)
[2017-09-05] MEDS ORDERED: ACETAMINOPHEN 500 MG TAB PO STA (13:24)
--- NOTE | 2017-09-05 14:18 | ERD ---
ER Documentation Chief Complaint Chief Complaint mech fall, has body aches HPI This 62-year-old female presents emergency room for reported mechanical fall as she was standing on a box to do something at the top of a window when she slipped and fell. She denies head injury. She does complain of pain in her entire body including both arms both legs. Denies chest pain. Denies shortness of breath, fever and chills. States that she is ambulatory but still wants to kill herself. She does not have a specific plan. Patient is agitated and is somewhat bizarre behavior the history is possibly not completely reliable per ROS All systems reviewed and are negative except as per history of present illness the patient is unreliable.. Medications Home Meds Active Scripts Nateglinide* (Nateglinide*) 60 Mg Tablet, 60 MG PO AC MEALS for 28 Days, TAB Prov:MARIAM PASCUAL MD 03/02/17 Metformin Hcl (Glucophage) 500 Mg Tablet, 1000 MG PO BID WITH MEALS for 28 Days , TAB Prov:MARIAM PASCUAL MD 03/02/17 Zolpidem Tartrate* (Zolpidem Tartrate*) 5 Mg Tablet, 5 MG PO QHS Y for SLEEP for 28 Days, TAB Prov:MARIAM PASCUAL MD 03/02/17 Quetiapine Fumarate* (Quetiapine Fumarate*) 100 Mg Tablet, 200 MG PO BID for 28 Days, TAB Prov:MARIAM PASCUAL MD 03/02/17 Acetaminophen (MAPAP) 325 Mg Tablet, 650 MG PO Q6H Y for PAIN LEVEL 1-3 OR FEVER for 28 Days, TAB Prov:MARIAM PASCUAL MD 03/02/17 Ipratropium-Albuterol (Ipratropium-Albuterol) 0.5-3 Mg/3 Ml Ampul.neb, 3 ML HHN Q6H RESP THERAPY for 28 Days Prov:MARIAM PASCUAL MD 03/02/17 Ibuprofen* (Motrin*) 600 Mg Tab, 600 MG PO Q8 Y for PAIN AND/OR INFLAMMATION, # 30 TAB Prov:MARIAM PASCUAL MD 03/02/17 Albuterol Sulfate* (Proair HFA*) 8.5 Gm Hfa.aer.ad, 2 PUFF INH Q6 for 28 Days, # 1 INHALER Prov:MARIAM PASCUAL MD 03/02/17 Gabapentin* (Gabapentin*) 100 Mg Capsule, 100 MG PO TID for 28 Days, CAP Prov:MARIAM PASCUAL MD 03/02/17 Lorazepam* (Lorazepam*) 1 Mg Tablet, 1 MG PO Q6H Y for ANXIETY for 7 Days, TAB Prov:MARIAM PASCUAL MD 03/02/17 Hydrocodone Bit-Acetaminophen (Hydrocodone Bit-APAP) 5-325MG Tablet, 1 TAB PO Q4H Y for pain for 14 Days, TAB Prov:MARIAM PASCUAL MD 03/02/17 Clonazepam* (Clonazepam*) 2 Mg Tablet, 2 MG PO TID for 28 Days, TAB Prov:MARIAM PASCUAL MD 03/02/17 Tiotropium [place]* (Spiriva*) 18 Mcg Cap.w.dev, 1 CAP INHALATION DAILY for 28 Days, #30 CAP Prov:MARIAM PASCUAL MD 03/02/17 Fluoxetine Hcl* (Prozac*) 40 Mg Capsule, 40 MG PO DAILY for 28 Days, CAP Prov:MARIAM PASCUAL MD 03/02/17 Metformin* (Glucophage*) 1,000 Mg Tablet, 1000 MG PO DAILY, #30 TAB Prov:MARIAM PASCUAL MD 01/19/17 Allergies Allergies: Coded Allergies: No Known Allergies (Verified Allergy, Mild, 02/21/17) PMhx/Soc History of Surgery: Yes (Hysterectomy) Anesthesia Reaction: No Hx Neurological Disorder: No Hx Respiratory Disorders: Yes (PNA,COPD) Hx Cardiac Disorders: Yes (HTN) Hx Psychiatric Problems: Yes (Schizophrenia,Depression,Anxiety) Hx Miscellaneous Medical Probl: No Hx Alcohol Use: No Hx Substance Use: No Hx Tobacco Use: No Physical Exam Vitals Vital Signs Date Time Temp Pulse Resp B/P Pulse Ox O2 Delivery O2 Flow Rate FiO2 09/05/17 10:15 98.0 88 18 136/83 99 Physical Exam Const: [] No distress obese female Head: Atraumatic Eyes: Normal Conjunctiva, EOMI, PRLA ENT: Normal External Ears, Nose and Mouth. Oropharynx within normal limits with moist mucous membranes Neck: Full range of motion..~ No meningismus. No tenderness. Resp: Clear to auscultation bilaterally Cardio: Regular rate and rhythm, no murmurs Abd: Soft, non tender, non distended. Normal bowel sounds Skin: No petechiae or rashes Back: No midline or flank tenderness Ext: No cyanosis, or edema, full musculoskeletal exam performed patient has good range of motion at all joints, is ambulatory, no deformities, no abrasions or bruising. Neur: Awake and alert and oriented 3, cranial nerves II through XII intact, no cerebellar deficits, patient does appear somewhat confused and disorganized thinking peer Psych: Somewhat disorganized thinking with mild agitation Result Diagram: 09/05/17 1100 09/05/17 1100 Results 24 hrs Laboratory Tests Test 09/05/17 11:00 09/05/17 11:47 White Blood Count 5.710^3/ul Red Blood Count 5.5610^6/ul Hemoglobin 11.4g/dl Hematocrit 37.4% Mean Corpuscular Volume 67.3fl Mean Corpuscular Hemoglobin 20.5pg Mean Corpuscular Hemoglobin Concent 30.5g/dl Red Cell Distribution Width 16.1% Platelet Count 21658^3/UL Mean Platelet Volume 10.2fl Neutrophils % 49.8% Lymphocytes % 37.7% Monocytes % 10.6% Eosinophils % 1.4% Basophils % 0.3% Nucleated Red Blood Cells % 0.0/100WBC Neutrophils # 2.910^3/ul Lymphocytes # 2.210^3/ul Monocytes # 0.610^3/ul Eosinophils # 0.110^3/ul Basophils # 0.010^3/ul Nucleated Red Blood Cells # 0.010^3/ul Sodium Level 143mmol/L Potassium Level 4.1mmol/L Chloride Level 105mmol/L Carbon Dioxide Level 31mmol/L Anion Gap 11 Blood Urea Nitrogen 17mg/dl Creatinine 0.69mg/dl Glucose Level 80mg/dl Calcium Level 9.2mg/dl Total Bilirubin 0.3mg/dl Direct Bilirubin 0.00mg/dl Indirect Bilirubin 0.3mg/dl Aspartate Amino Transf (AST/SGOT) 28IU/L Alanine Aminotransferase (ALT/SGPT) 36IU/L Alkaline Phosphatase 69IU/L Total Protein 6.9g/dl Albumin 3.6g/dl Globulin 3.30g/dl Albumin/Globulin Ratio 1.09 Salicylates Level < 1.0mg/dl Acetaminophen Level < 10.0ug/ml Ethyl Alcohol Level < 10.0mg/dl Urine Color YELLOW Urine Clarity CLEAR Urine pH 8.0 Urine Specific [place] 1.005 Urine Ketones NEGATIVEmg/dL Urine Nitrite NEGATIVEmg/dL Urine Bilirubin NEGATIVEmg/dL Urine Urobilinogen NEGATIVEmg/dL Urine Leukocyte Esterase NEGATIVELeu/ul Urine Hemoglobin NEGATIVEmg/dL Urine Glucose NEGATIVEmg/dL Urine Total Protein NEGATIVEmg/dl Urine Opiates Screen Positive Urine Barbiturates Negative Urine Amphetamines Screen Negative Urine Benzodiazepines Screen Positive Urine Cocaine Screen Negative Urine Cannabinoids Negative Current Medications Medications (Trade) Dose Ordered Sig/Patric Route PRN Reason Start Time Stop Time Status Last Admin Dose Admin Acetaminophen (Tylenol Tab) 1,000 mg ONCE STAT PO 09/05/17 13:24 09/05/17 13:27 DC Procedures/MDM Patient is suicidal as symptoms of psychiatric agitation. Have a history of schizophrenia may be experiencing an episode. No signs of specific trauma. She is ambulatory emergency room. She is currently medically cleared and I see no medical conditions would preclude psychiatric admission. She is awaiting tele-psychiatry eval and her disposition plan on this tele-psychiatry eval which that she states she is suicidal consistently will probably consist of her being transferred to an acute facility. Physician will have her final disposition. Head interpretation: No acute process, I see no hemorrhage, no mass-effect no midline shift, no skull fracture Departure Diagnosis: Primary Impression: Schizophrenia, chronic with acute exacerbation Additional Impressions: Suicidal ideations Fall Condition: Stable CHARISMARY DO Sep 05, 2017 14:18
--- NOTE | 2017-09-05 15:36 | EN ---
Date/Time of Note Date/Time of Note DATE: 09/05/17 TIME: 15:34 ER Progress Note Patient was signed out to me by Dr. Hubbard. Briefly, this is a 62-year-old female with a history of previous psychiatric issues who is presenting after a fall with agitation. At time of signout, the patient was awaiting a psychiatric evaluation. The patient became quite agitated in the emergency department and demanded a cigarette. She did get out of bed multiple times to walk around the emergency department. While she was directable, she remained agitated. I did give her IM Ativan and p.o. Zyprexa and she was able to calm down for the duration of her stay. She was evaluated by a psychiatric tractor expert from [facility]. While the patient is tangential, she is redirectable and there did not appear to be any reason at this time to place her on a psychiatric hold. The patient is not suicidal or homicidal. He did not feel that the patient was going to be a harm to herself or others. She will need to follow-up with her primary care physician. She will be given precautions with which to return to the emergency department. At this time, the patient was deemed stable for discharge. ZELDA SIMONS MD Sep 05, 2017 15:36
[2017-09-05] MEDS ORDERED: LORAZEPAM 2 MG INJ IM ONE (16:00)
[2017-09-05] MEDS ORDERED: OLANZAPINE 5 MG TAB PO ONE (16:00)
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
[2017-09-05 20:46] VITALS: BP 157/87; PULSE 81; RESP 18; TEMP 98
== END 2017-09-05 20:46 | disposition home or self-care (01) ==
LOC: E/R 09:37
DX: F20.9 Schizophrenia, unspecified (principal); R45.851 Suicidal ideations; J44.9 Chronic obstructive pulmonary disease, unspecified; I10 Essential (primary) hypertension; R51 Headache; Z79.84 Long term (current) use of oral hypoglycemic drugs
CPT/HCPCS: 70450; 80053; 80306; 80307; 81003; 85025; 96372; J2060; Z7502; Z7610

== ENCOUNTER 2018-06-08 17:46 | Inpatient (IN) | END 2018-06-10 07:30 | disposition left against medical advice (07) | DRG 918 ==

== ENCOUNTER 2018-08-27 13:47 | Inpatient (IN) | END 2018-08-28 19:05 | disposition home health service (06) | DRG 554 ==

== ENCOUNTER 2018-11-28 12:23 | Inpatient (IN) | payer OTHER ==
[~2018-11-28] VITALS: Ht 170.2 cm; Wt 127.5 kg
[~2018-11-28 12:23] MED LIST changes: -ACET325T40 PO; -ALBU8.5H3 INH; +BENZ0.5T41 PO; +BUPR150T6 PO; +CARI350T29 PO; +CEPH500C PO; +CLON-379 PO; +CLON1TAB13 PO; -CLON2TAB3 PO; +DICL50TA11 PO; -FLUO40CA10 PO; +FLUR30CA12 PO; -GABA100C14 PO; +GABA300C16 PO; -HYDR-3498 PO; -IBUP-1542 PO; -IPRA3AMP HHN; -LORA1TAB PO; +LOSA100T15 PO; +METF100010 PO; -METF500T PO; -MTF1000T PO; -NATE60TA PO; +OMEP40CA6 PO; -QUET100T32 PO; +QUET300T5 PO; -TIOT18CA INHALATION; -ZOLP5TAB7 PO
[2018-11-28 12:31] VITALS: Ht 170.2 cm; Wt 127.5 kg
[2018-11-28] MEDS ORDERED: SOD CHLORIDE 0.9% 1,000 ML IV STA (12:46)
[2018-11-28] MEDS ORDERED: CLON2TAB12 PO (13:28)
[2018-11-28] MEDS ORDERED: CLON0.2T5 PO (13:28)
[2018-11-28] MEDS ORDERED: METO25TA4 PO (13:29)
[2018-11-28] MEDS ORDERED: HYDR25TA6 PO (13:29)
[2018-11-28] MEDS ORDERED: OLAN10TA7 PO (13:30)
[2018-11-28] MEDS ORDERED: NALOXONE 2 MG SYG IV ONE (16:30)
[2018-11-28] MEDS ORDERED: CEFTRIAXONE 1 GM/50 ML (PMX) 50 ML IVPB ONE (18:00)
[2018-11-28] MEDS ORDERED: ACETAMINOPHEN 325 MG TAB PO PRN (19:00)
[2018-11-28] MEDS ORDERED: ONDANSETRON 4 MG INJ IV PRN (19:00)
--- NOTE | 2018-11-28 21:00 | ERD ---
ER Documentation Chief Complaint Chief Complaint FOUND OUTSIDE METHADONE CLINIC ALOC HPI This is a 63-year-old female with a past medical history of obesity, schizophrenia, polysubstance abuse, chronic pain on methadone, arthritis who was found to be unresponsive outside of her methadone clinic. The patient was given Narcan prior to arrival and woke up in the emergency department. She is angry that she is in the emergency department again for symptoms that she has had similarly in the past. She currently has no complaints The patient currently has no complaints. The patient denies feeling sick recently. The patient denies fever or chills. The patient has had no headache or vision changes. The patient does not endorse neck or back pain. The patient denies lightheadedness or dizziness. The patient has had no chest pain or trouble breathing. The patient denies nausea or vomiting. The patient denies abdominal pain. The patient denies changes to bowel movements or urination. The patient has had no focal deficits. The patient has had no weakness or numbness or tingling to the face or extremities. ROS All systems reviewed and are negative except as per history of present illness. Medications Home Meds Reported Medications Olanzapine* (Zyprexa*) 10 Mg Tablet, 10 MG PO DAILY, #30 TAB 11/28/18 Metoprolol Tartrate* (Lopressor*) 25 Mg Tablet, 25 MG PO BID, #60 TAB 11/28/18 Hydrochlorothiazide* (Hydrochlorothiazide*) 25 Mg Tab, 25 MG PO DAILY, #30 TAB 11/28/18 Clonazepam* (Clonazepam*) 2 Mg Tablet, 2 MG PO TID PRN for ANXIETY, TAB 11/28/18 Clonidine Hcl* (Clonidine Hcl*) 0.2 Mg Tablet, 0.2 MG PO Q8, TAB 11/28/18 Flurazepam Hcl (Flurazepam Hcl) 30 Mg Capsule, 30 MG PO QHS for insomnia, CAP 08/27/18 Losartan Potassium* (Losartan Potassium*) 100 Mg Tablet, 100 MG PO DAILY, TAB 08/27/18 Benztropine Mesylate* (Benztropine Mesylate*) 0.5 Mg Tablet, 0.5 MG PO BID, TAB 06/08/18 Diclofenac Sodium* (Diclofenac Sodium*) 50 Mg Tablet.dr, 50 MG PO BID, #60 TAB 06/08/18 Gabapentin* (Gabapentin*) 300 Mg Capsule, 300 MG PO DAILY, #60 CAP 06/08/18 Metformin Hcl* (Metformin Hcl*) 1,000 Mg Tablet, 1000 MG PO WITH BREAKFAST DINNE, #60 TAB 06/08/18 Omeprazole* (Omeprazole*) 40 Mg Capsule.dr, 40 MG PO DAILY, #30 CAP 06/08/18 Bupropion Hcl* (Bupropion XL*) 150 Mg Tab.er.24h, 150 MG PO QAM, TAB.SA 06/08/18 Quetiapine Fumarate* (Seroquel* XR) 300 Mg Tab.sr.24h, 600 MG PO QHS, #30 TAB 06/08/18 Carisoprodol* (Carisoprodol*) 350 Mg Tablet, 350 MG PO BID PRN for MUSCLE SPASM S, TAB 06/08/18 Discontinued Reported Medications Clonazepam* (Clonazepam*) 1 Mg Tablet, 1 MG PO Q8H PRN for ANXIETY, TAB 08/28/18 Cephalexin* (Cephalexin*) 500 Mg Capsule, 500 MG PO Q6, #28 CAP 08/27/18 Clonidine Hcl* (Clonidine Hcl*) 0.1 Mg Tab, 0.1 MG PO Q8, TAB 08/27/18 Flurazepam Hcl (Flurazepam Hcl) 30 Mg Capsule, 30 MG PO QHS, CAP 06/08/18 Allergies Allergies: Coded Allergies: No Known Allergies (Verified Allergy, Mild, 11/28/18) PMhx/Soc History of Surgery: Yes (partial Hysterectomy) Anesthesia Reaction: No Hx Neurological Disorder: No Hx Respiratory Disorders: Yes (COPD ) Hx Cardiac Disorders: No (HEART MURMUR) Hx Psychiatric Problems: Yes (SCHIZOPHRENIA) Hx Miscellaneous Medical Probl: Yes (OBESITY, LEG EDEMAS, ARTHRITIS, chronic pain) Hx Alcohol Use: Yes Hx Substance Use: Yes Hx Tobacco Use: Yes Smoking Status: Current every day smoker FmHx Family History: No diabetes Physical Exam Vitals Vital Signs Date Temp Pulse Resp B/P (MAP) Pulse Ox O2 O2 Flow FiO2 Time Delivery Rate 11/28/18 90 14 96/77 (83) 100 Non 8.0 18:44 Rebreather 11/28/18 99.5 88 18 92/65 (74) 99 Mask 5.0 16:18 11/28/18 84 16 98/65 (76) 99 Mask 3.0 14:13 11/28/18 97.6 90 10 83/46 (58) 56 12:31 Physical Exam Const: No apparent distress, well-developed, well-nourished Head: Normocephalic, Atraumatic Eyes: Normal Conjunctiva. Extraocular movements intact. Pupils equal, round and reactive to light ENT: Normal External Ears, Nose and Mouth. Neck: Full range of motion. No meningismus. Resp: Clear to auscultation bilaterally, No wheezes, rales or rhonchi Cardio: Regular rate and rhythm. No murmurs, rubs or gallops Abd: Soft, non tender, non distended. Normal bowel sounds Skin: No petechiae or rashes Back: No midline tenderness. No CVA tenderness Ext: No cyanosis, or edema Neur: Sleepy but arousable. Oriented x3. Cranial nerves intact. No facial droop. Normal strength, sensation and coordination. Psych: Agitated when woken up Result Diagram: 11/28/18 1254 11/28/18 1255 Results 24 hrs Laboratory Tests Test 11/28/18 12:54 11/28/18 12:55 11/28/18 16:27 White Blood Count 8.7 10^3/ul Red Blood Count 5.42 10^6/ul Hemoglobin 11.1 g/dl Hematocrit 38.4 % Mean Corpuscular Volume 70.8 fl Mean Corpuscular Hemoglobin 20.5 pg Mean Corpuscular 28.9 g/dl Hemoglobin Concent Red Cell Distribution Width 16.2 % Platelet Count 205 10^3/UL Mean Platelet Volume 11.0 fl Immature Granulocytes % 0.300 % Neutrophils % 46.6 % Lymphocytes % 42.4 % Monocytes % 8.5 % Eosinophils % 1.7 % Basophils % 0.5 % Nucleated Red Blood Cells % 0.3 /100WBC Immature Granulocytes # 0.030 10^3/ul Neutrophils # 4.0 10^3/ul Lymphocytes # 3.7 10^3/ul Monocytes # 0.7 10^3/ul Eosinophils # 0.2 10^3/ul Basophils # 0.0 10^3/ul Nucleated Red Blood Cells # 0.0 10^3/ul Sodium Level 137 mmol/L Potassium Level 5.8 mmol/L Chloride Level 100 mmol/L Carbon Dioxide Level 27 mmol/L Anion Gap 10 Blood Urea Nitrogen 30 mg/dl Creatinine 1.72 mg/dl Est Glomerular Filtrat 30 mL/min Rate mL/min Glucose Level 125 mg/dl Calcium Level 8.5 mg/dl Total Bilirubin 0.1 mg/dl Direct Bilirubin 0.00 mg/dl Indirect Bilirubin 0.1 mg/dl Aspartate Amino 48 IU/L Transf (AST/SGOT) Alanine 24 IU/L Aminotransferase (ALT/SGPT) Alkaline Phosphatase 79 IU/L Total Protein 6.8 g/dl Albumin 3.7 g/dl Globulin 3.10 g/dl Albumin/Globulin Ratio 1.19 Salicylates Level < 1.0 mg/dl Acetaminophen Level < 10.0 ug/ml Ethyl Alcohol Level < 10.0 mg/dl Urine Color YELLOW Urine Clarity SLIGHTLY CLOUDY Urine pH 5.0 Urine Specific [place] 1.010 Urine Ketones NEGATIVE mg/dL Urine Nitrite POSITIVE mg/dL Urine Bilirubin NEGATIVE mg/dL Urine Urobilinogen NEGATIVE mg/dL Urine Leukocyte Esterase TRACE Saqib/ul Urine Microscopic RBC 0 /HPF Urine Microscopic WBC 4 /HPF Urine Bacteria FEW /HPF Urine Hemoglobin NEGATIVE mg/dL Urine Glucose NEGATIVE mg/dL Urine Total Protein NEGATIVE mg/dl Urine Opiates Screen Negative Urine Barbiturates Negative Urine Amphetamines Screen Negative Urine Benzodiazepines Screen Positive Urine Cocaine Screen Negative Urine Cannabinoids Negative Current Medications Medications Dose Sig/Patric Start Time Status Last (Trade) Ordered Route PRN Stop Time Admin Dose Reason Admin Sodium 1,000 ml @ Q1H STAT 11/28/18 DC 11/28/18 Chloride 1,000 mls/hr IV 12:46 12:58 11/28/18 13:45 Naloxone 1 mg ONCE ONCE 11/28/18 DC 11/28/18 HCl IV 16:30 16:51 (Narcan) 11/28/18 16:31 Ceftriaxone 50 ml @ ONCE ONCE 11/28/18 DC 11/28/18 Sodium 100 mls/hr IVPB 18:00 18:38 11/28/18 18:29 Ondansetron 4 mg ER BRIDGE 11/28/18 HCl (Zofran PRN IV 19:00 Inj) nausea 11/29/18 18:59 650 mg ER BRIDGE 11/28/18 Acetaminophen PRN PO pain 19:00 (Tylenol 11/29/18 18:59 Tab) Procedures/MDM MDM The patient's presentation warrants further investigation. Previous medical records, if available, were reviewed. LABS The patient's laboratory testing was obtained and reviewed. No emergent treatment was required unless described below. CBC: No E/o of systemic infection or thrombocytopenia. Microcytic anemia, nonemergent. CMP: No E/o severe acidosis or alkalosis or liver disease or diabetic ketoacidosis. Elevated BUN and creatinine indicating acute kidney injury. Mildly elevated potassium, not emergent. Urine: E/o acute infection without hematuria Tox: No E/o alcohol abuse. No E/o salicylate or acetaminophen use. Evidence of benzodiazepine abuse. IMAGING Imaging and Radiology interpretation reviewed. CT Head COMPARISON: 08/26/2018 FINDINGS: Exam is limited secondary to motion artifact. Mild diffuse atrophy is seen with a compensatory ventricular enlargement. Mild white matter disease in the periventricular and deep white matter is seen. The luna-white matter differentiation is maintained. No intra or extra-axial fluid collection or mass effect or shift in the midline structures is seen. The visualized paranasal sinuses, mastoid air cells, orbits, and calvarium are unremarkable. Vascular calcifications are seen. IMPRESSION: No acute intracranial pathology. Stable mild diffuse volume loss and mild chronic microvascular ischemic changes. Electronically viewed and signed by Physician Sebastian on 11/28/2018 20:10 CXR COMPARISON: 06/08/2018 FINDINGS: The aorta is tortuous and atherosclerotic. The cardiomediastinal silhouette is otherwise mildly enlarged and is stable. No dense consolidation or pleural effusion is seen. The soft tissues and osseous structures demonstrate benign age related senescent changes. IMPRESSION: No acute cardiopulmonary disease. Stable mild cardiomegaly. Electronically viewed and signed by Physician Sebastian on 11/28/2018 20:12 TREATMENT/DISPOSITION The patient presents for acute encephalopathy. I do suspect that this is related to substance abuse. Patient is reportedly on methadone and could potentially also have opioid or opiate medication in her system that does not show up on the urinary drug screen. The patient was given Narcan by the paramedics prior to arrival with improved mentation. Unfortunately, the patient's mentation digressed in the emergency department and she required repeat dosing of Narcan. This again did appear to improve her mentation. The patient also has benzodiazepines in her system. I do not intend to treat with flumazenil as I suspect chronic benzodiazepine abuse. The patient is currently maintaining her airway and is arousable. The patient does not require intubation. I do feel the patient requires observation in the hospital for sy mptom control. The patient is not safe for discharge. The patient also has an elevated creatinine, concerning for acute kidney injury. He does appear to be double her baseline. This may be further assessed while the patient is in the hospital. The patient was given IV fluids in the emergency department. At this time, I feel that the patient requires admission for further evaluation and management. The patient will be admitted to Dr. Lai in accordance with the patient's insurance. The patient was accepted to telemetry at 6:45 PM on November 28, 2018. Disclaimer: Inadvertent spelling and grammatical errors are likely due to EHR/dictation software use and do not reflect on the overall quality of patient care. Note that the electronic time recorded on this note does not necessarily r eflect the actual time of the patient encounter. Departure Diagnosis: Primary Impression: Encephalopathy Additional Impressions: Polysubstance abuse Opiate abuse, continuous Benzodiazepine abuse Microcytic anemia Acute kidney injury Hyperkalemia Condition: Serious ZELDA SIMONS MD Nov 28, 2018 21:00
[2018-11-29] VITALS (12 sets, daily range): BP systolic 120–162; BP diastolic 64–85; PULSE 73–130; RESP 17–22
[2018-11-29] MEDS: DEXTROSE 5%-0.45% NACL 1,000 ML IV SCH ×2 (01:12→20:30)
[2018-11-29] MEDS: PANTOPRAZOLE 40 MG INJ IV SCH (05:46)
--- NOTE | 2018-11-29 10:19 | HP ---
ORION QUINTERO 11/29/18 1019: Date/Time of Note Date/Time of Note DATE: 11/29/18 TIME: 10:18 Assessment/Plan VTE Prophylaxis Risk score (from [facility]0 risk: 5 SCD applied (from [facility] No SCD contraindicated: other Pharmacological prophylaxis: LMWH Lines/Catheters IV Catheter Type (from [facility]): Peripheral IV Urinary Cath still in place: No Assessment/Plan Hospital Course 1. Syncope more likely due to polypharmacy. AMS due to benzodiazepine and methadone intake. Tox. screen is positive for benzodiazepine, which are part of pt. routine meds, like clonazepam 2. UTI with fevers. Pt is clinically dehydrated with hyperkalemia and elevated creatinine, resolved today 3. Osteoarthritis on the x-rays of the knees 4. History of diabetes. 5. Chronic obstructive pulmonary disease. 6. Morbid obesity. 7. Hypertension 8. 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 Hx of multiple falls in pas 10. Microcytic hypochromic anemia 11. Temp. 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 -need one now -c/w sitter -outreach and education social worker -C/w daphne Result Diagram: 11/29/18 0517 11/29/18 0517 Results 24hrs Laboratory Tests Test 11/28/18 12:54 11/28/18 12:55 11/28/18 16:27 11/29/18 05:17 White Blood Count 8.7 # 7.9 Red Blood Count 5.42 H 5.51 H Hemoglobin 11.1 L 11.3 L Hematocrit 38.4 39.6 Mean Corpuscular 70.8 L 71.9 L Volume Mean Corpuscular 20.5 L 20.5 L Hemoglobin Mean Corpuscular 28.9 L 28.5 L Hemoglobin Concen t Red Cell 16.2 H 15.9 H Distribution Width Platelet Count 205 # 163 # Mean Platelet 11.0 H 11.7 H Volume Immature 0.300 0.500 H Granulocytes % Neutrophils % 46.6 72.7 Lymphocytes % 42.4 17.6 Monocytes % 8.5 8.5 Eosinophils % 1.7 0.4 Basophils % 0.5 0.3 Nucleated Red 0.3 H 0.0 Blood Cells % Immature 0.030 0.040 H Granulocytes # Neutrophils # 4.0 5.7 Lymphocytes # 3.7 H 1.4 Monocytes # 0.7 0.7 Eosinophils # 0.2 0.0 Basophils # 0.0 0.0 Nucleated Red 0.0 0.0 Blood Cells # Sodium Level 137 142 Potassium Level 5.8 H 4.4 Chloride Level 100 101 Carbon Dioxide 27 32 H Level Anion Gap 10 9 Blood Urea 30 H 21 H Nitrogen Creatinine 1.72 H 0.90 Est Glomerular 30 L > 60 Filtrat Rate mL/min Glucose Level 125 112 Calcium Level 8.5 9.0 Total Bilirubin 0.1 L 0.1 L Direct Bilirubin 0.00 0.00 Indirect 0.1 0.1 Bilirubin Aspartate Amino 48 H 39 Transf (AST/SGOT) Alanine 24 30 Aminotransferase (ALT/SGPT) Alkaline 79 113 Phosphatase Total Protein 6.8 7.1 Albumin 3.7 3.9 Globulin 3.10 3.20 Albumin/Globulin 1.19 1.21 Ratio Salicylates Level < 1.0 L Acetaminophen < 10.0 L Level Ethyl Alcohol < 10.0 H Level Urine Color YELLOW Urine Clarity SLIGHTLY CLOUDY A Urine pH 5.0 Urine Specific 1.010 [place] Urine Ketones NEGATIVE Urine Nitrite POSITIVE A Urine Bilirubin NEGATIVE Urine NEGATIVE Urobilinogen Urine Leukocyte TRACE A Esterase Urine Microscopic 0 RBC Urine Microscopic 4 WBC Urine Bacteria FEW A Urine Hemoglobin NEGATIVE Urine Glucose NEGATIVE Urine Total NEGATIVE Protein Urine Opiates Negative Screen Urine Negative Barbiturates Urine Negative Amphetamines Screen Urine Positive Benzodiazepines Screen Urine Cocaine Negative Screen Urine Negative Cannabinoids HPI/ROS Admit Date/Time Admit Date/Time Nov 29, 2018 at 08:43 Hx of Present Illness This is a 63-year-old female with a past medical history of obesity, schizophrenia, polysubstance abuse, chronic pain on methadone, arthritis who was found to be unresponsive outside of her methadone clinic. The patient was given Narcan prior to arrival by paramedics and woke up in the emergency department per medical record. In ER pt had no complaints. The patient denies feeling sick recently. The patient denied fever or chills. The patient has had no headache or vision changes. The patient did not endorse neck or back pain. The patient denies lightheadedness or dizziness. The patient has had no chest pain or trouble breathing. The patient denied nausea or vomiting. The patient denied abdominal pain. The patient denied changes to bowel movements or urination. The patient has had no focal deficits. The patient has had no weakness or numbness or tingling to the face or extremities. ROS pt is confused, does not follow commands, delusional Psychological: confusion PMH/Family/Social Past Medical History Medical History: diabetes, hypertension Medications Current Medications Ondansetron HCl (Zofran Inj) 4 mg ER BRIDGE PRN IV nausea; Start 11/28/18 at 19:00; Stop 11/29/18 at 18:59 Acetaminophen (Tylenol Tab) 650 mg ER BRIDGE PRN PO pain; Start 11/28/18 at 19:00; Stop 11/29/18 at 18:59 Dextrose/Sodium Chloride 1,000 ml @ 50 mls/hr Q20H IV Last administered on 11/29/18at 01:12; Admin Dose 50 MLS/HR; Start 11/29/18 at 00:30 Acetaminophen (Tylenol Tab) 650 mg Q6H PRN PO MILD PAIN(1-3)OR ELEVATED TEMP; Start 11/29/18 at 00:30 Pantoprazole (Protonix Iv) 40 mg DAILY@06 IV Last administered on 11/29/18at 05:46; Admin Dose 40 MG; Start 11/29/18 at 06:00 Coded Allergies: No Known Allergies (Verified Allergy, Mild, 11/28/18) Past Surgical History Past Surgical Hx: other (unknown) Family History Significant Family History: hypertension Social History Alcohol Use: none Smoking Status: Current every day smoker Drug Use: other (previous drug use hx) Exam/Review of Systems Vital Signs Vitals Vital Signs Date Temp Pulse Resp B/P (MAP) Pulse Ox O2 O2 Flow FiO2 Time Delivery Rate 11/29/18 Nasal 2.0 08:10 Cannula 11/29/18 98.0 96 22 120/64 93 07:12 (82) Intake and Output 11/28/18 11/28/18 11/29/18 1515:00 23:00 07:00 IntakeIntake Total 1000 ml BalanceBalance 1000 ml Exam Constitutional: alert Psych: other (delusional) Head: normocephalic Neck: supple Respiratory: clear to auscultation Cardiovascular: regular rate and rhythm Gastrointestinal: soft Extremities: normal pulses Neurological: confused MINA FARAH MD 11/29/18 1544: Assessment/Plan Assessment/Plan Assessment/Plan SEEN AND EXAMINED AMS? METABOLIC DRUG OD CHECK ABG NEBS HOLD BENZO/OPOIDS PSCY Result Diagram: 11/29/18 0517 11/29/18 0517 PMH/Family/Social Past Medical History Coded Allergies: No Known Allergies (Verified Allergy, Mild, 11/28/18) ORION QUINTERO Nov 29, 2018 10:19 MINA FARAH MD Nov 29, 2018 15:44
[2018-11-29] MEDS ORDERED: ACETAMINOPHEN 650 MG SUPP PR PRN (10:30)
[2018-11-29] MEDS ORDERED: ACETAMINOPHEN 325 MG SUPP PR PRN (11:00)
[2018-11-29] MEDS ORDERED: hydrALAzine 20 MG INJ IV PRN (11:00)
[2018-11-29] MEDS: CEFTRIAXONE 1 GM/50 ML (PMX) 50 ML IVPB SCH (11:21)
[2018-11-29] MEDS ORDERED: GLUCOSE GEL 15 GRAM TUBE BUCCAL PRN (11:30)
[2018-11-29] MEDS ORDERED: GLUCAGON 1 MG INJ IM PRN (11:30)
[2018-11-29] MEDS ORDERED: GLUCOSE GEL 15 GRAM TUBE PO PRN ×2 (11:30)
[2018-11-29] MEDS ORDERED: DEXTROSE 50% 50 ML SYRINGE IV PRN ×2 (11:30)
[2018-11-29] MEDS: INSULIN ASPART [NOVOLOG] 3 ML PEN SC SCH ×3 (11:44→23:47)
--- NOTE | 2018-11-29 13:41 | CONS ---
Date/Time of Note Date/Time of Note DATE: 11/29/18 TIME: 13:34 Consult Date/Type/Reason Admit Date Nov 29, 2018 at 08:43 Type of Consult Psych Subjective Patient is a 63-year-old female with a past medical history of obesity, polysubstance abuse, chronic pain on methadone, arthritis who was found to be unresponsive outside of her methadone clinic. On a face to face evaluation, patient went off on tangent. She denies suicidal ideation, reports auditory hallucination with no specific message. Patient has poor impulse control, gets easily irritable . Discussed risk and benefit of Seroquel, Bupropion and Cogentin to patient and spouse. Objective Patient Appearance: Disheveled Voice Loudness: Mildly Soft/Quiet Mood and Affect Description: Anxious, Suspicious Mood or Affect: Hallucinating Speech Pattern: Clear Thought Process: Disorganized Hallucination Type: Auditory Assessment/Plan Recommendations Seroquel 300mg at bedtime, Cogentin 1mg daily and Bupropion 150mg daily Patient does not need a 5150 hold and does not meet criteria for inpatient psych hospitalization. LIVAN LEAM NP Nov 29, 2018 13:41
--- NOTE | 2018-11-29 14:20 | NUR ---
PT IS TOO COMBATIVE, WILL NOT LET ME DRAW ABG. THEREFORE PT REFUSED. Addendum: 11/29/18 at 1422 by TERESA RASHID RT [place]
--- NOTE | 2018-11-29 16:01 | NUR ---
Clinical Bedside Swallow Evaluation Completed: Brief Hx: Ms. Hodges is a 63-year-old female with a past medical history of obesity, polysubstance abuse, chronic pain on methadone, arthritis who was found to be unresponsive outside of her methadone clinic. On a face to face evaluation, patient went off on tangent. She denies suicidal ideation, reports auditory hallucination with no specific message. Patient has poor impulse control, gets easily irritable . Discussed risk and benefit of Seroquel, Bupropion and Cogentin to patient and spouse. Chest XR completed on 11/28/2018:FINDINGS: The aorta is tortuous and atherosclerotic. The cardiomediastinal silhouette is otherwise mildly enlarged and is stable. No dense consolidation or pleural effusion is seen. The soft tissues and osseous structures demonstrate benign age related senescent changes. No acute cardiopulmonary disease. The aorta is tortuous and atherosclerotic. The cardiomediastinal silhouette is otherwise mildly enlarged and is stable. No dense consolidation or pleural effusion is seen. The soft tissues and osseous structures demonstrate benign age related senescent changes. Brain CT completed on 11/28/2018:IMPRESSION 1. No acute intracranial pathology. 2. Stable mild diffuse volume loss and mild chronic microvascular ischemic changes. Vitals: temp: 98.7; RR: 20-22; SPO2: 95% on 4 liters/min on NC Labs: WBC: 7.9; Hgb/Hct: 11.3/39.6; Co2: 32H PLOF: regular/thin liquids Current: NPO+IV Fluids Pt is known to speech therapy department and last seen on 06/09/2018 and rec for regular diet and thin liquids. Subjective assessment of cognition specific to swallow safety: Awake, drowsy requiring max stimulation to maintain level of attention to the tasks, intermittently able to follow simple commands, tangential speech, [place] level 5 and emerging 6 with confusion and non-agitated with intermittent appropriate responses. Sitter present due to the pts reduced level of alertness. Oral mechanism examination completed; Face was symmetrical, lips, tongue and soft palate were symmetrical, unable to test lingual strength, edentulous. P.o trials consisting of the following: ice chips x2, thin liquids by teaspoon x 1, NTL by teaspoon x8, puree (1/2 teaspoon x2). Oral phase of swallow: Reduced oral motor strength and coordination. Anterior oral leakage out of the pts left side of labial region due to reduced labial strength/closure. Pt appears to be tolerating her oral secretions. Prolonged mastication with puree and cohesive formation. Reduced bolus anterior to posterior transit. Reduced oral control resulting in suspected premature loss into the hypopharynx before initiation of the swallow. Pharyngeal phase of swallow: Delayed trigger of swallow. Suspect that the the initiation of the swallow was not elicited until the bolus reached the level of the hypopharyngeal region/laryngeal vestibule, as appreciated via auscultation. Hyolaryngeal excursion and elevation was wfl. Suspect residue in the pharyngeal cavity after the initial swallow with 1/2 teaspoon of puree requiring liquid wash of NTL by teaspoon to clear. Pt was unable to complete a volitional dry swallow upon request and only intermittently. No overt s/s of aspiration or penetration with NTL by teaspoon or puree but reduced attention to the bolus during the swallow. Suspect penetration and cannot r/o aspiration immediately following the single teaspoon trial of thin liquids with a productive cough. Vocal quality remained clear across p.o trials. Impression: Oropharyngeal dysphagia associated with reduced BILL and waxing and waning in mentation status, aswell as reduced oropharyngeal strength/coordination and delayed trigger of swallow. Pt is not ready to initiate a p.o diet but safe to consume crushed medication with single sips of NTL by teaspoon when awake/alert. Recommendation: 1. Initiate dysphagia therapy 3-5x per week for 1-2 weeks 2. Keep NPO+IV fluids and ongoing swallow assessment 3. Allow administration of crushed medication with nectar thick liquids by teaspoon only when awake/alert. Hold medication if drowsy or altered. 4. provide frequent oral care and hygiene management.
--- NOTE | 2018-11-29 16:07 | CONS ---
Assessment/Plan Assessment/Plan Hospital Course 63 yo F with hx of depression, psychosis, polysubstance abuse and other comorbidities who p/w ams... for which neurology is consulted. Perhaps an acute toxic encephalopathy... Seizure is additionally considered. As an aside, she likely has an underlying mild cognitive impairment. CTH is without acute intracranial pathology, though demonstrates mild diffuse volume loss and mild microvascular ischemic changes... P: MRI brain without contrast for further characterization EEG to evaluate for epileptiform activity Reorient as necessary Limit polypharmacy where possible PT/OT/ST as tolerated Continue medical management per primary Will follow clinically Result Diagram: 11/29/1851611/29/1817 Results 24hrs Laboratory Tests Test 11/28/18 16:27 11/29/18 05:17 11/29/18 11:43 Urine Color YELLOW Urine Clarity SLIGHTLY CLOUDY A Urine pH 5.0 Urine Specific [place] 1.010 Urine Ketones NEGATIVE Urine Nitrite POSITIVE A Urine Bilirubin NEGATIVE Urine Urobilinogen NEGATIVE Urine Leukocyte Esterase TRACE A Urine Microscopic RBC 0 Urine Microscopic WBC 4 Urine Bacteria FEW A Urine Hemoglobin NEGATIVE Urine Glucose NEGATIVE Urine Total Protein NEGATIVE Urine Opiates Screen Negative Urine Barbiturates Negative Urine Amphetamines Screen Negative Urine Benzodiazepines Screen Positive Urine Cocaine Screen Negative Urine Cannabinoids Negative White Blood Count 7.9 Red Blood Count 5.51 H Hemoglobin 11.3 L Hematocrit 39.6 Mean Corpuscular Volume 71.9 L Mean Corpuscular Hemoglobin 20.5 L Mean Corpuscular 28.5 L Hemoglobin Concent Red Cell Distribution Width 15.9 H Platelet Count 163 # Mean Platelet Volume 11.7 H Immature Granulocytes % 0.500 H Neutrophils % 72.7 Lymphocytes % 17.6 Monocytes % 8.5 Eosinophils % 0.4 Basophils % 0.3 Nucleated Red Blood Cells % 0.0 Immature Granulocytes # 0.040 H Neutrophils # 5.7 Lymphocytes # 1.4 Monocytes # 0.7 Eosinophils # 0.0 Basophils # 0.0 Nucleated Red Blood Cells # 0.0 Sodium Level 142 Potassium Level 4.4 Chloride Level 101 Carbon Dioxide Level 32 H Anion Gap 9 Blood Urea Nitrogen 21 H Creatinine 0.90 Est Glomerular Filtrat > 60 Rate mL/min Glucose Level 112 Calcium Level 9.0 Total Bilirubin 0.1 L Direct Bilirubin 0.00 Indirect Bilirubin 0.1 Aspartate Amino 39 Transf (AST/SGOT) Alanine 30 Aminotransferase (ALT/SGPT) Alkaline Phosphatase 113 Total Protein 7.1 Albumin 3.9 Globulin 3.20 Albumin/Globulin Ratio 1.21 Bedside Glucose 103 Consultation Date/Type/Reason Admit Date/Time Nov 29, 2018 at 08:43 Type of Consult Neurology Reason for Consultation ams Requesting Provider: MINA FARAH MD Date/Time of Note DATE: 11/29/18 TIME: 16:07 Hx of Present Illness 63 yo F with hx of depression, psychosis, polysubstance abuse and other comorbidities who presented to the ED with altered mental status. History was obtained from chart review as pt is a poor historian. It is elsewhere noted: Hx of Present Illness This is a 63-year-old female with a past medical history of obesity, schizophrenia, polysubstance abuse, chronic pain on methadone, arthritis who was found to be unresponsive outside of her methadone clinic. The patient was given Narcan prior to arrival by paramedics and woke up in the emergency department pe r medical record. In ER pt had no complaints. The patient denies feeling sick recently. The patient denied fever or chills. The patient has had no headache or vision changes. The patient did not endorse neck or back pain. The patient denies lightheadedness or dizziness. The patient has had no chest pain or trouble breathing. The patient denied nausea or vomiting. The patient denied abdominal pain. The patient denied changes to bowel movements or urination. The patient has had no focal deficits. The patient has had no weakness or numbness or tingling to the face or extremities. unable to obtain d/t pt's ams Exam/Review of Systems Exam Vitals Vital Signs Date Temp Pulse Resp B/P (MAP) Pulse Ox O2 O2 Flow FiO2 Time Delivery Rate 11/29/18 99.7 113 20 149/85 90 Nasal 15:31 (106) Cannula 11/29/18 3.0 14:30 Intake and Output 11/28/18 11/28/18 11/29/18 1515:00 23:00 07:00 IntakeIntake Total 1000 ml BalanceBalance 1000 ml Additional Comments PE: Gen Appearance: No Apparent Distress; On 2 pt restraints HEENT: Normocephalic; on nasal cannula Cardiovascular: Regular rate Abdomen: Soft Extremities: Dry NE: The patient was awake, alert, though very disoriented; oriented to self only. Conversant; language normal. Very difficult to direct. Attention span poor. Unable to follow commands. Cranial nerve examination was limited by mental status. Pupils were equal and reactive to light. There was no afferent pupillary defect. Funduscopic examination was limited. Face was grossly symmetric, w/ present corneal and cough reflexes. Tone was normal. Muscle bulk was normal. I did not see fasciculations. The patient was spontaneously moving all extremities. Coordination and gait testing was limited by mental status. Arm and leg reflexes were within normal limits and symmetric. Winston's sign was absent. Plantar responses were flexor. Results Results 24hrs Laboratory Tests Test 11/28/18 16:27 11/29/18 05:17 11/29/18 11:43 Urine Color YELLOW Urine Clarity SLIGHTLY CLOUDY A Urine pH 5.0 Urine Specific [place] 1.010 Urine Ketones NEGATIVE Urine Nitrite POSITIVE A Urine Bilirubin NEGATIVE Urine Urobilinogen NEGATIVE Urine Leukocyte Esterase TRACE A Urine Microscopic RBC 0 Urine Microscopic WBC 4 Urine Bacteria FEW A Urine Hemoglobin NEGATIVE Urine Glucose NEGATIVE Urine Total Protein NEGATIVE Urine Opiates Screen Negative Urine Barbiturates Negative Urine Amphetamines Screen Negative Urine Benzodiazepines Screen Positive Urine Cocaine Screen Negative Urine Cannabinoids Negative White Blood Count 7.9 Red Blood Count 5.51 H Hemoglobin 11.3 L Hematocrit 39.6 Mean Corpuscular Volume 71.9 L Mean Corpuscular Hemoglobin 20.5 L Mean Corpuscular 28.5 L Hemoglobin Concent Red Cell Distribution Width 15.9 H Platelet Count 163 # Mean Platelet Volume 11.7 H Immature Granulocytes % 0.500 H Neutrophils % 72.7 Lymphocytes % 17.6 Monocytes % 8.5 Eosinophils % 0.4 Basophils % 0.3 Nucleated Red Blood Cells % 0.0 Immature Granulocytes # 0.040 H Neutrophils # 5.7 Lymphocytes # 1.4 Monocytes # 0.7 Eosinophils # 0.0 Basophils # 0.0 Nucleated Red Blood Cells # 0.0 Sodium Level 142 Potassium Level 4.4 Chloride Level 101 Carbon Dioxide Level 32 H Anion Gap 9 Blood Urea Nitrogen 21 H Creatinine 0.90 Est Glomerular Filtrat > 60 Rate mL/min Glucose Level 112 Calcium Level 9.0 Total Bilirubin 0.1 L Direct Bilirubin 0.00 Indirect Bilirubin 0.1 Aspartate Amino 39 Transf (AST/SGOT) Alanine 30 Aminotransferase (ALT/SGPT) Alkaline Phosphatase 113 Total Protein 7.1 Albumin 3.9 Globulin 3.20 Albumin/Globulin Ratio 1.21 Bedside Glucose 103 Imaging Imaging IMPRESSION: 1. No acute intracranial pathology. 2. Stable mild diffuse volume loss and mild chronic microvascular ischemic changes. Past Medical History reviewed Medical History: diabetes, hypertension Home Meds Reported Medications Olanzapine* (Zyprexa*) 10 Mg Tablet, 10 MG PO DAILY, #30 TAB 11/28/18 Metoprolol Tartrate* (Lopressor*) 25 Mg Tablet, 25 MG PO BID, #60 TAB 11/28/18 Hydrochlorothiazide* (Hydrochlorothiazide*) 25 Mg Tab, 25 MG PO DAILY, #30 TAB 11/28/18 Clonazepam* (Clonazepam*) 2 Mg Tablet, 2 MG PO TID PRN for ANXIETY, TAB 11/28/18 Clonidine Hcl* (Clonidine Hcl*) 0.2 Mg Tablet, 0.2 MG PO Q8, TAB 11/28/18 Flurazepam Hcl (Flurazepam Hcl) 30 Mg Capsule, 30 MG PO QHS for insomnia, CAP 08/27/18 Losartan Potassium* (Losartan Potassium*) 100 Mg Tablet, 100 MG PO DAILY, TAB 08/27/18 Benztropine Mesylate* (Benztropine Mesylate*) 0.5 Mg Tablet, 0.5 MG PO BID, TAB 06/08/18 Diclofenac Sodium* (Diclofenac Sodium*) 50 Mg Tablet.dr, 50 MG PO BID, #60 TAB 06/08/18 Gabapentin* (Gabapentin*) 300 Mg Capsule, 300 MG PO DAILY, #60 CAP 06/08/18 Metformin Hcl* (Metformin Hcl*) 1,000 Mg Tablet, 1000 MG PO WITH BREAKFAST DINNE, #60 TAB 06/08/18 Omeprazole* (Omeprazole*) 40 Mg Capsule.dr, 40 MG PO DAILY, #30 CAP 06/08/18 Bupropion Hcl* (Bupropion XL*) 150 Mg Tab.er.24h, 150 MG PO QAM, TAB.SA 06/08/18 Quetiapine Fumarate* (Seroquel* XR) 300 Mg Tab.sr.24h, 600 MG PO QHS, #30 TAB 06/08/18 Carisoprodol* (Carisoprodol*) 350 Mg Tablet, 350 MG PO BID PRN for MUSCLE SPASMS, TAB 06/08/18 Discontinued Reported Medications Clonazepam* (Clonazepam*) 1 Mg Tablet, 1 MG PO Q8H PRN for ANXIETY, TAB 08/28/18 Cephalexin* (Cephalexin*) 500 Mg Capsule, 500 MG PO Q6, #28 CAP 08/27/18 Clonidine Hcl* (Clonidine Hcl*) 0.1 Mg Tab, 0.1 MG PO Q8, TAB 08/27/18 Flurazepam Hcl (Flurazepam Hcl) 30 Mg Capsule, 30 MG PO QHS, CAP 06/08/18 Medications Current Medications Ondansetron HCl (Zofran Inj) 4 mg ER BRIDGE PRN IV nausea; Start 11/28/18 at 19:00; Stop 11/29/18 at 18:59 Acetaminophen (Tylenol Tab) 650 mg ER BRIDGE PRN PO pain; Start 11/28/18 at 19:00; Stop 11/29/18 at 18:59 Dextrose/Sodium Chloride 1,000 ml @ 50 mls/hr Q20H IV Last administered on 11/29/18at 01:12; Admin Dose 50 MLS/HR; Start 11/29/18 at 00:30 Acetaminophen (Tylenol Tab) 650 mg Q6H PRN PO MILD PAIN(1-3)OR ELEVATED TEMP; Start 11/29/18 at 00:30 Pantoprazole (Protonix Iv) 40 mg DAILY@06 IV Last administered on 11/29/18at 05:46; Admin Dose 40 MG; Start 11/29/18 at 06:00 Acetaminophen (Tylenol Supp) 325 mg Q6H PRN MT temp above 101; Start 11/29/18 at 11:00 Ceftriaxone Sodium 50 ml @ 100 mls/hr Q24H IVPB Last administered on 11/29/18at 11:21; Admin Dose 100 MLS/HR; Start 11/29/18 at 11:00 Insulin Aspart (Novolog Insulin Pen) NOVOLOG *MILD* ALGORI... Q6 SC ; Start 11/29/18 at 12:00 Hydralazine HCl (Apresoline) 10 mg Q6H PRN IV sbp above 160; Start 11/29/18 at 11:00 Miscellaneous Information 1 ea NOTE XX ; Start 11/29/18 at 11:30 Glucose (Glutose) 15 gm Q15M PRN PO DECREASED GLUCOSE; Start 11/29/18 at 11:30 Glucose (Glutose) 22.5 gm Q15M PRN PO DECREASED GLUCOSE; Start 11/29/18 at 11:30 Dextrose (D50w Syringe) 25 ml Q15M PRN IV DECREASED GLUCOSE; Start 11/29/18 at 11:30 Dextrose (D50w Syringe) 50 ml Q15M PRN IV DECREASED GLUCOSE; Start 11/29/18 at 11:30 Glucagon (Glucagen) 1 mg Q15M PRN IM DECREASED GLUCOSE; Start 11/29/18 at 11:30 Glucose (Glutose) 15 gm Q15M PRN BUCCAL DECREASED GLUCOSE; Start 11/29/18 at 11:30 Quetiapine Fumarate (Seroquel) 300 mg QHS PO ; Start 11/29/18 at 21:00 Bupropion HCl (Wellbutrin Sr) 150 mg DAILY PO ; Start 11/30/18 at 09:00 Benztropine Mesylate (Cogentin) 1 mg BID PO ; Start 11/29/18 at 21:00 Albuterol/ Ipratropium (Duoneb) 3 ml Q4H RESP THERAPY HHN ; Start 11/29/18 at 17:00 Allergies: Coded Allergies: No Known Allergies (Verified Allergy, Mild, 11/28/18) Past Surgical History reviewed Past Surgical Hx: other (unknown) Social History reviewed Alcohol Use: none Smoking Status: Current every day smoker Drug Use: other (previous drug use hx) VIVIAN CAICEDO NP Nov 29, 2018 16:07
--- NOTE | 2018-11-29 16:23 | NUR ---
SW: CONSULT JOSE received consult for OD for this patient. SW reviewed chart, and patient has been seen by psychologist experimental Meera. MARU Russell states there is a sitter at bedside and patient on restraints and not able to participate in interview at this time. SW will attempt to interview patient tomorrow. SW remains available as needed.
[2018-11-29] MEDS: ALBUTEROL/IPRATROPIUM (NEB) 3 ML AMP HHN SCH ×2 (16:27→20:24)
--- NOTE | 2018-11-29 18:29 | NUR ---
EOSS Patient stable, A/Ox1, patient more alert thoughout the shift but not oriented to time, place or reason for visit, periodic agitation, suspicion and combative behavior, very anxious, and patient does report auditory hallucinations, rhythm has been sinus and sinus tachycardic into the 130s, blood glucose controlled, evaluated by speech therapy and only cleared for crush medications in nectar thick liquid with teaspoon as needed while alert, patient being evaluated by psych and manager social, IV fluids ordered and antibiotics for UTI, patient was febrile this morning at 102 and tylenol supp and ice packs applied, urine culture and blood cultures x2 sent, EEG completed, patient is currently on restraints and with 1:1 sitter, pending MRI brain, 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
[2018-11-29] MEDS: BENZTROPINE 1 MG TAB PO SCH (20:20)
[2018-11-29] MEDS: QUETIAPINE 100 MG TAB PO SCH (20:21)
[2018-11-29] MEDS: ACETAMINOPHEN 325 MG TAB PO PRN (21:53)
[2018-11-30] VITALS (17 sets, daily range): BP systolic 115–168; BP diastolic 58–88; PULSE 79–156; RESP 17–19
[2018-11-30] MEDS ORDERED: VANCOMYCIN IV PER PHARMACY XX SCH
[2018-11-30] MEDS ORDERED: VANCOMYCIN HCL 2 GM in SOD CHLORIDE 0.9% 500 ML IVPB ONE ×2
[2018-11-30] MEDS: ALBUTEROL/IPRATROPIUM (NEB) 3 ML AMP HHN SCH ×6 (01:45→20:31)
[2018-11-30] MEDS: PANTOPRAZOLE 40 MG INJ IV SCH (05:46)
[2018-11-30] MEDS: INSULIN ASPART [NOVOLOG] 3 ML PEN SC SCH ×3 (05:46→17:06)
--- NOTE | 2018-11-30 06:20 | EEG ---
EEG NOTE Report Details DATE OF TEST: 11/29/18 HISTORY: The patient is a 63-year-old F who presents with altered mental status. This EEG is requested to evaluate for an epileptic disorder. SEDATION: None. CONDITIONS OF RECORDING: This EEG was recorded digitally on the [employer] machine, using the International 10-20 System of electrodes plus anterior temporals and [place]. STATES SAMPLED: Wakefulness and drowsiness. FINDINGS: During wakefulness, a well-formed posterior dominant rhythm is absent. The normal [id number] frequency-amplitude gradient was absent. The remainder of the awake background is notable for admixed theta and delta activity. Photic stimulation does not elicit any definite driving responses or epileptiform discharges. Hyperventilation was not performed. The patient became drowsy but did not pass into sleep. No asymmetries, focal abnormalities or epileptiform discharges were seen. IMPRESSION: Abnormal electroencephalogram due to: mild to moderate diffuse slowing. COMMENT: The slowing of the background indicates mild to moderate, diffuse cortical dysfunction of nonspecific etiology. Clinical correlation is advised. YVONNE JACKSON Nov 30, 2018 06:20
--- NOTE | 2018-11-30 06:30 | NUR ---
EOSS Patient AAOx1, agitated throughout most of shift. Patient attempting to get out of bed multiple times during shift. Reoriented patient as needed. Patient SR-ST on monitor with HR reaching 110's. O2 sat good on room air. Patient elevated temperature 101.8, Dr. Lai made aware and orders received. Accucheck Q6H, no sliding coverage needed during shift. Hourly rounding done. Patient stable at this time, will endorse to oncoming shift.
[2018-11-30] MEDS: BUPROPION (SR) 150 MG TAB PO SCH ×2 (08:20→08:28)
[2018-11-30] MEDS: BENZTROPINE 1 MG TAB PO SCH ×3 (08:20→21:23)
[2018-11-30] MEDS: ACETAMINOPHEN 325 MG TAB PO PRN ×2 (08:21→08:28)
--- NOTE | 2018-11-30 09:39 | NUR ---
Vancomycin per Rx 63 y/o F 5'7" 127kg SCr 0.54 NKDA Vancomycin 2gm IV x1 dose load Then start Vancomycin 1.5 gm IV q12h Monitor renal function Check Vancomycin trough level soon
--- NOTE | 2018-11-30 10:10 | PN ---
Date/Time of Note Date/Time of Note DATE: 11/30/18 TIME: 10:08 Assessment/Plan VTE Prophylaxis Risk score (from N[place])>0 risk: 5 [place] [facility] [place] contraindicated: other Pharmacological prophylaxis: LMWH Lines/Catheters IV Catheter Type (from [facility]): Peripheral IV Urinary Cath still in place: No Assessment/Plan Hospital Course 1. Syncope more likely due to polypharmacy. AMS due to benzodiazepine and methadone intake. Tox. screen is positive for benzodiazepine, which are part of pt. routine meds, like clonazepam 2. UTI with fevers. Pt is clinically dehydrated with hyperkalemia and elevated creatinine, resolved today 3. Osteoarthritis on the x-rays of the knees 4. History of diabetes, controlled. 5. Chronic obstructive pulmonary disease. 6. Morbid obesity. 7. Hypertension 8. 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 Hx of multiple falls in pas 10. Microcytic hypochromic anemia 11. Temp. dysphagia Assessment/Plan -DVT prophylaxis Lovenox -Gi prophylaxis Protonix -blood culturex2 pending -urine for culture pending -C.w IV fluids -Pt underwent Psychiatry evaluation in last admission 10/2018, found major depressive disorder severe recurrent with psychosis -was seen by psychcrystal. 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 -C/w Rocephin Result Diagram: 11/30/18 0805 11/30/18 0805 Results 24hrs Laboratory Tests Test 11/29/18 11:43 11/29/18 17:23 11/29/18 23:46 11/30/18 05:44 Bedside Glucose 103 117 125 108 Test 11/30/18 08:05 White Blood Count 5.9 # Red Blood Count 4.74 Hemoglobin 9.9 L Hematocrit 34.1 L Mean Corpuscular 71.9 L Volume Mean Corpuscular 20.9 L Hemoglobin Mean Corpuscular 29.0 L Hemoglobin Concent Red Cell 15.9 H Distribution Width Platelet Count 142 Mean Platelet Volume 10.3 Immature 0.300 Granulocytes % Neutrophils % 46.0 Lymphocytes % 41.1 Monocytes % 10.6 Eosinophils % 1.5 Basophils % 0.5 Nucleated Red Blood 0.0 Cells % Immature 0.020 Granulocytes # Neutrophils # 2.7 Lymphocytes # 2.4 Monocytes # 0.6 Eosinophils # 0.1 Basophils # 0.0 Nucleated Red Blood 0.0 Cells # Sodium Level 140 Potassium Level 3.9 Chloride Level 99 Carbon Dioxide Level 35 H Anion Gap 6 Blood Urea Nitrogen 10 # Creatinine 0.54 Est Glomerular > 60 Filtrat Rate mL/min Glucose Level 106 Hemoglobin A1c 6.1 H Calcium Level 8.5 Subjective 24 Hr Interval Summary Free Text/Dictation incoherent Exam/Review of Systems Exam Vitals Vital Signs Date Temp Pulse Resp B/P (MAP) Pulse Ox O2 O2 Flow FiO2 Time Delivery Rate 11/30/18 98.5 120 19 152/88 95 09:59 (109) 11/30/18 Nasal 4.0 21 09:15 Cannula Intake and Output 11/29/18 11/29/18 11/30/18 1414:59 22:59 06:59 IntakeIntake Total 50 ml 120 ml 50 ml BalanceBalance 50 ml 120 ml 50 ml Psych: confusion Head: normocephalic Neck: supple Respiratory: clear to auscultation Cardiovascular: regular rate and rhythm Gastrointestinal: soft Genitourinary - Female: other (incontinent) Musculoskeletal: nl extremities to inspection Results Results 24hrs Laboratory Tests Test 11/29/18 11:43 11/29/18 17:23 11/29/18 23:46 11/30/18 05:44 Bedside Glucose 103 117 125 108 Test 11/30/18 08:05 White Blood Count 5.9 # Red Blood Count 4.74 Hemoglobin 9.9 L Hematocrit 34.1 L Mean Corpuscular 71.9 L Volume Mean Corpuscular 20.9 L Hemoglobin Mean Corpuscular 29.0 L Hemoglobin Concent Red Cell 15.9 H Distribution Width Platelet Count 142 Mean Platelet Volume 10.3 Immature 0.300 Granulocytes % Neutrophils % 46.0 Lymphocytes % 41.1 Monocytes % 10.6 Eosinophils % 1.5 Basophils % 0.5 Nucleated Red Blood 0.0 Cells % Immature 0.020 Granulocytes # Neutrophils # 2.7 Lymphocytes # 2.4 Monocytes # 0.6 Eosinophils # 0.1 Basophils # 0.0 Nucleated Red Blood 0.0 Cells # Sodium Level 140 Potassium Level 3.9 Chloride Level 99 Carbon Dioxide Level 35 H Anion Gap 6 Blood Urea Nitrogen 10 # Creatinine 0.54 Est Glomerular > 60 Filtrat Rate mL/min Glucose Level 106 Hemoglobin A1c 6.1 H Calcium Level 8.5 ORION QUINTERO Nov 30, 2018 10:10
--- NOTE | 2018-11-30 10:35 | NUR ---
SW: ATTEMPTED CONTACT FOR INTERVIEW SW attempted to meet with this 63-year-old patient at bedside to assess for OD, however patient was lethargic and kept falling asleep during this interview. She was able to respond to her name, but fell asleep when any questions were asked. 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 She has been here in the past for homicidal ideation and mental illness. Has a history of 5150 holds. SW will reattempt to meet with this patient at a later time.
[2018-11-30] MEDS: CEFTRIAXONE 1 GM/50 ML (PMX) 50 ML IVPB SCH (11:56)
[2018-11-30] MEDS: VANCOMYCIN HCL 1.5 GM in SOD CHLORIDE 0.9% 250 ML IVPB SCH (12:42)
--- NOTE | 2018-11-30 13:40 | CONS ---
Assessment/Plan Assessment/Plan Hospital Course 63 yo F with hx of depression, psychosis, polysubstance abuse and other comorbidities who p/w ams... for which neurology is consulted. Perhaps an acute toxic encephalopathy... Seizure is less likely. As an aside, she likely has an underlying mild cognitive impairment. CTH is without acute intracranial pathology, though demonstrates mild diffuse volume loss and mild microvascular ischemic changes... EEG is without epileptiform activity. UCx + GNR P: Await MRI brain without contrast for further characterization Reorient as necessary Limit polypharmacy where possible PT/OT/ST as tolerated Continue medical management per primary Will follow clinically Result Diagram: 11/30/18 0805 11/30/18 0805 Results 24hrs Laboratory Tests Test 11/29/18 17:23 11/29/18 23:46 11/30/18 05:44 11/30/18 08:05 Bedside Glucose 117 125 108 White Blood Count 5.9 # Red Blood Count 4.74 Hemoglobin 9.9 L Hematocrit 34.1 L Mean Corpuscular 71.9 L Volume Mean Corpuscular 20.9 L Hemoglobin Mean Corpuscular 29.0 L Hemoglobin Concent Red Cell 15.9 H Distribution Width Platelet Count 142 Mean Platelet Volume 10.3 Immature 0.300 Granulocytes % Neutrophils % 46.0 Lymphocytes % 41.1 Monocytes % 10.6 Eosinophils % 1.5 Basophils % 0.5 Nucleated Red Blood 0.0 Cells % Immature 0.020 Granulocytes # Neutrophils # 2.7 Lymphocytes # 2.4 Monocytes # 0.6 Eosinophils # 0.1 Basophils # 0.0 Nucleated Red Blood 0.0 Cells # Sodium Level 140 Potassium Level 3.9 Chloride Level 99 Carbon Dioxide Level 35 H Anion Gap 6 Blood Urea Nitrogen 10 # Creatinine 0.54 Est Glomerular > 60 Filtrat Rate mL/min Glucose Level 106 Hemoglobin A1c 6.1 H Calcium Level 8.5 Test 11/30/18 11:52 Bedside Glucose 130 Consultation Date/Type/Reason Admit Date/Time Nov 29, 2018 at 08:43 Type of Consult Neurology Reason for Consultation ams Requesting Provider: MINA FARAH MD Date/Time of Note DATE: 11/30/18 TIME: 13:40 24 HR Interval Summary Free Text/Dictation Continues telemetry monitoring. Pt reportedly more confused and lethargic today. Pt unable to fully contribute at this time. Exam Vital Signs Vitals Vital Signs Date Temp Pulse Resp B/P (MAP) Pulse Ox O2 O2 Flow FiO2 Time Delivery Rate 11/30/18 102 12:33 11/30/18 4.0 12:31 11/30/18 20 96 Nasal 36 12:28 Cannula 11/30/18 100.7 136/74 12:17 (94) Intake and Output 11/29/18 11/29/18 11/30/18 1515:00 23:00 07:00 IntakeIntake Total 50 ml 120 ml 50 ml BalanceBalance 50 ml 120 ml 50 ml Exam PE: Gen Appearance: No Apparent Distress; On 2 pt restraints HEENT: Normocephalic; on nasal cannula Cardiovascular: Regular rate Abdomen: Soft Extremities: Dry NE: The patient was lethargic, though arousable to loud voice. Briefly smiles and opens eyes to voice. Sparsely verbal... Able to track., Unable to follow commands. Cranial nerve examination was limited by mental status. Pupils were equal and reactive to light. There was no afferent pupillary defect. Funduscopic examination was limited. Face was grossly symmetric, w/ present corneal and cough reflexes. Tone was normal. Muscle bulk was normal. I did not see fasciculations. The patient withdrew all extremities to noxious stimuli. Coordination and gait testing was limited by mental status. Arm and leg reflexes were within normal limits and symmetric. Winston's sign was absent. Plantar responses were flexor. VIVIAN CAICEDO NP Nov 30, 2018 13:40
--- NOTE | 2018-11-30 14:22 | NUR ---
Brief Hx: Ms. Hodges is a 63-year-old female with a past medical history of obesity, polysubstance abuse, chronic pain on methadone, arthritis who was found to be unresponsive outside of her methadone clinic. On a face to face evaluation, patient went off on tangent. She denies suicidal ideation, reports auditory hallucination with no specific message. Patient has poor impulse control, gets easily irritable . Discussed risk and benefit of Seroquel, Bupropion and Cogentin to patient and spouse. Chest XR completed on 11/28/2018:FINDINGS: The aorta is tortuous and atherosclerotic. The cardiomediastinal silhouette is otherwise mildly enlarged and is stable. No dense consolidation or pleural effusion is seen. The soft tissues and osseous structures demonstrate benign age related senescent changes. No acute cardiopulmonary disease. The aorta is tortuous and atherosclerotic. The cardiomediastinal silhouette is otherwise mildly enlarged and is stable. No dense consolidation or pleural effusion is seen. The soft tissues and osseous structures demonstrate benign age related senescent changes. Brain CT completed on 11/28/2018:IMPRESSION 1. No acute intracranial pathology. 2. Stable mild diffuse volume loss and mild chronic microvascular ischemic changes. Vitals: temp: 101.7 (up-trending compared to yesterday), RR: 19-21; SPO2: 95% on 4 liters/min on NC Labs: WBC: 5.9; Hgb/Hct: 9.9L/34.1L; Fio2: 21% PLOF: regular/thin liquids Current: NPO+IV Fluids S: pt was received drowsy, altered, following intermittent and inconsistent commands and tangential speech. She was in bilateral wrist restraints and currently at a [place] level 5, with confusion and reduced level of alertness. Pts spouse was present during the session. O: Rx plan was reviewed and tx consisted of the followin. improve swallow safety. 2. optimize oral care and hygiene management: clean and clear with +xerostomia on the lips. ointment applied to the lips and nursing made aware. 3. optimize level of alertness and trigger of swallow: thermal stimulation and wet/flavored mouth swabs to the pts lips, tongue and palate: laryngeal manipulation to the pts extrinsic laryngeal region: 5/5 delayed pharyngeal swallows elicited. 4. assess p.o tolerance with NTL by teaspoon: Teaspoon of NTL x4 was performed: delayed cough in 1/4 of the trials due to the pt starting to close her eyes during the p.o trials and losing attention to the task of swallowing. Despite max stimulation, pt demonstrated significant difficulty to maintain attention to the task. Therefore, the remainder of the p.o trials were held. 5. consulted with nursing and MD regarding the pts status. 6. p.o status/diet consistency/level of supervision: Keep NPO+IV Fluids and anticipate need for NG tube feeds for primary means of nutrition unit the pts overall mentation status improves. RN alerted that if the pt is able to maintain to stay awake/alert then she can have her crushed medication with teaspoon of NTL. A: Oropharyngeal dysphagia associated with reduced BILL and waxing and waning in mentation status, aswell as reduced oropharyngeal strength/coordination and delayed trigger of swallow. Pt remains not ready or safe to initiate a p.o diet. However, when pt is awake/alert, she is safe to consume crushed medication with single sips of NTL by teaspoon. P: 1. Continue Poc. 2. Keep NPO+IV fluids and ongoing swallow assessment. Anticipate need for NG tube feeds for primary means of nutrition until pts mentation status improves 3. Allow administration of crushed medication with nectar thick liquids by teaspoon only if pt is awake/alert for atleast 5 minutes. Hold medication if drowsy or altered. 4. provide frequent oral care and hygiene management.
[2018-11-30] MEDS: DEXTROSE 5%-0.45% NACL 1,000 ML IV SCH (16:30)
--- NOTE | 2018-11-30 17:54 | NUR ---
EOSS Patient stable, A/Ox1, less agitated today, more lethargic and very altered, evaluated by ST again today and unable to tolerate a diet at this time, patient is still having fevers and episodes of tachycardia as high as the 150s, Dr. Lai is aware, continuing with IV fluid hydration and antibiotics for UTI, restraints renewed, blood glucose controlled, pending MRI brain, family updated on plan of care, will endorse care to operations supervisor 2nd shift.
[2018-11-30] MEDS: QUETIAPINE 100 MG TAB PO SCH (21:23)
[2018-12-01] VITALS (15 sets, daily range): BP systolic 125–169; BP diastolic 71–89; PULSE 62–127; RESP 16–20
[2018-12-01] MEDS: VANCOMYCIN HCL 1.5 GM in SOD CHLORIDE 0.9% 250 ML IVPB SCH ×2 (00:10→12:38)
[2018-12-01] MEDS: ALBUTEROL/IPRATROPIUM (NEB) 3 ML AMP HHN SCH ×6 (01:28→20:04)
[2018-12-01] MEDS: PANTOPRAZOLE 40 MG INJ IV SCH (05:32)
[2018-12-01] MEDS: INSULIN ASPART [NOVOLOG] 3 ML PEN SC SCH ×4 (05:42→17:39)
--- NOTE | 2018-12-01 06:24 | NUR ---
EOSS AAOx1, O2 sat good on 3L NC, no SOB, sinus tachy on monitor HR 120's, afebrile, no complaints of pain. Patient is confused and still has periods of agitation, forgetfulness and disorganized thought. Patient attempting to get out of bed multiple times throughout shift. Restraints maintained, renewal at 1430 for day shift. Blood and urine cultures still pending, MRI pending. Patient stable at this time, will endorse to oncoming shift.
[2018-12-01] MEDS: BUPROPION (SR) 150 MG TAB PO SCH (08:59)
[2018-12-01] MEDS: BENZTROPINE 1 MG TAB PO SCH ×2 (08:59→20:49)
--- NOTE | 2018-12-01 10:27 | NUR ---
ST NOTE: pt seen for f/up and to reassess safety for po diet; repositioned to sit upright; pt awake an alert; able to follow; pt edentulous; reports has dentures at home but no one to bring them; started with 1/2tsp nectar and then advanced to full tsp; able to tolerate; good elevation; vocal quality clear; upper airway clear; same with nctr cup; trialed thin via spoon no difficulty; same with cup and straw single and sequential swallows; puree given 4 ounces. throat clear x1; alt. food/liquids; no difficulty; rec. start puree diet with thin liquids; monitor closely; alt. food/liquids okay for straws small sips; will do trial of soft ground if tolerating current rec. diet; discussed with pt whose in agreement and discussed with MARU Gilliam
--- NOTE | 2018-12-01 10:45 | PN ---
Date/Time of Note Date/Time of Note DATE: 12/01/18 TIME: 10:42 Assessment/Plan VTE Prophylaxis Risk score (from Ns)>0 risk: 5 SCD applied (from [facility] [place]): No SCD contraindicated: other Pharmacological prophylaxis: LMWH Lines/Catheters IV Catheter Type (from [facility]): Peripheral IV Urinary Cath still in place: No Assessment/Plan Hospital Course 1. Syncope more likely due to polypharmacy. AMS due to benzodiazepine and methadone intake. Tox. screen is positive for benzodiazepine, which are part of pt. routine meds, like clonazepam 2. UTI with fevers. Pt is clinically dehydrated with hyperkalemia and elevated creatinine, resolved today 3. Osteoarthritis on the x-rays of the knees 4. History of diabetes, controlled. 5. Chronic obstructive pulmonary disease. 6. Morbid obesity. 7. Hypertension 8. 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 Hx of multiple falls in pas 10. Microcytic hypochromic anemia 11. Temp. dysphagia Assessment/Plan -DVT prophylaxis Lovenox -GI prophylaxis Protonix -blood culturex2 negative so far -urine for culture E .colig -C.w IV fluids -keep NPO-was seen by psychTl dodd. -c/w restraints -social secretary -C/w Rocephin/vanco -c/w A/depressive meds Result Diagram: 12/01/18 0538 12/01/18 0538 Results 24hrs Laboratory Tests Test 11/30/18 11:52 11/30/18 17:05 12/01/18 00:09 12/01/18 05:31 Bedside Glucose 130 113 115 118 Test 12/01/18 05:38 White Blood Count 5.7 Red Blood Count 4.79 Hemoglobin 9.8 L Hematocrit 33.5 L Mean Corpuscular 69.9 L Volume Mean Corpuscular 20.5 L Hemoglobin Mean Corpuscular 29.3 L Hemoglobin Concent Red Cell 15.6 H Distribution Width Platelet Count 138 L Mean Platelet Volume 11.8 H Immature 0.200 Granulocytes % Neutrophils % 52.6 Lymphocytes % 33.0 Monocytes % 11.9 H Eosinophils % 1.8 Basophils % 0.5 Nucleated Red Blood 0.0 Cells % Immature 0.010 Granulocytes # Neutrophils # 3.0 Lymphocytes # 1.9 Monocytes # 0.7 Eosinophils # 0.1 Basophils # 0.0 Nucleated Red Blood 0.0 Cells # Sodium Level 142 Potassium Level 3.5 Chloride Level 98 Carbon Dioxide Level 35 H Anion Gap 9 Blood Urea Nitrogen 6 L Creatinine 0.48 Est Glomerular > 60 Filtrat Rate mL/min Glucose Level 108 Calcium Level 8.6 Subjective 24 Hr Interval Summary Free Text/Dictation incoherent Exam/Review of Systems Exam Vitals Vital Signs Date Temp Pulse Resp B/P (MAP) Pulse Ox O2 O2 Flow FiO2 Time Delivery Rate 12/01/18 97.8 119 19 169/89 97 10:00 (115) 12/01/18 4.0 09:29 12/01/18 Nasal 09:28 Cannula 11/30/18 36 17:21 Intake and Output 11/30/18 11/30/18 12/01/18 1515:00 23:00 07:00 IntakeIntake Total 300 ml 250 ml 900 ml BalanceBalance 300 ml 250 ml 900 ml Psych: confusion Head: normocephalic Respiratory: clear to auscultation Cardiovascular: regular rate and rhythm Gastrointestinal: soft, distended Neurological: confused Results Results 24hrs Laboratory Tests Test 11/30/18 11:52 11/30/18 17:05 12/01/18 00:09 12/01/18 05:31 Bedside Glucose 130 113 115 118 Test 12/01/18 05:38 White Blood Count 5.7 Red Blood Count 4.79 Hemoglobin 9.8 L Hematocrit 33.5 L Mean Corpuscular 69.9 L Volume Mean Corpuscular 20.5 L Hemoglobin Mean Corpuscular 29.3 L Hemoglobin Concent Red Cell 15.6 H Distribution Width Platelet Count 138 L Mean Platelet Volume 11.8 H Immature 0.200 Granulocytes % Neutrophils % 52.6 Lymphocytes % 33.0 Monocytes % 11.9 H Eosinophils % 1.8 Basophils % 0.5 Nucleated Red Blood 0.0 Cells % Immature 0.010 Granulocytes # Neutrophils # 3.0 Lymphocytes # 1.9 Monocytes # 0.7 Eosinophils # 0.1 Basophils # 0.0 Nucleated Red Blood 0.0 Cells # Sodium Level 142 Potassium Level 3.5 Chloride Level 98 Carbon Dioxide Level 35 H Anion Gap 9 Blood Urea Nitrogen 6 L Creatinine 0.48 Est Glomerular > 60 Filtrat Rate mL/min Glucose Level 108 Calcium Level 8.6 Medications Medication Current Medications Dextrose/Sodium Chloride 1,000 ml @ 50 mls/hr Q20H IV Last administered on 11/29/18at 01:12; Admin Dose 50 MLS/HR; Start 11/29/18 at 00:30 Acetaminophen (Tylenol Tab) 650 mg Q6H PRN PO MILD PAIN(1-3)OR ELEVATED TEMP Last administered on 11/30/18at 08:28; Admin Dose 650 MG; Start 11/29/18 at 00:30 Pantoprazole (Protonix Iv) 40 mg DAILY@06 IV Last administered on 12/01/18at 05:32; Admin Dose 40 MG; Start 11/29/18 at 06:00 Acetaminophen (Tylenol Supp) 325 mg Q6H PRN [place] temp above 101; Start 11/29/18 at 11:00 Ceftriaxone Sodium 50 ml @ 100 mls/hr Q24H IVPB Last administered on 11/30/18at 11:56; Admin Dose 100 MLS/HR; Start 11/29/18 at 11:00 Insulin Aspart (Novolog Insulin Pen) NOVOLOG *MILD* ALGORI... Q6 SC ; Start 11/29/18 at 12:00 Hydralazine HCl (Apresoline) 10 mg Q6H PRN IV sbp above 160; Start 11/29/18 at 11:00 Miscellaneous Information 1 ea NOTE XX ; Start 11/29/18 at 11:30 Glucose (Glutose) 15 gm Q15M PRN PO DECREASED GLUCOSE; Start 11/29/18 at 11:30 Glucose (Glutose) 22.5 gm Q15M PRN PO DECREASED GLUCOSE; Start 11/29/18 at 11:30 Dextrose (D50w Syringe) 25 ml Q15M PRN IV DECREASED GLUCOSE; Start 11/29/18 at 11:30 Dextrose (D50w Syringe) 50 ml Q15M PRN IV DECREASED GLUCOSE; Start 11/29/18 at 11:30 Glucagon (Glucagen) 1 mg Q15M PRN IM DECREASED GLUCOSE; Start 11/29/18 at 11:30 Glucose (Glutose) 15 gm Q15M PRN BUCCAL DECREASED GLUCOSE; Start 11/29/18 at 11:30 Quetiapine Fumarate (Seroquel) 300 mg QHS PO Last administered on 11/30/18at 21:23; Admin Dose 300 MG; Start 11/29/18 at 21:00 Bupropion HCl (Wellbutrin Sr) 150 mg DAILY PO Last administered on 12/01/18at 08:59; Admin Dose 150 MG; Start 11/30/18 at 09:00 Benztropine Mesylate (Cogentin) 1 mg BID PO Last administered on 12/01/18at 08:59; Admin Dose 1 MG; Start 11/29/18 at 21:00 Albuterol/ Ipratropium (Duoneb) 3 ml Q4H RESP THERAPY HHN Last administered on 12/01/18at 09:25; Admin Dose 3 ML; Start 11/29/18 at 17:00 Vancomycin HCl (Vanco Iv Per Pharmacy) VANCOMYCIN PER PHARMACY PER PROTOCOL XX ; Start 11/30/18 at 00:00 Vancomycin HCl 1.5 gm/Sodium Chloride 250 ml @ 83.333 mls/ hr Q12H IVPB Last administered on 12/01/18at 00:10; Admin Dose 83.333 MLS/HR; Start 11/30/18 at 12:00 Miscellaneous Information (*Rx Drug Level Order Reminder*) VANCOMYCIN TROUGH AT 1100 ONCE ONCE XX ; Start 12/01/18 at 11:00; Stop 12/01/18 at 11:01 ORION QUINTERO Dec 01, 2018 10:45
[2018-12-01] MEDS: CEFTRIAXONE 1 GM/50 ML (PMX) 50 ML IVPB SCH (11:10)
[2018-12-01] MEDS: ENOXAPARIN 40 MG/0.4 ML SYG SC SCH (11:19)
--- NOTE | 2018-12-01 12:06 | CONS ---
Assessment/Plan Assessment/Plan Hospital Course 63 yo F with hx of depression, psychosis, polysubstance abuse and other comorbidities who p/w ams... for which neurology is consulted. Perhaps an acute toxic encephalopathy... Seizure is less likely. As an aside, she likely has an underlying mild cognitive impairment. CTH is without acute intracranial pathology, though demonstrates mild diffuse volume loss and mild microvascular ischemic changes... EEG is without epileptiform activity. UCx + GNR P: Await MRI brain without contrast for further characterization Reorient as necessary Limit polypharmacy where possible PT/OT/ST as tolerated Continue medical management per primary Will follow clinically Consultation Date/Type/Reason Admit Date/Time Nov 29, 2018 at 08:43 Type of Consult Neurology Reason for Consultation ams Requesting Provider: MINA FARAH MD Date/Time of Note DATE: 12/01/18 TIME: 12:06 24 HR Interval Summary Free Text/Dictation Continues telemetry monitoring. Pt reportedly uncooperative with MRI. Still remains confused, confusing me with her cousin, Miley. Exam Vital Signs Vitals Vital Signs Date Temp Pulse Resp B/P (MAP) Pulse Ox O2 O2 Flow FiO2 Time Delivery Rate 12/01/18 97.8 119 19 169/89 97 10:00 (115) 12/01/18 4.0 09:29 12/01/18 Nasal 09:28 Cannula 11/30/18 36 17:21 Intake and Output 11/30/18 11/30/18 12/01/18 1414:59 22:59 06:59 IntakeIntake Total 50 ml 500 ml 900 ml BalanceBalance 50 ml 500 ml 900 ml Exam PE: Gen Appearance: No Apparent Distress; On 2 pt restraints HEENT: Normocephalic; on nasal cannula Cardiovascular: Regular rate Abdomen: Soft Extremities: Dry NE: The patient was lethargic, though easily arousable to voice. Very disoriented. Conversant; speech normal. Fund of knowledge poor. Able to follow simple axial and appendicular commands. Cranial nerve examination was limited by mental status. Pupils were equal and reactive to light. There was no afferent pupillary defect. Funduscopic examination was limited. Face was grossly symmetric, w/ present corneal and cough reflexes. Tone was normal. Muscle bulk was normal. I did not see fasciculations. The patient was spontaneously moving all extremities. Coordination and gait testing was limited by mental status. Arm and leg reflexes were within normal limits and symmetric. Winston's sign was absent. Plantar responses were flexor. VIVIAN CAICEDO NP Dec 01, 2018 12:06 YVONNE JACKSON Dec 02, 2018 06:59
[2018-12-01] MEDS: DEXTROSE 5%-0.45% NACL 1,000 ML IV SCH (12:30)
--- NOTE | 2018-12-01 12:56 | NUR ---
VANCO PER RX PROTOCOL: DAY #2 S/O: AFEB SCR/BUN = 0.48/6 WBC = 5.7 VANCO TR = 13.4 A/P: PT CLEARING VANCO ADEQUATELY. CONTINUE VANCO 1.5GM Q 12HR FOR NOW. WILL CONTINUE TO FOLLOW.
--- NOTE | 2018-12-01 13:52 | NUR ---
SW: CONSULT PEDIATRIC SPEECH LANGUAGE PATHOLOGIST received handoff to assess pt if able to participate in interview. PEDIATRIC SPEECH LANGUAGE PATHOLOGIST consulted d/t pt overdose. PEDIATRIC SPEECH LANGUAGE PATHOLOGIST reviewed chart, pt has been seen by psychodramatist Meera. deicer finisher Sania states that sitter remains at bedside, pt is on restraints, sleeping and still not able to participate in interview. PEDIATRIC SPEECH LANGUAGE PATHOLOGIST to leave handoff.
--- NOTE | 2018-12-01 18:27 | NUR ---
Pt more awake, alert today. Remain confused, re orient to surroundings. Contact isolation started. For transfer to med/surg unit. Continue with plan of care. Needs attended.
[2018-12-01] MEDS: QUETIAPINE 100 MG TAB PO SCH (20:49)
[2018-12-01] MEDS: Insulin NOVOLOG SS MILD Algorithm (SS with meals and bedtime) SC SCH (21:00)
[2018-12-01] MEDS ORDERED: hydrALAzine 20 MG INJ IV PRN (21:30)
[2018-12-01] MEDS: METOPROLOL 25 MG TAB PO SCH (21:32)
--- NOTE | 2018-12-01 22:28 | NUR ---
Midline: Received patient without IV access, pending Midline placement. Called ER around 1939 and was told to call back in an hour. Called around 2249 and spoke with Lenore, Charge Nurse, and said patient needs to be brought to ER to have Midline placed. Called back around 2224 to see if they're available to receive patient for Midline placement, was told they are not, and to call back in an hour. Will try again in one hour. Addendum: 12/02/18 at 0108 by CHUCHO BROWNE RN Called ER multiple times to see if they are available to place midline, was told around 37 that they will call me back, still waiting for ER to call. Will try, again, at a later time. Dr. Lai aware that patient does not have IV access. Addendum: 12/02/18 at 0316 by CHUCHO BROWNE RN Around 309, patient went down to ER to have Midline placed.
[2018-12-02] VITALS (7 sets, daily range): BP systolic 127–141; BP diastolic 61–75; PULSE 81–94; RESP 19–20
[2018-12-02] MEDS: VANCOMYCIN HCL 1.5 GM in SOD CHLORIDE 0.9% 250 ML IVPB SCH ×2
[2018-12-02] MEDS: ALBUTEROL/IPRATROPIUM (NEB) 3 ML AMP HHN SCH ×4 (01:20→14:12)
[2018-12-02] MEDS ORDERED: ACCUCHECK AT 2AM (Patients on SS coverage) XX SCH (02:00)
[2018-12-02] MEDS: PANTOPRAZOLE 40 MG INJ IV SCH (06:05)
--- NOTE | 2018-12-02 08:05 | NUR ---
EOSS: Patient alert and oriented to name only. Patient assessed q2h hour, still on soft restraints due to pulling out tubes and lines. Patient repositioned q2h, kept clean and dry. Patient now has a right upper arm midline placed by ER nurse around 0330. Patient stable. Endorsed to AM nurse. Continue with plan of care.
[2018-12-02] MEDS: DEXTROSE 5%-0.45% NACL 1,000 ML IV SCH (08:30)
[2018-12-02] MEDS: Insulin NOVOLOG SS MILD Algorithm (SS with meals and bedtime) SC SCH ×2 (08:40→11:30)
[2018-12-02] MEDS: BUPROPION (SR) 150 MG TAB PO SCH (08:43)
[2018-12-02] MEDS: BENZTROPINE 1 MG TAB PO SCH (08:43)
[2018-12-02] MEDS: METOPROLOL 25 MG TAB PO SCH (08:43)
[2018-12-02] MEDS: ENOXAPARIN 40 MG/0.4 ML SYG SC SCH (08:45)
[2018-12-02] MEDS ORDERED: LOSARTAN 50 MG TAB PO SCH (09:00)
[2018-12-02] MEDS ORDERED: VANCOMYCIN HCL 1.5 GM in SOD CHLORIDE 0.9% 250 ML IVPB SCH (11:00)
--- NOTE | 2018-12-02 11:11 | PN ---
Date/Time of Note Date/Time of Note DATE: 12/02/18 TIME: 11:09 Assessment/Plan VTE Prophylaxis Risk score (from Ns)>0 risk: 4 SCD applied (from [facility] [place]): No SCD contraindicated: other Pharmacological prophylaxis: LMWH Lines/Catheters IV Catheter Type (from [facility]): Mid Line Central line still needed: Yes Urinary Cath still in place: No Assessment/Plan Hospital Course 1. Syncope more likely due to polypharmacy. AMS due to benzodiazepine and me thadone intake. Tox. screen is positive for benzodiazepine, which are part of pt. routine meds, like clonazepam 2. UTI with fevers. Pt is clinically dehydrated with hyperkalemia and elevated creatinine, resolved today. Microbiology ESBL resisitnt to Rocephin 3. Osteoarthritis on the x-rays of the knees 4. History of diabetes, controlled. 5. Chronic obstructive pulmonary disease. 6. Morbid obesity. 7. Hypertension 8. 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 Hx of multiple falls in pas 10. Microcytic hypochromic anemia 11. Temp. dysphagia Assessment/Plan -DVT prophylaxis Lovenox -c/w contact isolation -GI prophylaxis Protonix -blood culture x2 negative so far -urine for culture E.coli, resistant to Rocephin, stop it. -C.w IV fluids -keep NPO, lethargic -was seen by psychTl dodd. -c/w restraints -social worker delinquency prevention -C/w Rocephin/vanco -c/w A/depressive meds Result Diagram: 12/02/18 0549 12/02/18 0549 Results 24hrs Laboratory Tests Test 12/01/18 11:12 12/01/18 11:14 12/01/18 17:35 12/01/18 21:35 Bedside Glucose 127 136 168 Vancomycin Level 13.4 Trough Test 12/02/18 05:49 12/02/18 08:39 White Blood Count 4.1 #L Red Blood Count 4.86 Hemoglobin 10.0 L Hematocrit 33.2 L Mean Corpuscular 68.3 L Volume Mean Corpuscular 20.6 L Hemoglobin Mean Corpuscular 30.1 L Hemoglobin Concent Red Cell 15.7 H Distribution Width Platelet Count 162 Mean Platelet Volume 9.8 Immature 0.200 Granulocytes % Neutrophils % 40.2 Lymphocytes % 43.8 Monocytes % 12.2 H Eosinophils % 2.9 Basophils % 0.7 Nucleated Red Blood 0.0 Cells % Immature 0.010 Granulocytes # Neutrophils # 1.7 Lymphocytes # 1.8 Monocytes # 0.5 Eosinophils # 0.1 Basophils # 0.0 Nucleated Red Blood 0.0 Cells # Sodium Level 144 Potassium Level 3.6 Chloride Level 101 Carbon Dioxide Level 35 H Anion Gap 8 Blood Urea Nitrogen 7 Creatinine 0.54 Est Glomerular > 60 Filtrat Rate mL/min Glucose Level 97 Calcium Level 8.8 Bedside Glucose 115 Subjective 24 Hr Interval Summary Free Text/Dictation incoherent Subjective hx not possible: pt non-verbal Exam/Review of Systems Exam Vitals Vital Signs Date Temp Pulse Resp B/P (MAP) Pulse Ox O2 O2 Flow FiO2 Time Delivery Rate 12/02/18 98.2 81 19 131/66 96 10:01 (87) 12/02/18 Nasal 3.0 08:20 Cannula 12/01/18 21 20:04 Intake and Output 12/01/18 12/01/18 12/02/18 1515:00 23:00 07:00 IntakeIntake Total 200 ml 400 ml BalanceBalance 200 ml 400 ml Exam lethargic Neck: supple Respiratory: clear to auscultation Cardiovascular: regular rate and rhythm Gastrointestinal: soft, distended Results Results 24hrs Laboratory Tests Test 12/01/18 11:12 12/01/18 11:14 12/01/18 17:35 12/01/18 21:35 Bedside Glucose 127 136 168 Vancomycin Level 13.4 Trough Test 12/02/18 05:49 12/02/18 08:39 White Blood Count 4.1 #L Red Blood Count 4.86 Hemoglobin 10.0 L Hematocrit 33.2 L Mean Corpuscular 68.3 L Volume Mean Corpuscular 20.6 L Hemoglobin Mean Corpuscular 30.1 L Hemoglobin Concent Red Cell 15.7 H Distribution Width Platelet Count 162 Mean Platelet Volume 9.8 Immature 0.200 Granulocytes % Neutrophils % 40.2 Lymphocytes % 43.8 Monocytes % 12.2 H Eosinophils % 2.9 Basophils % 0.7 Nucleated Red Blood 0.0 Cells % Immature 0.010 Granulocytes # Neutrophils # 1.7 Lymphocytes # 1.8 Monocytes # 0.5 Eosinophils # 0.1 Basophils # 0.0 Nucleated Red Blood 0.0 Cells # Sodium Level 144 Potassium Level 3.6 Chloride Level 101 Carbon Dioxide Level 35 H Anion Gap 8 Blood Urea Nitrogen 7 Creatinine 0.54 Est Glomerular > 60 Filtrat Rate mL/min Glucose Level 97 Calcium Level 8.8 Bedside Glucose 115 Medications Medication Current Medications Dextrose/Sodium Chloride 1,000 ml @ 50 mls/hr Q20H IV Last administered on 11/29/18at 01:12; Admin Dose 50 MLS/HR; Start 11/29/18 at 00:30 Acetaminophen (Tylenol Tab) 650 mg Q6H PRN PO MILD PAIN(1-3)OR ELEVATED TEMP Last administered on 11/30/18at 08:28; Admin Dose 650 MG; Start 11/29/18 at 00:30 Pantoprazole (Protonix Iv) 40 mg DAILY@06 IV Last administered on 12/02/18at 06:05; Admin Dose 40 MG; Start 11/29/18 at 06:00 Acetaminophen (Tylenol Supp) 325 mg Q6H PRN AL temp above 101; Start 11/29/18 at 11:00 Ceftriaxone Sodium 50 ml @ 100 mls/hr Q24H IVPB Last administered on 12/01/18at 11:10; Admin Dose 100 MLS/HR; Start 11/29/18 at 11:00 Hydralazine HCl (Apresoline) 10 mg Q6H PRN IV sbp above 160; Start 11/29/18 at 11:00 Miscellaneous Information 1 ea NOTE XX ; Start 11/29/18 at 11:30 Glucose (Glutose) 15 gm Q15M PRN PO DECREASED GLUCOSE; Start 11/29/18 at 11:30 Glucose (Glutose) 22.5 gm Q15M PRN PO DECREASED GLUCOSE; Start 11/29/18 at 11:30 Dextrose (D50w Syringe) 25 ml Q15M PRN IV DECREASED GLUCOSE; Start 11/29/18 at 11:30 Dextrose (D50w Syringe) 50 ml Q15M PRN IV DECREASED GLUCOSE; Start 11/29/18 at 11:30 Glucagon (Glucagen) 1 mg Q15M PRN IM DECREASED GLUCOSE; Start 11/29/18 at 11:30 Glucose (Glutose) 15 gm Q15M PRN BUCCAL DECREASED GLUCOSE; Start 11/29/18 at 11:30 Quetiapine Fumarate (Seroquel) 300 mg QHS PO Last administered on 12/01/18at 20:49; Admin Dose 300 MG; Start 11/29/18 at 21:00 Bupropion HCl (Wellbutrin Sr) 150 mg DAILY PO Last administered on 12/02/18at 08:43; Admin Dose 150 MG; Start 11/30/18 at 09:00 Benztropine Mesylate (Cogentin) 1 mg BID PO Last administered on 12/02/18at 08:43; Admin Dose 1 MG; Start 11/29/18 at 21:00 Albuterol/ Ipratropium (Duoneb) 3 ml Q4H RESP THERAPY HHN Last administered on 12/02/18at 11:05; Admin Dose 3 ML; Start 11/29/18 at 17:00 Vancomycin HCl (Vanco Iv Per Pharmacy) VANCOMYCIN PER PHARMACY PER PROTOCOL XX ; Start 11/30/18 at 00:00 Enoxaparin Sodium (Lovenox) 40 mg DAILY SC Last administered on 12/02/18at 08:45; Admin Dose 40 MG; Start 12/01/18 at 11:00 Insulin Aspart (Novolog Insulin Pen) (Adult SC Insulin - Mild Algorithm)... AC MEALS AND BEDTIME SC ; Start 12/01/18 at 21:00 Diagnostic Test (Pha) (Accu-Chek) 1 ea 02 XX ; Start 12/02/18 at 02:00 Losartan Potassium (Cozaar) 100 mg DAILY PO Last administered on 12/02/18at 08:43; Admin Dose 100 MG; Start 12/02/18 at 09:00 Metoprolol Tartrate (Lopressor) 25 mg BID PO Last administered on 12/02/18at 08: 43; Admin Dose 25 MG; Start 12/01/18 at 21:30 Hydralazine HCl (Apresoline) 5 mg Q6H PRN IV ELEVATED BLOOD PRESSURE; Start 12/01/18 at 21:30 Clonidine (Catapres) 0.1 mg Q8H PRN PO ELEVATED SYSTOLIC BP; Start 12/02/18 at 01:30 Vancomycin HCl 1.5 gm/Sodium Chloride 250 ml @ 83.333 mls/ hr Q12H IVPB ; Start 12/02/18 at 11:00 ORION QUINTERO Dec 02, 2018 11:11
--- NOTE | 2018-12-02 12:32 | NUR ---
awake and alert, oriented to place, person and situation, does not know the date, asked for bathroom and voided on command on the bedpan, soft limb restraints removed, pt given call light and instructed to push the red button for any needed assistance, pt indicates compliance
--- NOTE | 2018-12-02 12:51 | CONS ---
Assessment/Plan Assessment/Plan Hospital Course 63 yo F with hx of depression, psychosis, polysubstance abuse and other comorbidities who p/w ams... for which neurology is consulted. Perhaps an acute toxic encephalopathy... Seizure is less likely. As an aside, she likely has an underlying mild cognitive impairment. CTH is without acute intracranial pathology, though demonstrates mild diffuse volume loss and mild microvascular ischemic changes... EEG is without epileptiform activity. UCx + GNR P: Reorient as necessary Limit polypharmacy where possible PT/OT/ST as tolerated Continue medical management per primary Will follow clinically Consultation Date/Type/Reason Admit Date/Time Nov 29, 2018 at 08:43 Type of Consult Neurology Reason for Consultation ams Requesting Provider: MINA FARAH MD Date/Time of Note DATE: 12/02/18 TIME: 12:50 24 HR Interval Summary Free Text/Dictation Continues acute care.. Without acute neurologic complaints.. Exam Vital Signs Vitals Vital Signs Date Temp Pulse Resp B/P (MAP) Pulse Ox O2 O2 Flow FiO2 Time Delivery Rate 12/02/18 98.6 84 20 133/74 96 Nasal 3.0 11:34 (93) Cannula 12/01/18 21 20:04 Intake and Output 12/01/18 12/01/18 12/02/18 1515:00 23:00 07:00 IntakeIntake Total 50 ml 450 ml 400 ml BalanceBalance 50 ml 450 ml 400 ml Exam PE: Gen Appearance: No Apparent Distress HEENT: Aerosol Mask Cardiovascular: Regular rate Abdomen: Soft Extremities: Dry NE: The patient was alert and oriented to person and VPH, not month or year.... Language was normal. Fund of knowledge was limited.. Pupils were equal and reactive to light. There was no afferent pupillary defect. Visual greene were normal. Funduscopic examination was limited. Extra-ocular movements were full. Ptosis was absent. There was no nystagmus. Facial sensation was normal. Face was symmetric with normal strength. Hearing was intact. Palate movements were normal. Neck strength was normal. There was normal tongue bulk and speed of movement. Tone was normal. Muscle bulk was normal. I did not see fasciculations. Arms and legs were symmetric. Vibration sensation was normal. Temperature and pinprick sensation was normal. Rapid alternating movements were normal. There was no dysmetria. There was no intention tremor. Gait was deferred due to bedrest. Arm and leg reflexes were symmetric. Winston's sign was absent. Plantar responses were flexor. YVONNE JACKSON Dec 02, 2018 12:51
[2018-12-02] MEDS ORDERED: MEROPENEM 1 GM/50ML(PMX) 50 ML IVPB SCH (14:00)
--- NOTE | 2018-12-02 15:02 | NUR ---
RN came to room, noted patient raising voice to at bedside. Patient getting ready to go home. Explained that she is not discharge yet, Dr. Lai came to room as well, patient requesting to smoke outside, and MD says she'll order nicotine patch instead but patient insisted to go home and that she's willing to sign AMA form. Patient and continue to quarrel. Security was called. AMA signed. IV access removed.
--- NOTE | 2018-12-03 20:31 | DS ---
Date/Time of Note Date/Time of Note DATE: 12/03/18 TIME: 20:28 Discharge Summary Admission/Discharge Info Admit Date/Time Nov 29, 2018 at 08:43 Discharge Date/Time Dec 02, 2018 at 14:55 Consults psychiatry Hospital Course This is a 63-year-old female with a past medical history of obesity, schizophrenia, polysubstance abuse, chronic pain on methadone, arthritis who was found to be unresponsive outside of her methadone clinic. The patient was given Narcan prior to arrival by paramedics and woke up in the emergency department per medical record. In ER pt had no complaints. The patient denies feeling sick recently. The patient denied fever or chills. The patient has had no headache or vision changes. The patient did not endorse neck or back pain. The patient denies lightheadedness or dizziness. The patient has had no chest pain or trouble breathing. The patient denied nausea or vomiting. The patient denied abdominal pain. The patient denied changes to bowel movements or urination. The patient has had no focal deficits. The patient has had no weakness or numbness or tingling to the face or extremities. 1. Syncope more likely due to polypharmacy. AMS due to benzodiazepine and methadone intake. Tox. screen is positive for benzodiazepine, which are part of pt. routine meds, like clonazepam 2. UTI with fevers. Pt is clinically dehydrated with hyperkalemia and elevated creatinine, resolved today. Microbiology ESBL resistant to Rocephin 3. Osteoarthritis on the x-rays of the knees 4. History of diabetes, controlled. 5. Chronic obstructive pulmonary disease. 6. Morbid obesity. 7. Hypertension 8. 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 Hx of multiple falls in pas 10. Microcytic hypochromic anemia 11. Temp. dysphagia During hospitalization pt was NPO, Given IV fluids. Psychiatry consult was seeng her. Ms Meera ordered antidepressant medications. Pt was given a/b. She was kept on telemetry service due to her mental impairment. Pt left AMA Home Meds Reported Medications Olanzapine* (Zyprexa*) 10 Mg Tablet, 10 MG PO DAILY, #30 TAB 11/28/18 Metoprolol Tartrate* (Lopressor*) 25 Mg Tablet, 25 MG PO BID, #60 TAB 11/28/18 Hydrochlorothiazide* (Hydrochlorothiazide*) 25 Mg Tab, 25 MG PO DAILY, #30 TAB 11/28/18 Clonazepam* (Clonazepam*) 2 Mg Tablet, 2 MG PO TID PRN for ANXIETY, TAB 11/28/18 Clonidine Hcl* (Clonidine Hcl*) 0.2 Mg Tablet, 0.2 MG PO Q8, TAB 11/28/18 Flurazepam Hcl (Flurazepam Hcl) 30 Mg Capsule, 30 MG PO QHS for insomnia, CAP 08/27/18 Losartan Potassium* (Losartan Potassium*) 100 Mg Tablet, 100 MG PO DAILY, TAB 08/27/18 Benztropine Mesylate* (Benztropine Mesylate*) 0.5 Mg Tablet, 0.5 MG PO BID, TAB 06/08/18 Diclofenac Sodium* (Diclofenac Sodium*) 50 Mg Tablet.dr, 50 MG PO BID, #60 TAB 06/08/18 Gabapentin* (Gabapentin*) 300 Mg Capsule, 300 MG PO DAILY, #60 CAP 06/08/18 Metformin Hcl* (Metformin Hcl*) 1,000 Mg Tablet, 1000 MG PO WITH BREAKFAST DINNE, #60 TAB 06/08/18 Omeprazole* (Omeprazole*) 40 Mg Capsule.dr, 40 MG PO DAILY, #30 CAP 06/08/18 Bupropion Hcl* (Bupropion XL*) 150 Mg Tab.er.24h, 150 MG PO QAM, TAB.SA 06/08/18 Quetiapine Fumarate* (Seroquel* XR) 300 Mg Tab.sr.24h, 600 MG PO QHS, #30 TAB 06/08/18 Carisoprodol* (Carisoprodol*) 350 Mg Tablet, 350 MG PO BID PRN for MUSCLE SPASMS, TAB 06/08/18 Discontinued Reported Medications Clonazepam* (Clonazepam*) 1 Mg Tablet, 1 MG PO Q8H PRN for ANXIETY, TAB 08/28/18 Cephalexin* (Cephalexin*) 500 Mg Capsule, 500 MG PO Q6, #28 CAP 08/27/18 Clonidine Hcl* (Clonidine Hcl*) 0.1 Mg Tab, 0.1 MG PO Q8, TAB 08/27/18 Flurazepam Hcl (Flurazepam Hcl) 30 Mg Capsule, 30 MG PO QHS, CAP 06/08/18 Primary Care Provider Care Physician ORION Muhammad Dec 03, 2018 20:31
[2018-12-14] MEDS ORDERED: IBUP-1542 PO (08:24)
[2018-12-14] MEDS ORDERED: ONDA4TAB14 PO (08:24)
[2018-12-15] MEDS ORDERED: FLUO20CA22 PO (14:41)
[2018-12-15] MEDS ORDERED: ZOLP10TA5 PO (14:42)
== END 2018-12-02 14:55 | disposition left against medical advice (07) | DRG 312 ==
LOC: E/R 12:23 → 6WM 18:42 → OBSVTOIN 11-29 08:43 → 6WM 11-29 13:43
PROVIDERS: ADMIT Internal Medicine; ATTEND Internal Medicine
DX: R55 Syncope and collapse (principal); G92 Toxic encephalopathy; F11.20 Opioid dependence, uncomplicated; Z68.41 Body mass index [BMI] 40.0-44.9, adult; N17.9 Acute kidney failure, unspecified; F33.3 Major depressive disorder, recurrent, severe with psychotic symptoms; N39.0 Urinary tract infection, site not specified; R13.10 Dysphagia, unspecified; E66.01 Morbid (severe) obesity due to excess calories; E87.5 Hyperkalemia; F13.10 Sedative, hypnotic or anxiolytic abuse, uncomplicated; G89.29 Other chronic pain; F17.210 Nicotine dependence, cigarettes, uncomplicated; E86.0 Dehydration; J44.9 Chronic obstructive pulmonary disease, unspecified; D50.9 Iron deficiency anemia, unspecified; I10 Essential (primary) hypertension; E11.9 Type 2 diabetes mellitus without complications; B96.20 Unspecified Escherichia coli [E. coli] as the cause of diseases classified elsewhere; Z79.4 Long term (current) use of insulin; Z90.710 Acquired absence of both cervix and uterus
CPT/HCPCS: 36415; 70450; 71045; 80048; 80053; 80202; 80307; 81001; 82962; 83036; 85025; 87040; 87086; 92526; 92610; 93005; 94640; 94664; 95819; 96361; 96374; 96375; G0378; C9113; J0696; J1650; J1815; J2185; J2310; J3370; J7030; J7040; J7042; J7050

== ENCOUNTER 2018-12-22 03:43 | Emergency (ER) | payer MEDICAID ==
[~2018-12-22] VITALS: Ht 162.6 cm; Wt 100.0 kg
[~2018-12-22 03:43] MED LIST changes: -CEPH500C PO; -CLON-379 PO; +CLON0.2T5 PO; -CLON1TAB13 PO; +CLON2TAB12 PO; +FLUO20CA22 PO; -FLUR30CA12 PO; +HYDR25TA6 PO; +IBUP-1542 PO; -OMEP40CA6 PO; +ONDA4TAB14 PO; -QUET300T5 PO; +ZOLP10TA5 PO
[2018-12-22 03:55] VITALS: Ht 162.6 cm; Wt 100.0 kg
[2018-12-22] MEDS ORDERED: ALBUTEROL 0.083% (NEB) 2.5 MG/3 ML AMP INH STA (04:15)
[2018-12-22] MEDS ORDERED: SOD CHLORIDE 0.9% 1,000 ML IV STA (04:15)
[2018-12-22] MEDS ORDERED: IPRATROPIUM (NEB) 0.5 MG/2.5 ML AMP INH STA (04:15)
[2018-12-22] MEDS ORDERED: CIPR500T4 PO (05:33)
[2018-12-22] MEDS ORDERED: GABA300C16 PO (05:35)
[2018-12-22] MEDS ORDERED: BUPR150T6 PO (05:35)
[2018-12-22] MEDS ORDERED: METF100010 PO (05:35)
[2018-12-22] MEDS ORDERED: LOSA100T15 PO (05:35)
[2018-12-22] MEDS ORDERED: CLON0.2T5 PO (05:35)
[2018-12-22] MEDS ORDERED: CLON2TAB12 PO (05:35)
[2018-12-22] MEDS ORDERED: FLUO20CA22 PO (05:35)
[2018-12-22] MEDS ORDERED: HYDR25TA6 PO (05:35)
[2018-12-22] MEDS ORDERED: ALBU18HF INHALATION (05:36)
--- NOTE | 2018-12-22 05:43 | ERD ---
ER Documentation Chief Complaint Chief Complaint BIBA for asthma attack HPI 63-year-old female with a history of hypertension, diabetes, psychiatric condition, and COPD presenting after she started suddenly feeling shortness of breath while at home today. She states that she has been off of all of her medications for the past 5 days. She was seen at [facility] yesterday and diagnosed with a UTI. She was sent home with Macrobid. The patient thinks that the Macrobid may have triggered her shortness of breath. She denies any coughing, chest pain, fever, chills. She continues to smoke despite her lung problems. She was given a breathing treatment prior to arrival with improvement of her symptoms. ROS All systems reviewed and are negative except as per history of present illness. Medications Home Meds Active Scripts Albuterol Sulfate* (Ventolin HFA*) 18 Gm Hfa.aer.ad, 2 PUFF INHALATION Q4H, #1 INHALER Prov:JENNIFER BEAUCHAMP MD 12/22/18 Fluoxetine Hcl* (Fluoxetine Hcl*) 20 Mg Capsule, 40 MG PO QAM for 30 Days, CAP Prov:JENNIFER BEAUCHAMP MD 12/22/18 Hydrochlorothiazide* (Hydrochlorothiazide*) 25 Mg Tab, 25 MG PO DAILY, #30 TAB Prov:JENNIFER BEAUCHAMP MD 12/22/18 Clonazepam* (Clonazepam*) 2 Mg Tablet, 2 MG PO TID PRN for ANXIETY, #12 TAB Prov:JENNIFER BEAUCHAMP MD 12/22/18 Clonidine Hcl* (Clonidine Hcl*) 0.2 Mg Tablet, 0.2 MG PO Q8 for 30 Days, TAB Prov:JENNIFER BEAUCHAMP MD 12/22/18 Losartan Potassium* (Losartan Potassium*) 100 Mg Tablet, 100 MG PO DAILY for 30 Days, TAB Prov:JENNIFER BEAUCHAMP MD 12/22/18 Gabapentin* (Gabapentin*) 300 Mg Capsule, 300 MG PO DAILY, #60 CAP Prov:JENNIFER BEAUCHAMP MD 12/22/18 Metformin Hcl* (Metformin Hcl*) 1,000 Mg Tablet, 1000 MG PO WITH BREAKFAST DINNE, #60 TAB Prov:JENNIFER BEAUCHAMP MD 12/22/18 Bupropion Hcl* (Bupropion XL*) 150 Mg Tab.er.24h, 150 MG PO QAM for 30 Days, TAB.SA Prov:JENNIFER BEAUCHAMP MD 12/22/18 Ciprofloxacin Hcl* (Ciprofloxacin Hcl*) 500 Mg Tablet, 500 MG PO BID for 7 Days, TAB Prov:JENNIFER BEAUCHAMP MD 12/22/18 Ondansetron (Ondansetron Odt) 4 Mg Tab.rapdis, 4 MG PO Q6H PRN for NAUSEA AND/OR VOMITING, #10 TAB Prov:FINA BERGMAN MD 12/14/18 Ibuprofen* (Motrin*) 600 Mg Tab, 600 MG PO Q6H PRN for PAIN AND OR ELEVATED TEMP, #30 TAB Prov:FINA BERGMAN MD 12/14/18 Reported Medications Zolpidem Tartrate* (Zolpidem Tartrate*) 10 Mg Tablet, 10 MG PO QHS PRN for INSOMNIA, #30 TAB 12/15/18 Benztropine Mesylate* (Benztropine Mesylate*) 0.5 Mg Tablet, 0.5 MG PO BID, TAB 06/08/18 Diclofenac Sodium* (Diclofenac Sodium*) 50 Mg Tablet.dr, 50 MG PO BID, #60 TAB 06/08/18 Carisoprodol* (Carisoprodol*) 350 Mg Tablet, 350 MG PO BID PRN for MUSCLE SPASMS, TAB 06/08/18 Allergies Allergies: Coded Allergies: No Known Allergies (Verified Allergy, Mild, 12/16/18) PMhx/Soc History of Surgery: Yes (Partial hysterectomy) Anesthesia Reaction: No Hx Neurological Disorder: No Hx Respiratory Disorders: Yes (COPD) Hx Cardiac Disorders: Yes (HTN, HIGH CHOLESTEROL) Hx Psychiatric Problems: Yes (ANXIETY, SCHIZOPHRENIA, SI/HI) Hx Alcohol Use: Yes Hx Substance Use: Yes Hx Tobacco Use: Yes Smoking Status: Current every day smoker FmHx Family History: No diabetes Physical Exam Vitals Vital Signs Date Temp Pulse Resp B/P (MAP) Pulse Ox O2 O2 Flow FiO2 Time Delivery Rate 12/22/18 37.0 06:04 12/22/18 98.6 97 16 152/77 95 Nasal 2.0 05:55 (102) Cannula 12/22/18 94 2.0 04:36 12/22/18 87 20 94 Nasal 2.0 04:35 Cannula 12/22/18 Nasal 2 04:17 Cannula 12/22/18 98.6 85 17 155/80 95 Nasal 2.0 04:17 (105) Cannula 12/22/18 98.6 97 18 157/82 95 Nasal 2.0 04:03 (107) Cannula 12/22/18 99.1 98 20 157/82 97 03:55 (107) Physical Exam Const: No acute distress, nontoxic, unkempt. Speaking in full sentences Head: Atraumatic Eyes: Normal Conjunctiva ENT: Normal External Ears, Nose and Mouth. Neck: Full range of motion. No meningismus. Resp: Diffuse expiratory wheezing with no rales or rhonchi. no tachypnea. No retractions. Cardio: Regular rate and rhythm, no murmurs Abd: Soft, non tender, non distended. Normal bowel sounds Skin: No petechiae or rashes Back: No midline or flank tenderness Ext: No cyanosis, or edema Neur: Awake and alert Psych: Normal Mood and Affect Result Diagram: 12/22/18 0432 12/22/18 0432 Results 24 hrs Laboratory Tests Test 12/22/18 04:32 12/22/18 04:39 White Blood Count 8.4 10^3/ul Red Blood Count 6.07 10^6/ul Hemoglobin 12.6 g/dl Hematocrit 42.2 % Mean Corpuscular Volume 69.5 fl Mean Corpuscular Hemoglobin 20.8 pg Mean Corpuscular Hemoglobin Concent 29.9 g/dl Red Cell Distribution Width 17.8 % Platelet Count 181 10^3/UL Mean Platelet Volume 11.3 fl Immature Granulocytes % 0.400 % Neutrophils % 54.9 % Lymphocytes % 34.2 % Monocytes % 9.5 % Eosinophils % 0.5 % Basophils % 0.5 % Nucleated Red Blood Cells % 0.0 /100WBC Immature Granulocytes # 0.030 10^3/ul Neutrophils # 4.6 10^3/ul Lymphocytes # 2.9 10^3/ul Monocytes # 0.8 10^3/ul Eosinophils # 0.0 10^3/ul Basophils # 0.0 10^3/ul Nucleated Red Blood Cells # 0.0 10^3/ul Sodium Level 137 mmol/L Potassium Level 3.4 mmol/L Chloride Level 101 mmol/L Carbon Dioxide Level 30 mmol/L Anion Gap 6 Blood Urea Nitrogen 13 mg/dl Creatinine 0.55 mg/dl Est Glomerular Filtrat Rate mL/min > 60 mL/min Glucose Level 150 mg/dl Calcium Level 9.3 mg/dl Troponin I < 0.012 ng/ml POC Venous Lactate 1.6 mmol/L Current Medications Medications Dose Sig/Patric Start Time Status Last (Trade) Ordered Route PRN Stop Time Admin Dose Reason Admin Sodium 1,000 ml @ Q1H STAT 12/22/18 DC 12/22/18 Chloride 1,000 mls/hr IV 04:15 04:52 12/22/18 05:14 Albuterol 5 mg ONCE STAT 12/22/18 DC 12/22/18 (Proventil INH 04:15 04:35 0.083% (Neb)) 12/22/18 04:17 Ipratropium 0.5 mg ONCE STAT 12/22/18 DC 12/22/18 [place] INH 04:15 04:35 (Atrovent 12/22/18 04:17 0.02% (Neb)) Ibuprofen 800 mg ONCE ONCE 12/22/18 DC 12/22/18 (Motrin) PO 06:00 06:04 12/22/18 06:01 200 mg ONCE ONCE 12/22/18 DC 12/22/18 Phenazopyridi PO 06:00 06:04 ne HCl 12/22/18 06:01 (Pyridium) Procedures/MDM EMERGENT LABS AND DIAGNOSTIC STUDIES: Lab Results above were reviewed and interpreted by me. CBC: no anemia or evidence of infection BMP: no evidence of severe electrolyte abnormality, renal failure, acidosis, or hypoglycemia Troponin within normal limits, not indicative of cardiac ischemia Lactate within normal limits without evidence of sepsis or tissue hypoperfusion 12-lead EKG was interpreted by Georgi Beauchamp MD: Sinus Rhythm with PACs Normal axis Normal intervals No acute ST or T wave changes suggestive of acute ischemia or STEMI. Chest X-ray 1V Interpreted by me: Soft Tissue: No acute abnormalities Bones: No acute abnormalities Mediastinum/Cardiac Silhouette/Lungs: No acute abnormalities Initial Nursing notes reviewed. Previous Medical Records requested via the Electronic Health Record. EMERGENCY DEPARTMENT COURSE / MEDICAL DECISION MAKING: Patient is presenting with acute bronchospasm but I do not suspect pneumonia or bacterial bronchitis. She received another breathing treatment while here with improvement of her symptoms. I refilled all of her medications. I prescribed her albuterol to use as needed for shortness of breath. I also changed her Macrobid to ciprofloxacin for a UTI. Patient stable for discharge. Follow-up with PCP was recommended within 1-2 days. Patient's blood pressure was elevated (>120/80) but appears stable without evidence of hypertensive emergency or urgency. The patient was counseled about the risks of hypertension and urged to pursue outpatient monitoring and therapy within a week with their primary care physician. Departure Diagnosis: Primary Impression: Bronchospasm, acute Additional Impression: COPD exacerbation Condition: Stable Patient Instructions: Bronchospasm (Adult) JENNIFER BEAUCHAMP MD Dec 22, 2018 05:43
[2018-12-22 05:55] VITALS: BP 152/77; PULSE 97; RESP 16
[2018-12-22] MEDS ORDERED: PHENAZOPYRIDINE 100 MG TAB PO ONE (06:00)
[2018-12-22] MEDS ORDERED: IBUPROFEN 800 MG TAB PO ONE (06:00)
== END 2018-12-22 06:21 | disposition home or self-care (01) ==
LOC: E/R 03:43
DX: J98.01 Acute bronchospasm (principal); J44.1 Chronic obstructive pulmonary disease with (acute) exacerbation; I10 Essential (primary) hypertension; F17.210 Nicotine dependence, cigarettes, uncomplicated; E11.9 Type 2 diabetes mellitus without complications; Z79.84 Long term (current) use of oral hypoglycemic drugs
CPT/HCPCS: 36415; 71045; 80048; 83605; 84484; 85025; 94664; J7030; Z7502; Z7610; 93005

== ENCOUNTER 2019-01-27 04:50 | Emergency (ER) | payer MEDICAID, OTHER ==
[~2019-01-27] VITALS: Wt 135.0 kg
[~2019-01-27 04:50] MED LIST changes: +ALBU18HF INHALATION; +CIPR500T4 PO
[2019-01-27] MEDS ORDERED: FUROSEMIDE 40 MG INJ IV STA (05:15)
[2019-01-27] MEDS ORDERED: ONDANSETRON 4 MG INJ IV STA (05:15)
[2019-01-27] MEDS ORDERED: HYDROmorphONE 1 MG/ML SYG IV STA (05:15)
--- NOTE | 2019-01-27 05:18 | ERD ---
ER Documentation Chief Complaint Chief Complaint bib ra from home for sob, has hx of chf HPI This is a 63-year-old female who is brought in by ambulance for shortness of breath and leg swelling. The patient has a history of heart failure and says that her heart failure is getting worse. She is having gradual worsening of swelling in her lower extremities for the past 2 weeks and she is having orthopnea and dyspnea over the past couple days. Denies any chest pain cough shortness of breath at rest or fever. She says her legs ache because there is so swollen ROS All systems reviewed and are negative except as per history of present illness. Medications Home Meds Active Scripts Albuterol Sulfate* (Ventolin HFA*) 18 Gm Hfa.aer.ad, 2 PUFF INHALATION Q4H, #1 INHALER Prov:JENNIFER BLACKMON MD 12/22/18 Fluoxetine Hcl* (Fluoxetine Hcl*) 20 Mg Capsule, 40 MG PO QAM for 30 Days, CAP Prov:JENNIFER BLACKMON MD 12/22/18 Hydrochlorothiazide* (Hydrochlorothiazide*) 25 Mg Tab, 25 MG PO DAILY, #30 TAB Prov:JENNIFER BLACKMON MD 12/22/18 Clonazepam* (Clonazepam*) 2 Mg Tablet, 2 MG PO TID PRN for ANXIETY, #12 TAB Prov:JENNFIER BLACKMON MD 12/22/18 Clonidine Hcl* (Clonidine Hcl*) 0.2 Mg Tablet, 0.2 MG PO Q8 for 30 Days, TAB Prov:JENNIFER BLACKMON MD 12/22/18 Losartan Potassium* (Losartan Potassium*) 100 Mg Tablet, 100 MG PO DAILY for 30 Days, TAB Prov:JENNIFER BLACKMON MD 12/22/18 Gabapentin* (Gabapentin*) 300 Mg Capsule, 300 MG PO DAILY, #60 CAP Prov:JENNIFER BLACKMON MD 12/22/18 Metformin Hcl* (Metformin Hcl*) 1,000 Mg Tablet, 1000 MG PO WITH BREAKFAST DINNE, #60 TAB Prov:JENNIFER BLACKMON MD 12/22/18 Bupropion Hcl* (Bupropion XL*) 150 Mg Tab.er.24h, 150 MG PO QAM for 30 Days, TAB.SA Prov:JENNIFER BLACKMON MD 12/22/18 Ciprofloxacin Hcl* (Ciprofloxacin Hcl*) 500 Mg Tablet, 500 MG PO BID for 7 Days, TAB Prov:JENNIFER BLACKMON MD 12/22/18 Ondansetron (Ondansetron Odt) 4 Mg Tab.rapdis, 4 MG PO Q6H PRN for NAUSEA AND/OR VOMITING, #10 TAB Prov:FINA BERGMAN MD 12/14/18 Ibuprofen* (Motrin*) 600 Mg Tab, 600 MG PO Q6H PRN for PAIN AND OR ELEVATED TEMP, #30 TAB Prov:FINA BERGMAN MD 12/14/18 Reported Medications Zolpidem Tartrate* (Zolpidem Tartrate*) 10 Mg Tablet, 10 MG PO QHS PRN for INSOMNIA, #30 TAB 12/15/18 Benztropine Mesylate* (Benztropine Mesylate*) 0.5 Mg Tablet, 0.5 MG PO BID, TAB 06/08/18 Diclofenac Sodium* (Diclofenac Sodium*) 50 Mg Tablet.dr, 50 MG PO BID, #60 TAB 06/08/18 Carisoprodol* (Carisoprodol*) 350 Mg Tablet, 350 MG PO BID PRN for MUSCLE SPASMS, TAB 06/08/18 Allergies Allergies: Coded Allergies: No Known Allergies (Verified Allergy, Mild, 12/16/18) PMhx/Soc History of Surgery: Yes (Partial hysterectomy) Anesthesia Reaction: No Hx Neurological Disorder: No Hx Respiratory Disorders: Yes (COPD) Hx Cardiac Disorders: Yes (HTN, HIGH CHOLESTEROL) Hx Psychiatric Problems: Yes (ANXIETY, SCHIZOPHRENIA, SI/HI) Hx Alcohol Use: Yes Hx Substance Use: Yes Hx Tobacco Use: Yes FmHx Family History: No coronary disease Physical Exam Vitals Vital Signs Date Temp Pulse Resp B/P (MAP) Pulse Ox O2 O2 Flow FiO2 Time Delivery Rate 01/27/19 98.7 112 19 137/80 92 04:58 (99) Physical Exam Const: Well-developed, well-nourished Head: Atraumatic, normocephalic Eyes: Normal Conjunctiva, PERRLA, EOMI, normal sclera, no nystagmus ENT: Normal External Ears, Nose and Mouth, moist mucus membranes. Neck: Full range of motion. No meningismus, no lymphadenopathy. Resp: Scattered mid and basilar rhonchi Cardio: Regular rate and rhythm, no murmurs, S1 S2 present Abd: Soft, non tender x 4, non distended. Normal bowel sounds, no guarding or rebound, no pulsitile abdominal masses or bruits Skin: No petechiae or rashes, no ecchymosis , no maculopapular rash Back: No midline or flank tenderness Ext: No cyanosis, +4 lower extremity edema FROM x 4, normal inspection, neurovascularly intact x 4 Neur: Awake and alert, STR 5/5 x 4, sensation intact x 4, no focal findings, cerebellum intact Psych: Normal Mood and Affect Departure Diagnosis: Primary Impression: CHF (congestive heart failure) Heart failure type: unspecified Heart failure chronicity: acute on chronic Qualified Codes: I50.9 - Heart failure, unspecified Condition: Stable RODERICK BEAULIEU DO Jan 27, 2019 05:18
[2019-01-27] MEDS ORDERED: IPRATROPIUM (NEB) 0.5 MG/2.5 ML AMP INH STA (08:20)
[2019-01-27] MEDS ORDERED: ALBUTEROL 0.5% (NEB) 2.5 MG/0.5 ML AMP INH STA (08:20)
[2019-01-27 11:53] VITALS: BP 143/91; PULSE 103; RESP 18
--- NOTE | 2019-01-27 13:21 | QN ---
ANTONIO MALAVE MD Jan 27, 2019 13:21
[2019-01-27] MEDS ORDERED: ALBU18HF INHALATION ×2 (14:26→14:29)
== END 2019-01-27 16:39 | disposition home or self-care (01) ==
LOC: E/R 04:50
DX: I11.0 Hypertensive heart disease with heart failure (principal); I50.9 Heart failure, unspecified; E11.9 Type 2 diabetes mellitus without complications; Z79.84 Long term (current) use of oral hypoglycemic drugs
CPT/HCPCS: 36415; 71045; 80053; 81003; 83880; 84484; 85025; 93005; 93971; 94644; 96374; 96375; J1170; J1940; J2405; Z7502; Z7610

== ENCOUNTER 2019-02-20 22:35 | Inpatient (IN) | payer OTHER ==
[~2019-02-20] VITALS: Ht 162.6 cm; Wt 123.3 kg
[2019-02-20] MEDS ORDERED: ALBUTEROL 0.5% (NEB) 2.5 MG/0.5 ML AMP INH STA (22:42)
[2019-02-20] MEDS ORDERED: IPRATROPIUM (NEB) 0.5 MG/2.5 ML AMP INH STA (22:42)
[2019-02-20] MEDS ORDERED: METHYLPREDNISOLONE 125 MG INJ IV STA (22:42)
[2019-02-21] VITALS (12 sets, daily range): BP systolic 117–172; BP diastolic 59–83; PULSE 83–105; RESP 18–21; Ht 162.6 cm; Wt 123.3 kg
--- NOTE | 2019-02-21 02:07 | ERD ---
ER Documentation Chief Complaint Chief Complaint shortness of breath with cough x 1 day HPI This is a very pleasant 63-year-old female comes in with shortness of breath getting progressively worse over the past 24 hours with associated dry cough. No fever chills. No nausea no vomiting. No other current complaints. ROS All systems reviewed and are negative except as per history of present illness. Medications Home Meds Active Scripts Albuterol Sulfate* (Ventolin HFA*) 18 Gm Hfa.aer.ad, 2 PUFF INHALATION Q4H, #1 INHALER Prov:ANTONIO MALAVE MD 01/27/19 Fluoxetine Hcl* (Fluoxetine Hcl*) 20 Mg Capsule, 40 MG PO QAM for 30 Days, CAP Prov:JENNIFER BLACKMON MD 12/22/18 Hydrochlorothiazide* (Hydrochlorothiazide*) 25 Mg Tab, 25 MG PO DAILY, #30 TAB Prov:JENNIFER BLACKMON MD 12/22/18 Clonazepam* (Clonazepam*) 2 Mg Tablet, 2 MG PO TID PRN for ANXIETY, #12 TAB Prov:JENNIFER BLACKMON MD 12/22/18 Clonidine Hcl* (Clonidine Hcl*) 0.2 Mg Tablet, 0.2 MG PO Q8 for 30 Days, TAB Prov:JENNIFER BLACKMON MD 12/22/18 Losartan Potassium* (Losartan Potassium*) 100 Mg Tablet, 100 MG PO DAILY for 30 Days, TAB Prov:JENNIFER BLACKMON MD 12/22/18 Gabapentin* (Gabapentin*) 300 Mg Capsule, 300 MG PO DAILY, #60 CAP Prov:JENNIFER BLACKMON MD 12/22/18 Metformin Hcl* (Metformin Hcl*) 1,000 Mg Tablet, 1000 MG PO WITH BREAKFAST DINNE, #60 TAB Prov:JENNIFER BLACKMON MD 12/22/18 Bupropion Hcl* (Bupropion XL*) 150 Mg Tab.er.24h, 150 MG PO QAM for 30 Days, TAB.SA Prov:JENNIFER BLACKMON MD 12/22/18 Ondansetron (Ondansetron Odt) 4 Mg Tab.rapdis, 4 MG PO Q6H PRN for NAUSEA AND/OR VOMITING, #10 TAB Prov:FINA BERGMAN MD 12/14/18 Ibuprofen* (Motrin*) 600 Mg Tab, 600 MG PO Q6H PRN for PAIN AND OR ELEVATED TEMP, #30 TAB Prov:FINA BERGMAN MD 12/14/18 Reported Medications Zolpidem Tartrate* (Zolpidem Tartrate*) 10 Mg Tablet, 10 MG PO QHS PRN for INSOMNIA, #30 TAB 12/15/18 Benztropine Mesylate* (Benztropine Mesylate*) 0.5 Mg Tablet, 0.5 MG PO BID, TAB 06/08/18 Diclofenac Sodium* (Diclofenac Sodium*) 50 Mg Tablet.dr, 50 MG PO BID, #60 TAB 06/08/18 Carisoprodol* (Carisoprodol*) 350 Mg Tablet, 350 MG PO BID PRN for MUSCLE SPASMS, TAB 06/08/18 Discontinued Scripts Albuterol Sulfate* (Ventolin HFA*) 18 Gm Hfa.aer.ad, 2 PUFF INHALATION Q4H, #1 INHALER Prov:ANTONIO MALAVE MD 01/27/19 Albuterol Sulfate* (Ventolin HFA*) 18 Gm Hfa.aer.ad, 2 PUFF INHALATION Q4H, #1 INHALER Prov:JENNIFER BLACKMON MD 12/22/18 Ciprofloxacin Hcl* (Ciprofloxacin Hcl*) 500 Mg Tablet, 500 MG PO BID for 7 Days, TAB Prov:JENNIFER BLACKMON MD 12/22/18 Allergies Allergies: Coded Allergies: No Known Allergies (Unverified Allergy, Mild, 02/21/19) PMhx/Soc History of Surgery: Yes (Partial Hysterectomy) Anesthesia Reaction: No Hx Neurological Disorder: No Hx Respiratory Disorders: Yes (COPD) Hx Cardiac Disorders: Yes (CHF,HTN) Hx Psychiatric Problems: Yes (Depression,Anxiety,Insomnia) Hx Miscellaneous Medical Probl: Yes (DM) Hx Alcohol Use: No Hx Substance Use: No Hx Tobacco Use: Yes (3 cigarettes/day) Smoking Status: Never smoker Physical Exam Vitals Vital Signs Date Temp Pulse Resp B/P (MAP) Pulse Ox O2 O2 Flow FiO2 Time Delivery Rate 02/21/19 102 25 150/80 94 Nasal 4.0 01:42 (103) Cannula 4/18/19 97 24 150/82 94 Nasal 4.0 01:21 (104) Cannula 02/20/19 Nasal 4.0 23:15 Cannula 02/20/19 Nasal 4 23:15 Cannula 02/20/19 4.0 23:07 02/20/19 115 20 94 Nasal 4.0 23:07 Cannula 02/20/19 98.2 116 21 140/80 88 22:47 (100) Physical Exam Const: No acute distress Head: Atraumatic Eyes: Normal Conjunctiva ENT: Normal External Ears, Nose and Mouth. Neck: Full range of motion. No meningismus. Resp: Scattered wheezing bilaterally Cardio: Regular rate and rhythm, no murmurs Abd: Soft, non tender, non distended. Normal bowel sounds Skin: No petechiae or rashes Back: No midline or flank tenderness Ext: No cyanosis, or edema Neur: Awake and alert Psych: Normal Mood and Affect Result Diagram: 02/20/19 2322 02/20/19 2322 Results 24 hrs Laboratory Tests Test 02/20/19 22:42 02/20/19 23:22 02/20/19 23:24 Blood Gas Specimen Source Blood arterial Arterial Blood Date Drawn 02/20/2019 10:50:11 PM Arterial Blood pH 7.260 (Temp corrected) Arterial Blood pCO2 74.1 mmhg (Temp correct) Arterial Blood pO2 78.9 mmHG (Temp corrected) Arterial Blood HCO3 32.5 mmol/L Arterial Blood Base Excess 3.1 mmol/L Arterial Blood 92.9 mmHG Oxygen Saturation Scottie Test ACCEPTAB Arterial Blood Gas Right Radial Puncture Site Arterial 6.3 % Blood Carboxyhemoglobin Arterial Blood 0.1 % Methemoglobin Blood Gas A-a O2 69.9 mmHg Differential Oxyhemoglobin Percent 87.0 % Blood Gas Temperature 37.0 C Blood Gas Modality NASAL CANNULA FiO2 33.0 % Blood Gas Critical Value Evelina DYKES MD Read Back Blood Gas Notified Whom MG Blood Gas Notified Time 02/20/2019 10:54:40 PM White Blood Count 7.4 10^3/ul Red Blood Count 6.10 10^6/ul Hemoglobin 12.8 g/dl Hematocrit 44.0 % Mean Corpuscular Volume 72.1 fl Mean Corpuscular 21.0 pg Hemoglobin Mean Corpuscular 29.1 g/dl Hemoglobin Concent Red Cell Distribution 18.8 % Width Platelet Count 201 10^3/UL Mean Platelet Volume 10.9 fl Immature Granulocytes % 0.300 % Neutrophils % 51.1 % Lymphocytes % 41.4 % Monocytes % 6.0 % Eosinophils % 0.5 % Basophils % 0.7 % Nucleated Red Blood Cells 0.0 /100WBC % Immature Granulocytes # 0.020 10^3/ul Neutrophils # 3.8 10^3/ul Lymphocytes # 3.0 10^3/ul Monocytes # 0.4 10^3/ul Eosinophils # 0.0 10^3/ul Basophils # 0.1 10^3/ul Nucleated Red Blood Cells 0.0 10^3/ul # Prothrombin Time 11.8 Sec Prothrombin Time Ratio 0.9 INR International 0.86 Normalized Ratio Activated 23.0 Sec Partial Thromboplast Time Sodium Level 145 mmol/L Potassium Level 3.5 mmol/L Chloride Level 102 mmol/L Carbon Dioxide Level 33 mmol/L Anion Gap 10 Blood Urea Nitrogen 12 mg/dl Creatinine 0.60 mg/dl Est Glomerular Filtrat > 60 mL/min Rate mL/min Glucose Level 167 mg/dl Calcium Level 8.8 mg/dl Total Bilirubin 0.1 mg/dl Direct Bilirubin 0.00 mg/dl Indirect Bilirubin 0.1 mg/dl Aspartate Amino 28 IU/L Transf (AST/SGOT) Alanine 16 IU/L Aminotransferase (ALT/SGPT ) Alkaline Phosphatase 80 IU/L Troponin I < 0.012 ng/ml B-Type Natriuretic Peptide 1090 PG/ML Total Protein 6.9 g/dl Albumin 3.7 g/dl Globulin 3.20 g/dl Albumin/Globulin Ratio 1.15 POC Venous Lactate 2.1 mmol/L Current Medications Medications Dose Sig/Patric Start Time Status Last (Trade) Ordered Route PRN Stop Time Admin Dose Reason Admin Albuterol 15 mg ONCE STAT 02/20/19 DC 02/20/19 (Proventil INH 22:42 23:06 0.5% (Neb)) 02/20/19 22:44 Ipratropium 1 mg ONCE STAT 02/20/19 DC 02/20/19 [place] IN[facility] 22:42 23:06 (Atrovent 02/20/19 22:44 0.02% (Neb)) 125 mg ONCE STAT 02/20/19 DC 02/20/19 Methylprednis IV 22:42 23:19 olone Sodium 02/20/19 22:44 Succinate (Solu-Medrol) Procedures/MDM EKG: Rate/Rhythm: [Normal Sinus Rhythm] QRS, ST, T-waves: [No changes consistent w/ acute ischemia] Impression: [No evidence of ischemia or arrhythmia] Chest X-ray 1V Interpreted by me: Soft Tissue: No acute abnormalities Bones: No acute abnormalities Mediastinum/Cardiac Silhouette/Lungs: [No acute abnormalities] Patient's respiratory symptoms have not responded to normal outpatient therapy and will require inpatient workup, monitoring, and treatment. Patient does have an active a 2.1, however I do not think that this is sepsis as this is likely secondary to hypoxia and respiratory acidosis. Patient has not been started on antibiotics for fluid replacement because of this. Accepting Care Team: Current data and ongoing care discussed. Time: 1 AM Primary Provider: Dr. Manriquez Consulting: Deferred to inpatient team Outstanding Data: none Departure Diagnosis: Primary Impression: COPD exacerbation Additional Impression: Shortness of breath Condition: Serious JESSICA DYKES Feb 21, 2019 02:07
[2019-02-21] MEDS: SOD CHLORIDE 0.9% 1,000 ML IV SCH (04:48)
[2019-02-21] MEDS ORDERED: GLUCAGON 1 MG INJ IM PRN (05:30)
[2019-02-21] MEDS ORDERED: DEXTROSE 50% 50 ML SYRINGE IV PRN ×2 (05:30)
[2019-02-21] MEDS ORDERED: GLUCOSE GEL 15 GRAM TUBE BUCCAL PRN (05:30)
[2019-02-21] MEDS ORDERED: GLUCOSE GEL 15 GRAM TUBE PO PRN ×2 (05:30)
[2019-02-21] MEDS: ALBUTEROL/IPRATROPIUM (NEB) 3 ML AMP HHN SCH ×5 (06:03→21:41)
[2019-02-21] MEDS: INSULIN ASPART [NOVOLOG] 3 ML PEN SC SCH ×4 (07:42→20:55)
[2019-02-21] MEDS ORDERED: SOD CHLORIDE 0.9% 250 ML IV ONE (08:00)
[2019-02-21] MEDS ORDERED: CEFTRIAXONE 1 GM INJ IVPB SCH (09:00)
[2019-02-21] MEDS ORDERED: METHYLPREDNISOLONE 40 MG INJ IV SCH ×2 (09:00→22:00)
[2019-02-21] MEDS: CEFTRIAXONE 1 GM/50 ML (PMX) 50 ML IVPB SCH (09:08)
[2019-02-21] MEDS: ACETAMINOPHEN 325 MG TAB PO PRN ×2 (09:18→20:50)
--- NOTE | 2019-02-21 15:11 | QN ---
Documentation Comment seen and examined MINA FARAH MD Feb 21, 2019 15:11
[2019-02-21] MEDS: HYDROCHLOROTHIAZIDE 25 MG TAB PO SCH (16:22)
[2019-02-21] MEDS: LOSARTAN 50 MG TAB PO SCH (16:22)
[2019-02-21] MEDS: AZITHROMYCIN 100 MG in SOD CHLORIDE 0.9% 50 ML IVPB SCH (17:26)
--- NOTE | 2019-02-21 17:29 | HP ---
DATE OF ADMISSION: 02/21/2019 REASON FOR ADMISSION: Shortness of breath and cough. HISTORY OF PRESENTING ILLNESS: This is a 63-year-old female with a past medical history of obesity, schizophrenia, polysubstance abuse, chronic pain on methadone, arthritis, COPD, morbid obesity, histo ry of UTI, major depressive disorder, presented to the emergency department after complaining of shor tness of breath and cough at home. According to the patient, she has been doing fine until 3 or 4 da ys ago, she started having some shortness of breath with exertion. The patient was also having some cough, bringing out sputum. Denied any fevers and chills. It was not getting better, so she came in to the emergency department for further evaluation. On arrival to the ED, vital signs showed tempera ture 98.2, pulse of 116. Labs showed white count of 7.4, hemoglobin 12.8, platelet count 201. BMP s howed BUN of 14, creatinine 0.54. Lactic acid was 2.2. Blood gas showed pH of 7.2, pCO2 of 74, pO2 of 78, bicarbonate of 32. The patient also had a chest x-ray that showed hyperinflation of the lung, minimal patchy infiltrate of right lung base. The patient was started on breathing treatments and r eceived Solu-Medrol and was admitted for further management. PAST MEDICAL HISTORY: 1. COPD. 2. Hypertension. 3. Diabetes. 4. Morbid obesity. 5. History of UTI. 6. History of major depressive disorder. 7. Prolapse. 8. History of multiple falls. 9. Microcytic hypochromic anemia. ALLERGIES: NONE. PAST SURGICAL HISTORY: The patient has some abdominal uterine surgery. SOCIAL HISTORY: Smokes 3 or 4 to 5 cigarettes per day. Denies any alcohol, any recreational drug us e. Lives at home with the family. REVIEW OF SYSTEMS: The patient complains of shortness of breath, some cough. Denied any fevers and chills. Denied any chest pain. Denied any abdominal pain, nausea, vomiting, diarrhea. According to the patient, she is supposed to go for some surgery with questionable urology. PHYSICAL EXAMINATION: VITAL SIGNS: Temperature 98.1, heart rate 104, respirations 20, blood pressure 154/79, saturating 95 % on 4 liters. GENERAL: The patient is awake, alert, oriented, does not appear to be in any acute distress. HEENT: Pupils are equal, round, reactive to light. The patient is morbidly obese. NECK: Supple. No JVD. HEART: Regular rate and rhythm. LUNGS: Diffuse wheezing bilaterally. ABDOMEN: Soft, nontender, nondistended, positive normoactive bowel sounds. GENITOURINARY: The patient smells foul. EXTREMITIES: A 1+ edema. LABORATORY DATA: White count 7.4, hemoglobin 12.8, platelet count 201. BMP within normal limit. La ctic acid 2.2. Blood gas: pH 7.260, pCO2 of 74, bicarbonate 32. ASSESSMENT AND PLAN: This is a 63-year-old female who presented with: 1. Shortness of breath, cough, likely secondary to chronic obstructive pulmonary disease exacerbatio n and possible underlying pneumonia. 2. Hypercapnic respiratory failure. 3. Diabetes. 4. Hypertension. 5. Hyperlipidemia. 6. Obesity. 7. Questionable prolapse. 8. History of polysubstance use. 9. Chronic pain control. 10. Depression. PLAN: At this period of time, the patient is admitted to [facility]. We will continue the patient on gent le fluids, IV antibiotics. Also, continue breathing treatments round the clock. The patient will al so receive steroids, diabetic control, blood pressure control. Rest of the treatment will depend on the patient's hospitalization course. Dictated By: MINA ABDI/SOFIA Conf#: [id number] DID#: [id number] CC: MARIAM PASCUAL MD;*End*
[2019-02-21] MEDS: METHYLPREDNISOLONE 125 MG INJ IV SCH (22:07)
[2019-02-21] MEDS: GUAIFENESIN/DM 5ML CUP PO PRN (22:07)
[2019-02-21] MEDS: ZOLPIDEM 5 MG TAB PO PRN (22:10)
[2019-02-22] VITALS (12 sets, daily range): BP systolic 122–163; BP diastolic 62–83; PULSE 66–103; RESP 17–23
[2019-02-22] MEDS: SOD CHLORIDE 0.9% 1,000 ML IV SCH (00:02)
[2019-02-22] MEDS: ALBUTEROL/IPRATROPIUM (NEB) 3 ML AMP HHN SCH ×6 (01:15→20:44)
[2019-02-22] MEDS: METHYLPREDNISOLONE 125 MG INJ IV SCH ×3 (06:29→21:30)
[2019-02-22] MEDS: INSULIN ASPART [NOVOLOG] 3 ML PEN SC SCH ×4 (07:49→21:41)
[2019-02-22] MEDS: BUPROPION (XL) 150 MG TAB PO SCH (08:25)
[2019-02-22] MEDS: LOSARTAN 50 MG TAB PO SCH (08:26)
[2019-02-22] MEDS: CEFTRIAXONE 1 GM/50 ML (PMX) 50 ML IVPB SCH (08:26)
[2019-02-22] MEDS: HYDROCHLOROTHIAZIDE 25 MG TAB PO SCH (08:27)
--- NOTE | 2019-02-22 10:59 | PN ---
Date/Time of Note Date/Time of Note DATE: 02/22/19 TIME: 10:55 Assessment/Plan VTE Prophylaxis Risk score (from Ns)>0 risk: 5 SCD applied (from Ns): Yes Pharmacological prophylaxis: LMWH Lines/Catheters IV Catheter Type (from Nrs): Peripheral IV Urinary Cath still in place: No Assessment/Plan Hospital Course 1. Shortness of breath, cough, likely secondary to chronic obstructive p ulmonary disease exacerbation and possible underlying pneumonia. 2. Hypercapnic respiratory failure. 3. Diabetes mellitus type II. 4. Hypertension. 5. Hyperlipidemia. 6. Obesity. 7. Questionable prolapse. 8. History of polysubstance use. 9. Chronic pain control. 10. Chronic moderate Depression. Assessment/Plan - tele. -supplemental oxygen -stop smoking - gentle fluids, -c/w IV antibiotics. -breathing treatments round the clock. - steroids, -c/w diabetic control, -c/w blood pressure control. -DVT proph. star Lovenox -GI proph. start Protonix po daily -pulmonary consult Result Diagram: 02/21/19 0549 02/21/19 0549 Results 24hrs Laboratory Tests Test 02/21/19 11:25 02/21/19 17:07 02/21/19 20:32 02/22/19 07:00 Bedside Glucose 140 139 193 Blood Gas Blood arterial Specimen Source Arterial Blood 02/22/2019 9:20:2 Date Drawn 8 AM Arterial Blood pH 7.363 (Temp corrected) Arterial Blood 69.9 H pCO2 (Temp correct) Arterial Blood 54.2 *L pO2 (Temp corrected) Arterial Blood 38.9 H HCO3 Arterial Blood 10.9 H Base Excess Arterial Blood 87.5 L Oxygen Saturation Scottie Test ACCEPTAB Arterial Blood Right Radial Gas Puncture Site Arterial 0 Blood Carboxyhemo globin Arterial Blood 0.1 Methemoglobin Blood Gas A-a O2 77.6 H Differential Oxyhemoglobin 87.4 L Percent Blood Gas 37.0 Temperature Blood Gas NASAL CANNULA Modality FiO2 30.0 Blood Gas AFUA MAHONEY Critical Value Read Back Blood Gas TM Notified Whom Blood Gas 02/22/2019 9:44:4 Notified Time 9 AM Test 02/22/19 07:41 Bedside Glucose 169 Subjective 24 Hr Interval Summary Musculoskeletal: back pain, bone/joint pain Exam/Review of Systems Exam Vitals Vital Signs Date Temp Pulse Resp B/P (MAP) Pulse Ox O2 O2 Flow FiO2 Time Delivery Rate 02/22/19 83 20 98 Nasal 2.0 09:00 Cannula 02/22/19 98.0 122/62 07:32 (82) Intake and Output 02/21/19 02/21/19 02/22/19 1515:00 23:00 07:00 IntakeIntake Total 100 ml 1450 ml 1070 ml BalanceBalance 100 ml 1450 ml 1070 ml Constitutional: alert, oriented Head: normocephalic Eyes: nl conjunctiva Respiratory: diminished breath sounds, labored breathing Cardiovascular: regular rate and rhythm Gastrointestinal: soft, distended Musculoskeletal: muscle weakness Results Results 24hrs Laboratory Tests Test 02/21/19 11:25 02/21/19 17:07 02/21/19 20:32 02/22/19 07:00 Bedside Glucose 140 139 193 Blood Gas Blood arterial Specimen Source Arterial Blood 02/22/2019 9:20:2 Date Drawn 8 AM Arterial Blood pH 7.363 (Temp corrected) Arterial Blood 69.9 H pCO2 (Temp correct) Arterial Blood 54.2 *L pO2 (Temp corrected) Arterial Blood 38.9 H HCO3 Arterial Blood 10.9 H Base Excess Arterial Blood 87.5 L Oxygen Saturation Scottie Test ACCEPTAB Arterial Blood Right Radial Gas Puncture Site Arterial 0 Blood Carboxyhemo globin Arterial Blood 0.1 Methemoglobin Blood Gas A-a O2 77.6 H Differential Oxyhemoglobin 87.4 L Percent Blood Gas 37.0 Temperature Blood Gas NASAL CANNULA Modality FiO2 30.0 Blood Gas AFUA MAHONEY Critical Value Read Back Blood Gas TM Notified Whom Blood Gas 02/22/2019 9:44:4 Notified Time 9 AM Test 02/22/19 07:41 Bedside Glucose 169 Medications Medication Current Medications Sodium Chloride 1,000 ml @ 50 mls/hr Q20H IV Last administered on 02/22/19at 00:02; Admin Dose 50 MLS/HR; Start 02/21/19 at 04:30 Albuterol/ Ipratropium (Duoneb) 0.5 ml Q4H RESP THERAPY HHN Last administered on 02/22/19at 09:00; Admin Dose 0.5 ML; Start 02/21/19 at 05:00 Acetaminophen (Tylenol Tab) 650 mg Q6H PRN PO MILD PAIN(1-3)OR ELEVATED TEMP Last administered on 02/21/19 20:50; Admin Dose 650 MG; Start 02/21/19 at 04:30 Ceftriaxone Sodium 50 ml @ 100 mls/hr DAILY IVPB Last administered on 02/22/19 08:26; Admin Dose 100 MLS/HR; Start 02/21/19 at 09:00 Insulin Aspart (Novolog Insulin Pen) NOVOLOG *MODERATE* ALGORITHM WITH MEALS BEDTIME SC Last administered on 02/22/19 07:49; Admin Dose 2 UNIT; Start 02/21/19 at 08:00 Miscellaneous Information 1 ea NOTE XX ; Start 02/21/19 at 05:30 Glucose (Glutose) 15 gm Q15M PRN PO DECREASED GLUCOSE; Start 02/21/19 at 05:30 Glucose (Glutose) 22.5 gm Q15M PRN PO DECREASED GLUCOSE; Start 02/21/19 at 05:30 Dextrose (D50w Syringe) 25 ml Q15M PRN IV DECREASED GLUCOSE; Start 02/21/19 at 05:30 Dextrose (D50w Syringe) 50 ml Q15M PRN IV DECREASED GLUCOSE; Start 02/21/19 at 05:30 Glucagon (Glucagen) 1 mg Q15M PRN IM DECREASED GLUCOSE; Start 02/21/19 at 05:30 Glucose (Glutose) 15 gm Q15M PRN BUCCAL DECREASED GLUCOSE; Start 02/21/19 at 05:30 Azithromycin 100 mg/Sodium Chloride 50 ml @ 50 mls/hr Q24H IVPB Last administered on 02/21/19 17:26; Admin Dose 50 MLS/HR; Start 02/21/19 at 15:30 Bupropion HCl (Wellbutrin Xl) 150 mg QAM PO Last administered on 02/22/19 08:25; Admin Dose 150 MG; Start 02/22/19 at 09:00 Clonidine (Catapres) 0.2 mg Q8 PO Last administered on 02/22/19 06:30; Admin Dose 0.2 MG; Start 02/21/19 at 15:30 Hydrochlorothiazide (Hydrochlorothiazide) 25 mg DAILY PO Last administered on 02/22/19 08:27; Admin Dose 25 MG; Start 02/21/19 at 15:30 Losartan Potassium (Cozaar) 100 mg DAILY PO Last administered on 02/22/19 08:26; Admin Dose 100 MG; Start 02/21/19 at 15:30 Methylprednisolone Sodium Succinate (Solu-Medrol) 60 mg Q8 IV Last administered on 02/22/19at 06:29; Admin Dose 60 MG; Start 02/21/19 at 22:00 Zolpidem Tartrate (Ambien) 5 mg HS PRN PO INSOMNIA Last administered on 02/21/19at 22:10; Admin Dose 5 MG; Start 02/21/19 at 22:00 Guaifenesin/ Dextromethorphan (Robitussin Dm Liquid Cup) 5 ml Q6H PRN PO cough Last administered on 02/21/19at 22:07; Admin Dose 5 ML; Start 02/21/19 at 22:00 ORION QUINTERO Feb 22, 2019 10:59
[2019-02-22] MEDS: ENOXAPARIN 40 MG/0.4 ML SYG SC SCH (12:31)
--- NOTE | 2019-02-22 14:27 | CONS ---
DATE OF ADMISSION: 02/21/2019 DATE OF CONSULTATION: TYPE OF CONSULTATION: Pulmonary REASON FOR CONSULTATION: Shortness of breath. Thank you, Dr. Pascual, for this consultation. HISTORY OF PRESENT ILLNESS: This is a 63-year-old lady with history of obesity, schizophrenia, subst ance abuse, ongoing tobacco use, comes in with several-day history of increasing shortness of breath, orthopnea, PND, found to have mild hypercapnia, initiating noninvasive positive pressure ventilation . The patient states she had several day history of worsening dyspnea. Denied any hemoptysis, hemat emesis. Has an extensive ongoing tobacco history. PAST MEDICAL HISTORY: As above, includes COPD, hypertension, hyperlipidemia, depressive disorder, mu ltiple falls. MEDICATIONS: Per chart. ALLERGIES: None. SOCIAL HISTORY: Tobacco, alcohol history as above. PHYSICAL EXAMINATION: GENERAL: Moderately obese lady, awake, alert, oriented, talking in full and complete sentences. VITAL SIGNS: Currently afebrile, pulse is 75, blood pressure 160/70, O2 saturation 96% on 2 L nasal cannula. NECK: Supple. No JVD or lymphadenopathy. CARDIAC: S1, S2, no added sounds or murmurs. CHEST: Diminished air entry bilaterally, but no rales or wheezes. ABDOMEN: Soft, nontender. No guarding or rebound. EXTREMITIES: No cyanosis, clubbing, or edema. NEUROLOGIC: Generalized weakness. No focal deficits. LABORATORY DATA: White count 7.1, hemoglobin 12.8, platelets of 141. BUN 14, creatinine 0.51. Lact ic acid at 3.1. ABG initially pH 7.26, now 7.36 with a pCO2 of 69. DIAGNOSTIC DATA: Chest x-ray was reviewed, showed low lung volumes with bibasilar atelectasis, possi ble right infiltrate. IMPRESSION AND PLAN: 1. Likely chronic obstructive pulmonary disease exacerbation with acute on chronic hypoxemic and hyp ercapnic respiratory failure. 2. Probable underlying obesity hypoventilation. 3. Probable underlying obstructive sleep apnea. 4. Major depressive disorder. 5. Noncompliance. THE PATIENT WILL REQUIRE: 1. Bronchodilators. 2. Steroids. 3. Antibiotics. 4. Outpatient sleep study. 5. Nocturnal noninvasive positive pressure ventilation. 6. Outpatient pulmonary function testing. Dictated By: PAULINE KATZ/SOFIA Conf#: [id number] DID#: [id number] CC: MARIAM PASCUAL MD;*EndCC*
[2019-02-22] MEDS: PANTOPRAZOLE (EC) 40 MG TAB PO SCH (14:43)
[2019-02-22] MEDS: AZITHROMYCIN 100 MG in SOD CHLORIDE 0.9% 50 ML IVPB SCH (14:49)
[2019-02-22] MEDS: ZOLPIDEM 5 MG TAB PO PRN (22:28)
[2019-02-23] VITALS (12 sets, daily range): BP systolic 129–173; BP diastolic 70–84; PULSE 56–84; RESP 17–20
[2019-02-23] MEDS: GUAIFENESIN/DM 5ML CUP PO PRN ×2 (00:29→14:22)
[2019-02-23] MEDS: ALBUTEROL/IPRATROPIUM (NEB) 3 ML AMP HHN SCH ×6 (00:56→20:53)
[2019-02-23] MEDS: PANTOPRAZOLE (EC) 40 MG TAB PO SCH (07:07)
[2019-02-23] MEDS: METHYLPREDNISOLONE 125 MG INJ IV SCH ×3 (07:07→21:29)
[2019-02-23] MEDS: INSULIN ASPART [NOVOLOG] 3 ML PEN SC SCH ×4 (08:01→21:41)
[2019-02-23] MEDS: HYDROCHLOROTHIAZIDE 25 MG TAB PO SCH (08:22)
[2019-02-23] MEDS: CEFTRIAXONE 1 GM/50 ML (PMX) 50 ML IVPB SCH (08:22)
[2019-02-23] MEDS: BUPROPION (XL) 150 MG TAB PO SCH (08:22)
[2019-02-23] MEDS: LOSARTAN 50 MG TAB PO SCH (08:23)
[2019-02-23] MEDS: ENOXAPARIN 40 MG/0.4 ML SYG SC SCH (08:24)
--- NOTE | 2019-02-23 11:50 | CONS ---
Consult Date/Type/Reason Admit Date/Time Feb 21, 2019 at 01:13 Initial Consult Date Type of Consult Pulmonary Date/Time of Note DATE: 02/23/19 TIME: 11:47 Subjective Patient is comfortable this morning no respiratory distress Objective Vital Signs Date Temp Pulse Resp B/P (MAP) Pulse Ox O2 O2 Flow FiO2 Time Delivery Rate 02/23/19 73 20 158/70 100 11:41 (99) 02/23/19 4.0 08:58 02/23/19 Nasal 08:55 Cannula 02/23/19 98.5 07:50 Intake and Output 02/22/19 02/22/19 02/23/19 1515:00 23:00 07:00 IntakeIntake Total 850 ml OutputOutput Total 950 ml BalanceBalance -100 ml Exam PHYSICAL EXAMINATION: GENERAL: Moderately obese lady, awake, alert, oriented, talking in full and complete sentences. VITAL SIGNS: NECK: Supple. No JVD or lymphadenopathy. CARDIAC: S1, S2, no added sounds or murmurs. CHEST: Diminished air entry bilaterally, but no rales or wheezes. ABDOMEN: Soft, nontender. No guarding or rebound. EXTREMITIES: No cyanosis, clubbing, or edema. NEUROLOGIC: Generalized weakness. No focal deficits. Results/Medications Result Diagram: 02/23/19 0545 02/23/19 0545 Results 24 hrs Laboratory Tests Test 02/22/19 11:49 02/22/19 17:03 02/22/19 21:29 02/23/19 05:45 Bedside Glucose 239 H 186 266 H White Blood Count 6.9 # Red Blood Count 5.53 H Hemoglobin 11.7 L Hematocrit 39.3 Mean Corpuscular 71.1 L Volume Mean Corpuscular 21.2 L Hemoglobin Mean Corpuscular 29.8 L Hemoglobin Concent Red Cell 17.2 H Distribution Width Platelet Count 153 Mean Platelet Volume 10.9 H Immature 0.600 H Granulocytes % Neutrophils % 81.5 H Lymphocytes % 14.4 L Monocytes % 3.4 Eosinophils % 0.0 Basophils % 0.1 Nucleated Red Blood 0.0 Cells % Immature 0.040 H Granulocytes # Neutrophils # 5.6 Lymphocytes # 1.0 Monocytes # 0.2 L Eosinophils # 0.0 Basophils # 0.0 Nucleated Red Blood 0.0 Cells # Sodium Level 138 Potassium Level 4.2 Chloride Level 94 #L Carbon Dioxide Level 37 H Anion Gap 7 Blood Urea Nitrogen 26 #H Creatinine 0.59 Est Glomerular > 60 Filtrat Rate mL/min Glucose Level 180 Calcium Level 9.3 Test 02/23/19 07:50 Bedside Glucose 145 Medications Current Medications Albuterol/ Ipratropium (Duoneb) 0.5 ml Q4H RESP THERAPY HHN Last administered on 02/23/19 08:55; Admin Dose 0.5 ML; Start 02/21/19 at 05:00 Acetaminophen (Tylenol Tab) 650 mg Q6H PRN PO MILD PAIN(1-3)OR ELEVATED TEMP L ast administered on 02/21/19at 20:50; Admin Dose 650 MG; Start 02/21/19 at 04:30 Ceftriaxone Sodium 50 ml @ 100 mls/hr DAILY IVPB Last administered on 02/23/19at 08:22; Admin Dose 100 MLS/HR; Start 02/21/19 at 09:00 Insulin Aspart (Novolog Insulin Pen) NOVOLOG *MODERATE* ALGORITHM WITH MEALS BEDTIME SC Last administered on 02/23/19at 08:01; Admin Dose 2 UNIT; Start 02/21/19 at 08:00 Miscellaneous Information 1 ea NOTE XX ; Start 02/21/19 at 05:30 Glucose (Glutose) 15 gm Q15M PRN PO DECREASED GLUCOSE; Start 02/21/19 at 05:30 Glucose (Glutose) 22.5 gm Q15M PRN PO DECREASED GLUCOSE; Start 02/21/19 at 05:30 Dextrose (D50w Syringe) 25 ml Q15M PRN IV DECREASED GLUCOSE; Start 02/21/19 at 05:30 Dextrose (D50w Syringe) 50 ml Q15M PRN IV DECREASED GLUCOSE; Start 02/21/19 at 05:30 Glucagon (Glucagen) 1 mg Q15M PRN IM DECREASED GLUCOSE; Start 02/21/19 at 05:30 Glucose (Glutose) 15 gm Q15M PRN BUCCAL DECREASED GLUCOSE; Start 02/21/19 at 05:30 Azithromycin 100 mg/Sodium Chloride 50 ml @ 50 mls/hr Q24H IVPB Last administered on 02/22/19at 14:49; Admin Dose 50 MLS/HR; Start 02/21/19 at 15:30 Bupropion HCl (Wellbutrin Xl) 150 mg QAM PO Last administered on 02/23/19 08:22; Admin Dose 150 MG; Start 02/22/19 at 09:00 Clonidine (Catapres) 0.2 mg Q8 PO Last administered on 02/23/19 07:08; Admin Dose 0.2 MG; Start 02/21/19 at 15:30 Hydrochlorothiazide (Hydrochlorothiazide) 25 mg DAILY PO Last administered on 02/23/19 08:22; Admin Dose 25 MG; Start 02/21/19 at 15:30 Losartan Potassium (Cozaar) 100 mg DAILY PO Last administered on 02/23/19 08:23; Admin Dose 100 MG; Start 02/21/19 at 15:30 Methylprednisolone Sodium Succinate (Solu-Medrol) 60 mg Q8 IV Last administered on 02/23/19 07:07; Admin Dose 60 MG; Start 02/21/19 at 22:00 Zolpidem Tartrate (Ambien) 5 mg HS PRN PO INSOMNIA Last administered on 02/22/19 22:28; Admin Dose 5 MG; Start 02/21/19 at 22:00 Guaifenesin/ Dextromethorphan (Robitussin Dm Liquid Cup) 5 ml Q6H PRN PO cough Last administered on 02/23/19 00:29; Admin Dose 5 ML; Start 02/21/19 at 22:00 Pantoprazole (Protonix Tab) 40 mg DAILY@06 PO Last administered on 02/23/19 07:07; Admin Dose 40 MG; Start 02/22/19 at 13:00 Enoxaparin Sodium (Lovenox) 40 mg DAILY SC Last administered on 02/23/19 08:24; Admin Dose 40 MG; Start 02/22/19 at 12:00 Assessment/Plan Hospital Course (Demo Recall) IMPRESSION 1. Likely chronic obstructive pulmonary disease exacerbation with acute on chronic hypoxemic and hypercapnic respiratory failure. 2. Probable underlying obesity hypoventilation. 3. Probable underlying obstructive sleep apnea. 4. Major depressive disorder. 5. Noncompliance. Plan 1. Bronchodilators. 2. Steroids. 3. Antibiotics. 4. Outpatient sleep study. 5. Nocturnal noninvasive positive pressure ventilation. 6. Outpatient pulmonary function testing. 7. Encourage OOB ambulate PAULINE HERRERA MD, [facility] Feb 23, 2019 11:50
--- NOTE | 2019-02-23 13:52 | PN ---
Date/Time of Note Date/Time of Note DATE: 02/23/19 TIME: 13:50 Assessment/Plan VTE Prophylaxis Risk score (from Ns)>0 risk: 4 SCD applied (from [facility] [place]): No SCD contraindicated: other Pharmacological prophylaxis: LMWH Lines/Catheters IV Catheter Type (from [facility]): Peripheral IV Urinary Cath still in place: No Assessment/Plan Hospital Course 1. Shortness of breath, cough, likely secondary to chronic obstructive pulmonary disease exacerbation and possible underlying pneumonia. 2. Hypercapnic respiratory failure. 3. Diabetes mellitus type II. 4. Hypertension. 5. Hyperlipidemia. 6. Obesity. 7. Questionable prolapse. 8. History of polysubstance use. 9. Chronic pain control. 10. Chronic moderate Depression. 11. [facility] Assessment/Plan - tele. -supplemental oxygen -stop smoking -stop gentle fluids, -c/w IV antibiotics Azithromycin. -breathing treatments round the clock. - steroids, -c/w diabetic control, -c/w blood pressure control. -DVT proph. Lovenox -GI proph. Protonix po daily -pulmonary consult Dr Arthur appreciated Result Diagram: 02/23/1945 02/23/1945 Results 24hrs Laboratory Tests Test 02/22/19 17:03 02/22/19 21:29 02/23/19 05:45 02/23/19 07:50 Bedside Glucose 186 266 H 145 White Blood Count 6.9 # Red Blood Count 5.53 H Hemoglobin 11.7 L Hematocrit 39.3 Mean Corpuscular 71.1 L Volume Mean Corpuscular 21.2 L Hemoglobin Mean Corpuscular 29.8 L Hemoglobin Concent Red Cell 17.2 H Distribution Width Platelet Count 153 Mean Platelet Volume 10.9 H Immature 0.600 H Granulocytes % Neutrophils % 81.5 H Lymphocytes % 14.4 L Monocytes % 3.4 Eosinophils % 0.0 Basophils % 0.1 Nucleated Red Blood 0.0 Cells % Immature 0.040 H Granulocytes # Neutrophils # 5.6 Lymphocytes # 1.0 Monocytes # 0.2 L Eosinophils # 0.0 Basophils # 0.0 Nucleated Red Blood 0.0 Cells # Sodium Level 138 Potassium Level 4.2 Chloride Level 94 #L Carbon Dioxide Level 37 H Anion Gap 7 Blood Urea Nitrogen 26 #H Creatinine 0.59 Est Glomerular > 60 Filtrat Rate mL/min Glucose Level 180 Calcium Level 9.3 Test 02/23/19 12:07 Bedside Glucose 215 Subjective 24 Hr Interval Summary Musculoskeletal: back pain, bone/joint pain Exam/Review of Systems Exam Vitals Vital Signs Date Temp Pulse Resp B/P (MAP) Pulse Ox O2 O2 Flow FiO2 Time Delivery Rate 02/23/19 72 18 94 Nasal 4.0 12:48 Cannula 02/23/19 158/70 11:41 (99) 02/23/19 98.5 07:50 Intake and Output 02/22/19 02/22/19 02/23/19 1515:00 23:00 07:00 IntakeIntake Total 850 ml OutputOutput Total 950 ml BalanceBalance -100 ml Constitutional: alert, oriented Head: normocephalic Eyes: nl conjunctiva Neck: supple Gastrointestinal: soft Results Results 24hrs Laboratory Tests Test 02/22/19 17:03 02/22/19 21:29 02/23/19 05:45 02/23/19 07:50 Bedside Glucose 186 266 H 145 White Blood Count 6.9 # Red Blood Count 5.53 H Hemoglobin 11.7 L Hematocrit 39.3 Mean Corpuscular 71.1 L Volume Mean Corpuscular 21.2 L Hemoglobin Mean Corpuscular 29.8 L Hemoglobin Concent Red Cell 17.2 H Distribution Width Platelet Count 153 Mean Platelet Volume 10.9 H Immature 0.600 H Granulocytes % Neutrophils % 81.5 H Lymphocytes % 14.4 L Monocytes % 3.4 Eosinophils % 0.0 Basophils % 0.1 Nucleated Red Blood 0.0 Cells % Immature 0.040 H Granulocytes # Neutrophils # 5.6 Lymphocytes # 1.0 Monocytes # 0.2 L Eosinophils # 0.0 Basophils # 0.0 Nucleated Red Blood 0.0 Cells # Sodium Level 138 Potassium Level 4.2 Chloride Level 94 #L Carbon Dioxide Level 37 H Anion Gap 7 Blood Urea Nitrogen 26 #H Creatinine 0.59 Est Glomerular > 60 Filtrat Rate mL/min Glucose Level 180 Calcium Level 9.3 Test 02/23/19 12:07 Bedside Glucose 215 Medications Medication Current Medications Albuterol/ Ipratropium (Duoneb) 0.5 ml Q4H RESP THERAPY HHN Last administered on 02/23/19at 08:55; Admin Dose 0.5 ML; Start 02/21/19 at 05:00 Acetaminophen (Tylenol Tab) 650 mg Q6H PRN PO MILD PAIN(1-3)OR ELEVATED TEMP Last administered on 02/21/19 20:50; Admin Dose 650 MG; Start 02/21/19 at 04:30 Ceftriaxone Sodium 50 ml @ 100 mls/hr DAILY IVPB Last administered on 02/23/19 08:22; Admin Dose 100 MLS/HR; Start 02/21/19 at 09:00 Insulin Aspart (Novolog Insulin Pen) NOVOLOG *MODERATE* ALGORITHM WITH MEALS BEDTIME SC Last administered on 02/23/19 12:15; Admin Dose 4 UNIT; Start 02/21/19 at 08:00 Miscellaneous Information 1 ea NOTE XX ; Start 02/21/19 at 05:30 Glucose (Glutose) 15 gm Q15M PRN PO DECREASED GLUCOSE; Start 02/21/19 at 05:30 Glucose (Glutose) 22.5 gm Q15M PRN PO DECREASED GLUCOSE; Start 02/21/19 at 05:30 Dextrose (D50w Syringe) 25 ml Q15M PRN IV DECREASED GLUCOSE; Start 02/21/19 at 05:30 Dextrose (D50w Syringe) 50 ml Q15M PRN IV DECREASED GLUCOSE; Start 02/21/19 at 05:30 Glucagon (Glucagen) 1 mg Q15M PRN IM DECREASED GLUCOSE; Start 02/21/19 at 05:30 Glucose (Glutose) 15 gm Q15M PRN BUCCAL DECREASED GLUCOSE; Start 02/21/19 at 05:30 Azithromycin 100 mg/Sodium Chloride 50 ml @ 50 mls/hr Q24H IVPB Last administered on 02/22/19at 14:49; Admin Dose 50 MLS/HR; Start 02/21/19 at 15:30 Bupropion HCl (Wellbutrin Xl) 150 mg QAM PO Last administered on 02/23/19 08:22; Admin Dose 150 MG; Start 02/22/19 at 09:00 Clonidine (Catapres) 0.2 mg Q8 PO Last administered on 02/23/19 07:08; Admin Dose 0.2 MG; Start 02/21/19 at 15:30 Hydrochlorothiazide (Hydrochlorothiazide) 25 mg DAILY PO Last administered on 02/23/19 08:22; Admin Dose 25 MG; Start 02/21/19 at 15:30 Losartan Potassium (Cozaar) 100 mg DAILY PO Last administered on 02/23/19 08:23; Admin Dose 100 MG; Start 02/21/19 at 15:30 Methylprednisolone Sodium Succinate (Solu-Medrol) 60 mg Q8 IV Last administered on 02/23/19 07:07; Admin Dose 60 MG; Start 02/21/19 at 22:00 Zolpidem Tartrate (Ambien) 5 mg HS PRN PO INSOMNIA Last administered on 02/22/19 22:28; Admin Dose 5 MG; Start 02/21/19 at 22:00 Guaifenesin/ Dextromethorphan (Robitussin Dm Liquid Cup) 5 ml Q6H PRN PO cough Last administered on 02/23/19 00:29; Admin Dose 5 ML; Start 02/21/19 at 22:00 Pantoprazole (Protonix Tab) 40 mg DAILY@06 PO Last administered on 02/23/19 07:07; Admin Dose 40 MG; Start 02/22/19 at 13:00 Enoxaparin Sodium (Lovenox) 40 mg DAILY SC Last administered on 02/23/19 08:24; Admin Dose 40 MG; Start 02/22/19 at 12:00 ORION QUINTERO Feb 23, 2019 13:52
[2019-02-23] MEDS: AMLODIPINE 10 MG TAB PO SCH (14:17)
[2019-02-23] MEDS: AZITHROMYCIN 100 MG in SOD CHLORIDE 0.9% 50 ML IVPB SCH (16:24)
[2019-02-23] MEDS: ZOLPIDEM 5 MG TAB PO PRN (21:30)
[2019-02-24] VITALS (11 sets, daily range): BP systolic 101–143; BP diastolic 51–83; PULSE 59–75; RESP 18–21
[2019-02-24] MEDS: ALBUTEROL/IPRATROPIUM (NEB) 3 ML AMP HHN SCH ×6 (02:12→21:17)
[2019-02-24] MEDS: GUAIFENESIN/DM 5ML CUP PO PRN ×2 (03:53→23:11)
[2019-02-24] MEDS: METHYLPREDNISOLONE 125 MG INJ IV SCH ×2 (06:03→20:18)
[2019-02-24] MEDS: PANTOPRAZOLE (EC) 40 MG TAB PO SCH (06:03)
[2019-02-24] MEDS: CEFTRIAXONE 1 GM/50 ML (PMX) 50 ML IVPB SCH (08:30)
[2019-02-24] MEDS: BUPROPION (XL) 150 MG TAB PO SCH (08:31)
[2019-02-24] MEDS: HYDROCHLOROTHIAZIDE 25 MG TAB PO SCH (08:31)
[2019-02-24] MEDS: AMLODIPINE 10 MG TAB PO SCH (08:31)
[2019-02-24] MEDS: LOSARTAN 50 MG TAB PO SCH (08:32)
[2019-02-24] MEDS: ENOXAPARIN 40 MG/0.4 ML SYG SC SCH (08:52)
[2019-02-24] MEDS: HYDROCODONE/APAP (5/325) TAB PO PRN ×2 (09:04→21:31)
[2019-02-24] MEDS: INSULIN ASPART [NOVOLOG] 3 ML PEN SC SCH ×4 (09:07→20:19)
--- NOTE | 2019-02-24 09:36 | PN ---
Date/Time of Note Date/Time of Note DATE: 02/24/19 TIME: 09:33 Assessment/Plan VTE Prophylaxis Risk score (from Ns)>0 risk: 4 SCD applied (from [facility] [place]): No SCD contraindicated: other Pharmacological prophylaxis: LMWH Lines/Catheters IV Catheter Type (from [facility]): Peripheral IV Urinary Cath still in place: No Assessment/Plan Hospital Course 1. Shortness of breath, cough, likely secondary to chronic obstructive pulmonary disease exacerbation and possible underlying pneumonia. 2. Hypercapnic respiratory failure. 3. Diabetes mellitus type II. 4. Hypertension. 5. Hyperlipidemia. 6. Obesity. 7. Questionable prolapse. 8. History of polysubstance use. 9. Chronic pain control. 10. Chronic moderate Depression. 11. [facility] Assessment/Plan - tele, no ST changes, SR -up in chair -pain meds -supplemental oxygen -stop smoking -c/w IV antibiotics Azithromycin. -breathing treatments round the clock. - steroids, -c/w diabetic control, -c/w blood pressure control. -DVT proph. Lovenox -GI proph. Protonix po daily -pulmonary consult Dr Arriaza appreciated Result Diagram: 02/24/1936 02/24/1936 Results 24hrs Laboratory Tests Test 02/23/19 12:07 02/23/19 18:09 02/23/19 21:28 02/24/19 05:36 Bedside Glucose 215 232 H 186 White Blood Count 6.6 Red Blood Count 5.49 H Hemoglobin 11.7 L Hematocrit 38.6 Mean Corpuscular 70.3 L Volume Mean Corpuscular 21.3 L Hemoglobin Mean Corpuscular 30.3 L Hemoglobin Concent Red Cell 16.6 H Distribution Width Platelet Count 157 Mean Platelet Volume 11.7 H Immature 0.500 H Granulocytes % Neutrophils % 80.9 H Lymphocytes % 13.0 L Monocytes % 5.6 Eosinophils % 0.0 Basophils % 0.0 Nucleated Red Blood 0.0 Cells % Immature 0.030 Granulocytes # Neutrophils # 5.4 Lymphocytes # 0.9 Monocytes # 0.4 Eosinophils # 0.0 Basophils # 0.0 Nucleated Red Blood 0.0 Cells # Sodium Level 136 Potassium Level 3.9 Chloride Level 91 L Carbon Dioxide Level 38 H Anion Gap 7 Blood Urea Nitrogen 24 H Creatinine 0.59 Est Glomerular > 60 Filtrat Rate mL/min Glucose Level 200 Calcium Level 9.3 Test 02/24/19 07:58 Bedside Glucose 166 Subjective 24 Hr Interval Summary Musculoskeletal: back pain Exam/Review of Systems Exam Vitals Vital Signs Date Temp Pulse Resp B/P (MAP) Pulse Ox O2 O2 Flow FiO2 Time Delivery Rate 02/24/19 62 08:00 02/24/19 99.1 20 143/83 98 07:17 (103) 02/24/19 Nasal 4.0 05:55 Cannula Intake and Output 02/23/19 02/23/19 02/24/19 1515:00 23:00 07:00 IntakeIntake Total 500 ml 1000 ml 350 ml BalanceBalance 500 ml 1000 ml 350 ml Exam obese Constitutional: alert, oriented Respiratory: congested cough, diminished breath sounds, labored breathing Cardiovascular: regular rate and rhythm Gastrointestinal: soft Genitourinary - Female: CVA tenderness; No nl adnexae, No nl external genitalia, No CMT, No uterus, No other Results Results 24hrs Laboratory Tests Test 02/23/19 12:07 02/23/19 18:09 02/23/19 21:28 02/24/19 05:36 Bedside Glucose 215 232 H 186 White Blood Count 6.6 Red Blood Count 5.49 H Hemoglobin 11.7 L Hematocrit 38.6 Mean Corpuscular 70.3 L Volume Mean Corpuscular 21.3 L Hemoglobin Mean Corpuscular 30.3 L Hemoglobin Concent Red Cell 16.6 H Distribution Width Platelet Count 157 Mean Platelet Volume 11.7 H Immature 0.500 H Granulocytes % Neutrophils % 80.9 H Lymphocytes % 13.0 L Monocytes % 5.6 Eosinophils % 0.0 Basophils % 0.0 Nucleated Red Blood 0.0 Cells % Immature 0.030 Granulocytes # Neutrophils # 5.4 Lymphocytes # 0.9 Monocytes # 0.4 Eosinophils # 0.0 Basophils # 0.0 Nucleated Red Blood 0.0 Cells # Sodium Level 136 Potassium Level 3.9 Chloride Level 91 L Carbon Dioxide Level 38 H Anion Gap 7 Blood Urea Nitrogen 24 H Creatinine 0.59 Est Glomerular > 60 Filtrat Rate mL/min Glucose Level 200 Calcium Level 9.3 Test 02/24/19 07:58 Bedside Glucose 166 Medications Medication Current Medications Albuterol/ Ipratropium (Duoneb) 0.5 ml Q4H RESP THERAPY HHN Last administered on 02/24/19at 09:19; Admin Dose 0.5 ML; Start 02/21/19 at 05:00 Acetaminophen (Tylenol Tab) 650 mg Q6H PRN PO MILD PAIN(1-3)OR ELEVATED TEMP Last administered on 02/21/19at 20:50; Admin Dose 650 MG; Start 02/21/19 at 04:30 Ceftriaxone Sodium 50 ml @ 100 mls/hr DAILY IVPB Last administered on 02/24/19 08:30; Admin Dose 100 MLS/HR; Start 02/21/19 at 09:00 Insulin Aspart (Novolog Insulin Pen) NOVOLOG *MODERATE* ALGORITHM WITH MEALS BEDTIME SC Last administered on 02/24/19 09:07; Admin Dose 2 UNIT; Start 02/21/19 at 08:00 Miscellaneous Information 1 ea NOTE XX ; Start 02/21/19 at 05:30 Glucose (Glutose) 15 gm Q15M PRN PO DECREASED GLUCOSE; Start 02/21/19 at 05:30 Glucose (Glutose) 22.5 gm Q15M PRN PO DECREASED GLUCOSE; Start 02/21/19 at 05:30 Dextrose (D50w Syringe) 25 ml Q15M PRN IV DECREASED GLUCOSE; Start 02/21/19 at 05:30 Dextrose (D50w Syringe) 50 ml Q15M PRN IV DECREASED GLUCOSE; Start 02/21/19 at 05:30 Glucagon (Glucagen) 1 mg Q15M PRN IM DECREASED GLUCOSE; Start 02/21/19 at 05:30 Glucose (Glutose) 15 gm Q15M PRN BUCCAL DECREASED GLUCOSE; Start 02/21/19 at 05:30 Azithromycin 100 mg/Sodium Chloride 50 ml @ 50 mls/hr Q24H IVPB Last administered on 02/23/19at 16:24; Admin Dose 50 MLS/HR; Start 02/21/19 at 15:30 Bupropion HCl (Wellbutrin Xl) 150 mg QAM PO Last administered on 02/24/19 08 :31; Admin Dose 150 MG; Start 02/22/19 at 09:00 Clonidine (Catapres) 0.2 mg Q8 PO Last administered on 02/24/19 06:04; Admin Dose 0.2 MG; Start 02/21/19 at 15:30 Hydrochlorothiazide (Hydrochlorothiazide) 25 mg DAILY PO Last administered on 02/24/19 08:31; Admin Dose 25 MG; Start 02/21/19 at 15:30 Losartan Potassium (Cozaar) 100 mg DAILY PO Last administered on 02/24/19 08:32; Admin Dose 100 MG; Start 02/21/19 at 15:30 Methylprednisolone Sodium Succinate (Solu-Medrol) 60 mg Q8 IV Last administered on 02/24/19 06:03; Admin Dose 60 MG; Start 02/21/19 at 22:00 Zolpidem Tartrate (Ambien) 5 mg HS PRN PO INSOMNIA Last administered on 02/23/19 21:30; Admin Dose 5 MG; Start 02/21/19 at 22:00 Guaifenesin/ Dextromethorphan (Robitussin Dm Liquid Cup) 5 ml Q6H PRN PO cough Last administered on 02/24/19 03:53; Admin Dose 5 ML; Start 02/21/19 at 22:00 Pantoprazole (Protonix Tab) 40 mg DAILY@06 PO Last administered on 02/24/19 06:03; Admin Dose 40 MG; Start 02/22/19 at 13:00 Enoxaparin Sodium (Lovenox) 40 mg DAILY SC Last administered on 02/24/19 08:52; Admin Dose 40 MG; Start 02/22/19 at 12:00 Amlodipine Besylate (Norvasc) 10 mg DAILY PO Last administered on 02/24/19 08:31; Admin Dose 10 MG; Start 02/23/19 at 14:00 Acetaminophen/ Hydrocodone Bitart ([place] (5/325)) 1 tab Q12 PRN PO MODERATE PAIN LEVEL 4-6 Last administered on 02/24/19 09:04; Admin Dose 1 TAB; Start 02/23/19 at 18:00 ORION QUINTERO Feb 24, 2019 09:35
--- NOTE | 2019-02-24 10:54 | CONS ---
Consult Date/Type/Reason Admit Date/Time Feb 21, 2019 at 01:13 Initial Consult Date Type of Consult Pulmonary Date/Time of Note DATE: 02/24/19 TIME: 10:53 Subjective Patient comfortable. No respiratory distress. Continues nasal cannula O2. Objective Vital Signs Date Temp Pulse Resp B/P (MAP) Pulse Ox O2 O2 Flow FiO2 Time Delivery Rate 02/24/19 Nasal 3.0 09:00 Cannula 02/24/19 62 08:00 02/24/19 99.1 20 143/83 98 07:17 (103) Intake and Output 02/23/19 02/23/19 02/24/19 1515:00 23:00 07:00 IntakeIntake Total 500 ml 1000 ml 350 ml BalanceBalance 500 ml 1000 ml 350 ml Exam PHYSICAL EXAMINATION: GENERAL: Moderately obese lady, awake, alert, oriented, talking in full and complete sentences. VITAL SIGNS: NECK: Supple. No JVD or lymphadenopathy. CARDIAC: S1, S2, no added sounds or murmurs. CHEST: Diminished air entry bilaterally, but no rales or wheezes. ABDOMEN: Soft, nontender. No guarding or rebound. EXTREMITIES: No cyanosis, clubbing, or edema. NEUROLOGIC: Generalized weakness. No focal deficits. Results/Medications Result Diagram: 02/24/19 0536 02/24/19 0536 Results 24 hrs Laboratory Tests Test 02/23/19 12:07 02/23/19 18:09 02/23/19 21:28 02/24/19 05:36 Bedside Glucose 215 232 H 186 White Blood Count 6.6 Red Blood Count 5.49 H Hemoglobin 11.7 L Hematocrit 38.6 Mean Corpuscular 70.3 L Volume Mean Corpuscular 21.3 L Hemoglobin Mean Corpuscular 30.3 L Hemoglobin Concent Red Cell 16.6 H Distribution Width Platelet Count 157 Mean Platelet Volume 11.7 H Immature 0.500 H Granulocytes % Neutrophils % 80.9 H Lymphocytes % 13.0 L Monocytes % 5.6 Eosinophils % 0.0 Basophils % 0.0 Nucleated Red Blood 0.0 Cells % Immature 0.030 Granulocytes # Neutrophils # 5.4 Lymphocytes # 0.9 Monocytes # 0.4 Eosinophils # 0.0 Basophils # 0.0 Nucleated Red Blood 0.0 Cells # Sodium Level 136 Potassium Level 3.9 Chloride Level 91 L Carbon Dioxide Level 38 H Anion Gap 7 Blood Urea Nitrogen 24 H Creatinine 0.59 Est Glomerular > 60 Filtrat Rate mL/min Glucose Level 200 Calcium Level 9.3 Test 02/24/19 07:58 Bedside Glucose 166 Medications Current Medications Albuterol/ Ipratropium (Duoneb) 0.5 ml Q4H RESP THERAPY HHN Last administered on 02/24/19 09:19; Admin Dose 0.5 ML; Start 02/21/19 at 05:00 Acetaminophen (Tylenol Tab) 650 mg Q6H PRN PO MILD PAIN(1-3)OR ELEVATED TEMP Last administered on 02/21/19 20:50; Admin Dose 650 MG; Start 02/21/19 at 04:30 Ceftriaxone Sodium 50 ml @ 100 mls/hr DAILY IVPB Last administered on 02/24/19 08:30; Admin Dose 100 MLS/HR; Start 02/21/19 at 09:00 Insulin Aspart (Novolog Insulin Pen) NOVOLOG *MODERATE* ALGORITHM WITH MEALS BEDTIME SC Last administered on 02/24/19 09:07; Admin Dose 2 UNIT; Start 02/21/19 at 08:00 Miscellaneous Information 1 ea NOTE XX ; Start 02/21/19 at 05:30 Glucose (Glutose) 15 gm Q15M PRN PO DECREASED GLUCOSE; Start 02/21/19 at 05:30 Glucose (Glutose) 22.5 gm Q15M PRN PO DECREASED GLUCOSE; Start 02/21/19 at 05:30 Dextrose (D50w Syringe) 25 ml Q15M PRN IV DECREASED GLUCOSE; Start 02/21/19 at 05:30 Dextrose (D50w Syringe) 50 ml Q15M PRN IV DECREASED GLUCOSE; Start 02/21/19 at 05:30 Glucagon (Glucagen) 1 mg Q15M PRN IM DECREASED GLUCOSE; Start 02/21/19 at 05:30 Glucose (Glutose) 15 gm Q15M PRN BUCCAL DECREASED GLUCOSE; Start 02/21/19 at 05:30 Azithromycin 100 mg/Sodium Chloride 50 ml @ 50 mls/hr Q24H IVPB Last administered on 02/23/19at 16:24; Admin Dose 50 MLS/HR; Start 02/21/19 at 15:30 Bupropion HCl (Wellbutrin Xl) 150 mg QAM PO Last administered on 02/24/19at 08:31; Admin Dose 150 MG; Start 02/22/19 at 09:00 Clonidine (Catapres) 0.2 mg Q8 PO Last administered on 02/24/19 06:04; Admin Dose 0.2 MG; Start 02/21/19 at 15:30 Hydrochlorothiazide (Hydrochlorothiazide) 25 mg DAILY PO Last administered on 02/24/19 08:31; Admin Dose 25 MG; Start 02/21/19 at 15:30 Losartan Potassium (Cozaar) 100 mg DAILY PO Last administered on 02/24/19 08:32; Admin Dose 100 MG; Start 02/21/19 at 15:30 Methylprednisolone Sodium Succinate (Solu-Medrol) 60 mg Q8 IV Last administered on 02/24/19 06:03; Admin Dose 60 MG; Start 02/21/19 at 22:00 Zolpidem Tartrate (Ambien) 5 mg HS PRN PO INSOMNIA Last administered on 02/23/19 21:30; Admin Dose 5 MG; Start 02/21/19 at 22:00 Guaifenesin/ Dextromethorphan (Robitussin Dm Liquid Cup) 5 ml Q6H PRN PO cough Last administered on 02/24/19 03:53; Admin Dose 5 ML; Start 02/21/19 at 22:00 Pantoprazole (Protonix Tab) 40 mg DAILY@06 PO Last administered on 02/24/19 06:03; Admin Dose 40 MG; Start 02/22/19 at 13:00 Enoxaparin Sodium (Lovenox) 40 mg DAILY SC Last administered on 02/24/19 08:52; Admin Dose 40 MG; Start 02/22/19 at 12:00 Amlodipine Besylate (Norvasc) 10 mg DAILY PO Last administered on 02/24/19 08:31; Admin Dose 10 MG; Start 02/23/19 at 14:00 Acetaminophen/ Hydrocodone Bitart ([place] (5/325)) 1 tab Q12 PRN PO MODERATE PAIN LEVEL 4-6 Last administered on 02/24/19 09:04; Admin Dose 1 TAB; Start 02/23/19 at 18:00 Assessment/Plan Hospital Course (Demo Recall) IMPRESSION 1. Likely chronic obstructive pulmonary disease exacerbation with acute on chronic hypoxemic and hypercapnic respiratory failure. 2. Probable underlying obesity hypoventilation. 3. Probable underlying obstructive sleep apnea. 4. Major depressive disorder. 5. Noncompliance. Plan 1. Bronchodilators. 2. Steroids. We will decrease steroids. 3. Antibiotics. 4. Outpatient sleep study. 5. Nocturnal noninvasive positive pressure ventilation. 6. Outpatient pulmonary function testing. 7. Encourage OOB ambulate Consider transfer to [facility]. PAULINE HERRERA MD, [facility] Feb 24, 2019 10:54
[2019-02-24] MEDS ORDERED: BISACODYL (EC) 5 MG TAB PO PRN (13:00)
[2019-02-24] MEDS ORDERED: DOCUSATE SODIUM 100 MG CAP PO PRN (13:00)
[2019-02-24] MEDS: AZITHROMYCIN 100 MG in SOD CHLORIDE 0.9% 50 ML IVPB SCH (15:40)
[2019-02-24] MEDS: ZOLPIDEM 5 MG TAB PO PRN (23:11)
[2019-02-25] MEDS: ALBUTEROL/IPRATROPIUM (NEB) 3 ML AMP HHN SCH ×6 (00:54→20:08)
[2019-02-25 02:22] VITALS: BP 126/60; PULSE 71; RESP 19
[2019-02-25] MEDS: PANTOPRAZOLE (EC) 40 MG TAB PO SCH (06:46)
[2019-02-25 08:01] VITALS: BP 147/81; PULSE 55; RESP 20
[2019-02-25] MEDS: CEFTRIAXONE 1 GM/50 ML (PMX) 50 ML IVPB SCH (08:45)
[2019-02-25] MEDS: LOSARTAN 50 MG TAB PO SCH (08:46)
[2019-02-25] MEDS: HYDROCHLOROTHIAZIDE 25 MG TAB PO SCH (08:46)
[2019-02-25] MEDS: METHYLPREDNISOLONE 125 MG INJ IV SCH (08:46)
[2019-02-25] MEDS: ENOXAPARIN 40 MG/0.4 ML SYG SC SCH (08:47)
[2019-02-25] MEDS: AMLODIPINE 10 MG TAB PO SCH (08:47)
[2019-02-25] MEDS: INSULIN ASPART [NOVOLOG] 3 ML PEN SC SCH ×4 (08:48→21:00)
[2019-02-25] MEDS: HYDROCODONE/APAP (5/325) TAB PO PRN ×2 (09:37→21:16)
[2019-02-25] MEDS: BUPROPION (XL) 150 MG TAB PO SCH (11:01)
--- NOTE | 2019-02-25 12:11 | CONS ---
Consult Date/Type/Reason Admit Date/Time Feb 21, 2019 at 01:13 Initial Consult Date Type of Consult Pulmonary Date/Time of Note DATE: 02/25/19 TIME: 12:11 Subjective Patient stable this morning no respiratory distress. States her home oxygen is not working. Objective Vital Signs Date Temp Pulse Resp B/P (MAP) Pulse Ox O2 O2 Flow FiO2 Time Delivery Rate 02/25/19 Nasal 2.0 11:35 Cannula 02/25/19 63 18 96 08:23 02/25/19 98.4 147/81 08:01 (103) 02/24/19 21 09:19 Intake and Output 02/24/19 02/24/19 02/25/19 1515:00 23:00 07:00 IntakeIntake Total 100 ml BalanceBalance 100 ml Exam PHYSICAL EXAMINATION: GENERAL: Moderately obese lady, awake, alert, oriented, talking in full and complete sentences. VITAL SIGNS: NECK: Supple. No JVD or lymphadenopathy. CARDIAC: S1, S2, no added sounds or murmurs. CHEST: Diminished air entry bilaterally, but no rales or wheezes. ABDOMEN: Soft, nontender. No guarding or rebound. EXTREMITIES: No cyanosis, clubbing, or edema. NEUROLOGIC: Generalized weakness. No focal deficits. Vent Setting Fraction of Inspired Oxygen pe: 21 Results/Medications Result Diagram: 02/25/19 0459 02/25/19 0459 Results 24 hrs Laboratory Tests Test 02/24/19 17:25 02/24/19 20:17 02/25/19 03:00 02/25/19 04:59 Bedside Glucose 164 170 261 H White Blood Count 7.5 Red Blood Count 6.26 H Hemoglobin 13.1 Hematocrit 43.7 Mean Corpuscular 69.8 L Volume Mean Corpuscular 20.9 L Hemoglobin Mean Corpuscular 30.0 L Hemoglobin Concent Red Cell 17.4 H Distribution Width Platelet Count 109 #L Mean Platelet Volume Immature 0.500 H Granulocytes % Neutrophils % 80.9 H Lymphocytes % 13.9 L Monocytes % 4.6 Eosinophils % 0.0 Basophils % 0.1 Nucleated Red Blood 0.0 Cells % Immature 0.040 H Granulocytes # Neutrophils # 6.1 Lymphocytes # 1.1 Monocytes # 0.4 Eosinophils # 0.0 Basophils # 0.0 Nucleated Red Blood 0.0 Cells # Sodium Level 135 Potassium Level 4.0 Chloride Level 88 L Carbon Dioxide Level 38 H Anion Gap 9 Blood Urea Nitrogen 32 H Creatinine 0.68 Est Glomerular > 60 Filtrat Rate mL/min Glucose Level 213 Calcium Level 9.1 Test 02/25/19 08:15 Bedside Glucose 171 Medications Current Medications Albuterol/ Ipratropium (Duoneb) 0.5 ml Q4H RESP THERAPY HHN Last administered on 02/25/19at 08:23; Admin Dose 0.5 ML; Start 02/21/19 at 05:00 Acetaminophen (Tylenol Tab) 650 mg Q6H PRN PO MILD PAIN(1-3)OR ELEVATED TEMP Last administered on 02/21/19at 20:50; Admin Dose 650 MG; Start 02/21/19 at 04:30 Ceftriaxone Sodium 50 ml @ 100 mls/hr DAILY IVPB Last administered on 02/25/19at 08:45; Admin Dose 100 MLS/HR; Start 02/21/19 at 09:00 Insulin Aspart (Novolog Insulin Pen) NOVOLOG *MODERATE* ALGORITHM WITH MEALS BEDTIME SC Last administered on 02/25/19at 08:48; Admin Dose 2 UNIT; Start 02/21/19 at 08:00 Miscellaneous Information 1 ea NOTE XX ; Start 02/21/19 at 05:30 Glucose (Glutose) 15 gm Q15M PRN PO DECREASED GLUCOSE; Start 02/21/19 at 05:30 Glucose (Glutose) 22.5 gm Q15M PRN PO DECREASED GLUCOSE; Start 02/21/19 at 05:30 Dextrose (D50w Syringe) 25 ml Q15M PRN IV DECREASED GLUCOSE; Start 02/21/19 at 05:30 Dextrose (D50w Syringe) 50 ml Q15M PRN IV DECREASED GLUCOSE; Start 02/21/19 at 05:30 Glucagon (Glucagen) 1 mg Q15M PRN IM DECREASED GLUCOSE; Start 02/21/19 at 05:30 Glucose (Glutose) 15 gm Q15M PRN BUCCAL DECREASED GLUCOSE; Start 02/21/19 at 05:30 Azithromycin 100 mg/Sodium Chloride 50 ml @ 50 mls/hr Q24H IVPB Last administered on 02/24/19at 15:40; Admin Dose 50 MLS/HR; Start 02/21/19 at 15:30 Bupropion HCl (Wellbutrin Xl) 150 mg QAM PO Last administered on 02/25/19 11:01; Admin Dose 150 MG; Start 02/22/19 at 09:00 Clonidine (Catapres) 0.2 mg Q8 PO Last administered on 02/25/19 06:46; Admin Dose 0.2 MG; Start 02/21/19 at 15:30 Hydrochlorothiazide (Hydrochlorothiazide) 25 mg DAILY PO Last administered on 02/25/19 08:46; Admin Dose 25 MG; Start 02/21/19 at 15:30 Losartan Potassium (Cozaar) 100 mg DAILY PO Last administered on 02/25/19 08:46; Admin Dose 100 MG; Start 02/21/19 at 15:30 Zolpidem Tartrate (Ambien) 5 mg HS PRN PO INSOMNIA Last administered on 02/24/19 23:11; Admin Dose 5 MG; Start 02/21/19 at 22:00 Guaifenesin/ Dextromethorphan (Robitussin Dm Liquid Cup) 5 ml Q6H PRN PO cough Last administered on 02/24/19 23:11; Admin Dose 5 ML; Start 02/21/19 at 22:00 Pantoprazole (Protonix Tab) 40 mg DAILY@06 PO Last administered on 02/25/19 06:46; Admin Dose 40 MG; Start 02/22/19 at 13:00 Enoxaparin Sodium (Lovenox) 40 mg DAILY SC Last administered on 02/25/19 08:47; Admin Dose 40 MG; Start 02/22/19 at 12:00 Amlodipine Besylate (Norvasc) 10 mg DAILY PO Last administered on 02/25/19 08:47; Admin Dose 10 MG; Start 02/23/19 at 14:00 Acetaminophen/ Hydrocodone Bitart ([place] (5/325)) 1 tab Q12 PRN PO MODERATE PAIN LEVEL 4-6 Last administered on 02/25/19 09:37; Admin Dose 1 TAB; Start 02/23/19 at 18:00 Methylprednisolone Sodium Succinate (Solu-Medrol) 40 mg Q12 IV Last adm inistered on 02/25/19 08:46; Admin Dose 40 MG; Start 02/24/19 at 21:00 Docusate Sodium (Colace) 100 mg BID PRN PO CONSTIPATION Last administered on 4/21/19at 13:34; Admin Dose 100 MG; Start 02/24/19 at 13:00 Bisacodyl (Dulcolax) 5 mg DAILY PRN PO CONSTIPATION; Start 02/24/19 at 13:00 Assessment/Plan Hospital Course (Demo Recall) IMPRESSION 1. Likely chronic obstructive pulmonary disease exacerbation with acute on chronic hypoxemic and hypercapnic respiratory failure. 2. Probable underlying obesity hypoventilation. 3. Probable underlying obstructive sleep apnea. 4. Major depressive disorder. 5. Noncompliance. Plan 1. Bronchodilators. 2. decrease steroids. 3. DC antibiotics. 4. Outpatient sleep study. 5. Nocturnal noninvasive positive pressure ventilation. 6. Outpatient pulmonary function testing. 7. Encourage OOB ambulate Consider discharge home with home O2. PAULINE HERRERA MD, [facility] Feb 25, 2019 12:11
[2019-02-25 13:41] VITALS: BP 100/54; PULSE 64; RESP 20
--- NOTE | 2019-02-25 16:58 | PN ---
Date/Time of Note Date/Time of Note DATE: 02/25/19 TIME: 16:55 Assessment/Plan VTE Prophylaxis Risk score (from Ns)>0 risk: 5 SCD applied (from [facility]): No SCD contraindicated: low risk/ambulating Pharmacological prophylaxis: NA/contraindicated Pharm contraindication: low risk/ambulating Lines/Catheters [facility] Saline Lock Urinary Cath still in place: No Assessment/Plan Hospital Course ospital Course 1. Shortness of breath, cough, likely secondary to chronic obstructive pulmonary disease exacerbation and possible underlying pneumonia. 2. Hypercapnic respiratory failure. 3. Diabetes mellitus type II. 4. Hypertension. 5. Hyperlipidemia. 6. Obesity. 7. Questionable prolapse. 8. History of polysubstance use. 9. Chronic pain control. 10. Chronic moderate Depression. 11. Plethora Assessment/Plan -Decrease steroids per pulmonary however still quite wheezing -Nebs -IV Solu-Medrol -Arrange for home oxygen -c/w diabetic control, add Lantus -c/w blood pressure control. -DVT proph. Lovenox -GI proph. Protonix po daily -pulmonary consult Dr Arriaza appreciated Result Diagram: 02/25/19 0459 02/25/19 0459 Results 24hrs Laboratory Tests Test 02/24/19 17:25 02/24/19 20:17 02/25/19 03:00 02/25/19 04:59 Bedside Glucose 164 170 261 H White Blood Count 7.5 Red Blood Count 6.26 H Hemoglobin 13.1 Hematocrit 43.7 Mean Corpuscular 69.8 L Volume Mean Corpuscular 20.9 L Hemoglobin Mean Corpuscular 30.0 L Hemoglobin Concent Red Cell 17.4 H Distribution Width Platelet Count 109 #L Mean Platelet Volume Immature 0.500 H Granulocytes % Neutrophils % 80.9 H Lymphocytes % 13.9 L Monocytes % 4.6 Eosinophils % 0.0 Basophils % 0.1 Nucleated Red Blood 0.0 Cells % Immature 0.040 H Granulocytes # Neutrophils # 6.1 Lymphocytes # 1.1 Monocytes # 0.4 Eosinophils # 0.0 Basophils # 0.0 Nucleated Red Blood 0.0 Cells # Sodium Level 135 Potassium Level 4.0 Chloride Level 88 L Carbon Dioxide Level 38 H Anion Gap 9 Blood Urea Nitrogen 32 H Creatinine 0.68 Est Glomerular > 60 Filtrat Rate mL/min Glucose Level 213 Calcium Level 9.1 Test 02/25/19 08:15 02/25/19 12:26 02/25/19 16:47 Bedside Glucose 171 198 308 H Subjective 24 Hr Interval Summary Free Text/Dictation Feels slightly better. However still wheezing Exam/Review of Systems Exam Vitals Vital Signs Date Temp Pulse Resp B/P (MAP) Pulse Ox O2 O2 Flow FiO2 Time Delivery Rate 02/25/19 97.4 64 20 100/54 96 13:41 (69) 02/25/19 Nasal 2.0 13:24 Cannula 02/24/19 09:19 Intake and Output 02/24/19 02/24/19 02/25/19 1414:59 22:59 06:59 IntakeIntake Total 100 ml BalanceBalance 100 ml Exam Morbidly obese on oxygen Scattered rhonchi Results Results 24hrs Laboratory Tests Test 02/24/19 17:25 02/24/19 20:17 02/25/19 03:00 02/25/19 04:59 Bedside Glucose 164 170 261 H White Blood Count 7.5 Red Blood Count 6.26 H Hemoglobin 13.1 Hematocrit 43.7 Mean Corpuscular 69.8 L Volume Mean Corpuscular 20.9 L Hemoglobin Mean Corpuscular 30.0 L Hemoglobin Concent Red Cell 17.4 H Distribution Width Platelet Count 109 #L Mean Platelet Volume Immature 0.500 H Granulocytes % Neutrophils % 80.9 H Lymphocytes % 13.9 L Monocytes % 4.6 Eosinophils % 0.0 Basophils % 0.1 Nucleated Red Blood 0.0 Cells % Immature 0.040 H Granulocytes # Neutrophils # 6.1 Lymphocytes # 1.1 Monocytes # 0.4 Eosinophils # 0.0 Basophils # 0.0 Nucleated Red Blood 0.0 Cells # Sodium Level 135 Potassium Level 4.0 Chloride Level 88 L Carbon Dioxide Level 38 H Anion Gap 9 Blood Urea Nitrogen 32 H Creatinine 0.68 Est Glomerular > 60 Filtrat Rate mL/min Glucose Level 213 Calcium Level 9.1 Test 02/25/19 08:15 02/25/19 12:26 02/25/19 16:47 Bedside Glucose 171 198 308 H Medications Medication Current Medications Albuterol/ Ipratropium (Duoneb) 0.5 ml Q4H RESP THERAPY HHN Last administered on 02/25/19at 13:24; Admin Dose 0.5 ML; Start 02/21/19 at 05:00 Acetaminophen (Tylenol Tab) 650 mg Q6H PRN PO MILD PAIN(1-3)OR ELEVATED TEMP Last administered on 02/21/19at 20:50; Admin Dose 650 MG; Start 02/21/19 at 04:30 Insulin Aspart (Novolog Insulin Pen) NOVOLOG *MODERATE* ALGORITHM WITH MEALS BEDTIME SC Last administered on 02/25/19 13:05; Admin Dose 4 UNIT; Start 02/21/19 at 08:00 Miscellaneous Information 1 ea NOTE XX ; Start 02/21/19 at 05:30 Glucose (Glutose) 15 gm Q15M PRN PO DECREASED GLUCOSE; Start 02/21/19 at 05:30 Glucose (Glutose) 22.5 gm Q15M PRN PO DECREASED GLUCOSE; Start 02/21/19 at 05:30 Dextrose (D50w Syringe) 25 ml Q15M PRN IV DECREASED GLUCOSE; Start 02/21/19 at 05:30 Dextrose (D50w Syringe) 50 ml Q15M PRN IV DECREASED GLUCOSE; Start 02/21/19 at 05:30 Glucagon (Glucagen) 1 mg Q15M PRN IM DECREASED GLUCOSE; Start 02/21/19 at 05:30 Glucose (Glutose) 15 gm Q15M PRN BUCCAL DECREASED GLUCOSE; Start 02/21/19 at 05:30 Bupropion HCl (Wellbutrin Xl) 150 mg QAM PO Last administered on 02/25/19 11:01; Admin Dose 150 MG; Start 02/22/19 at 09:00 Clonidine (Catapres) 0.2 mg Q8 PO Last administered on 02/25/19 06:46; Admin Dose 0.2 MG; Start 02/21/19 at 15:30 Hydrochlorothiazide (Hydrochlorothiazide) 25 mg DAILY PO Last administered on 02/25/19 08:46; Admin Dose 25 MG; Start 02/21/19 at 15:30 Losartan Potassium (Cozaar) 100 mg DAILY PO Last administered on 02/25/19 08:46; Admin Dose 100 MG; Start 02/21/19 at 15:30 Zolpidem Tartrate (Ambien) 5 mg HS PRN PO INSOMNIA Last administered on 02/24/19 23:11; Admin Dose 5 MG; Start 02/21/19 at 22:00 Guaifenesin/ Dextromethorphan (Robitussin Dm Liquid Cup) 5 ml Q6H PRN PO cough Last administered on 02/24/19at 23:11; Admin Dose 5 ML; Start 02/21/19 at 22:00 Pantoprazole (Protonix Tab) 40 mg DAILY@06 PO Last administered on 02/25/19 06:46; Admin Dose 40 MG; Start 02/22/19 at 13:00 Enoxaparin Sodium (Lovenox) 40 mg DAILY SC Last administered on 02/25/19 08:47; Admin Dose 40 MG; Start 02/22/19 at 12:00 Amlodipine Besylate (Norvasc) 10 mg DAILY PO Last administered on 02/25/19 08:47; Admin Dose 10 MG; Start 02/23/19 at 14:00 Acetaminophen/ Hydrocodone Bitart ([place] (5/325)) 1 tab Q12 PRN PO MODERATE PAIN LEVEL 4-6 Last administered on 02/25/19 09:37; Admin Dose 1 TAB; Start 02/23/19 at 18:00 Docusate Sodium (Colace) 100 mg BID PRN PO CONSTIPATION Last administered on 02/24/19at 13:34; Admin Dose 100 MG; Start 02/24/19 at 13:00 Bisacodyl (Dulcolax) 5 mg DAILY PRN PO CONSTIPATION Last administered on 02/25/19at 15:04; Admin Dose 5 MG; Start 02/24/19 at 13:00 Methylprednisolone Sodium Succinate (Solu-Medrol) 40 mg DAILY IV ; Start at 09:00 MINA FARAH MD Feb 25, 2019 16:58
[2019-02-25 20:00] VITALS: BP 108/61; PULSE 67; RESP 19
[2019-02-25] MEDS: GUAIFENESIN/DM 5ML CUP PO PRN (21:15)
[2019-02-25] MEDS: ZOLPIDEM 5 MG TAB PO PRN (21:16)
[2019-02-25] MEDS: INSULIN GLARGINE [LANTus] (100 UNITS/ML) SYG SC SCH (21:26)
[2019-02-26] MEDS: ALBUTEROL/IPRATROPIUM (NEB) 3 ML AMP HHN SCH ×6 (00:58→20:02)
[2019-02-26 02:00] VITALS: BP 104/65; PULSE 79; RESP 18
[2019-02-26] MEDS: PANTOPRAZOLE (EC) 40 MG TAB PO SCH (06:23)
[2019-02-26 07:59] VITALS: BP 116/67; PULSE 68; RESP 18
[2019-02-26] MEDS: INSULIN ASPART [NOVOLOG] 3 ML PEN SC SCH ×4 (08:00→21:32)
[2019-02-26] MEDS: BUPROPION (XL) 150 MG TAB PO SCH (08:21)
[2019-02-26] MEDS: AMLODIPINE 10 MG TAB PO SCH (08:22)
[2019-02-26] MEDS: LOSARTAN 50 MG TAB PO SCH (08:22)
[2019-02-26] MEDS: HYDROCHLOROTHIAZIDE 25 MG TAB PO SCH (08:22)
[2019-02-26] MEDS: ENOXAPARIN 40 MG/0.4 ML SYG SC SCH (08:24)
[2019-02-26] MEDS ORDERED: METHYLPREDNISOLONE 40 MG INJ IV SCH (09:00)
[2019-02-26] MEDS: HYDROCODONE/APAP (5/325) TAB PO PRN ×2 (09:47→21:28)
--- NOTE | 2019-02-26 11:56 | CONS ---
Consult Date/Type/Reason Admit Date/Time Feb 21, 2019 at 01:13 Initial Consult Date Type of Consult Pulmonary Date/Time of Note DATE: 02/26/19 TIME: 11:55 Subjective Patient appears stable this morning no respiratory distress Objective Vital Signs Date Temp Pulse Resp B/P (MAP) Pulse Ox O2 O2 Flow FiO2 Time Delivery Rate 02/26/19 Nasal 2.0 09:57 Cannula 02/26/19 68 18 95 08:27 02/26/19 98.3 116/67 07:59 (83) 02/25/19 21 20:10 Intake and Output 02/25/19 02/25/19 02/26/19 1515:00 23:00 07:00 IntakeIntake Total 1010 ml 760 ml BalanceBalance 1010 ml 760 ml Exam PHYSICAL EXAMINATION: GENERAL: Moderately obese lady, awake, alert, oriented, talking in full and complete sentences. VITAL SIGNS: NECK: Supple. No JVD or lymphadenopathy. CARDIAC: S1, S2, no added sounds or murmurs. CHEST: Diminished air entry bilaterally, but no rales or wheezes. ABDOMEN: Soft, nontender. No guarding or rebound. EXTREMITIES: No cyanosis, clubbing, or edema. NEUROLOGIC: Generalized weakness. No focal deficits. Vent Setting Fraction of Inspired Oxygen pe: 21 Results/Medications Result Diagram: 02/25/19 0459 02/25/19 0459 Results 24 hrs Laboratory Tests Test 02/25/19 12:26 02/25/19 16:47 02/25/19 21:15 02/26/19 07:51 Bedside Glucose 198 308 H 136 126 Medications Current Medications Acetaminophen (Tylenol Tab) 650 mg Q6H PRN PO MILD PAIN(1-3)OR ELEVATED TEMP Last administered on 02/21/19at 20:50; Admin Dose 650 MG; Start 02/21/19 at 04:30 Insulin Aspart (Novolog Insulin Pen) NOVOLOG *MODERATE* ALGORITHM WITH MEALS BEDTIME SC Last administered on 02/25/19at 17:03; Admin Dose 10 UNIT; Start 02/21/19 at 08:00 Miscellaneous Information 1 ea NOTE XX ; Start 02/21/19 at 05:30 Glucose (Glutose) 15 gm Q15M PRN PO DECREASED GLUCOSE; Start 02/21/19 at 05:30 Glucose (Glutose) 22.5 gm Q15M PRN PO DECREASED GLUCOSE; Start 02/21/19 at 05:30 Dextrose (D50w Syringe) 25 ml Q15M PRN IV DECREASED GLUCOSE; Start 02/21/19 at 05:30 Dextrose (D50w Syringe) 50 ml Q15M PRN IV DECREASED GLUCOSE; Start 02/21/19 at 05:30 Glucagon (Glucagen) 1 mg Q15M PRN IM DECREASED GLUCOSE; Start 02/21/19 at 05:30 Glucose (Glutose) 15 gm Q15M PRN BUCCAL DECREASED GLUCOSE; Start 02/21/19 at 05:30 Bupropion HCl (Wellbutrin Xl) 150 mg QAM PO Last administered on 02/26/19 08:21; Admin Dose 150 MG; Start 02/22/19 at 09:00 Clonidine (Catapres) 0.2 mg Q8 PO Last administered on 02/26/19 06:27; Admin Dose 0.2 MG; Start 02/21/19 at 15:30 Hydrochlorothiazide (Hydrochlorothiazide) 25 mg DAILY PO Last administered on 02/26/19 08:22; Admin Dose 25 MG; Start 02/21/19 at 15:30 Losartan Potassium (Cozaar) 100 mg DAILY PO Last administered on 02/26/19 08:22; Admin Dose 100 MG; Start 02/21/19 at 15:30 Zolpidem Tartrate (Ambien) 5 mg HS PRN PO INSOMNIA Last administered on 02/25/19 21:16; Admin Dose 5 MG; Start 02/21/19 at 22:00 Guaifenesin/ Dextromethorphan (Robitussin Dm Liquid Cup) 5 ml Q6H PRN PO cough Last administered on 02/25/19 21:15; Admin Dose 5 ML; Start 02/21/19 at 22:00 Pantoprazole (Protonix Tab) 40 mg DAILY@06 PO Last administered on 02/26/19 06:23; Admin Dose 40 MG; Start 02/22/19 at 13:00 Enoxaparin Sodium (Lovenox) 40 mg DAILY SC Last administered on 02/26/19 08:24; Admin Dose 40 MG; Start 02/22/19 at 12:00 Amlodipine Besylate (Norvasc) 10 mg DAILY PO Last administered on 02/26/19 08:22; Admin Dose 10 MG; Start 02/23/19 at 14:00 Acetaminophen/ Hydrocodone Bitart ([place] (5/325)) 1 tab Q12 PRN PO MODERATE PAIN LEVEL 4-6 Last administered on 02/26/19 09:47; Admin Dose 1 TAB; Start at 18:00 Docusate Sodium (Colace) 100 mg BID PRN PO CONSTIPATION Last administered on 02/24/19 13:34; Admin Dose 100 MG; Start 02/24/19 at 13:00 Bisacodyl (Dulcolax) 5 mg DAILY PRN PO CONSTIPATION Last administered on 02/25/19 15:04; Admin Dose 5 MG; Start 02/24/19 at 13:00 Methylprednisolone Sodium Succinate (Solu-Medrol) 40 mg DAILY IV Last administered on 02/26/19 08:22; Admin Dose 40 MG; Start 02/26/19 at 09:00 Insulin Glargine (Lantus) 15 units DAILY@2000 SC Last administered on 02/25/19 21:26; Admin Dose 15 UNITS; Start 02/25/19 at 20:00 Albuterol/ Ipratropium (Duoneb) 3 ml Q4H RESP THERAPY HHN Last administered on 02/26/19 08:27; Admin Dose 3 ML; Start 02/26/19 at 01:00 Assessment/Plan Hospital Course (Demo Recall) IMPRESSION 1. Likely chronic obstructive pulmonary disease exacerbation with acute on chronic hypoxemic and hypercapnic respiratory failure. 2. Probable underlying obesity hypoventilation. 3. Probable underlying obstructive sleep apnea. 4. Major depressive disorder. 5. Noncompliance. Plan 1. Bronchodilators. 2. decrease steroids. 3. DC antibiotics. 4. Outpatient sleep study. 5. Nocturnal noninvasive positive pressure ventilation. 6. Outpatient pulmonary function testing. 7. Encourage OOB ambulate Consider discharge home with home O2. DC planning okay from pulmonary standpoint PAULINE HERRERA MD, [facility] Feb 26, 2019 11:56
[2019-02-26] MEDS: GUAIFENESIN/DM 5ML CUP PO PRN ×2 (12:33→21:26)
[2019-02-26] MEDS ORDERED: METHYLPREDNISOLONE 125 MG INJ IV ONE (14:00)
--- NOTE | 2019-02-26 14:03 | PN ---
Date/Time of Note Date/Time of Note DATE: 02/26/19 TIME: 14:02 Assessment/Plan VTE Prophylaxis Risk score (from Nsg)>0 risk: 5 SCD applied (from Ns): No SCD contraindicated: low risk/ambulating Pharmacological prophylaxis: NA/contraindicated Pharm contraindication: low risk/ambulating Lines/Catheters IV Catheter Type (from [facility]): Saline Lock Urinary Cath still in place: No Assessment/Plan Hospital Course ospital Course 1. Shortness of breath, cough, likely secondary to chronic obstructive pulmonary disease exacerbation and possible underlying pneumonia. 2. Hypercapnic respiratory failure. 3. Diabetes mellitus type II. 4. Hypertension. 5. Hyperlipidemia. 6. Obesity. 7. Questionable prolapse. 8. History of polysubstance use. 9. Chronic pain control. 10. Chronic moderate Depression. 11. Plethora Assessment/Plan -extra dose of steroids today - increase solumedrol 40 bid -Nebs -Arrange for home oxygen, home health -c/w diabetic control -c/w blood pressure control. -DVT proph. Lovenox -GI proph. Protonix po daily -pulmonary consult Dr Arriaza appreciated Result Diagram: 02/25/1945802/25/19458 Results 24hrs Laboratory Tests Test 02/25/19 16:47 02/25/19 21:15 02/26/19 07:51 02/26/19 12:04 Bedside Glucose 308 H 136 126 213 Subjective 24 Hr Interval Summary Free Text/Dictation SOB last night still wheezing Exam/Review of Systems Exam Vitals Vital Signs Date Temp Pulse Resp B/P (MAP) Pulse Ox O2 O2 Flow FiO2 Time Delivery Rate 02/26/19 65 18 96 Nasal 2.0 13:29 Cannula 02/26/19 98.3 116/67 07:59 (83) 02/25/19 21 20:10 Intake and Output 02/25/19 02/25/19 02/26/19 1515:00 23:00 07:00 IntakeIntake Total 1010 ml 760 ml BalanceBalance 1010 ml 760 ml Exam Morbidly obese on oxygen b/l Scattered rhonchi Results Results 24hrs Laboratory Tests Test 02/25/19 16:47 02/25/19 21:15 02/26/19 07:51 02/26/19 12:04 Bedside Glucose 308 H 136 126 213 Medications Medication Current Medications Acetaminophen (Tylenol Tab) 650 mg Q6H PRN PO MILD PAIN(1-3)OR ELEVATED TEMP Last administered on 02/21/19 20:50; Admin Dose 650 MG; Start 02/21/19 at 04:30 Insulin Aspart (Novolog Insulin Pen) NOVOLOG *MODERATE* ALGORITHM WITH MEALS BEDTIME SC Last administered on 02/26/19 12:32; Admin Dose 4 UNIT; Start 02/21/19 at 08:00 Miscellaneous Information 1 ea NOTE XX ; Start 02/21/19 at 05:30 Glucose (Glutose) 15 gm Q15M PRN PO DECREASED GLUCOSE; Start 02/21/19 at 05:30 Glucose (Glutose) 22.5 gm Q15M PRN PO DECREASED GLUCOSE; Start 02/21/19 at 05:30 Dextrose (D50w Syringe) 25 ml Q15M PRN IV DECREASED GLUCOSE; Start 02/21/19 at 05:30 Dextrose (D50w Syringe) 50 ml Q15M PRN IV DECREASED GLUCOSE; Start 02/21/19 at 05:30 Glucagon (Glucagen) 1 mg Q15M PRN IM DECREASED GLUCOSE; Start 02/21/19 at 05:30 Glucose (Glutose) 15 gm Q15M PRN BUCCAL DECREASED GLUCOSE; Start 02/21/19 at 05:30 Bupropion HCl (Wellbutrin Xl) 150 mg QAM PO Last administered on 02/26/19at 08:21; Admin Dose 150 MG; Start 02/22/19 at 09:00 Clonidine (Catapres) 0.2 mg Q8 PO Last administered on 02/26/19 06:27; Admin Dose 0.2 MG; Start 02/21/19 at 15:30 Hydrochlorothiazide (Hydrochlorothiazide) 25 mg DAILY PO Last administered on 02/26/19 08:22; Admin Dose 25 MG; Start 02/21/19 at 15:30 Losartan Potassium (Cozaar) 100 mg DAILY PO Last administered on 02/26/19 08:22; Admin Dose 100 MG; Start 02/21/19 at 15:30 Zolpidem Tartrate (Ambien) 5 mg HS PRN PO INSOMNIA Last administered on 02/25/19 21:16; Admin Dose 5 MG; Start 02/21/19 at 22:00 Guaifenesin/ Dextromethorphan (Robitussin Dm Liquid Cup) 5 ml Q6H PRN PO cough Last administered on 02/26/19 12:33; Admin Dose 5 ML; Start 02/21/19 at 22:00 Pantoprazole (Protonix Tab) 40 mg DAILY@06 PO Last administered on 02/26/19 06:23; Admin Dose 40 MG; Start 02/22/19 at 13:00 Enoxaparin Sodium (Lovenox) 40 mg DAILY SC Last administered on 02/26/19 08:24; Admin Dose 40 MG; Start 02/22/19 at 12:00 Amlodipine Besylate (Norvasc) 10 mg DAILY PO Last administered on 02/26/19 08:22; Admin Dose 10 MG; Start 02/23/19 at 14:00 Acetaminophen/ Hydrocodone Bitart ([place] (5/325)) 1 tab Q12 PRN PO MODERATE PAIN LEVEL 4-6 Last administered on 02/26/19 09:47; Admin Dose 1 TAB; Start 02/23/19 at 18:00 Docusate Sodium (Colace) 100 mg BID PRN PO CONSTIPATION Last administered on 02/24/19 13:34; Admin Dose 100 MG; Start 02/24/19 at 13:00 Bisacodyl (Dulcolax) 5 mg DAILY PRN PO CONSTIPATION Last administered on 02/25/19 15:04; Admin Dose 5 MG; Start 02/24/19 at 13:00 Insulin Glargine (Lantus) 15 units DAILY@2000 SC Last administered on 02/25/19 21:26; Admin Dose 15 UNITS; Start 02/25/19 at 20:00 Albuterol/ Ipratropium (Duoneb) 3 ml Q4H RESP THERAPY HHN Last administered on 02/26/19 13:29; Admin Dose 3 ML; Start 02/26/19 at 01:00 Methylprednisolone Sodium Succinate (Solu-Medrol) 60 mg ONCE ONCE IV ; Start 02/26/19 at 14:00; Stop 02/26/19 at 14:01; Status UNV Methylprednisolone Sodium Succinate (Solu-Medrol) 40 mg BID IV ; Start 02/26/19 at 21:00; Status UNV MINA FARAH MD Feb 26, 2019 14:03
[2019-02-26 14:36] VITALS: BP 118/59; PULSE 72; RESP 17
[2019-02-26 19:33] VITALS: BP 114/58; PULSE 80; RESP 18
[2019-02-26] MEDS: ZOLPIDEM 5 MG TAB PO PRN (21:26)
[2019-02-26] MEDS: METHYLPREDNISOLONE 40 MG INJ IV SCH (21:28)
[2019-02-26] MEDS: INSULIN GLARGINE [LANTus] (100 UNITS/ML) SYG SC SCH (21:34)
[2019-02-26] MEDS: NPH, HUMAN INSULIN ISOPHANE 3ML VIAL SC SCH (22:28)
[2019-02-27] MEDS: ALBUTEROL/IPRATROPIUM (NEB) 3 ML AMP HHN SCH ×4 (01:30→13:00)
[2019-02-27 01:38] VITALS: BP 127/58; PULSE 63; RESP 18
[2019-02-27] MEDS: PANTOPRAZOLE (EC) 40 MG TAB PO SCH (06:38)
[2019-02-27 07:28] VITALS: BP 125/73; PULSE 99; RESP 18
[2019-02-27] MEDS: BUPROPION (XL) 150 MG TAB PO SCH (08:35)
[2019-02-27] MEDS: AMLODIPINE 10 MG TAB PO SCH (08:35)
[2019-02-27] MEDS: HYDROCHLOROTHIAZIDE 25 MG TAB PO SCH (08:35)
[2019-02-27] MEDS: METHYLPREDNISOLONE 40 MG INJ IV SCH (08:36)
[2019-02-27] MEDS: LOSARTAN 50 MG TAB PO SCH (08:36)
[2019-02-27] MEDS: INSULIN ASPART [NOVOLOG] 3 ML PEN SC SCH ×3 (08:42→17:49)
[2019-02-27] MEDS: NPH, HUMAN INSULIN ISOPHANE 3ML VIAL SC SCH (08:43)
[2019-02-27] MEDS: ENOXAPARIN 40 MG/0.4 ML SYG SC SCH (08:44)
[2019-02-27] MEDS: HYDROCODONE/APAP (5/325) TAB PO PRN (08:57)
--- NOTE | 2019-02-27 10:51 | CONS ---
Consult Date/Type/Reason Admit Date/Time Feb 21, 2019 at 01:13 Initial Consult Date Type of Consult Pulmonary Date/Time of Note DATE: 02/27/19 TIME: 10:50 Subjective Patient appears comfortable this morning no respiratory distress Objective Vital Signs Date Temp Pulse Resp B/P (MAP) Pulse Ox O2 O2 Flow FiO2 Time Delivery Rate 02/27/19 95 2.0 09:23 02/27/19 63 16 Nasal 09:23 Cannula 02/27/19 98.8 125/73 07:28 (90) 02/25/19 21 20:10 Intake and Output 02/26/19 02/26/19 02/27/19 1414:59 22:59 06:59 IntakeIntake Total 840 ml 240 ml BalanceBalance 840 ml 240 ml Exam PHYSICAL EXAMINATION: GENERAL: Moderately obese lady, awake, alert, oriented, talking in full and complete sentences. VITAL SIGNS: NECK: Supple. No JVD or lymphadenopathy. CARDIAC: S1, S2, no added sounds or murmurs. CHEST: Diminished air entry bilaterally, but no rales or wheezes. ABDOMEN: Soft, nontender. No guarding or rebound. EXTREMITIES: No cyanosis, clubbing, or edema. NEUROLOGIC: Generalized weakness. No focal deficits. Vent Setting Fraction of Inspired Oxygen pe: 21 Results/Medications Result Diagram: 02/25/19 0459 02/25/19 0459 Results 24 hrs Laboratory Tests Test 02/26/19 12:04 02/26/19 17:28 02/26/19 21:29 02/26/19 22:27 Bedside Glucose 213 257 H 320 H 320 H Test 02/27/19 01:02 02/27/19 03:02 02/27/19 07:49 Bedside Glucose 202 198 167 Medications Current Medications Acetaminophen (Tylenol Tab) 650 mg Q6H PRN PO MILD PAIN(1-3)OR ELEVATED TEMP Last administered on 02/21/19at 20:50; Admin Dose 650 MG; Start 02/21/19 at 04:30 Insulin Aspart (Novolog Insulin Pen) NOVOLOG *MODERATE* ALGORITHM WITH MEALS BEDTIME SC Last administered on 02/27/19at 08:42; Admin Dose 2 UNIT; Start 02/21/19 at 08:00 Miscellaneous Information 1 ea NOTE XX ; Start 02/21/19 at 05:30 Glucose (Glutose) 15 gm Q15M PRN PO DECREASED GLUCOSE; Start 02/21/19 at 05:30 Glucose (Glutose) 22.5 gm Q15M PRN PO DECREASED GLUCOSE; Start 02/21/19 at 05:30 Dextrose (D50w Syringe) 25 ml Q15M PRN IV DECREASED GLUCOSE; Start 02/21/19 at 05:30 Dextrose (D50w Syringe) 50 ml Q15M PRN IV DECREASED GLUCOSE; Start 02/21/19 at 05:30 Glucagon (Glucagen) 1 mg Q15M PRN IM DECREASED GLUCOSE; Start 02/21/19 at 05:30 Glucose (Glutose) 15 gm Q15M PRN BUCCAL DECREASED GLUCOSE; Start 02/21/19 at 05:30 Bupropion HCl (Wellbutrin Xl) 150 mg QAM PO Last administered on 02/27/19 08:35; Admin Dose 150 MG; Start 02/22/19 at 09:00 Clonidine (Catapres) 0.2 mg Q8 PO Last administered on 02/27/19 06:39; Admin Dose 0.2 MG; Start 02/21/19 at 15:30 Hydrochlorothiazide (Hydrochlorothiazide) 25 mg DAILY PO Last administered on 02/27/19 08:35; Admin Dose 25 MG; Start 02/21/19 at 15:30 Losartan Potassium (Cozaar) 100 mg DAILY PO Last administered on 02/27/19 08:36; Admin Dose 100 MG; Start 02/21/19 at 15:30 Zolpidem Tartrate (Ambien) 5 mg HS PRN PO INSOMNIA Last administered on 02/26/19 21:26; Admin Dose 5 MG; Start 02/21/19 at 22:00 Guaifenesin/ Dextromethorphan (Robitussin Dm Liquid Cup) 5 ml Q6H PRN PO cough Last administered on 02/26/19 21:26; Admin Dose 5 ML; Start 02/21/19 at 22:00 Pantoprazole (Protonix Tab) 40 mg DAILY@06 PO Last administered on 02/27/19 06:38; Admin Dose 40 MG; Start 02/22/19 at 13:00 Enoxaparin Sodium (Lovenox) 40 mg DAILY SC Last administered on 02/26/19 08:24; Admin Dose 40 MG; Start 02/22/19 at 12:00 Amlodipine Besylate (Norvasc) 10 mg DAILY PO Last administered on 02/27/19 08:35; Admin Dose 10 MG; Start 02/23/19 at 14:00 Acetaminophen/ Hydrocodone Bitart ([place] (5/325)) 1 tab Q12 PRN PO MODERATE PAIN LEVEL 4-6 Last administered on 02/27/19 08:57; Admin Dose 1 TAB; Start 02/23/19 at 18:00 Docusate Sodium (Colace) 100 mg BID PRN PO CONSTIPATION Last administered on 02/24/19 13:34; Admin Dose 100 MG; Start 02/24/19 at 13:00 Bisacodyl (Dulcolax) 5 mg DAILY PRN PO CONSTIPATION Last administered on 02/25/19 15:04; Admin Dose 5 MG; Start 02/24/19 at 13:00 Insulin Glargine (Lantus) 15 units DAILY@2000 SC Last administered on 02/26/19 21:34; Admin Dose 15 UNITS; Start 02/25/19 at 20:00 Albuterol/ Ipratropium (Duoneb) 3 ml Q4H RESP THERAPY HHN Last administered on 02/27/19 09:23; Admin Dose 3 ML; Start 02/26/19 at 01:00 Methylprednisolone Sodium Succinate (Solu-Medrol) 40 mg BID IV Last administered on 02/27/19 08:36; Admin Dose 40 MG; Start 02/26/19 at 21:00 Miscellaneous Information Patients own medicat... BID@10,16 XX ; Start 02/27/19 at 10:00 Insulin Human NPH (Humulin N) 5 unit BID SC Last administered on 02/27/19 08:43; Admin Dose 5 UNIT; Start 02/26/19 at 22:00 Assessment/Plan Hospital Course (Demo Recall) IMPRESSION 1. Likely chronic obstructive pulmonary disease exacerbation with acute on chronic hypoxemic and hypercapnic respiratory failure. 2. Probable underlying obesity hypoventilation. 3. Probable underlying obstructive sleep apnea. 4. Major depressive disorder. Plan 1. Bronchodilators. 2. decrease steroids. 3. DC antibiotics. 4. Outpatient sleep study. 5. Nocturnal noninvasive positive pressure ventilation. 6. Outpatient pulmonary function testing. 7. Encourage OOB ambulate PAULINE HERRERA MD, [facility] Feb 27, 2019 10:51
--- NOTE | 2019-02-27 13:22 | PDOCDIS ---
Discharge Instructions DIAGNOSIS Discharge Diagnosis COPD exacerbation CONDITION Zsymz6Mg Patient Condition: Auzkn9h Fair HOME CARE INSTRUCTIONS: Sooob9Dl Special Diet: Gzkwc4y carb controlled ACTIVITY: [id number] Activity Restrictions: [id number] Slowly Increase Activity Rest between Activity Avoid heavy lifting FOLLOW UP/APPOINTMENTS Follow-up Plan fu PCP in 1-2 weeks return to ERif has cp/sob MINA FARAH MD Feb 27, 2019 13:22
[2019-02-27] MEDS ORDERED: PRED20TA PO (13:24)
[2019-02-27] MEDS ORDERED: ALBU18HF INHALATION (13:24)
[2019-02-27] MEDS ORDERED: IPRA3AMP29 HHN (13:28)
[2019-02-27 14:11] VITALS: BP 85/52; PULSE 65; RESP 18
[2019-02-27 14:23] VITALS: BP 102/51; PULSE 66; RESP 18
[2019-02-27 15:00] VITALS: BP 118/58; PULSE 64; RESP 20
[2019-02-27] MEDS: ACETAMINOPHEN 325 MG TAB PO PRN (15:00)
--- NOTE | 2019-03-15 03:37 | DS ---
DATE OF ADMISSION: 02/21/2019 DATE OF DISCHARGE: 02/27/2019 HISTORY OF PRESENTING ILLNESS AND HOSPITAL COURSE: This is a 63-year-old female with past medical hi story of obesity, schizophrenia, polysubstance abuse, chronic pain on methadone, arthritis, COPD, mor bid obesity, history of UTI, major depressive disorder, presented to the emergency department after c omplaining of shortness of breath and cough at home. The patient has been doing fine until 3 or 4 da ys ago started having some shortness of breath with exertion. Also having some cough, bringing out s putum. Denied any fevers and chills. On admission, temperature was 98.2, pulse 116, white count of 7.4, hemoglobin 12.8. BMP showed BUN of 14, creatinine 0.54, pH was 7.2, pCO2 of 74, pO2 of 78, bica rbonate 32. The patient's chest x-ray showed hyperinflation of the lung, minimal patchy infiltrate o f right lung base. The patient was admitted to the telemetry floor, started on IV fluids, IV antibio tics and IV steroids. The patient was seen by Dr. Herrera for pulmonary consultation and their recom mendations were followed. The patient was continued on bronchodilators, steroids, antibiotics. The patient will need outpatient sleep study, nocturnal, noninvasive positive pressure ventilation. The patient's condition was slowly improving every day with waxing and waning course. The patient's whit e count was 7.5, hemoglobin 13.1. ABG showed improvement. pCO2 came down to 69; however pO2 was 54. The patient had been requiring oxygen at home. The patient's condition was improving every day wit h improvement in the O2 sats and breathing. Arrangement was done for home health and home oxygen. C jeremiah, the patient is feeling much better and is stable to be discharged home and cleared by pulmo didier. FINAL DISCHARGE DIAGNOSES: 1. Shortness of breath, cough, likely secondary to chronic obstructive pulmonary disease exacerbatio n, possible underlying pneumonia. 2. Hypercapnic respiratory failure, now improved. 3. Diabetes. 4. Hypertension. 5. Hyperlipidemia. 6. Obesity. 7. History of polysubstance use. 8. Chronic pain control. 9. Depression. DISCHARGE MEDICATIONS: 1. The patient was given a prescription for nebulizer. 2. New prescription of DuoNeb 3 mL q.4 p.r.n. respiratory therapy. 3. Prednisone tapering. Continue with: 1. 150 p.o. q.a.m. 2. Soma p.r.n. 3. Clonazepam 2 mg p.o. t.i.d. anxiety. 4. Clonidine 0.2 q.8. 5. Baclofen. 6. Fluoxetine 40 p.o. q.a.m. 7. Gabapentin 300. 8. Hydrochlorothiazide 25. 9. Ibuprofen. 10. Losartan 100. 11. Metformin 1000 b.i.d. 12. Zofran. 13. Zolpidem. FOLLOWUP: The patient will need followup with pulmonary in 1 to 2 weeks. Dictated By: MINA ABDI/SOFIA Conf#: [id number] DID#: [id number] CC: PAULINE HERRERA MD; MARIAM PASCUAL MD;*EndCC*
== END 2019-02-27 19:05 | disposition home health service (06) | DRG 193 ==
LOC: E/R 22:35 → 6WM 02-21 01:13 → 2NE 02-24 17:55
PROVIDERS: ADMIT Internal Medicine Nephrology; ATTEND Internal Medicine Nephrology
DX: J18.9 Pneumonia, unspecified organism (principal); J96.01 Acute respiratory failure with hypoxia; J96.02 Acute respiratory failure with hypercapnia; J44.1 Chronic obstructive pulmonary disease with (acute) exacerbation; Z68.42 Body mass index [BMI] 45.0-49.9, adult; I11.0 Hypertensive heart disease with heart failure; E66.01 Morbid (severe) obesity due to excess calories; F20.9 Schizophrenia, unspecified; I50.9 Heart failure, unspecified; E11.9 Type 2 diabetes mellitus without complications; F32.9 Major depressive disorder, single episode, unspecified; F41.9 Anxiety disorder, unspecified; Z72.0 Tobacco use; G47.00 Insomnia, unspecified; E78.5 Hyperlipidemia, unspecified; D50.9 Iron deficiency anemia, unspecified; M19.90 Unspecified osteoarthritis, unspecified site; G47.33 Obstructive sleep apnea (adult) (pediatric)
CPT/HCPCS: 36415; 36600; 71045; 80048; 80053; 82803; 82962; 83605; 83880; 84484; 85025; 85610; 85730; 93005; 94640; 94644; 96374; 97116; 97161; 97530; J0456; J0696; J1650; J1815; J2920; J2930; J7030; J7040

== ENCOUNTER 2019-05-11 00:34 | Emergency (ER) | payer OTHER ==
[~2019-05-11] VITALS: Ht 165.1 cm; Wt 126.9 kg
[~2019-05-11 00:34] MED LIST changes: -CIPR500T4 PO; +IPRA3AMP29 HHN; +PRED20TA PO
[2019-05-11 00:43] VITALS: Ht 165.1 cm; Wt 126.9 kg
[2019-05-11] MEDS ORDERED: KETOROLAC 15 MG INJ IV STA (02:46)
--- NOTE | 2019-05-11 02:46 | ERD ---
ER Documentation Chief Complaint Chief Complaint R889. FROM HOME. GROUND LEVEL FALL FROM USING COMODE. HPI This is a 64-year-old female with a past medical history of hypertension, diabetes, anxiety, depression is presenting after a mechanical fall. The patient reports getting tangled up in the restroom and losing her balance. She fell forward and hit her chin on the ground. The patient sustained an abrasion to the chin which was bleeding. She denies loss of consciousness. She does endorse pain on the chin, but does not have a deformity and is able to open and close mouth without difficulty. There is no evidence of oral trauma. The patient denies any headache or vision changes. She denies any neck or back pain. She does not endorse any other trauma or injury. The patient denies feeling sick recently. The patient denies fever or chills. The patient has had no headache or vision changes. The patient does not endorse neck or back pain. The patient denies lightheadedness or dizziness. The patient has had no chest pain or trouble breathing. The patient denies nausea or vomiting. The patient denies abdominal pain. The patient denies changes to bowel movements or urination. The patient has had no focal deficits. The patient has had no weakness or numbness or tingling to the face or extremities. ROS All systems reviewed and are negative except as per history of present illness. Medications Home Meds Active Scripts Ipratropium-Albuterol (Ipratropium-Albuterol) 0.5-3 Mg/3 Ml Ampul.neb, 3 ML HHN Q4H RESP THERAPY for 7 Days Prov:MINA FARAH MD 02/27/19 Prednisone* (Prednisone*) 20 Mg Tab, 20 MG PO DAILY for 10 Days, TAB Prov:MINA FARAH MD 02/27/19 Albuterol Sulfate* (Ventolin HFA*) 18 Gm Hfa.aer.ad, 2 PUFF INHALATION Q4H for 30 Days, #1 INHALER Prov:MINA FARAH MD 02/27/19 Fluoxetine Hcl* (Fluoxetine Hcl*) 20 Mg Capsule, 40 MG PO QAM for 30 Days, CAP Prov:JENNIFER BLACKMON MD 12/22/18 Hydrochlorothiazide* (Hydrochlorothiazide*) 25 Mg Tab, 25 MG PO DAILY, #30 TAB Prov:JENNIFER BLACKMON MD 12/22/18 Clonazepam* (Clonazepam*) 2 Mg Tablet, 2 MG PO TID PRN for ANXIETY, #12 TAB Prov:JENNIFER BLACKMON MD 12/22/18 Clonidine Hcl* (Clonidine Hcl*) 0.2 Mg Tablet, 0.2 MG PO Q8 for 30 Days, TAB Prov:JENNIFER BLACKMON MD 12/22/18 Losartan Potassium* (Losartan Potassium*) 100 Mg Tablet, 100 MG PO DAILY for 30 Days, TAB Prov:JENNIFER BLACKMON MD 12/22/18 Gabapentin* (Gabapentin*) 300 Mg Capsule, 300 MG PO DAILY, #60 CAP Prov:JENNIFER BLACKMON MD 12/22/18 Metformin Hcl* (Metformin Hcl*) 1,000 Mg Tablet, 1000 MG PO WITH BREAKFAST DINNE, #60 TAB Prov:JENNIFER BLACKMON MD 12/22/18 Bupropion Hcl* (Bupropion XL*) 150 Mg Tab.er.24h, 150 MG PO QAM for 30 Days, TAB.SA Prov:JENNIFER BLACKMON MD 12/22/18 Ondansetron (Ondansetron Odt) 4 Mg Tab.rapdis, 4 MG PO Q6H PRN for NAUSEA AND/OR VOMITING, #10 TAB Prov:FINA BERGMAN MD 12/14/18 Ibuprofen* (Motrin*) 600 Mg Tab, 600 MG PO Q6H PRN for PAIN AND OR ELEVATED TEMP, #30 TAB Prov:FINA BERGMAN MD 12/14/18 Reported Medications Zolpidem Tartrate* (Zolpidem Tartrate*) 10 Mg Tablet, 10 MG PO QHS PRN for INSOMNIA, #30 TAB 12/15/18 Benztropine Mesylate* (Benztropine Mesylate*) 0.5 Mg Tablet, 0.5 MG PO BID, TAB 06/08/18 Diclofenac Sodium* (Diclofenac Sodium*) 50 Mg Tablet.dr, 50 MG PO BID, #60 TAB 06/08/18 Carisoprodol* (Carisoprodol*) 350 Mg Tablet, 350 MG PO BID PRN for MUSCLE SPASMS, TAB 06/08/18 Allergies Allergies: Coded Allergies: No Known Allergies (Unverified Allergy, Mild, 02/21/19) PMhx/Soc History of Surgery: Yes (Partial hysterectomy) Anesthesia Reaction: No Hx Neurological Disorder: No Hx Cardiac Disorders: Yes (Hypertension, diabetes) Hx Psychiatric Problems: Yes (Depression, Anxiety) Hx Alcohol Use: Yes (occasional) Hx Substance Use: No Hx Tobacco Use: Yes (1/2 pack a day) Smoking Status: Current every day smoker FmHx Family History: diabetes Physical Exam Vitals Vital Signs Date Temp Pulse Resp B/P (MAP) Pulse Ox O2 O2 Flow FiO2 Time Delivery Rate 05/11/19 98.0 104 18 116/61 92 00:43 (79) Physical Exam Const: No apparent distress, well-developed, well-nourished Head: Normocephalic. No sharp sign. Abrasion to the chin. Eyes: Normal Conjunctiva. Extraocular movements intact. Pupils equal, round and reactive to light. No raccoon eyes ENT: Normal External Ears, Nose and Mouth. No hemotympanum Neck: No midline spinal tenderness. Full range of motion without pain. No meningismus. Resp: Clear to auscultation bilaterally, No wheezes, rales or rhonchi Cardio: Regular rate and rhythm. No murmurs, rubs or gallops Abd: Obesity. Soft, non tender, non distended. Normal bowel sounds Skin: No petechiae or rashes Back: No midline tenderness. No CVA tenderness Ext: No cyanosis, or edema Neur: Awake and alert, oriented 4. Cranial nerves intact. No facial droop. Normal strength, sensation and coordination. Psych: Normal Mood and Affect Procedures/MDM MDM The patient's presentation warrants further investigation. Previous medical records, if available, were reviewed. IMAGING Imaging and Radiology interpretation reviewed. CT Head FINDINGS: Parenchyma: No acute hemorrhage, large territorial infarction, or mass. The luna-white matter junctions are intact. No space occupying intra-axial masses or extra-axial fluid collections are present. There is mild parenchymal volume loss. There are areas of decreased attenuation involving the bilateral subcortical, periventricular regions and deep white matter consistent with mild chronic microvascular white matter ischemic disease. There is a partially empty sella. Ventricles: No ventriculomegaly or ventricular effacement. Extra-axial spaces: No herniation or midline shift. Paranasal sinuses: Clear. Mastoids and middle ears: Clear. Visualized orbits: Normal. Vessels: There is calcified atherosclerotic arterial plaque identified in the internal carotid arteries. Bones: Normal. Extracranial soft tissues: Normal. Additional comment: None. IMPRESSION: 1. No acute intracranial abnormality. 2. Mild generalized parenchymal volume loss and chronic microvascular white m atter ischemic disease. 3. Partially empty sella. 4. Atherosclerosis. Electronically viewed and signed by Becki Lawrence Physician on 05/11/2019 02:04 CT C-Spine FINDINGS: Alignment: Intact craniocervical junction. Straightening of the normal cervical lordosis.. 2.0 mm anterolisthesis of C3 on C4. Vertebrae: No fracture, vertebral body height loss, or destructive bone lesion. Discs: Severe disc height loss C5-C6 and C6-C7. Moderate disc height loss C3-C4 and C4-C5. Degenerative change: Anterior spinal degenerative enthesopathy changes involve C3 - C7. C2-C3 : Mild bilateral facet joint arthropathy. No central canal or foraminal narrowing. C3-C4 : Small diffuse disc osteophyte complex resulting in central canal stenosis with AP diameter measuring 7 mm. There is moderate right and mild left uncovertebral joint arthropathy. Moderate bilateral facet arthropathy. Severe bilateral foraminal narrowing. C4-C5 : Small diffuse disc osteophyte complex resulting in mild central canal stenosis with AP diameter measuring 7.5 mm. Moderately severe to severe right and mild left facet joint arthropathy. Mild bilateral, left greater than right uncovertebral joint arthropathy. Severe bilateral foraminal narrowing. C5-C6 : Small diffuse disc osteophyte complex resulting in mild central canal stenosis with the AP diameter measuring 7.5 mm. Moderate bilateral uncovertebral joint arthropathy. Mild to moderate bilateral facet arthropathy. Severe bilateral foraminal narrowing. C6-C7 : Small diffuse disc osteophyte complex most pronounced to the left subarticular zone resulting in left lateral recess narrowing. Severe central canal stenosis with AP diameter measuring 5 mm. Severe bilateral uncovertebral and mild facet arthropathy. Severe bilateral foraminal narrowing. C7-T1 : Moderate bilateral facet and mild uncovertebral joint arthropathy. Mild to moderate right and mild left foraminal narrowing IMPRESSION: 1. No acute fracture or post traumatic subluxation. 2. Severe disc height loss C5-C6 and C6-7. Moderate disc height loss C3-C4 and C4-C5. 3. Multilevel disc osteophyte complexes, uncovertebral, and facet arthropathy resulting in various degrees of central canal stenosis and foraminal narrowing. C3-C4 mild central canal stenosis, severe bilateral foraminal narrowing, C4-C5 mild central canal stenosis, severe bilateral foraminal narrowing, C5-C6 mild central canal stenosis, severe bilateral foraminal narrowing, C6-7 severe central canal stenosis, left lateral recess narrowing, severe bilateral foraminal narrowing, C7-T1 mild to moderate right and mild left foraminal narrowing. Electronically viewed and signed by Becki Lawrence Physician on 05/11/2019 02:14 TREATMENT/DISPOSITION The patient presents after a mechanical ground-level fall. The history is not consistent with a syncopal event. The patient presents after a trauma. []. The patient was evaluated fully without evidence of emergent posttraumatic pathology. [The patient's CT imaging of the head and cervical spine are unremarkable.] The patient has no focal deficits. I've low suspicion for intracranial pathology. I have low suspicion for cerebral ischemia or intracranial hemorrhage. The patient has no cervical spine tenderness. He can move his neck in all directions without any pain. As stated above, he does not have any focal deficits. He is not altered or intoxicated. He does not have any distracting injuries. The patient's cervical spine was clinically cleared using the Nexus C-spine rule. The patient does not have any saddle anesthesia. He has not been incontinent of urine or stool. He has not had any retention of urine or stool. I have low suspicion for spinal cord injury. There is no evidence of cardiothoracic or abdominal injury. I have low suspicion for extremity injury. There is no evidence of any penetrating injuries. The patient does have an abrasion to her chin. She does not know when her last tetanus was. It was provided today. The patient was also treated with Toradol in the emergency department. DISCHARGE Upon reevaluation of the patient, symptoms have improved. No emergent diagnoses were identified. At this time, I feel that the patient stable for discharge. The patient was instructed to follow-up with a primary care physician in 1-3 days. The patient will be given strict precautions with which to return to the emergency department. Prescriptions: None Disclaimer: Inadvertent spelling and grammatical errors are likely due to EHR/dictation software use and do not reflect on the overall quality of patient care. Note that the electronic time recorded on this note does not necessarily reflect the actual time of the patient encounter. Departure Diagnosis: Primary Impression: Fall from ground level Additional Impressions: Fall with no significant injury Encounter type: initial encounter Qualified Codes: W19.XXXA - Unspecified fall, initial encounter Head trauma Encounter type: initial encounter Qualified Codes: S09.90XA - Unspecified injury of head, initial encounter Chin abrasion, non-infected Condition: Stable Patient Instructions: Fall Prevention, Head Trauma (Traumatic Brain Injury) Additional Instructions: Thank you for for coming to [facility] for your care today. April alfonso ask your nurse or provider if you have questions about your care today and do not leave until all your questions have been answered. Please use any medications given as directed and follow-up with your doctor (or the doctor you were referred to) in the next 1-3 days. If you do not have a primary care doctor you may follow up at the [facility] or [facility] (listed below). You may also use motrin and tylenol as needed for fever and/or pain unless instructed otherwise by your provider or nurse. Indications for more urgent follow-up have been discussed, but you may return to the Emergency Department at ANY time for any worrisome or worsening symptoms. If you have abdominal pain, please know that no test or exam you received is perfect and you should follow up within 8 hours for continued pain. If you had any imaging studies today, such as an X-Ray or CT Scan, these studies will be reviewed later by a radiologist. You will be called if there are important findings that were not identified today, so make sure the contact information you provided at registration is correct. If you received any narcotic pain control medicine today, such as Vicodin, Morphine or Dilaudid, your coordination and judgment may be affected for a number of hours. Please do not drive or operate heavy machinery, and you may want someone to assist you at home. If you were given a prescription for na rcotic medication, be aware that it is very addictive- use sparingly and only if necessary. PLEASE SEEK FURTHER EVALUATION AND MANAGEMENT AT YOUR DOCTORS OFFICE WITHIN THE NEXT 1-3 DAYS. IT IS YOUR RESPONSIBILITY TO MAKE AN APPOINTMENT FOR FOLOW-UP CARE. IF YOU HAVE A PRIMARY DOCTOR, PLEASE CALL THEIR OFFICE TO SCHEDULE AN APPOINTMENT FOR FOLLOW UP. IF YOU DO NOT HAVE A PRIMARY DOCTOR YOU CAN CALL OUR PHYSICIAN REFERRAL HOTLINE AT IF YOU CAN NOT AFFORD TO SEE A PHYSICIAN YOU CAN CHOSE FROM THE FOLLOWING [facility]: [facility] [address] [facility] [address] [facility]. [facility] [address] [facility] [address] [facility] [address] [facility]. [facility]. [address] ZELDA NORTH MD May 11, 2019 02:46
[2019-05-11] MEDS ORDERED: DIPHTH/TET/ACEL PERTUSS (ADULT) 0.5 ML VIAL IM* ONE (03:00)
[2019-05-11 04:50] VITALS: BP 125/75; PULSE 89; RESP 18
== END 2019-05-11 04:30 | disposition home or self-care (01) ==
LOC: E/R 00:34
DX: S00.81XA Abrasion of other part of head, initial encounter (principal); I10 Essential (primary) hypertension; E11.9 Type 2 diabetes mellitus without complications; F17.210 Nicotine dependence, cigarettes, uncomplicated; S09.90XA Unspecified injury of head, initial encounter; R94.02 Abnormal brain scan; W01.198A Fall on same level from slipping, tripping and stumbling with subsequent striking against other object, initial encounter; Y92.002 Bathroom of unspecified non-institutional (private) residence as the place of occurrence of the external cause; Z23 Encounter for immunization; Z79.84 Long term (current) use of oral hypoglycemic drugs
CPT/HCPCS: 70450; 72125; 90715; J1885; 90471; 96374

== ENCOUNTER 2019-05-16 07:06 | Emergency (ER) | payer MEDICARE, OTHER ==
[~2019-05-16] VITALS: Wt 125.9 kg
[2019-05-16] MEDS ORDERED: KETOROLAC 30 MG INJ IM STA (07:25)
[2019-05-16] MEDS ORDERED: ONDANSETRON (ODT) 4 MG TAB ODT STA (07:25)
[2019-05-16] MEDS ORDERED: HYDROCODONE/APAP (10/325) TAB PO ONE (07:30)
--- NOTE | 2019-05-16 07:37 | ERD ---
ER Documentation Chief Complaint Chief Complaint Acute on chronic back pain HPI This is a 64-year-old with a history of morbid obesity, schizophrenia and chronic pain. The patient presents today via EMS because she is having an exacerbation of her chronic lumbar back pain. She describes daily lumbar back pain that is usually to the lower back, nonradiating. The patient takes Soma and benzodiazepines for her pain. She states that the pain is slightly worse than usual today. She denies any bowel or bladder incontinence and retention. No motor weakness. The patient states that she is having trouble getting around at home because of the pain. She is asking for pain medication. Patient denies any new falls or injuries. No fevers or chills. No dysuria urgency or frequency. ROS All systems reviewed and are negative except as per history of present illness. Medications Home Meds Active Scripts Ipratropium-Albuterol (Ipratropium-Albuterol) 0.5-3 Mg/3 Ml Ampul.neb, 3 ML HHN Q4H RESP THERAPY for 7 Days Prov:MINA FARAH MD 02/27/19 Prednisone* (Prednisone*) 20 Mg Tab, 20 MG PO DAILY for 10 Days, TAB Prov:MINA FARAH MD 02/27/19 Albuterol Sulfate* (Ventolin HFA*) 18 Gm Hfa.aer.ad, 2 PUFF INHALATION Q4H for 30 Days, #1 INHALER Prov:MINA FARAH MD 02/27/19 Fluoxetine Hcl* (Fluoxetine Hcl*) 20 Mg Capsule, 40 MG PO QAM for 30 Days, CAP Prov:JENNIFER BLACKMON MD 12/22/18 Hydrochlorothiazide* (Hydrochlorothiazide*) 25 Mg Tab, 25 MG PO DAILY, #30 TAB Prov:JENNIFER BLACKMON MD 12/22/18 Clonazepam* (Clonazepam*) 2 Mg Tablet, 2 MG PO TID PRN for ANXIETY, #12 TAB Prov:JENNIFER BLACKMON MD 12/22/18 Clonidine Hcl* (Clonidine Hcl*) 0.2 Mg Tablet, 0.2 MG PO Q8 for 30 Days, TAB Prov:JENNIFER BLACKMON MD 12/22/18 Losartan Potassium* (Losartan Potassium*) 100 Mg Tablet, 100 MG PO DAILY for 30 Days, TAB Prov:JENNIFER BLACKMON MD 12/22/18 Gabapentin* (Gabapentin*) 300 Mg Capsule, 300 MG PO DAILY, #60 CAP Prov:JENNIFER BLACKMON MD 12/22/18 Metformin Hcl* (Metformin Hcl*) 1,000 Mg Tablet, 1000 MG PO WITH BREAKFAST DINNE, #60 TAB Prov:JENNIFER BLACKMON MD 12/22/18 Bupropion Hcl* (Bupropion XL*) 150 Mg Tab.er.24h, 150 MG PO QAM for 30 Days, TAB.SA Prov:JENNIFER BLACKMON MD 12/22/18 Ondansetron (Ondansetron Odt) 4 Mg Tab.rapdis, 4 MG PO Q6H PRN for NAUSEA AND/OR VOMITING, #10 TAB Prov:FINA BERGMAN MD 12/14/18 Ibuprofen* (Motrin*) 600 Mg Tab, 600 MG PO Q6H PRN for PAIN AND OR ELEVATED TEMP, #30 TAB Prov:FINA BERGMAN MD 12/14/18 Reported Medications Zolpidem Tartrate* (Zolpidem Tartrate*) 10 Mg Tablet, 10 MG PO QHS PRN for INSOMNIA, #30 TAB 12/15/18 Benztropine Mesylate* (Benztropine Mesylate*) 0.5 Mg Tablet, 0.5 MG PO BID, TAB 06/08/18 Diclofenac Sodium* (Diclofenac Sodium*) 50 Mg Tablet.dr, 50 MG PO BID, #60 TAB 06/08/18 Carisoprodol* (Carisoprodol*) 350 Mg Tablet, 350 MG PO BID PRN for MUSCLE SPASMS, TAB 06/08/18 Allergies Allergies: Coded Allergies: No Known Allergies (Unverified Allergy, Mild, 02/21/19) PMhx/Soc History of Surgery: Yes (Partial hysterectomy) Anesthesia Reaction: No Hx Neurological Disorder: No Hx Cardiac Disorders: Yes (Hypertension, diabetes) Hx Psychiatric Problems: Yes (Depression, Anxiety) Hx Alcohol Use: Yes (occasional) Hx Substance Use: No Hx Tobacco Use: Yes (1/2 pack a day) FmHx Family History: No diabetes Physical Exam Vitals Vital Signs Date Temp Pulse Resp B/P (MAP) Pulse Ox O2 O2 Flow FiO2 Time Delivery Rate 05/16/19 115 20 127/93 97 Nasal 2.0 08:45 (104) Cannula 05/16/19 99.9 123 22 134/87 95 07:33 (103) Physical Exam General: Morbidly obese, well developed, well nourished, no acute distress Head: Normocephalic, atraumatic. Eyes: EOM intact ENT: Moist mucous membranes Neck: Full ROM Respiratory: No respiratory distress Cardiovascular: Well perfused distally, slight tachycardia Abdominal: Nondistended Back: No midline tenderness deformities or step-offs : Deferred MSK: No edema, no unilateral swelling, 5/5 strength Neurologic: Alert and oriented, moving all extremities, normal speech Skin: No rash Psych: Normal mood Results 24 hrs Current Medications Medications Dose Sig/Patric Start Time Status Last (Trade) Ordered Route PRN Stop Time Admin Dose Reason Admin Ketorolac 30 mg ONCE STAT 05/16/19 DC 05/16/19 Tromethamine IM 07:25 07:48 (Toradol) 05/16/19 07:26 1 tab ONCE ONCE 05/16/19 DC 05/16/19 Acetaminophen PO 07:30 07:48 / 05/16/19 07:31 Hydrocodone Bitart (Knott (10/325)) Ondansetron 4 mg ONCE STAT 05/16/19 DC 05/16/19 HCl (Zofran ODT 07:25 07:48 Odt) 05/16/19 07:26 Procedures/MDM The patient's low back pain is unlikely related to serious etiology. The patient exhibits no clinical signs or symptoms and has no history or risk factors to suggest cauda equina, cord compression, epidural abscess, epidural hematoma, acute aortic aneurysm or dissection. The patient has chronic pain. Her pain today is very similar to chronic pain. She exhibits no signs or symptoms concerning for acute exacerbation or alternative process such as fracture or more serious etiology as documented above. The patient has a long-standing history of chronic pain and this raises the concern for narcotic dependence for seeking. I do not believe the diagnostic imaging or laboratory testing is necessary at this time. The patient was informed that she needs to follow-up with a specialist including a back pain specialist and eventually pain medicine doctor. Patient does not express interest in physical therapy or rehab. Patient was given Toradol and oral Knott. The patient's heart rate is improving with time. The patient is tolerating oral intake. Patient is wheelchair dependent at home. Ambulation trial not possible in the emergency room setting. At this point the patient's pain is well controlled and consistent with her chronic pain. The patient can be safely discharged. The patient does not have an identifiable emergent medical condition that warrants inpatient hospitalization at this time. The patient is deemed safe for discharge with outpatient follow-up. We discussed follow up with the patient's primary care doctor within 24 to 48 hours as needed. We also discussed return to the emergency room for worsening symptoms or worsening condition. Outpatient referral: Pain medicine Discharge Medications: None required Departure Diagnosis: Primary Impression: Morbid obesity Additional Impression: Back pain Back pain location: low back pain Chronicity: chronic Back pain laterality: bilateral Sciatica presence: without sciatica Qualified Codes: M54.5 - Low back pain; G89.29 - Other chronic pain Condition: Stable CLAUDIA HDEZ MD May 16, 2019 07:37
[2019-05-16 12:02] VITALS: BP 110/74; PULSE 110; RESP 20
== END 2019-05-16 18:07 | disposition home or self-care (01) ==
LOC: E/R 07:06
DX: E66.01 Morbid (severe) obesity due to excess calories (principal); I10 Essential (primary) hypertension; E11.9 Type 2 diabetes mellitus without complications; F17.210 Nicotine dependence, cigarettes, uncomplicated; Z79.84 Long term (current) use of oral hypoglycemic drugs
CPT/HCPCS: 96372; 99284; J1885

== ENCOUNTER 2019-06-04 19:55 | Inpatient (IN) | payer MEDICARE, OTHER ==
[~2019-06-04] VITALS: Ht 162.6 cm; Wt 130.9 kg
[~2019-06-04 19:55] MED LIST changes: +FURO40TA4 PO; +LEVO500T48 PO
--- NOTE | 2019-06-04 20:01 | ERD ---
ER Documentation Chief Complaint Chief Complaint Shortness of breath HPI The patient is a 64-year-old female, presenting to the ER because of genic weakness, shortness of breath for the last 3 days, he is not able to walk because of the dyspnea, complains of chronic abdominal pain. He denies fever, chills, cough, vomiting, dysuria, diarrhea. She smokes, drink socially, use 2 L nasal cannula continuously Past medical history: Hypertension, diabetes mellitus, depression, anxiety, dyslipidemia, chronic pain syndrome, COPD, asthma, obesity Past surgical history: Hysterectomy ROS All systems reviewed and are negative except as per history of present illness. Medications Home Meds Active Scripts Ipratropium-Albuterol (Ipratropium-Albuterol) 0.5-3 Mg/3 Ml Ampul.neb, 3 ML HHN Q4H RESP THERAPY for 7 Days Prov:MINA FARAH MD 02/27/19 Prednisone* (Prednisone*) 20 Mg Tab, 20 MG PO DAILY for 10 Days, TAB Prov:MINA FARAH MD 02/27/19 Albuterol Sulfate* (Ventolin HFA*) 18 Gm Hfa.aer.ad, 2 PUFF INHALATION Q4H for 30 Days, #1 INHALER Prov:MINA FARAH MD 02/27/19 Fluoxetine Hcl* (Fluoxetine Hcl*) 20 Mg Capsule, 40 MG PO QAM for 30 Days, CAP Prov:JENNIFER BLACKMON MD 12/22/18 Hydrochlorothiazide* (Hydrochlorothiazide*) 25 Mg Tab, 25 MG PO DAILY, #30 TAB Prov:JENNIFER BLACKMON MD 12/22/18 Clonazepam* (Clonazepam*) 2 Mg Tablet, 2 MG PO TID PRN for ANXIETY, #12 TAB Prov:JENNIFER BLACKMON MD 12/22/18 Clonidine Hcl* (Clonidine Hcl*) 0.2 Mg Tablet, 0.2 MG PO Q8 for 30 Days, TAB Prov:JENNIFER BLACKMON MD 12/22/18 Losartan Potassium* (Losartan Potassium*) 100 Mg Tablet, 100 MG PO DAILY for 30 Days, TAB Prov:JENNIFER BLACKMON MD 12/22/18 Gabapentin* (Gabapentin*) 300 Mg Capsule, 300 MG PO DAILY, #60 CAP Prov:JENNIFER BLACKMON MD 12/22/18 Metformin Hcl* (Metformin Hcl*) 1,000 Mg Tablet, 1000 MG PO WITH BREAKFAST DINNE, #60 TAB Prov:JENNIFER BLACKMON MD 12/22/18 Bupropion Hcl* (Bupropion XL*) 150 Mg Tab.er.24h, 150 MG PO QAM for 30 Days, TAB.SA Prov:JENNIFER BLACKMON MD 12/22/18 Ondansetron (Ondansetron Odt) 4 Mg Tab.rapdis, 4 MG PO Q6H PRN for NAUSEA AND/OR VOMITING, #10 TAB Prov:FINA BERGMAN MD 12/14/18 Ibuprofen* (Motrin*) 600 Mg Tab, 600 MG PO Q6H PRN for PAIN AND OR ELEVATED TEMP, #30 TAB Prov:FINA BERGMAN MD 12/14/18 Reported Medications Zolpidem Tartrate* (Zolpidem Tartrate*) 10 Mg Tablet, 10 MG PO QHS PRN for INSOMNIA, #30 TAB 12/15/18 Benztropine Mesylate* (Benztropine Mesylate*) 0.5 Mg Tablet, 0.5 MG PO BID, TAB 06/08/18 Diclofenac Sodium* (Diclofenac Sodium*) 50 Mg Tablet.dr, 50 MG PO BID, #60 TAB 06/08/18 Carisoprodol* (Carisoprodol*) 350 Mg Tablet, 350 MG PO BID PRN for MUSCLE SPASMS, TAB 06/08/18 Allergies Allergies: Coded Allergies: No Known Allergies (Unverified Allergy, Mild, 02/21/19) PMhx/Soc History of Surgery: Yes (Partial hysterectomy) Anesthesia Reaction: No Hx Neurological Disorder: No Hx Cardiac Disorders: Yes (Hypertension, diabetes) Hx Psychiatric Problems: Yes (Depression, Anxiety) Hx Alcohol Use: Yes (occasional) Hx Substance Use: No Hx Tobacco Use: Yes (1/2 pack a day) Physical Exam Vitals Vital Signs Date Temp Pulse Resp B/P (MAP) Pulse Ox O2 O2 Flow FiO2 Time Delivery Rate 06/04/19 109 138/85 90 BIPAP 23:28 (102) 06/04/19 110 24 131/92 89 BIPAP 22:57 (105) 06/04/19 111 91 30 22:37 06/04/19 108 20 124/79 90 BIPAP 22:30 (94) 06/04/19 121 19 140/88 92 Nasal 22:05 (105) Cannula 06/04/19 119 20 91 Nasal 2.0 21:48 Cannula 06/04/19 123 18 153/93 91 Nasal 21:00 (113) Cannula 06/04/19 92 2.0 20:55 06/04/19 112 30 152/98 2 Nasal 20:30 (116) Cannula 06/04/19 Nasal 2 20:20 Cannula 06/04/19 Nasal 2.0 20:16 Cannula 06/04/19 98.1 110 19 117/77 91 20:04 (90) Physical Exam Const: No acute distress. Head: Atraumatic. Eyes: Normal Conjunctiva. ENT: Normal External Ears, Nose and Mouth. Neck: Full range of motion. No meningismus. Resp: Mild bilateral expiratory wheezes Cardio: Regular tachycardic Abd: Soft, non distended, normal bowel sounds, non tender. Skin: No petechiae or rashes. Back: No midline or flank tenderness. Ext: No cyanosis, or edema. Neur: Awake and alert. No focal deficit Psych: Normal Mood and Affect. Result Diagram: 06/04/19203806/04/192038 Results 24 hrs Laboratory Tests Test 06/04/19 20:10 06/04/19 20:17 06/04/19 20:39 06/04/19 21:09 Bedside Glucose 156 mg/dL Blood Gas Blood arterial Specimen Source Arterial Blood 06/04/2019 8:40:0 Date Drawn 8 PM Arterial Blood 7.237 pH (Temp corrected) Arterial Blood 96.3 mmhg pCO2 (Temp correct) Arterial Blood 64.6 mmHG pO2 (Temp corrected) Arterial Blood 40.1 mmol/L HCO3 Arterial Blood 8.3 mmol/L Base Excess Arterial Blood 90.1 mmHG Oxygen Saturatio n Scottie Test ACCEPTAB Arterial Blood Right Radial Gas Puncture Site Arterial 6.0 % Blood Carboxyhem oglobin Arterial Blood 0.3 % Methemoglobin Blood Gas A-a O2 14.0 mmHg Differential Oxyhemoglobin 84.4 % Percent Blood Gas 37.0 C Temperature Blood Gas Actual 18 Respiration Rate Blood Gas NASAL CANNULA Modality FiO2 27.0 % Blood Gas Tanner ANGELES MD Critical Value Read Back Blood Gas Notified Whom Blood Gas 06/04/2019 8:47:4 Notified Time 6 PM White Blood 9.3 10^3/ul Count Red Blood Count 7.10 10^6/ul Hemoglobin 14.0 g/dl Hematocrit 50.3 % Mean Corpuscular 70.8 fl Volume Mean Corpuscular 19.7 pg Hemoglobin Mean Corpuscular 27.8 g/dl Hemoglobin Sarika nt Red Cell 19.6 % Distribution Width Platelet Count 183 10^3/UL Mean Platelet 10.9 fl Volume Immature 0.300 % Granulocytes % Neutrophils % 51.6 % Lymphocytes % 38.1 % Monocytes % 8.3 % Eosinophils % 1.1 % Basophils % 0.6 % Nucleated Red 0.0 /100WBC Blood Cells % Immature 0.030 10^3/ul Granulocytes # Neutrophils # 4.8 10^3/ul Lymphocytes # 3.6 10^3/ul Monocytes # 0.8 10^3/ul Eosinophils # 0.1 10^3/ul Basophils # 0.1 10^3/ul Nucleated Red 0.0 10^3/ul Blood Cells # Prothrombin Time 12.2 Sec Prothrombin Time 1.0 Ratio INR 0.89 International Normalized Ratio Activated 24.0 Sec Partial Thrombop last Time Sodium Level 142 mmol/L Potassium Level 3.7 mmol/L Chloride Level 95 mmol/L Carbon Dioxide 40 mmol/L Level Anion Gap 7 Blood Urea 14 mg/dl Nitrogen Creatinine 0.58 mg/dl Est Glomerular > 60 mL/min Filtrat Rate mL/min Glucose Level 155 mg/dl Calcium Level 8.7 mg/dl Total Bilirubin 0.2 mg/dl Direct Bilirubin 0.00 mg/dl Indirect 0.2 mg/dl Bilirubin Aspartate Amino 31 IU/L Transf (AST/SGOT ) Alanine 34 IU/L Aminotransferase (ALT/SGPT) Alkaline 78 IU/L Phosphatase Troponin I < 0.012 ng/ml B-Type 2860 PG/ML Natriuretic Peptide Total Protein 6.6 g/dl Albumin 3.4 g/dl Globulin 3.20 g/dl Albumin/Globulin 1.06 Ratio Lipase 45 U/L Bedside Urine pH 6.0 (LAB) Bedside Urine 2+ Protein (LAB) Bedside Urine Negative Glucose (UA) Bedside Urine Negative Ketones (LAB) Bedside Urine Negative Blood Bedside Urine Positive Nitrite (LAB) Bedside Urine Negative Leukocyte Estera se (L Current Medications Medications Dose Sig/Patric Start Time Status Last (Trade) Ordered Route PRN Stop Time Admin Dose Reason Admin Ceftriaxone 50 ml @ ONCE ONCE 06/04/19 DC 06/04/19 Sodium 100 mls/hr IVPB 22:00 21:56 06/04/19 22:29 Azithromycin 250 ml @ ONCE ONCE 06/04/19 DC 06/04/19 250 mls/hr IVPB 22:00 22:17 06/04/19 22:59 125 mg ONCE ONCE 06/04/19 DC 06/04/19 Methylprednis IV 22:00 21:55 olone Sodium 06/04/19 22:01 Succinate (Solu-Medrol) 1.25 mg ONCE STAT 06/04/19 DC 06/04/19 Levalbuterol INH 21:36 21:46 (Xopenex 06/04/19 21:43 Neb) Ipratropium 0.5 mg ONCE ONCE 06/04/19 DC 06/04/19 [place] HHN 22:00 21:46 (Atrovent 06/04/19 22:01 0.02% (Neb)) Furosemide 40 mg ONCE ONCE 06/04/19 DC 06/04/19 (Lasix) IV 22:00 22:58 06/04/19 22:01 Procedures/[place] [id number] Radiology Main Line: [phone] DIAGNOSTIC IMAGING REPORT Patient: INDIGO CHAVEZ : 1955 Age: 64 Sex: F MR #: [id number] DOS: 06/04/192016 Ordering MD: ALYSHA ANGELES MD Location: E/R Room/Bed: PROCEDURE: XR Chest 1 view. CLINICAL INDICATION: Shortness of breath. TECHNIQUE: Single view of the chest was obtained. COMPARISON: DR RENEE 02/20/2019 FINDINGS: Support lines and tubes: None. Mediastinum: Enlarged heart. Calcified atherosclerosis in the aorta. Prominence of the left hilum and AP window. Lungs: Patchy atelectasis versus mild infiltrates in the perihilar lower lungs. Scattered atelectasis in the remainder of the lungs. No pneumothorax. Osseous structures: Intact. Osteopenia. Degenerative changes in the shoulders. Other: None. IMPRESSION: Cardiomegaly with calcified atherosclerosis in the aorta. Prominent left hilum and AP window. Hilar/mediastinal adenopathy or mass is not excluded. Further characterization with CT is recommended. Patchy atelectasis versus minimal infiltrates in the perihilar lower lungs. Scattered atelectasis in the remainder of the lungs. RPTAT: AA .Samuel Raphael MD, Date Time Electronically viewed and signed by .Samuel Raphael MD, on 06/04/2019 21:05 .P/ CC: ALYSHA ANGELES MD [phone] EKG: Read by emergency physician Rate/Rhythm: Sinus tachycardia 113 beats/min QRS, ST, T-waves: No ST elevation, no T inversion. RAD, low voltage pr ecordial leads Impression: Abnormal EKG MEDICAL MAKING DECISION: The patient is a 64-year-old female, presenting with acute COPD exacerbation, acute CHF, acute cystitis. She was treated with Rocephin IV, Zithromax IV, Solu-Medrol 125 mg IV, Xopenex and Atrovent nebulizer for acute COPD exacerbation and acute cystitis, Lasix 40 mg IV for acute CHF exacerbation with good response. Urine cultures requested She was able to tolerate BiPAP well The differential diagnoses considered include but are not limited to asthma, COPD, pneumonia, pulmonary embolus, pleural effusion, congestive heart failure. Critical Care: Time: 35 minutes excluding all billable procedures. Treatments/Evaluations: Close monitoring and treatment of unstable vital signs, cardiorespiratory, and neurologic status, while maintaining tight balance of fluid, respiratory, and cardiac interventions. Departure Diagnosis: Primary Impression: COPD exacerbation Additional Impressions: CHF (congestive heart failure) UTI (urinary tract infection) Condition: Stable Comments I discussed the findings with the patient. I notified the patient with Dr. Farah at 10p via [employer], who was made aware of the lab, the treatment, the patient condition. The patient is admitted to [facility] Disclaimer: Inadvertent spelling and grammatical errors are likely due to EHR/dictation software use and do not reflect on the overall quality of patient care. Also, please note that the electronic time recorded on this note does not necessarily reflect the actual time of the patient encounter. ALYSHA ANGELES MD Jun 04, 2019 20:01
[2019-06-04 20:04] VITALS: Ht 162.6 cm; Wt 130.9 kg
[2019-06-04] MEDS ORDERED: LEVALBUTEROL (NEB) 1.25 MG/0.5 ML AMP INH STA (21:36)
[2019-06-04] MEDS ORDERED: IPRATROPIUM (NEB) 0.5 MG/2.5 ML AMP HHN ONE (22:00)
[2019-06-04] MEDS ORDERED: CEFTRIAXONE 1 GM/50 ML (PMX) 50 ML IVPB ONE (22:00)
[2019-06-04] MEDS ORDERED: FUROSEMIDE 40 MG INJ IV ONE (22:00)
[2019-06-04] MEDS ORDERED: AZITHROMYCIN 500MG/NS (PMX) 250 ML IVPB ONE (22:00)
[2019-06-04] MEDS ORDERED: METHYLPREDNISOLONE 125 MG INJ IV ONE (22:00)
[2019-06-05] VITALS (10 sets, daily range): BP systolic 108–129; BP diastolic 77–85; PULSE 76–121; RESP 18–20
[2019-06-05] MEDS ORDERED: ONDANSETRON 4 MG INJ IV PRN (01:30)
[2019-06-05] MEDS ORDERED: SOD CHLORIDE 0.45% 1,000 ML IV SCH (01:30)
[2019-06-05] MEDS ORDERED: ALBUTEROL/IPRATROPIUM (NEB) 3 ML AMP HHN PRN (01:30)
[2019-06-05] MEDS ORDERED: KETOROLAC 15 MG INJ IV PRN (01:30)
[2019-06-05] MEDS: ALBUTEROL/IPRATROPIUM (NEB) 3 ML AMP HHN SCH ×5 (05:36→21:22)
[2019-06-05] MEDS: METHYLPREDNISOLONE 40 MG INJ IV SCH ×3 (06:02→21:56)
[2019-06-05] MEDS: FUROSEMIDE 40 MG INJ IV SCH (08:37)
[2019-06-05] MEDS: INSULIN ASPART [NOVOLOG] 3 ML PEN SC SCH ×4 (08:46→21:00)
[2019-06-05] MEDS ORDERED: ACETAZOLAMIDE 500 MG INJ IV ONE (09:00)
[2019-06-05] MEDS: COLLAGENASE 5 GM (UD JAR) TOP SCH (13:51)
--- NOTE | 2019-06-05 16:22 | QN ---
Documentation Comment pt was seen and examined and dictated MINA FARAH MD Jun 05, 2019 16:22
[2019-06-05] MEDS ORDERED: GLUCOSE GEL 15 GRAM TUBE BUCCAL PRN (17:00)
[2019-06-05] MEDS ORDERED: GLUCOSE GEL 15 GRAM TUBE PO PRN ×2 (17:00)
[2019-06-05] MEDS ORDERED: GLUCAGON 1 MG INJ IM PRN (17:00)
[2019-06-05] MEDS ORDERED: DEXTROSE 50% 50 ML SYRINGE IV PRN ×2 (17:00)
[2019-06-05] MEDS: ACETAMINOPHEN 325 MG TAB PO PRN ×2 (17:11→21:55)
--- NOTE | 2019-06-05 17:43 | CONS ---
DATE OF ADMISSION: 06/04/2019 DATE OF CONSULTATION: 06/05/2019 TYPE OF CONSULTATION: Pulmonary. REASON FOR CONSULTATION: Shortness of breath. Thank you, Dr. Lai, for this consultation. HISTORY OF PRESENT ILLNESS: This is a 64-year-old lady with a long history of COPD, continues to smo ke 1 pack per day, presents with several-day history of increasing shortness of breath, orthopnea, PN D. Denies any fever or chills, no chest pain or palpitations. No cough or sputum production. She p resented to outside hospital and is now transferred to [facility]. PAST MEDICAL HISTORY: Anxiety, depression, obesity, chronic pain, COPD. PAST SURGICAL HISTORY: Includes hysterectomy. MEDICATIONS: Per chart. ALLERGIES: NONE. SOCIAL HISTORY: She is a current smoker 1 pack per day, smoked for 30+ years. PHYSICAL EXAMINATION: GENERAL: Elderly-appearing lady, comfortable at rest, no acute distress. VITAL SIGNS: Currently afebrile, pulse is 90, blood pressure 125/77, O2 saturation 96%, FIO2 of 3 li ters. NECK: Supple. No JVD or lymphadenopathy. CARDIAC: S1, S2, no added sounds or murmurs. CHEST: Diminished air entry bilaterally. ABDOMEN: Soft, nontender. No guarding or rebound. EXTREMITIES: No clubbing, cyanosis or edema. NEUROLOGIC: Grossly intact. No focal deficits. LABORATORY DATA: White count 5.6, hemoglobin 14, platelets of 173. BUN 13, creatinine 0.54. Initia l ABG: pH 7.23 now 7.33 with a pCO2 of 80 and a bicarb of 66. IMPRESSION AND PLAN: 1. Acute on chronic hypoxemic and hypercapnic respiratory failure. 2. Chronic obstructive pulmonary disease with carbon dioxide retainer. 3. Likely significant obstructive sleep apnea. The patient states she was never tested and is curre ntly not being treated. The patient will require: 1. Supplemental O2 as needed. Titrate to keep sats 88% to 90%. 2. Bronchodilators. 3. Steroid taper. 4. Outpatient pulmonary function testing. 5. Sleep study. 6. DVT and GI prophylaxis. Dictated By: PAULINE KATZ/SOFIA Conf#: [id number] DID#: [id number] CC: MINA LAI;*EndCC*
[2019-06-05] MEDS: CEFTRIAXONE 1 GM/50 ML (PMX) 50 ML IVPB SCH (21:20)
[2019-06-05] MEDS: AZITHROMYCIN 250 MG in SOD CHLORIDE 0.9% 250 ML IVPB SCH (21:55)
[2019-06-05] MEDS: NPH, HUMAN INSULIN ISOPHANE 3ML VIAL SC SCH (22:37)
[2019-06-06] VITALS (7 sets, daily range): BP systolic 114–156; BP diastolic 63–80; PULSE 70–124; RESP 20–22
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
[2019-06-06] MEDS: ALBUTEROL/IPRATROPIUM (NEB) 3 ML AMP HHN SCH ×6 (01:16→21:20)
[2019-06-06] MEDS: METHYLPREDNISOLONE 40 MG INJ IV SCH ×3 (05:43→21:10)
[2019-06-06] MEDS: FUROSEMIDE 40 MG INJ IV SCH (08:21)
[2019-06-06] MEDS: ACETAZOLAMIDE 250 MG TAB PO SCH ×2 (08:21→20:10)
[2019-06-06] MEDS: COLLAGENASE 5 GM (UD JAR) TOP SCH (08:21)
[2019-06-06] MEDS: INSULIN ASPART [NOVOLOG] 3 ML PEN SC SCH ×5 (08:28→20:28)
[2019-06-06] MEDS: NPH, HUMAN INSULIN ISOPHANE 3ML VIAL SC SCH ×3 (08:29→20:29)
--- NOTE | 2019-06-06 11:27 | CONS ---
Consult Date/Type/Reason Admit Date/Time Jun 04, 2019 at 22:30 Initial Consult Date Type of Consult Pulmonary Date/Time of Note DATE: 06/06/19 TIME: 11:23 Subjective No events Breathing better Objective Vital Signs Date Temp Pulse Resp B/P (MAP) Pulse Ox O2 O2 Flow FiO2 Time Delivery Rate 06/06/19 18 92 Nasal 3.0 08:48 Cannula 06/06/19 98.0 70 154/63 07:25 (93) 06/06/19 35 01:18 Intake and Output 06/05/19 06/05/19 06/06/19 1515:00 23:00 07:00 IntakeIntake Total 330 ml 840 ml BalanceBalance 330 ml 840 ml Exam PHYSICAL EXAMINATION: GENERAL: Elderly-appearing lady, comfortable at rest, no acute distress. VITAL SIGNS: NECK: Supple. No JVD or lymphadenopathy. CARDIAC: S1, S2, no added sounds or murmurs. CHEST: Diminished air entry bilaterally. ABDOMEN: Soft, nontender. No guarding or rebound. EXTREMITIES: No clubbing, cyanosis or edema. NEUROLOGIC: Grossly intact. No focal deficits. Results/Medications Result Diagram: 06/06/19 0606/06/19 0605 Results 24 hrs Laboratory Tests Test 06/05/19 12:03 06/05/19 17:12 06/05/19 21:18 06/06/19 06:05 Bedside Glucose 146 159 158 White Blood Count 9.4 # Red Blood Count 7.07 H Hemoglobin 13.9 Hematocrit 49.5 H Mean Corpuscular 70.0 L Volume Mean Corpuscular 19.7 L Hemoglobin Mean Corpuscular 28.1 L Hemoglobin Concen t Red Cell 19.1 H Distribution Width Platelet Count 176 Mean Platelet Volume Immature 0.500 H Granulocytes % Neutrophils % 79.0 H Lymphocytes % 16.1 Monocytes % 4.3 Eosinophils % 0.0 Basophils % 0.1 Nucleated Red 0.0 Blood Cells % Immature 0.050 H Granulocytes # Neutrophils # 7.4 Lymphocytes # 1.5 Monocytes # 0.4 Eosinophils # 0.0 Basophils # 0.0 Nucleated Red 0.0 Blood Cells # Sodium Level 141 Potassium Level 3.5 Chloride Level 97 Carbon Dioxide 38 H Level Anion Gap 6 Blood Urea 23 H Nitrogen Creatinine 0.72 Est Glomerular > 60 Filtrat Rate mL/min Glucose Level 165 Calcium Level 9.2 Phosphorus Level 4.3 Magnesium Level 2.1 Total Bilirubin 0.2 Direct Bilirubin 0.00 Indirect 0.2 Bilirubin Aspartate Amino 39 Transf (AST/SGOT) Alanine 42 Aminotransferase (ALT/SGPT) Alkaline 71 Phosphatase Total Protein 6.2 Albumin 3.6 Globulin 2.60 Albumin/Globulin 1.38 Ratio Test 06/06/19 07:00 06/06/19 08:20 Blood Gas Blood arterial Specimen Source Arterial Blood 06/06/2019 7:15:54 Date Drawn AM Arterial Blood pH 7.304 L (Temp corrected) Arterial Blood 81.3 *H pCO2 (Temp correct) Arterial Blood 68.5 L pO2 (Temp corrected) Arterial Blood 39.5 H HCO3 Arterial Blood 9.4 H Base Excess Arterial Blood 91.7 L Oxygen Saturation Scottie Test ACCEPTAB Arterial Blood Right Radial Gas Puncture Site Arterial 1.3 Blood Carboxyhemo globin Arterial Blood 0.3 Methemoglobin Blood Gas A-a O2 71.9 H Differential Oxyhemoglobin 90.2 L Percent Blood Gas 37.0 Temperature Blood Gas NASAL CANNULA Modality FiO2 33.0 Blood Gas L.ZORA MAHONEY Critical Value Read Back Blood Gas TM Notified Whom Blood Gas 06/06/2019 7:48:42 Notified Time AM Bedside Glucose 159 Medications Current Medications Albuterol/ Ipratropium (Duoneb) 3 ml Q2H RESP THERAPY PRN HHN WHEEZING AND SOB; Start 06/05/19 at 01:30 Albuterol/ Ipratropium (Duoneb) 3 ml Q4H RESP THERAPY HHN Last administered on 06/06/19at 08:47; Admin Dose 3 ML; Start 06/05/19 at 05:00 Ketorolac Tromethamine (Toradol) 15 mg Q6H PRN IV PAIN Last administered on 06/06/19at 02:54; Admin Dose 15 MG; Start 06/05/19 at 01:30; Stop 06/08/19 at 01:29 Methylprednisolone Sodium Succinate (Solu-Medrol) 40 mg Q8 IV Last administered on 06/06/19at 05:43; Admin Dose 40 MG; Start 06/05/19 at 06:00 Furosemide (Lasix) 40 mg DAILY IV Last administered on 06/06/19at 08:21; Admin Dose 40 MG; Start 06/05/19 at 09:00 Acetaminophen (Tylenol Tab) 650 mg Q6H PRN PO MILD PAIN(1-3)OR ELEVATED TEMP Last administered on 06/05/19at 21:55; Admin Dose 650 MG; Start 06/05/19 at 01:30 Ondansetron HCl (Zofran Inj) 4 mg Q6H PRN IV NAUSEA AND/OR VOMITING; Start 06/05/19 at 01:30 Ceftriaxone Sodium 50 ml @ 100 mls/hr Q24H IVPB Last administered on 06/05/19at 21:20; Admin Dose 100 MLS/HR; Start 06/05/19 at 22:00 Azithromycin 250 mg/Sodium Chloride 250 ml @ 250 mls/hr Q24H IVPB Last administered on 06/05/19at 21:55; Admin Dose 250 MLS/HR; Start 06/05/19 at 22:00 Insulin Aspart (Novolog Insulin Pen) NOVOLOG *MODERATE* ALGORITHM WITH MEALS BEDTIME SC Last administered on 06/06/19at 10:03; Admin Dose 2 UNIT; Start 06/05/19 at 07:55 Collagenase (Santyl) 1 applic DAILY TOP Last administered on 06/06/19at 08:21; Admin Dose 1 APPLIC; Start 06/05/19 at 13:00 Acetazolamide (Diamox) 250 mg BID PO Last administered on 06/06/19at 08:21; Admin Dose 250 MG; Start 06/06/19 at 09:00 Insulin Human NPH (Humulin N) 3 unit TID SC Last administered on 06/06/19at 08:29; Admin Dose 3 UNIT; Start 06/05/19 at 21:00 Miscellaneous Information 1 ea NOTE XX ; Start 06/05/19 at 17:00 Glucose (Glutose) 15 gm Q15M PRN PO DECREASED GLUCOSE; Start 06/05/19 at 17:00 Glucose (Glutose) 22.5 gm Q15M PRN PO DECREASED GLUCOSE; Start 06/05/19 at 17:00 Dextrose (D50w Syringe) 25 ml Q15M PRN IV DECREASED GLUCOSE; Start 06/05/19 at 17:00 Dextrose (D50w Syringe) 50 ml Q15M PRN IV DECREASED GLUCOSE; Start 06/05/19 at 17:00 Glucagon (Glucagen) 1 mg Q15M PRN IM DECREASED GLUCOSE; Start 06/05/19 at 17:00 Glucose (Glutose) 15 gm Q15M PRN BUCCAL DECREASED GLUCOSE; Start 06/05/19 at 17:00 Assessment/Plan Hospital Course (Demo Recall) IMPRESSION AND PLAN: 1. Acute on chronic hypoxemic and hypercapnic respiratory failure. 2. Chronic obstructive pulmonary disease with carbon dioxide retainer. 3. Likely significant obstructive sleep apnea. The patient states she was never tested and is currently not being treated. Plan. 1. Supplemental O2 as needed. Titrate to keep sats 88% to 90%. 2. Bronchodilators. 3. Steroid taper. 4. Outpatient pulmonary function testing. 5. Sleep study. 6. DVT and GI prophylaxis. will need treletrista bilevel. PAULINE HERRERA MD, [facility] Jun 06, 2019 11:27
[2019-06-06] MEDS: ACETAMINOPHEN 325 MG TAB PO PRN ×2 (12:00→19:14)
[2019-06-06] MEDS: GUAIFENESIN/DM 5ML CUP PO PRN (12:32)
[2019-06-06] MEDS ORDERED: METHYLPREDNISOLONE 125 MG INJ IV ONE (15:00)
[2019-06-06] MEDS ORDERED: VANCOMYCIN 500 MG (PMX) 100 ML IVPB ONE (16:30)
--- NOTE | 2019-06-06 19:07 | PN ---
Date/Time of Note Date/Time of Note DATE: 06/06/19 TIME: 19:05 Assessment/Plan VTE Prophylaxis Risk score (from Ns)>0 risk: 8 SCD applied (from Ns): Yes Pharmacological prophylaxis: NA/contraindicated Pharm contraindication: low risk/ambulating Lines/Catheters IV Catheter Type (from [facility]): [facility] Urinary Cath still in place: No Assessment/Plan Assessment/Plan 64-year-old lady, presented with: 1. Shortness of breath, cough, with diffuse expiratory wheezing, likely secondary to chronic obstructive pulmonary disease exacerbation. 2. Hypercapnic respiratory failure, likely secondary to chronic obstructive pulmonary disease, plus the patient is on a bunch of sleeping medications, sedatives at home 3. Metabolic/respiratory acidosis. 4. Diabetes. 5. Hypertension. 6. Hyperlipidemia. 7. Depression. 8. Anxiety. Plan - gve additional solumedrol dose - nebs - iv rocephin/azithromycin - iv vanco bld cx+ - bipap - fu pul recs - cw iv lasix - no sedatives Result Diagram: 06/06/19 0605 06/06/19 0605 Results 24hrs Laboratory Tests Test 06/05/19 21:18 06/06/19 06:05 06/06/19 07:00 06/06/19 08:20 Bedside Glucose 158 159 White Blood Count 9.4 # Red Blood Count 7.07 H Hemoglobin 13.9 Hematocrit 49.5 H Mean Corpuscular 70.0 L Volume Mean Corpuscular 19.7 L Hemoglobin Mean Corpuscular 28.1 L Hemoglobin Concent Red Cell 19.1 H Distribution Width Platelet Count 176 Mean Platelet Volume Immature 0.500 H Granulocytes % Neutrophils % 79.0 H Lymphocytes % 16.1 Monocytes % 4.3 Eosinophils % 0.0 Basophils % 0.1 Nucleated Red 0.0 Blood Cells % Immature 0.050 H Granulocytes # Neutrophils # 7.4 Lymphocytes # 1.5 Monocytes # 0.4 Eosinophils # 0.0 Basophils # 0.0 Nucleated Red 0.0 Blood Cells # Sodium Level 141 Potassium Level 3.5 Chloride Level 97 Carbon Dioxide 38 H Level Anion Gap 6 Blood Urea 23 H Nitrogen Creatinine 0.72 Est Glomerular > 60 Filtrat Rate mL/min Glucose Level 165 Calcium Level 9.2 Phosphorus Level 4.3 Magnesium Level 2.1 Total Bilirubin 0.2 Direct Bilirubin 0.00 Indirect Bilirubin 0.2 Aspartate Amino 39 Transf (AST/SGOT) Alanine 42 Aminotransferase ( ALT/SGPT) Alkaline 71 Phosphatase Total Protein 6.2 Albumin 3.6 Globulin 2.60 Albumin/Globulin 1.38 Ratio Blood Gas Specimen Blood arterial Source Arterial Blood 06/06/2019 7:15:54 Date Drawn AM Arterial Blood pH 7.304 L (Temp corrected) Arterial Blood 81.3 *H pCO2 (Temp correct) Arterial Blood pO2 68.5 L (Temp corrected) Arterial Blood 39.5 H HCO3 Arterial Blood 9.4 H Base Excess Arterial Blood 91.7 L Oxygen Saturation Scottie Test ACCEPTAB Arterial Blood Gas Right Radial Puncture Site Arterial 1.3 Blood Carboxyhemog lobin Arterial Blood 0.3 Methemoglobin Blood Gas A-a O2 71.9 H Differential Oxyhemoglobin 90.2 L Percent Blood Gas 37.0 Temperature Blood Gas Modality NASAL CANNULA FiO2 33.0 Blood Gas Critical L.ZORA RN Value Read Back Blood Gas Notified TM Whom Blood Gas Notified 06/06/2019 7:48:42 Time AM Test 06/06/19 12:02 06/06/19 13:15 06/06/19 17:32 Bedside Glucose 187 186 171 Subjective 24 Hr Interval Summary Free Text/Dictation still wheezng +bld cx positive cough Exam/Review of Systems Exam Vitals Vital Signs Date Temp Pulse Resp B/P (MAP) Pulse Ox O2 O2 Flow FiO2 Time Delivery Rate 06/06/19 93 18 91 Nasal 3.0 16:01 Cannula 06/06/19 98.0 128/75 15:08 (92) 06/06/19 35 01:18 Intake and Output 06/05/19 06/05/19 06/06/19 1515:00 23:00 07:00 IntakeIntake Total 330 ml 840 ml BalanceBalance 330 ml 840 ml Exam GENERAL: The patient is awake, alert, oriented, currently answering all questions appropriately. HEENT: Pupils equal, round, reactive to light. NECK: Supple, thick. HEART: Regular rate and rhythm. LUNGS: Diffuse expiratory wheezes. The patient is able to speak full sentences. ABDOMEN: Obese, positive bowel sounds. EXTREMITIES: Trace edema. Results Results 24hrs Laboratory Tests Test 06/05/19 21:18 06/06/19 06:05 06/06/19 07:00 06/06/19 08:20 Bedside Glucose 158 159 White Blood Count 9.4 # Red Blood Count 7.07 H Hemoglobin 13.9 Hematocrit 49.5 H Mean Corpuscular 70.0 L Volume Mean Corpuscular 19.7 L Hemoglobin Mean Corpuscular 28.1 L Hemoglobin Concent Red Cell 19.1 H Distribution Width Platelet Count 176 Mean Platelet Volume Immature 0.500 H Granulocytes % Neutrophils % 79.0 H Lymphocytes % 16.1 Monocytes % 4.3 Eosinophils % 0.0 Basophils % 0.1 Nucleated Red 0.0 Blood Cells % Immature 0.050 H Granulocytes # Neutrophils # 7.4 Lymphocytes # 1.5 Monocytes # 0.4 Eosinophils # 0.0 Basophils # 0.0 Nucleated Red 0.0 Blood Cells # Sodium Level 141 Potassium Level 3.5 Chloride Level 97 Carbon Dioxide 38 H Level Anion Gap 6 Blood Urea 23 H Nitrogen Creatinine 0.72 Est Glomerular > 60 Filtrat Rate mL/min Glucose Level 165 Calcium Level 9.2 Phosphorus Level 4.3 Magnesium Level 2.1 Total Bilirubin 0.2 Direct Bilirubin 0.00 Indirect Bilirubin 0.2 Aspartate Amino 39 Transf (AST/SGOT) Alanine 42 Aminotransferase ( ALT/SGPT) Alkaline 71 Phosphatase Total Protein 6.2 Albumin 3.6 Globulin 2.60 Albumin/Globulin 1.38 Ratio Blood Gas Specimen Blood arterial Source Arterial Blood 06/06/2019 7:15:54 Date Drawn AM Arterial Blood pH 7.304 L (Temp corrected) Arterial Blood 81.3 *H pCO2 (Temp correct) Arterial Blood pO2 68.5 L (Temp corrected) Arterial Blood 39.5 H HCO3 Arterial Blood 9.4 H Base Excess Arterial Blood 91.7 L Oxygen Saturation Scottie Test ACCEPTAB Arterial Blood Gas Right Radial Puncture Site Arterial 1.3 Blood Carboxyhemog lobin Arterial Blood 0.3 Methemoglobin Blood Gas A-a O2 71.9 H Differential Oxyhemoglobin 90.2 L Percent Blood Gas 37.0 Temperature Blood Gas Modality NASAL CANNULA FiO2 33.0 Blood Gas Critical LELIZABETH RN Value Read Back Blood Gas Notified TM Whom Blood Gas Notified 06/06/2019 7:48:42 Time AM Test 06/06/19 12:02 06/06/19 13:15 06/06/19 17:32 Bedside Glucose 187 186 171 Medications Medication Current Medications Albuterol/ Ipratropium (Duoneb) 3 ml Q2H RESP THERAPY PRN HHN WHEEZING AND SOB; Start 06/05/19 at 01:30 Albuterol/ Ipratropium (Duoneb) 3 ml Q4H RESP THERAPY HHN Last administered on 06/06/19 16:00; Admin Dose 3 ML; Start 06/05/19 at 05:00 Ketorolac Tromethamine (Toradol) 15 mg Q6H PRN IV PAIN Last administered on 06/06/19 02:54; Admin Dose 15 MG; Start 06/05/19 at 01:30; Stop 06/08/19 at 01:29 Methylprednisolone Sodium Succinate (Solu-Medrol) 40 mg Q8 IV Last administered on 06/06/19 13:16; Admin Dose 40 MG; Start 06/05/19 at 06:00 Furosemide (Lasix) 40 mg DAILY IV Last administered on 06/06/19 08:21; Admin Dose 40 MG; Start 06/05/19 at 09:00 Acetaminophen (Tylenol Tab) 650 mg Q6H PRN PO MILD PAIN(1-3)OR ELEVATED TEMP Last administered on 06/06/19 12:00; Admin Dose 650 MG; Start 06/05/19 at 01:30 Ondansetron HCl (Zofran Inj) 4 mg Q6H PRN IV NAUSEA AND/OR VOMITING; Start 06/05/19 at 01:30 Ceftriaxone Sodium 50 ml @ 100 mls/hr Q24H IVPB Last administered on 06/05/19 21:20; Admin Dose 100 MLS/HR; Start 06/05/19 at 22:00 Azithromycin 250 mg/Sodium Chloride 250 ml @ 250 mls/hr Q24H IVPB Last administered on 06/05/19 21:55; Admin Dose 250 MLS/HR; Start 06/05/19 at 22:00 Insulin Aspart (Novolog Insulin Pen) NOVOLOG *MODERATE* ALGORITHM WITH MEALS BEDTIME SC Last administered on 06/06/19 17:34; Admin Dose 2 UNIT; Start 06/05/19 at 07:55 Collagenase (Santyl) 1 applic DAILY TOP Last administered on 06/06/19 08:21; Admin Dose 1 APPLIC; Start 06/05/19 at 13:00 Acetazolamide (Diamox) 250 mg BID PO Last administered on 8/1/19at 08:21; Admin Dose 250 MG; Start 06/06/19 at 09:00 Insulin Human NPH (Humulin N) 3 unit TID SC Last administered on 06/06/19at 13:39; Admin Dose 3 UNIT; Start 06/05/19 at 21:00 Miscellaneous Information 1 ea NOTE XX ; Start 06/05/19 at 17:00 Glucose (Glutose) 15 gm Q15M PRN PO DECREASED GLUCOSE; Start 06/05/19 at 17:00 Glucose (Glutose) 22.5 gm Q15M PRN PO DECREASED GLUCOSE; Start 06/05/19 at 17:00 Dextrose (D50w Syringe) 25 ml Q15M PRN IV DECREASED GLUCOSE; Start 06/05/19 at 17:00 Dextrose (D50w Syringe) 50 ml Q15M PRN IV DECREASED GLUCOSE; Start 06/05/19 at 17:00 Glucagon (Glucagen) 1 mg Q15M PRN IM DECREASED GLUCOSE; Start 06/05/19 at 17:00 Glucose (Glutose) 15 gm Q15M PRN BUCCAL DECREASED GLUCOSE; Start 06/05/19 at 17:00 Guaifenesin/ Dextromethorphan (Robitussin Dm Liquid Cup) 10 ml Q6H PRN PO cough Last administered on 06/06/19at 12:32; Admin Dose 10 ML; Start 06/06/19 at 12:30 MINA FARAH MD Jun 06, 2019 19:07
[2019-06-06] MEDS: CEFTRIAXONE 1 GM/50 ML (PMX) 50 ML IVPB SCH (21:09)
[2019-06-06] MEDS: AZITHROMYCIN 250 MG in SOD CHLORIDE 0.9% 250 ML IVPB SCH (22:23)
[2019-06-07] VITALS (8 sets, daily range): BP systolic 110–171; BP diastolic 60–84; PULSE 80–99; RESP 20–22
[2019-06-07] MEDS: ALBUTEROL/IPRATROPIUM (NEB) 3 ML AMP HHN SCH ×6 (01:10→21:49)
[2019-06-07] MEDS: METHYLPREDNISOLONE 40 MG INJ IV SCH (05:23)
[2019-06-07] MEDS: INSULIN ASPART [NOVOLOG] 3 ML PEN SC SCH ×4 (07:58→20:03)
[2019-06-07] MEDS: COLLAGENASE 5 GM (UD JAR) TOP SCH (08:41)
[2019-06-07] MEDS: FUROSEMIDE 40 MG INJ IV SCH (08:42)
[2019-06-07] MEDS: ACETAZOLAMIDE 250 MG TAB PO SCH ×2 (08:42→20:03)
[2019-06-07] MEDS: NPH, HUMAN INSULIN ISOPHANE 3ML VIAL SC SCH ×3 (08:55→20:11)
[2019-06-07] MEDS ORDERED: VANCOMYCIN IV PER PHARMACY XX SCH (10:00)
--- NOTE | 2019-06-07 11:36 | CONS ---
Consultation Date/Type/Reason Admit Date/Time Jun 04, 2019 at 22:30 Initial Consult Date Type of Consult Pulmonary Patient's condition is stable. Laying comfortably in bed. Shortness of breath is improving. Denies any coughing or wheezing. General exam; elderly female, overweight. Currently no distress. H HEENT exam; supple neck, positive JVD. No lymphadenopathy. Midline trachea. No thyromegaly. Patient has fair dentition. No neck masses. Chest exam; diminished but clear breath sounds. S1-S2 audible, no murmurs. Regular rhythm. Abdomen exam; soft, protuberant. Nontender. Organomegaly difficult to assess. Bowel sounds are audible. Extremity exam; peripheral edema clubbing. Pulses 2+. 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 Assessment and recommendations; 1. Patient admitted with CHF exacerbation with likely underlying chronic type II respiratory failure with severe hypercapnia with interval improvement. M aintained on BiPAP as needed. 2. Possibly acute bronchitis as well. 3. Likely underlying sleep apnea. 4. History of diabetes. Continue current supportive care. Discontinue Solu-Medrol. Obtain follow-up ABG. Patient likely will need BiPAP for home use. Date/Time of Note DATE: 06/07/19 TIME: 11:34 Exam/Review of Systems Exam Vitals Vital Signs Date Temp Pulse Resp B/P (MAP) Pulse Ox O2 O2 Flow FiO2 Time Delivery Rate 06/07/19 98.0 96 20 110/60 99 Nasal 11:04 (77) Cannula 06/07/19 3.0 05:18 06/06/19 21 21:20 Intake and Output 06/06/19 06/06/19 06/07/19 1515:00 23:00 07:00 IntakeIntake Total 240 ml 1550 ml 750 ml OutputOutput Total 2 ml 4 ml BalanceBalance 238 ml 1546 ml 750 ml Results Result Diagram: 06/07/19 0635 06/07/19 0635 Results 24hrs Laboratory Tests Test 06/06/19 12:02 06/06/19 13:15 06/06/19 17:32 06/06/19 20:11 Bedside Glucose 187 186 171 249 H Test 06/07/19 06:35 06/07/19 07:52 White Blood Count 10.4 Red Blood Count 6.86 H Hemoglobin 13.5 Hematocrit 48.1 H Mean Corpuscular Volume 70.1 L Mean Corpuscular 19.7 L Hemoglobin Mean Corpuscular 28.1 L Hemoglobin Concent Red Cell Distribution 18.8 H Width Platelet Count 203 Mean Platelet Volume Immature Granulocytes % 0.400 Neutrophils % 81.3 H Lymphocytes % 12.9 L Monocytes % 5.1 Eosinophils % 0.1 Basophils % 0.2 Nucleated Red Blood 0.0 Cells % Immature Granulocytes # 0.040 H Neutrophils # 8.5 H Lymphocytes # 1.3 Monocytes # 0.5 Eosinophils # 0.0 Basophils # 0.0 Nucleated Red Blood 0.0 Cells # Sodium Level 140 Potassium Level 3.8 Chloride Level 98 Carbon Dioxide Level 37 H Anion Gap 5 Blood Urea Nitrogen 25 H Creatinine 0.64 Est Glomerular Filtrat > 60 Rate mL/min Glucose Level 139 Calcium Level 8.9 Phosphorus Level 4.2 Magnesium Level 2.1 Bedside Glucose 182 Medications Medication Current Medications Albuterol/ Ipratropium (Duoneb) 3 ml Q2H RESP THERAPY PRN HHN WHEEZING AND SOB; Start 06/05/19 at 01:30 Albuterol/ Ipratropium (Duoneb) 3 ml Q4H RESP THERAPY HHN Last administered on 06/07/19at 05:18; Admin Dose 3 ML; Start 06/05/19 at 05:00 Ketorolac Tromethamine (Toradol) 15 mg Q6H PRN IV PAIN Last administered on 06/06/19at 02:54; Admin Dose 15 MG; Start 06/05/19 at 01:30; Stop 06/08/19 at 01:29 Methylprednisolone Sodium Succinate (Solu-Medrol) 40 mg Q8 IV Last administered on 06/07/19at 05:23; Admin Dose 40 MG; Start 06/05/19 at 06:00 Furosemide (Lasix) 40 mg DAILY IV Last administered on 06/07/19at 08:42; Admin Dose 40 MG; Start 06/05/19 at 09:00 Acetaminophen (Tylenol Tab) 650 mg Q6H PRN PO MILD PAIN(1-3)OR ELEVATED TEMP Last administered on 06/06/19at 19:14; Admin Dose 650 MG; Start 06/05/19 at 01:30 Ondansetron HCl (Zofran Inj) 4 mg Q6H PRN IV NAUSEA AND/OR VOMITING; Start 06/05/19 at 01:30 Ceftriaxone Sodium 50 ml @ 100 mls/hr Q24H IVPB Last administered on 06/06/19at 21:09; Admin Dose 100 MLS/HR; Start 06/05/19 at 22:00 Azithromycin 250 mg/Sodium Chloride 250 ml @ 250 mls/hr Q24H IVPB Last administered on 06/06/19at 22:23; Admin Dose 250 MLS/HR; Start 06/05/19 at 22:00 Insulin Aspart (Novolog Insulin Pen) NOVOLOG *MODERATE* ALGORITHM WITH MEALS BEDTIME SC Last administered on 06/07/19at 07:58; Admin Dose 4 UNIT; Start 06/05/19 at 07:55 Collagenase (Santyl) 1 applic DAILY TOP Last administered on 06/07/19at 08:41; Admin Dose 1 APPLIC; Start 06/05/19 at 13:00 Acetazolamide (Diamox) 250 mg BID PO Last administered on 06/07/19at 08:42; Admin Dose 250 MG; Start 06/06/19 at 09:00; Stop 06/07/19 at 23:00 Insulin Human NPH (Humulin N) 3 unit TID SC Last administered on 06/07/19at 08:55; Admin Dose 3 UNIT; Start 06/05/19 at 21:00 Miscellaneous Information 1 ea NOTE XX ; Start 06/05/19 at 17:00 Glucose (Glutose) 15 gm Q15M PRN PO DECREASED GLUCOSE; Start 06/05/19 at 17:00 Glucose (Glutose) 22.5 gm Q15M PRN PO DECREASED GLUCOSE; Start 06/05/19 at 17:00 Dextrose (D50w Syringe) 25 ml Q15M PRN IV DECREASED GLUCOSE; Start 06/05/19 at 17:00 Dextrose (D50w Syringe) 50 ml Q15M PRN IV DECREASED GLUCOSE; Start 06/05/19 at 17:00 Glucagon (Glucagen) 1 mg Q15M PRN IM DECREASED GLUCOSE; Start 06/05/19 at 17:00 Glucose (Glutose) 15 gm Q15M PRN BUCCAL DECREASED GLUCOSE; Start 06/05/19 at 17:00 Guaifenesin/ Dextromethorphan (Robitussin Dm Liquid Cup) 10 ml Q6H PRN PO cough Last administered on 06/06/19at 12:32; Admin Dose 10 ML; Start 06/06/19 at 12:30 Vancomycin HCl (Vanco Iv Per Pharmacy) VANCOMYCIN PER PHARMACY PER PROTOCOL XX ; Start 06/07/19 at 10:00; Status MIGUEL PICHARDO Jun 07, 2019 11:36
[2019-06-07] MEDS: VANCOMYCIN 1.5 GM/NS 250 ML 250 ML IVPB SCH (14:24)
--- NOTE | 2019-06-07 16:01 | PN ---
Date/Time of Note Date/Time of Note DATE: 06/07/19 TIME: 16:01 Assessment/Plan VTE Prophylaxis Risk score (from Ns)>0 risk: 4 SCD applied (from Ns): Yes Pharmacological prophylaxis: LMWH Lines/Catheters IV [facility]from [facility] Saline Lock Urinary Cath still in place: No Assessment/Plan Hospital Course 1. Shortness of breath, cough, with diffuse expiratory wheezing, likely sec ondary to chronic obstructive pulmonary disease exacerbation. 2. Hypercapnic respiratory failure, likely secondary to chronic obstructive pulmonary disease, plus the patient is on a bunch of sleeping medications, sedatives at home 3. Metabolic/respiratory acidosis. 4. Diabetes. 5. Hypertension. 6. Hyperlipidemia. 7. Depression. 8. Anxiety. 9. morbid obesity 10. Uremia Assessment/Plan -start Protonix -start Lovenox -c/w nebs - iv rocephin/azithromycin - iv vanco bld cx+ - bipap PRN -PT to start Result Diagram: 06/07/19 0635 06/07/19 0635 Results 24hrs Laboratory Tests Test 06/06/19 17:32 06/06/19 20:11 06/07/19 06:35 06/07/19 07:52 Bedside Glucose 171 249 H 182 White Blood Count 10.4 Red Blood Count 6.86 H Hemoglobin 13.5 Hematocrit 48.1 H Mean Corpuscular 70.1 L Volume Mean Corpuscular 19.7 L Hemoglobin Mean Corpuscular 28.1 L Hemoglobin Concent Red Cell 18.8 H Distribution Width Platelet Count 203 Mean Platelet Volume Immature 0.400 Granulocytes % Neutrophils % 81.3 H Lymphocytes % 12.9 L Monocytes % 5.1 Eosinophils % 0.1 Basophils % 0.2 Nucleated Red 0.0 Blood Cells % Immature 0.040 H Granulocytes # Neutrophils # 8.5 H Lymphocytes # 1.3 Monocytes # 0.5 Eosinophils # 0.0 Basophils # 0.0 Nucleated Red 0.0 Blood Cells # Sodium Level 140 Potassium Level 3.8 Chloride Level 98 Carbon Dioxide 37 H Level Anion Gap 5 Blood Urea 25 H Nitrogen Creatinine 0.64 Est Glomerular > 60 Filtrat Rate mL/min Glucose Level 139 Calcium Level 8.9 Phosphorus Level 4.2 Magnesium Level 2.1 Test 06/07/19 11:32 06/07/19 11:56 Blood Gas Specimen Blood arterial Source Arterial Blood 06/07/2019 12:02:22 Date Drawn PM Arterial Blood pH 7.349 L (Temp corrected) Arterial Blood 66.2 H pCO2 (Temp correct) Arterial Blood pO2 64.8 L (Temp corrected) Arterial Blood 35.6 H HCO3 Arterial Blood 7.4 H Base Excess Arterial Blood 92.2 L Oxygen Saturation Scottie Test N/A Arterial Blood Gas Right Brachial Puncture Site Arterial 1.2 Blood Carboxyhemog lobin Arterial Blood 0.3 Methemoglobin Blood Gas A-a O2 71.3 H Differential Oxyhemoglobin 90.8 L Percent Blood Gas 37.0 Temperature Blood Gas Modality NASAL CANNULA FiO2 30.0 Blood Gas Notified TM Whom Blood Gas Notified 06/07/2019 12:22:12 Time PM Bedside Glucose 157 Subjective 24 Hr Interval Summary Free Text/Dictation Constitutional: No fever, cough or chills. EYE: No eye disease. No visual problems. CARDIOVASCULAR: No chest pain. No tachycardia. No Palpitation. RESPIRATORY: SOB sometimes GASTROINTESTINAL: No Nausea. No Vomiting. No constipation. Endocrine: No excessive thirst, No polyuria, No hot intolerance. No cold int olerance. MUSCULO-SKELETAL: back pain NEUROLOGICAL: Alert oriented in person, place, time and situation. No Headache, Confusion. No Seizures. Exam/Review of Systems Exam Vitals Vital Signs Date Temp Pulse Resp B/P (MAP) Pulse Ox O2 O2 Flow FiO2 Time Delivery Rate 06/07/19 98.0 99 22 134/84 97 Nasal 15:07 (101) Cannula 06/07/19 3.0 12:50 06/06/19 21 21:20 Intake and Output 06/06/19 06/06/19 06/07/19 1515:00 23:00 07:00 IntakeIntake Total 240 ml 1550 ml 750 ml OutputOutput Total 2 ml 4 ml BalanceBalance 238 ml 1546 ml 750 ml Exam obese Constitutional: alert, oriented Head: normocephalic Eyes: nl conjunctiva ENMT: nl external ears & nose Neck: supple Respiratory: diminished breath sounds Cardiovascular: regular rate and rhythm Gastrointestinal: soft Genitourinary - Female: CVA tenderness; No nl adnexae, No nl external genitalia, No CMT, No uterus, No other Musculoskeletal: joint tenderness (knees) Neurological: HE[employer] SPECIALIST II-XII intact Results Results 24hrs Laboratory Tests Test 06/06/19 17:32 06/06/19 20:11 06/07/19 06:35 06/07/19 07:52 Bedside Glucose 171 249 H 182 White Blood Count 10.4 Red Blood Count 6.86 H Hemoglobin 13.5 Hematocrit 48.1 H Mean Corpuscular 70.1 L Volume Mean Corpuscular 19.7 L Hemoglobin Mean Corpuscular 28.1 L Hemoglobin Concent Red Cell 18.8 H Distribution Width Platelet Count 203 Mean Platelet Volume Immature 0.400 Granulocytes % Neutrophils % 81.3 H Lymphocytes % 12.9 L Monocytes % 5.1 Eosinophils % 0.1 Basophils % 0.2 Nucleated Red 0.0 Blood Cells % Immature 0.040 H Granulocytes # Neutrophils # 8.5 H Lymphocytes # 1.3 Monocytes # 0.5 Eosinophils # 0.0 Basophils # 0.0 Nucleated Red 0.0 Blood Cells # Sodium Level 140 Potassium Level 3.8 Chloride Level 98 Carbon Dioxide 37 H Level Anion Gap 5 Blood Urea 25 H Nitrogen Creatinine 0.64 Est Glomerular > 60 Filtrat Rate mL/min Glucose Level 139 Calcium Level 8.9 Phosphorus Level 4.2 Magnesium Level 2.1 Test 06/07/19 11:32 06/07/19 11:56 Blood Gas Specimen Blood arterial Source Arterial Blood 06/07/2019 12:02:22 Date Drawn PM Arterial Blood pH 7.349 L (Temp corrected) Arterial Blood 66.2 H pCO2 (Temp correct) Arterial Blood pO2 64.8 L (Temp corrected) Arterial Blood 35.6 H HCO3 Arterial Blood 7.4 H Base Excess Arterial Blood 92.2 L Oxygen Saturation Scottie Test N/A Arterial Blood Gas Right Brachial Puncture Site Arterial 1.2 Blood Carboxyhemog lobin Arterial Blood 0.3 Methemoglobin Blood Gas A-a O2 71.3 H Differential Oxyhemoglobin 90.8 L Percent Blood Gas 37.0 Temperature Blood Gas Modality NASAL CANNULA FiO2 30.0 Blood Gas Notified TM Whom Blood Gas Notified 06/07/2019 12:22:12 Time PM Bedside Glucose 157 Medications Medication Current Medications Albuterol/ Ipratropium (Duoneb) 3 ml Q2H RESP THERAPY PRN HHN WHEEZING AND SOB; Start 06/05/19 at 01:30 Albuterol/ Ipratropium (Duoneb) 3 ml Q4H RESP THERAPY HHN Last administered on 8/2/19at 12:58; Admin Dose 3 ML; Start 06/05/19 at 05:00 Ketorolac Tromethamine (Toradol) 15 mg Q6H PRN IV PAIN Last administered on 06/06/19 02:54; Admin Dose 15 MG; Start 06/05/19 at 01:30; Stop 06/08/19 at 01:29 Furosemide (Lasix) 40 mg DAILY IV Last administered on 06/07/19 08:42; Admin Dose 40 MG; Start 06/05/19 at 09:00 Acetaminophen (Tylenol Tab) 650 mg Q6H PRN PO MILD PAIN(1-3)OR ELEVATED TEMP Last administered on 06/06/19 19:14; Admin Dose 650 MG; Start 06/05/19 at 01:30 Ondansetron HCl (Zofran Inj) 4 mg Q6H PRN IV NAUSEA AND/OR VOMITING; Start 06/05/19 at 01:30 Ceftriaxone Sodium 50 ml @ 100 mls/hr Q24H IVPB Last administered on 06/06/19 21:09; Admin Dose 100 MLS/HR; Start 06/05/19 at 22:00 Azithromycin 250 mg/Sodium Chloride 250 ml @ 250 mls/hr Q24H IVPB Last administered on 06/06/19 22:23; Admin Dose 250 MLS/HR; Start 06/05/19 at 22:00 Insulin Aspart (Novolog Insulin Pen) NOVOLOG *MODERATE* ALGORITHM WITH MEALS BEDTIME SC Last administered on 06/07/19 12:11; Admin Dose 2 UNIT; Start 06/05/19 at 07:55 Collagenase (Santyl) 1 applic DAILY TOP Last administered on 06/07/19 08:41; Admin Dose 1 APPLIC; Start 06/05/19 at 13:00 Acetazolamide (Diamox) 250 mg BID PO Last administered on 06/07/19 08:42; Admin Dose 250 MG; Start 06/06/19 at 09:00; Stop 06/07/19 at 23:00 Insulin Human NPH (Humulin N) 3 unit TID SC Last administered on 06/07/19 14:20; Admin Dose 3 UNIT; Start 06/05/19 at 21:00 Miscellaneous Information 1 ea NOTE XX ; Start 06/05/19 at 17:00 Glucose (Glutose) 15 gm Q15M PRN PO DECREASED GLUCOSE; Start 06/05/19 at 17:00 Glucose (Glutose) 22.5 gm Q15M PRN PO DECREASED GLUCOSE; Start 06/05/19 at 17:00 Dextrose (D50w Syringe) 25 ml Q15M PRN IV DECREASED GLUCOSE; Start 06/05/19 at 17:00 Dextrose (D50w Syringe) 50 ml Q15M PRN IV DECREASED GLUCOSE; Start 06/05/19 at 17:00 Glucagon (Glucagen) 1 mg Q15M PRN IM DECREASED GLUCOSE; Start 06/05/19 at 17:00 Glucose (Glutose) 15 gm Q15M PRN BUCCAL DECREASED GLUCOSE; Start 06/05/19 at 17:00 Guaifenesin/ Dextromethorphan (Robitussin Dm Liquid Cup) 10 ml Q6H PRN PO cough Last administered on 06/06/19at 12:32; Admin Dose 10 ML; Start 06/06/19 at 12:30 Vancomycin HCl (Vanco Iv Per Pharmacy) VANCOMYCIN PER PHARMACY PER PROTOCOL XX ; Start 06/07/19 at 10:00 Vancomycin/Sodium Chloride 250 ml @ 83.333 mls/ hr Q12H IVPB Last administered on 06/07/19at 14:24; Admin Dose 83.333 MLS/HR; Start 06/07/19 at 14:00 ORION QUINTERO NP Jun 07, 2019 16:01
[2019-06-07] MEDS: ENOXAPARIN 40 MG/0.4 ML SYG SC SCH (17:05)
[2019-06-07] MEDS: CEFTRIAXONE 1 GM/50 ML (PMX) 50 ML IVPB SCH (21:04)
[2019-06-07] MEDS: AZITHROMYCIN 250 MG in SOD CHLORIDE 0.9% 250 ML IVPB SCH (22:35)
[2019-06-08] VITALS (7 sets, daily range): BP systolic 118–143; BP diastolic 5–87; PULSE 87–109; RESP 18–22
[2019-06-08] MEDS: ALBUTEROL/IPRATROPIUM (NEB) 3 ML AMP HHN SCH ×6 (01:06→19:58)
[2019-06-08] MEDS: VANCOMYCIN 1.5 GM/NS 250 ML 250 ML IVPB SCH ×2 (01:17→14:34)
[2019-06-08] MEDS: PANTOPRAZOLE (EC) 40 MG TAB PO SCH (05:19)
[2019-06-08] MEDS: ACETAMINOPHEN 325 MG TAB PO PRN ×3 (05:44→23:44)
[2019-06-08] MEDS: INSULIN ASPART [NOVOLOG] 3 ML PEN SC SCH ×4 (07:55→21:00)
[2019-06-08] MEDS: COLLAGENASE 5 GM (UD JAR) TOP SCH (08:42)
[2019-06-08] MEDS: FUROSEMIDE 40 MG INJ IV SCH (08:43)
[2019-06-08] MEDS: ENOXAPARIN 40 MG/0.4 ML SYG SC SCH (09:09)
--- NOTE | 2019-06-08 10:27 | CONS ---
Consultation Date/Type/Reason Admit Date/Time Jun 04, 2019 at 22:30 Initial Consult Date Type of Consult Pulmonary Patient's condition is stable. Laying comfortably in bed. Shortness of breath is improving. Denies any coughing or wheezing. General exam; elderly female, overweight. Currently no distress. H HEENT exam; supple neck, positive JVD. No lymphadenopathy. Midline trachea. No thyromegaly. Patient has fair dentition. No neck masses. Chest exam; diminished but clear breath sounds. S1-S2 audible, no murmurs. Regular rhythm. Abdomen exam; soft, protuberant. Nontender. Organomegaly difficult to assess. Bowel sounds are audible. Extremity exam; peripheral edema clubbing. Pulses 2+. MANAGER OF EMPLOYEE RELATIONS exam; no focal deficit. Assessment and recommendations; 1. Patient admitted with CHF exacerbation with likely underlying chronic type II respiratory failure with severe hypercapnia with interval improvement. M aintained on BiPAP as needed. 2. Possibly acute bronchitis as well. 3. Likely underlying sleep apnea. 4. History of diabetes. Continue current supportive care. Discontinue Solu-Medrol. Obtain follow-up ABG. Patient likely will need BiPAP for home use. Date/Time of Note DATE: 06/08/19 TIME: 10:25 24 HR Interval Summary Free Text/Dictation Patient's condition is stable. Reports improvement in shortness of breath. Denies any coughing, wheezing or sputum production. General exam; elderly woman, laying comfortably in bed. Awake and alert. Currently no distress. H ENT exam; supple neck, no JVD. No lymphadenopathy. Midline trachea. No thyromegaly. Patient is edentulous. Chest exam; diminished but clear breath sounds. S1-S2 audible, no murmurs. Regular rhythm. Abdomen exam; soft, protuberant. Nontender. No organomegaly. Bowel sounds audible. Extremity exam; no peripheral edema clubbing. MANAGER OF EMPLOYEE RELATIONS exam; no focal deficit. Assessment and recommendations; 1. Patient admitted with COPD exacerbation with hypercapnia with interval improvement. 2. Possibly some element of bronchopneumonia with interval improvement as well. 3. Coagulase-negative staph aureus bacteremia on admission. Difficult to rule out contamination. Most recent cultures are negative. 4. History of diabetes. 5. Possible underlying sleep apnea. Continue current supportive care. Patient will need BiPAP to be used at home at discharge. Exam/Review of Systems Exam Vitals Vital Signs Date Temp Pulse Resp B/P (MAP) Pulse Ox O2 O2 Flow FiO2 Time Delivery Rate 06/08/19 3.0 08:13 06/08/19 Nasal 08:00 Cannula 06/08/19 97.8 90 20 143/73 98 07:27 (96) 06/07/19 35 22:47 Intake and Output 06/07/19 06/07/19 06/08/19 1515:00 23:00 07:00 IntakeIntake Total 240 ml 1100 ml 1000 ml OutputOutput Total 4 ml BalanceBalance 240 ml 1096 ml 1000 ml Results Result Diagram: 06/08/19 0609 06/08/19 0610 Results 24hrs Laboratory Tests Test 06/07/19 11:32 06/07/19 11:56 06/07/19 17:51 06/07/19 20:03 Blood Gas Specimen Blood arterial Source Arterial Blood 06/07/2019 12:02:22 Date Drawn PM Arterial Blood pH 7.349 L (Temp corrected) Arterial Blood 66.2 H pCO2 (Temp correct) Arterial Blood pO2 64.8 L (Temp corrected) Arterial Blood 35.6 H HCO3 Arterial Blood 7.4 H Base Excess Arterial Blood 92.2 L Oxygen Saturation Scottie Test N/A Arterial Blood Gas Right Brachial Puncture Site Arterial 1.2 Blood Carboxyhemog lobin Arterial Blood 0.3 Methemoglobin Blood Gas A-a O2 71.3 H Differential Oxyhemoglobin 90.8 L Percent Blood Gas 37.0 Temperature Blood Gas Modality NASAL CANNULA FiO2 30.0 Blood Gas Notified TM Whom Blood Gas Notified 06/07/2019 12:22:12 Time PM Bedside Glucose 157 149 153 Test 06/08/19 06:09 06/08/19 06:10 06/08/19 08:39 White Blood Count 11.9 H Red Blood Count 7.08 H Hemoglobin 13.6 Hematocrit 49.3 H Mean Corpuscular 69.6 L Volume Mean Corpuscular 19.2 L Hemoglobin Mean Corpuscular 27.6 L Hemoglobin Concent Red Cell 18.9 H Distribution Width Platelet Count 120 #L Mean Platelet Volume Immature 0.300 Granulocytes % Neutrophils % 50.8 Segmented 47 Neutrophils % (Manual) Band Neutrophils % 3 (Manual) Lymphocytes % 37.6 Lymphocytes % 31 (Manual) Reactive 10 H Lymphocytes % (Manual) Monocytes % 10.9 Monocytes % 9 (Manual) Eosinophils % 0.2 Basophils % 0.2 Nucleated Red 0.2 H Blood Cells % Immature 0.040 H Granulocytes # Neutrophils # 6.0 Neutrophils # 5.6 (Manual) Band Neutrophils # 0.3 Lymphocytes 3.6 H (Manual) Lymphocytes # 4.5 H Reactive 1.1 H Lymphocytes # Monocytes # 1.3 H Monocytes # 1.0 H (Manual) Eosinophils # 0.0 Basophils # 0.0 Nucleated Red 0.0 Blood Cells # Platelet Estimate DECREASED Platelet @See below Morphology Comment Polychromasia 3+ Poikilocytosis 2+ Anisocytosis 1+ Microcytosis 1+ Target Cells 1+ Ovalocytes 1+ Sodium Level 141 Potassium Level 3.4 L Chloride Level 102 Carbon Dioxide 33 H Level Anion Gap 6 Blood Urea 27 H Nitrogen Creatinine 0.69 Est Glomerular > 60 Filtrat Rate mL/min Glucose Level 115 Calcium Level 8.6 Bedside Glucose 109 Medications Medication Current Medications Albuterol/ Ipratropium (Duoneb) 3 ml Q2H RESP THERAPY PRN HHN WHEEZING AND SOB; Start 06/05/19 at 01:30 Albuterol/ Ipratropium (Duoneb) 3 ml Q4H RESP THERAPY HHN Last administered on 06/08/19 05:32; Admin Dose 3 ML; Start 06/05/19 at 05:00 Furosemide (Lasix) 40 mg DAILY IV Last administered on 06/08/19at 08:43; Admin Dose 40 MG; Start 06/05/19 at 09:00 Acetaminophen (Tylenol Tab) 650 mg Q6H PRN PO MILD PAIN(1-3)OR ELEVATED TEMP Last administered on 06/08/19at 05:44; Admin Dose 650 MG; Start 06/05/19 at 01:30 Ondansetron HCl (Zofran Inj) 4 mg Q6H PRN IV NAUSEA AND/OR VOMITING; Start 06/05/19 at 01:30 Ceftriaxone Sodium 50 ml @ 100 mls/hr Q24H IVPB Last administered on 06/07/19at 21:04; Admin Dose 100 MLS/HR; Start 06/05/19 at 22:00 Azithromycin 250 mg/Sodium Chloride 250 ml @ 250 mls/hr Q24H IVPB Last administered on 06/07/19 22:35; Admin Dose 250 MLS/HR; Start 06/05/19 at 22:00 Insulin Aspart (Novolog Insulin Pen) NOVOLOG *MODERATE* ALGORITHM WITH MEALS BEDTIME SC Last administered on 06/07/19at 17:58; Admin Dose 2 UNIT; Start 06/05/19 at 07:55 Collagenase (Santyl) 1 applic DAILY TOP Last administered on 06/08/19at 08:42; Admin Dose 1 APPLIC; Start 06/05/19 at 13:00 Miscellaneous Information 1 ea NOTE XX ; Start 06/05/19 at 17:00 Glucose (Glutose) 15 gm Q15M PRN PO DECREASED GLUCOSE; Start 06/05/19 at 17:00 Glucose (Glutose) 22.5 gm Q15M PRN PO DECREASED GLUCOSE; Start 06/05/19 at 17:00 Dextrose (D50w Syringe) 25 ml Q15M PRN IV DECREASED GLUCOSE; Start 06/05/19 at 17:00 Dextrose (D50w Syringe) 50 ml Q15M PRN IV DECREASED GLUCOSE; Start 06/05/19 at 17:00 Glucagon (Glucagen) 1 mg Q15M PRN IM DECREASED GLUCOSE; Start 06/05/19 at 17:00 Glucose (Glutose) 15 gm Q15M PRN BUCCAL DECREASED GLUCOSE; Start 06/05/19 at 17:00 Guaifenesin/ Dextromethorphan (Robitussin Dm Liquid Cup) 10 ml Q6H PRN PO cough Last administered on 06/06/19at 12:32; Admin Dose 10 ML; Start 06/06/19 at 12:30 Vancomycin HCl (Vanco Iv Per Pharmacy) VANCOMYCIN PER PHARMACY PER PROTOCOL XX ; Start 06/07/19 at 10:00 Vancomycin/Sodium Chloride 250 ml @ 83.333 mls/ hr Q12H IVPB Last administered on 06/08/19at 01:17; Admin Dose 83.333 MLS/HR; Start 06/07/19 at 14:00 Pantoprazole (Protonix Tab) 40 mg DAILY@06 PO Last administered on 06/08/19at 05:19; Admin Dose 40 MG; Start 06/08/19 at 06:00 Enoxaparin Sodium (Lovenox) 40 mg DAILY SC Last administered on 06/08/19at 09:09; Admin Dose 40 MG; Start 06/07/19 at 16:30 MIGUEL WELLS Jun 08, 2019 10:27
[2019-06-08] MEDS ORDERED: POTASSIUM CHLORIDE 100 ML IVPB SCH (16:00)
[2019-06-08] MEDS ORDERED: POTASSIUM CHLORIDE 20 MEQ POWDER FOR ORAL SOLN PO ONE (16:30)
--- NOTE | 2019-06-08 16:43 | PN ---
Date/Time of Note Date/Time of Note DATE: 06/08/19 TIME: 16:37 Assessment/Plan VTE Prophylaxis Risk score (from Ns)>0 risk: 7 SCD applied (from Ns): Yes Pharmacological prophylaxis: LMWH Lines/Catheters IV Catheter Type (from Nrs): Saline Lock Urinary Cath still in place: No Assessment/Plan Hospital Course 1. Shortness of breath, cough, with diffuse expiratory wheezing, likely sec ondary to chronic obstructive pulmonary disease exacerbation. SEPSIS 2. Hypercapnic respiratory failure, likely secondary to chronic obstructive pulmonary disease, plus the patient is on a bunch of sleeping medications, sedatives at home 3. Metabolic/respiratory acidosis. 4. Diabetes. 5. Hypertension. 6. Hyperlipidemia. 7. Depression. 8. Anxiety. 9. Morbid obesity 10. Uremia more likely due to UTI 11. UTI Assessment/Plan -blood cultures are drawn, so far negative -no fever -c/w Protonix -c/w Lovenox -c/w nebs - iv Rocephin/azithromycin - iv vanco bld cx+ - bipap PRN, pt used at the night time -pt refused PT Result Diagram: 06/08/19 0609 06/08/19 0610 Results 24hrs Laboratory Tests Test 06/07/19 17:51 06/07/19 20:03 06/08/19 06:09 06/08/19 06:10 Bedside Glucose 149 153 White Blood Count 11.9 H Red Blood Count 7.08 H Hemoglobin 13.6 Hematocrit 49.3 H Mean Corpuscular Volume 69.6 L Mean Corpuscular 19.2 L Hemoglobin Mean Corpuscular 27.6 L Hemoglobin Concent Red Cell Distribution 18.9 H Width Platelet Count 120 #L Mean Platelet Volume Immature Granulocytes % 0.300 Neutrophils % 50.8 Segmented Neutrophils 47 % (Manual) Band Neutrophils % 3 (Manual) Lymphocytes % 37.6 Lymphocytes % (Manual) 31 Reactive Lymphocytes 10 H % (Manual) Monocytes % 10.9 Monocytes % (Manual) 9 Eosinophils % 0.2 Basophils % 0.2 Nucleated Red Blood 0.2 H Cells % Immature Granulocytes # 0.040 H Neutrophils # 6.0 Neutrophils # (Manual) 5.6 Band Neutrophils # 0.3 Lymphocytes (Manual) 3.6 H Lymphocytes # 4.5 H Reactive Lymphocytes # 1.1 H Monocytes # 1.3 H Monocytes # (Manual) 1.0 H Eosinophils # 0.0 Basophils # 0.0 Nucleated Red Blood 0.0 Cells # Platelet Estimate DECREASED Platelet Morphology @See below Comment Polychromasia 3+ Poikilocytosis 2+ Anisocytosis 1+ Microcytosis 1+ Target Cells 1+ Ovalocytes 1+ Sodium Level 141 Potassium Level 3.4 L Chloride Level 102 Carbon Dioxide Level 33 H Anion Gap 6 Blood Urea Nitrogen 27 H Creatinine 0.69 Est Glomerular Filtrat > 60 Rate mL/min Glucose Level 115 Calcium Level 8.6 Test 06/08/19 08:39 06/08/19 12:26 Bedside Glucose 109 153 Subjective 24 Hr Interval Summary Free Text/Dictation slept with BIPAP Constitutional: no complaints Respiratory: no complaints, pain, cough, pleuritic pain, shortness of breath, sputum, wheezing, other Cardiovascular: chest pain; No no complaints, No edema, No lightheadedness, No orthopenea, No palpitations, No paroxysmal nocturnal dyspnea, No other Genitourinary: dysuria, flank pain; No no complaints, No bleeding, No discharge, No hematuria, No other Exam/Review of Systems Exam Vitals Vital Signs Date Temp Pulse Resp B/P (MAP) Pulse Ox O2 O2 Flow FiO2 Time Delivery Rate 06/08/19 98.0 101 22 119/77 94 Nasal 14:58 (91) Cannula 06/08/19 3.0 08:13 06/07/19 35 22:47 Intake and Output 06/07/19 06/07/19 06/08/19 1515:00 23:00 07:00 IntakeIntake Total 240 ml 1100 ml 1000 ml OutputOutput Total 4 ml BalanceBalance 240 ml 1096 ml 1000 ml Exam pale, obese Constitutional: alert, oriented Head: normocephalic, atraumatic Eyes: nl conjunctiva ENMT: nl external ears & nose Neck: supple, bruits, thyromegaly Respiratory: diminished breath sounds Cardiovascular: regular rate and rhythm Gastrointestinal: soft Genitourinary - Female: CVA tenderness; No nl adnexae, No nl external genitalia, No CMT, No uterus, No other Extremities: edema; No normal pulses, No calf tenderness, No cyanosis, No clubbing, No pitting pedal edema, No palpable cord, No tenderness, No other Skin: nl turgor, ecchymosis; No rash or lesions, No diaphoresis, No laceration, No puncture, No other Results Results 24hrs Laboratory Tests Test 06/07/19 17:51 06/07/19 20:03 06/08/19 06:09 06/08/19 06:10 Bedside Glucose 149 153 White Blood Count 11.9 H Red Blood Count 7.08 H Hemoglobin 13.6 Hematocrit 49.3 H Mean Corpuscular Volume 69.6 L Mean Corpuscular 19.2 L Hemoglobin Mean Corpuscular 27.6 L Hemoglobin Concent Red Cell Distribution 18.9 H Width Platelet Count 120 #L Mean Platelet Volume Immature Granulocytes % 0.300 Neutrophils % 50.8 Segmented Neutrophils 47 % (Manual) Band Neutrophils % 3 (Manual) Lymphocytes % 37.6 Lymphocytes % (Manual) 31 Reactive Lymphocytes 10 H % (Manual) Monocytes % 10.9 Monocytes % (Manual) 9 Eosinophils % 0.2 Basophils % 0.2 Nucleated Red Blood 0.2 H Cells % Immature Granulocytes # 0.040 H Neutrophils # 6.0 Neutrophils # (Manual) 5.6 Band Neutrophils # 0.3 Lymphocytes (Manual) 3.6 H Lymphocytes # 4.5 H Reactive Lymphocytes # 1.1 H Monocytes # 1.3 H Monocytes # (Manual) 1.0 H Eosinophils # 0.0 Basophils # 0.0 Nucleated Red Blood 0.0 Cells # Platelet Estimate DECREASED Platelet Morphology @See below Comment Polychromasia 3+ Poikilocytosis 2+ Anisocytosis 1+ Microcytosis 1+ Target Cells 1+ Ovalocytes 1+ Sodium Level 141 Potassium Level 3.4 L Chloride Level 102 Carbon Dioxide Level 33 H Anion Gap 6 Blood Urea Nitrogen 27 H Creatinine 0.69 Est Glomerular Filtrat > 60 Rate mL/min Glucose Level 115 Calcium Level 8.6 Test 06/08/19 08:39 06/08/19 12:26 Bedside Glucose 109 153 Medications Medication Current Medications Albuterol/ Ipratropium (Duoneb) 3 ml Q2H RESP THERAPY PRN HHN WHEEZING AND SOB; Start 06/05/19 at 01:30 Albuterol/ Ipratropium (Duoneb) 3 ml Q4H RESP THERAPY HHN Last administered on 06/08/19at 05:32; Admin Dose 3 ML; Start 06/05/19 at 05:00 Furosemide (Lasix) 40 mg DAILY IV Last administered on 06/08/19at 08:43; Admin Dose 40 MG; Start 06/05/19 at 09:00 Acetaminophen (Tylenol Tab) 650 mg Q6H PRN PO MILD PAIN(1-3)OR ELEVATED TEMP Last administered on 06/08/19at 14:30; Admin Dose 650 MG; Start 06/05/19 at 01:30 Ondansetron HCl (Zofran Inj) 4 mg Q6H PRN IV NAUSEA AND/OR VOMITING; Start 06/05/19 at 01:30 Ceftriaxone Sodium 50 ml @ 100 mls/hr Q24H IVPB Last administered on 06/07/19at 21:04; Admin Dose 100 MLS/HR; Start 06/05/19 at 22:00 Azithromycin 250 mg/Sodium Chloride 250 ml @ 250 mls/hr Q24H IVPB Last administered on 06/07/19at 22:35; Admin Dose 250 MLS/HR; Start 06/05/19 at 22:00 Insulin Aspart (Novolog Insulin Pen) NOVOLOG *MODERATE* ALGORITHM WITH MEALS BEDTIME SC Last administered on 06/08/19at 12:40; Admin Dose 2 UNIT; Start 06/05/19 at 07:55 Collagenase (Santyl) 1 applic DAILY TOP Last administered on 06/08/19 08:42; Admin Dose 1 APPLIC; Start 06/05/19 at 13:00 Miscellaneous Information 1 ea NOTE XX ; Start 06/05/19 at 17:00 Glucose (Glutose) 15 gm Q15M PRN PO DECREASED GLUCOSE; Start 06/05/19 at 17:00 Glucose (Glutose) 22.5 gm Q15M PRN PO DECREASED GLUCOSE; Start 06/05/19 at 17:00 Dextrose (D50w Syringe) 25 ml Q15M PRN IV DECREASED GLUCOSE; Start 06/05/19 at 17:00 Dextrose (D50w Syringe) 50 ml Q15M PRN IV DECREASED GLUCOSE; Start 06/05/19 at 17:00 Glucagon (Glucagen) 1 mg Q15M PRN IM DECREASED GLUCOSE; Start 06/05/19 at 17:00 Glucose (Glutose) 15 gm Q15M PRN BUCCAL DECREASED GLUCOSE; Start 06/05/19 at 17:00 Guaifenesin/ Dextromethorphan (Robitussin Dm Liquid Cup) 10 ml Q6H PRN PO cough Last administered on 06/06/19at 12:32; Admin Dose 10 ML; Start 06/06/19 at 12:30 Vancomycin HCl (Vanco Iv Per Pharmacy) VANCOMYCIN PER PHARMACY PER PROTOCOL XX ; Start 06/07/19 at 10:00 Vancomycin/Sodium Chloride 250 ml @ 83.333 mls/ hr Q12H IVPB Last administered on 06/08/19at 14:34; Admin Dose 83.333 MLS/HR; Start 06/07/19 at 14:00 Pantoprazole (Protonix Tab) 40 mg DAILY@06 PO Last administered on 06/08/19at 05:19; Admin Dose 40 MG; Start 06/08/19 at 06:00 Enoxaparin Sodium (Lovenox) 40 mg DAILY SC Last administered on 06/08/19at 09:09; Admin Dose 40 MG; Start 06/07/19 at 16:30 Miscellaneous Information (*Rx Drug Level Order Reminder*) VANCO TR 1300 ONCE XX ; Start 06/09/19 at 13:00; Stop 06/09/19 at 13:01 ORION QUINTERO NP Jun 08, 2019 16:43
[2019-06-08] MEDS: CEFTRIAXONE 1 GM/50 ML (PMX) 50 ML IVPB SCH (21:03)
[2019-06-08] MEDS: AZITHROMYCIN 250 MG in SOD CHLORIDE 0.9% 250 ML IVPB SCH (22:03)
[2019-06-09] MEDS: ALBUTEROL/IPRATROPIUM (NEB) 3 ML AMP HHN SCH ×6 (01:00→20:45)
[2019-06-09] MEDS: VANCOMYCIN 1.5 GM/NS 250 ML 250 ML IVPB SCH ×2 (02:28→14:43)
[2019-06-09 05:00] VITALS: BP 111/72; PULSE 102; RESP 20
[2019-06-09] MEDS: PANTOPRAZOLE (EC) 40 MG TAB PO SCH (06:05)
[2019-06-09 07:02] VITALS: BP 106/64; PULSE 93; RESP 18
[2019-06-09] MEDS: INSULIN ASPART [NOVOLOG] 3 ML PEN SC SCH ×4 (07:55→20:44)
[2019-06-09] MEDS: FUROSEMIDE 40 MG INJ IV SCH (08:28)
[2019-06-09] MEDS: COLLAGENASE 5 GM (UD JAR) TOP SCH (08:29)
[2019-06-09] MEDS: POTASSIUM CHLORIDE 20 MEQ POWDER FOR ORAL SOLN PO SCH ×2 (08:29→09:56)
[2019-06-09] MEDS: ENOXAPARIN 40 MG/0.4 ML SYG SC SCH (08:35)
[2019-06-09 11:17] VITALS: BP 99/64; PULSE 93; RESP 18
--- NOTE | 2019-06-09 14:35 | PN ---
Date/Time of Note Date/Time of Note DATE: 06/09/19 TIME: 14:34 Assessment/Plan VTE Prophylaxis Risk score (from Ns)>0 risk: 7 SCD applied (from Ns): Yes Pharmacological prophylaxis: LMWH Lines/Catheters IV Catheter Type (from Nrsg): Saline Lock Urinary Cath still in place: No Assessment/Plan Hospital Course 1. Shortness of breath, cough, with diffuse expiratory wheezing, likely sec ondary to chronic obstructive pulmonary disease exacerbation. SEPSIS 2. Hypercapnic respiratory failure, likely secondary to chronic obstructive pulmonary disease, plus the patient is on a bunch of sleeping medications, sedatives at home 3. Metabolic/respiratory acidosis. 4. Diabetes. 5. Hypertension. 6. Hyperlipidemia. 7. Depression. 8. Anxiety. 9. Morbid obesity 10. Uremia more likely due to UTI 11. UTI Assessment/Plan -bipap at night - PT, pt refusing, talk to he to comply -talk to Lauren MAHONEY -bl. cul is not resulted -c/w Vanco Result Diagram: 06/09/19 0837 06/09/19 1305 Results 24hrs Laboratory Tests Test 06/08/19 17:25 06/08/19 21:13 06/09/19 08:27 06/09/19 08:37 Bedside Glucose 203 126 126 White Blood Count 10.0 Red Blood Count 6.80 H Hemoglobin 13.4 Hematocrit 48.0 H Mean Corpuscular Volume 70.6 L Mean Corpuscular 19.7 L Hemoglobin Mean Corpuscular 27.9 L Hemoglobin Concent Red Cell Distribution 19.0 H Width Platelet Count 143 Mean Platelet Volume Immature Granulocytes % 0.200 Neutrophils % 58.1 Lymphocytes % 28.3 Monocytes % 12.4 H Eosinophils % 0.8 Basophils % 0.2 Nucleated Red Blood 0.0 Cells % Immature Granulocytes # 0.020 Neutrophils # 5.8 Lymphocytes # 2.8 Monocytes # 1.2 H Eosinophils # 0.1 Basophils # 0.0 Nucleated Red Blood 0.0 Cells # Sodium Level 143 Potassium Level 3.7 Chloride Level 103 Carbon Dioxide Level 36 H Anion Gap 4 L Blood Urea Nitrogen 25 H Creatinine 0.49 Est Glomerular Filtrat > 60 Rate mL/min Glucose Level 124 Calcium Level 8.5 Test 06/09/19 12:36 06/09/19 13:05 Bedside Glucose 148 Blood Urea Nitrogen 21 H Creatinine 0.58 Vancomycin Level Trough 17.4 Subjective 24 Hr Interval Summary Free Text/Dictation tired, was walking before hospitalization, no overnight events Exam/Review of Systems Exam Vitals Vital Signs Date Temp Pulse Resp B/P (MAP) Pulse Ox O2 O2 Flow FiO2 Time Delivery Rate 06/09/19 98.2 93 18 99/64 (76) 98 11:17 06/09/19 3.0 08:03 06/09/19 Nasal 07:23 Cannula 06/07/19 35 22:47 Intake and Output 06/08/19 06/08/19 06/09/19 1515:00 23:00 07:00 IntakeIntake Total 840 ml 300 ml 500 ml OutputOutput Total 6 ml BalanceBalance 834 ml 300 ml 500 ml Constitutional: alert, oriented Psych: no complaints Head: normocephalic Eyes: nl conjunctiva Neck: supple Respiratory: diminished breath sounds Cardiovascular: regular rate and rhythm Gastrointestinal: No nl liver, spleen, No non-tender, No ascites, No bowel sounds, No distended, No firm, No hepatomegaly, No mass, No rebound or guarding, No splenomegaly, No surgical scars, No tender, No other Genitourinary - Female: CVA tenderness; No nl adnexae, No nl external genitalia, No CMT, No uterus, No other Extremities: other (trace edam) Results Results 24hrs Laboratory Tests Test 06/08/19 17:25 06/08/19 21:13 06/09/19 08:27 06/09/19 08:37 Bedside Glucose 203 126 126 White Blood Count 10.0 Red Blood Count 6.80 H Hemoglobin 13.4 Hematocrit 48.0 H Mean Corpuscular Volume 70.6 L Mean Corpuscular 19.7 L Hemoglobin Mean Corpuscular 27.9 L Hemoglobin Concent Red Cell Distribution 19.0 H Width Platelet Count 143 Mean Platelet Volume Immature Granulocytes % 0.200 Neutrophils % 58.1 Lymphocytes % 28.3 Monocytes % 12.4 H Eosinophils % 0.8 Basophils % 0.2 Nucleated Red Blood 0.0 Cells % Immature Granulocytes # 0.020 Neutrophils # 5.8 Lymphocytes # 2.8 Monocytes # 1.2 H Eosinophils # 0.1 Basophils # 0.0 Nucleated Red Blood 0.0 Cells # Sodium Level 143 Potassium Level 3.7 Chloride Level 103 Carbon Dioxide Level 36 H Anion Gap 4 L Blood Urea Nitrogen 25 H Creatinine 0.49 Est Glomerular Filtrat > 60 Rate mL/min Glucose Level 124 Calcium Level 8.5 Test 06/09/19 12:36 06/09/19 13:05 Bedside Glucose 148 Blood Urea Nitrogen 21 H Creatinine 0.58 Vancomycin Level Trough 17.4 Medications Medication Current Medications Albuterol/ Ipratropium (Duoneb) 3 ml Q2H RESP THERAPY PRN HHN WHEEZING AND SOB; Start 06/05/19 at 01:30 Albuterol/ Ipratropium (Duoneb) 3 ml Q4H RESP THERAPY HHN Last administered on 06/08/19 19:58; Admin Dose 3 ML; Start 06/05/19 at 05:00 Furosemide (Lasix) 40 mg DAILY IV Last administered on 06/09/19 08:28; Admin Dose 40 MG; Start 06/05/19 at 09:00 Acetaminophen (Tylenol Tab) 650 mg Q6H PRN PO MILD PAIN(1-3)OR ELEVATED TEMP Last administered on 06/08/19 23:44; Admin Dose 650 MG; Start 06/05/19 at 01:30 Ondansetron HCl (Zofran Inj) 4 mg Q6H PRN IV NAUSEA AND/OR VOMITING; Start 06/05/19 at 01:30 Ceftriaxone Sodium 50 ml @ 100 mls/hr Q24H IVPB Last administered on 06/08/19 21:03; Admin Dose 100 MLS/HR; Start 06/05/19 at 22:00 Azithromycin 250 mg/Sodium Chloride 250 ml @ 250 mls/hr Q24H IVPB Last administered on 06/08/19 22:03; Admin Dose 250 MLS/HR; Start 06/05/19 at 22:00 Insulin Aspart (Novolog Insulin Pen) NOVOLOG *MODERATE* ALGORITHM WITH MEALS BEDTIME SC Last administered on 06/09/19 12:39; Admin Dose 2 UNIT; Start 06/05/19 at 07:55 Collagenase (Santyl) 1 applic DAILY TOP Last administered on 06/09/19 08:29; Admin Dose 1 APPLIC; Start 06/05/19 at 13:00 Miscellaneous Information 1 ea NOTE XX ; Start 06/05/19 at 17:00 Glucose (Glutose) 15 gm Q15M PRN PO DECREASED GLUCOSE; Start 06/05/19 at 17:00 Glucose (Glutose) 22.5 gm Q15M PRN PO DECREASED GLUCOSE; Start 06/05/19 at 17:00 Dextrose (D50w Syringe) 25 ml Q15M PRN IV DECREASED GLUCOSE; Start 06/05/19 at 17:00 Dextrose (D50w Syringe) 50 ml Q15M PRN IV DECREASED GLUCOSE; Start 06/05/19 at 17:00 Glucagon (Glucagen) 1 mg Q15M PRN IM DECREASED GLUCOSE; Start 06/05/19 at 17:00 Glucose (Glutose) 15 gm Q15M PRN BUCCAL DECREASED GLUCOSE; Start 06/05/19 at 17:00 Guaifenesin/ Dextromethorphan (Robitussin Dm Liquid Cup) 10 ml Q6H PRN PO cough Last administered on 06/06/19at 12:32; Admin Dose 10 ML; Start 06/06/19 at 12:30 Vancomycin HCl (Vanco Iv Per Pharmacy) VANCOMYCIN PER PHARMACY PER PROTOCOL XX ; Start 06/07/19 at 10:00 Vancomycin/Sodium Chloride 250 ml @ 83.333 mls/ hr Q12H IVPB Last administered on 06/09/19at 02:28; Admin Dose 83.333 MLS/HR; Start 06/07/19 at 14:00 Pantoprazole (Protonix Tab) 40 mg DAILY@06 PO Last administered on 06/09/19at 06:05; Admin Dose 40 MG; Start 06/08/19 at 06:00 Enoxaparin Sodium (Lovenox) 40 mg DAILY SC Last administered on 06/09/19at 08:35; Admin Dose 40 MG; Start 06/07/19 at 16:30 Potassium Chloride (Potassium Chloride Pwd/Soln) 40 meq DAILY PO Last administered on 06/09/19at 09:56; Admin Dose 40 MEQ; Start 06/09/19 at 09:00 ORION QUINTERO NP Jun 09, 2019 14:35
[2019-06-09] MEDS: ACETAMINOPHEN 325 MG TAB PO PRN (14:45)
[2019-06-09 15:12] VITALS: BP 117/67; PULSE 108; RESP 18
--- NOTE | 2019-06-09 15:25 | CONS ---
Consult Date/Type/Reason Admit Date/Time Jun 04, 2019 at 22:30 Initial Consult Date Type of Consultation: Pulm Date/Time of Note DATE: 06/09/19 TIME: 15:22 Subjective No events. On BiPAP overnight. Objective Vitals Vital Signs Date Temp Pulse Resp B/P (MAP) Pulse Ox O2 O2 Flow FiO2 Time Delivery Rate 06/09/19 98.2 108 18 117/67 96 15:12 (84) 06/09/19 3.0 08:03 06/09/19 Nasal 07:23 Cannula 06/07/19 35 22:47 Intake and Output 06/08/19 06/08/19 06/09/19 1515:00 23:00 07:00 IntakeIntake Total 840 ml 300 ml 500 ml OutputOutput Total 6 ml BalanceBalance 834 ml 300 ml 500 ml Exam HEENT: Neck supple; no JVD; no LAD CVS: RRR, S1 and S2 CHEST: Diminished BS ABD: Obese, NT, + BS EXT: No c/c: + edema Results/Medications Result Diagram: 06/09/19 0837 06/09/19 1305 Results 24 hrs Laboratory Tests Test 06/08/19 17:25 06/08/19 21:13 06/09/19 08:27 06/09/19 08:37 Bedside Glucose 203 126 126 White Blood Count 10.0 Red Blood Count 6.80 H Hemoglobin 13.4 Hematocrit 48.0 H Mean Corpuscular Volume 70.6 L Mean Corpuscular 19.7 L Hemoglobin Mean Corpuscular 27.9 L Hemoglobin Concent Red Cell Distribution 19.0 H Width Platelet Count 143 Mean Platelet Volume Immature Granulocytes % 0.200 Neutrophils % 58.1 Lymphocytes % 28.3 Monocytes % 12.4 H Eosinophils % 0.8 Basophils % 0.2 Nucleated Red Blood 0.0 Cells % Immature Granulocytes # 0.020 Neutrophils # 5.8 Lymphocytes # 2.8 Monocytes # 1.2 H Eosinophils # 0.1 Basophils # 0.0 Nucleated Red Blood 0.0 Cells # Sodium Level 143 Potassium Level 3.7 Chloride Level 103 Carbon Dioxide Level 36 H Anion Gap 4 L Blood Urea Nitrogen 25 H Creatinine 0.49 Est Glomerular Filtrat > 60 Rate mL/min Glucose Level 124 Calcium Level 8.5 Test 06/09/19 12:36 06/09/19 13:05 Bedside Glucose 148 Blood Urea Nitrogen 21 H Creatinine 0.58 Vancomycin Level Trough 17.4 Home Meds Active Scripts Ipratropium-Albuterol (Ipratropium-Albuterol) 0.5-3 Mg/3 Ml Ampul.neb, 3 ML HHN Q4H RESP THERAPY for 7 Days Prov:MINA FARAH MD 02/27/19 Prednisone* (Prednisone*) 20 Mg Tab, 20 MG PO DAILY for 10 Days, TAB Prov:MINA FARAH MD 02/27/19 Albuterol Sulfate* (Ventolin HFA*) 18 Gm Hfa.aer.ad, 2 PUFF INHALATION Q4H for 30 Days, #1 INHALER Prov:MINA FARAH MD 02/27/19 Gabapentin* (Gabapentin*) 300 Mg Capsule, 300 MG PO DAILY, #60 CAP Prov:JENNIFER BLACKMON MD 12/22/18 Reported Medications Zolpidem Tartrate* (Zolpidem Tartrate*) 10 Mg Tablet, 10 MG PO QHS PRN for INSOMNIA, #30 TAB 12/15/18 Benztropine Mesylate* (Benztropine Mesylate*) 0.5 Mg Tablet, 0.5 MG PO BID, TAB 06/08/18 Diclofenac Sodium* (Diclofenac Sodium*) 50 Mg Tablet.dr, 50 MG PO BID, #60 TAB 06/08/18 Carisoprodol* (Carisoprodol*) 350 Mg Tablet, 350 MG PO BID PRN for MUSCLE SPASMS, TAB 06/08/18 Discontinued Scripts Fluoxetine Hcl* (Fluoxetine Hcl*) 20 Mg Capsule, 40 MG PO QAM for 30 Days, CAP Prov:JENNIFER BLACKMON MD 12/22/18 Hydrochlorothiazide* (Hydrochlorothiazide*) 25 Mg Tab, 25 MG PO DAILY, #30 TAB Prov:JENNIFER BLACKMON MD 12/22/18 Clonazepam* (Clonazepam*) 2 Mg Tablet, 2 MG PO TID PRN for ANXIETY, #12 TAB Prov:JENNIFER BLACKMON MD 12/22/18 Clonidine Hcl* (Clonidine Hcl*) 0.2 Mg Tablet, 0.2 MG PO Q8 for 30 Days, TAB Prov:JENNIFER BLACKMON MD 12/22/18 Losartan Potassium* (Losartan Potassium*) 100 Mg Tablet, 100 MG PO DAILY for 30 Days, TAB Prov:JENNIFER BLACKMON MD 12/22/18 Metformin Hcl* (Metformin Hcl*) 1,000 Mg Tablet, 1000 MG PO WITH BREAKFAST DINNE, #60 TAB Prov:JENNIFER BLACKMON MD 12/22/18 Bupropion Hcl* (Bupropion XL*) 150 Mg Tab.er.24h, 150 MG PO QAM for 30 Days, TAB.SA Prov:JENNIFER BLACKMON MD 12/22/18 Ondansetron (Ondansetron Odt) 4 Mg Tab.rapdis, 4 MG PO Q6H PRN for NAUSEA AND/OR VOMITING, #10 TAB Prov:FINA BERGMAN MD 12/14/18 Ibuprofen* (Motrin*) 600 Mg Tab, 600 MG PO Q6H PRN for PAIN AND OR ELEVATED T EMP, #30 TAB Prov:FINA BERGMAN MD 12/14/18 Medications Current Medications Albuterol/ Ipratropium (Duoneb) 3 ml Q2H RESP THERAPY PRN HHN WHEEZING AND SOB; Start 06/05/19 at 01:30 Albuterol/ Ipratropium (Duoneb) 3 ml Q4H RESP THERAPY HHN Last administered on 06/08/19at 19:58; Admin Dose 3 ML; Start 06/05/19 at 05:00 Furosemide (Lasix) 40 mg DAILY IV Last administered on 06/09/19at 08:28; Admin Dose 40 MG; Start 06/05/19 at 09:00 Acetaminophen (Tylenol Tab) 650 mg Q6H PRN PO MILD PAIN(1-3)OR ELEVATED TEMP Last administered on 06/09/19at 14:45; Admin Dose 650 MG; Start 06/05/19 at 01:30 Ondansetron HCl (Zofran Inj) 4 mg Q6H PRN IV NAUSEA AND/OR VOMITING; Start 06/05/19 at 01:30 Ceftriaxone Sodium 50 ml @ 100 mls/hr Q24H IVPB Last administered on 06/08/19at 21:03; Admin Dose 100 MLS/HR; Start 06/05/19 at 22:00 Azithromycin 250 mg/Sodium Chloride 250 ml @ 250 mls/hr Q24H IVPB Last administered on 06/08/19at 22:03; Admin Dose 250 MLS/HR; Start 06/05/19 at 22:00 Insulin Aspart (Novolog Insulin Pen) NOVOLOG *MODERATE* ALGORITHM WITH MEALS BEDTIME SC Last administered on 06/09/19at 12:39; Admin Dose 2 UNIT; Start 06/05/19 at 07:55 Collagenase (Santyl) 1 applic DAILY TOP Last administered on 06/09/19at 08:29; Admin Dose 1 APPLIC; Start 06/05/19 at 13:00 Miscellaneous Information 1 ea NOTE XX ; Start 06/05/19 at 17:00 Glucose (Glutose) 15 gm Q15M PRN PO DECREASED GLUCOSE; Start 06/05/19 at 17:00 Glucose (Glutose) 22.5 gm Q15M PRN PO DECREASED GLUCOSE; Start 06/05/19 at 17:00 Dextrose (D50w Syringe) 25 ml Q15M PRN IV DECREASED GLUCOSE; Start 06/05/19 at 17:00 Dextrose (D50w Syringe) 50 ml Q15M PRN IV DECREASED GLUCOSE; Start 06/05/19 at 17:00 Glucagon (Glucagen) 1 mg Q15M PRN IM DECREASED GLUCOSE; Start 06/05/19 at 17:00 Glucose (Glutose) 15 gm Q15M PRN BUCCAL DECREASED GLUCOSE; Start 06/05/19 at 17:00 Guaifenesin/ Dextromethorphan (Robitussin Dm Liquid Cup) 10 ml Q6H PRN PO cough Last administered on 06/06/19at 12:32; Admin Dose 10 ML; Start 06/06/19 at 12:30 Vancomycin HCl (Vanco Iv Per Pharmacy) VANCOMYCIN PER PHARMACY PER PROTOCOL XX ; Start 06/07/19 at 10:00 Vancomycin/Sodium Chloride 250 ml @ 83.333 mls/ hr Q12H IVPB Last administered on 06/09/19at 14:43; Admin Dose 83.333 MLS/HR; Start 06/07/19 at 14:00; Stop 06/09/19 at 18:00 Pantoprazole (Protonix Tab) 40 mg DAILY@06 PO Last administered on 06/09/19at 06:05; Admin Dose 40 MG; Start 06/08/19 at 06:00 Enoxaparin Sodium (Lovenox) 40 mg DAILY SC Last administered on 06/09/19at 08:35; Admin Dose 40 MG; Start 06/07/19 at 16:30 Potassium Chloride (Potassium Chloride Pwd/Soln) 40 meq DAILY PO Last administered on 06/09/19at 09:56; Admin Dose 40 MEQ; Start 06/09/19 at 09:00 Vancomycin/Sodium Chloride 250 ml @ 83.333 mls/ hr Q12H IVPB ; Start 06/10/19 at 03:00 Assessment/Plan Assessment/Plan (Daily) IMP: 1. Acute on chronic hypoxemic and hypercapnic respiratory failure. 2. RUMA/OHS 3. COPD RECS: 1. Titrate O2 to keep SpO2 88-92% 2. Nocturnal BiPAP 3. Keep I<O's; gentle diuresis 4. BD's/CPT 5. PT/OT KEYSHA GOMES MD Jun 09, 2019 15:25
[2019-06-09 19:21] VITALS: BP 136/59; PULSE 114; RESP 20
[2019-06-09] MEDS: CEFTRIAXONE 1 GM/50 ML (PMX) 50 ML IVPB SCH (21:09)
[2019-06-09] MEDS: AZITHROMYCIN 250 MG in SOD CHLORIDE 0.9% 250 ML IVPB SCH (21:10)
[2019-06-10] VITALS (9 sets, daily range): BP systolic 104–133; BP diastolic 53–87; PULSE 84–118; RESP 16–22
[2019-06-10] MEDS: ALBUTEROL/IPRATROPIUM (NEB) 3 ML AMP HHN SCH ×6 (01:00→20:31)
[2019-06-10] MEDS ORDERED: VANCOMYCIN 1.25 GM/NS 250 ML 250 ML IVPB SCH (03:00)
[2019-06-10] MEDS: ACETAMINOPHEN 325 MG TAB PO PRN (04:16)
[2019-06-10] MEDS: PANTOPRAZOLE (EC) 40 MG TAB PO SCH (06:47)
[2019-06-10] MEDS: INSULIN ASPART [NOVOLOG] 3 ML PEN SC SCH ×4 (07:45→20:15)
[2019-06-10] MEDS: POTASSIUM CHLORIDE 20 MEQ POWDER FOR ORAL SOLN PO SCH (08:13)
[2019-06-10] MEDS: COLLAGENASE 5 GM (UD JAR) TOP SCH (08:13)
[2019-06-10] MEDS: ENOXAPARIN 40 MG/0.4 ML SYG SC SCH (08:17)
[2019-06-10] MEDS: FUROSEMIDE 40 MG INJ IV SCH (09:00)
--- NOTE | 2019-06-10 10:48 | PN ---
Date/Time of Note Date/Time of Note DATE: 06/10/19 TIME: 10:44 Assessment/Plan VTE Prophylaxis Risk score (from [facility] [place])>0 risk: 8 SCD applied (from [facility] [place]): Yes Pharmacological prophylaxis: NA/contraindicated Pharm contraindication: low risk/ambulating Lines/Catheters IV C[facility]ter Type (from [facility]): Saline Lock Urinary Cath still in place: No Assessment/Plan Assessment/Plan .1 Shortness of breath, cough, with diffuse expiratory wheezing, likely secondary to chronic obstructive pulmonary disease exacerbation. SEPSIS 2. Hypercapnic respiratory failure, likely secondary to chronic obstructive pulmonary disease, plus the patient is on a bunch of sleeping medications, sedatives at home 3. Metabolic/respiratory acidosis. 4. Diabetes. 5. Hypertension. 6. Hyperlipidemia. 7. Depression. 8. Anxiety. 9. Morbid obesity 10. Uremia more likely due to UTI 11. UTI Assessment/Plan -bipap at night -Talked to the patient that she has to be compliant. -IV was removed -Antibiotics to p.o. -Lasix to 40 p.o. -Will give prednisone -Blood culture has been negative -Transfer to [facility] -Ambulate hospice case manager arrangements Result Diagram: 06/10/19 0659 06/10/19 0659 Results 24hrs Laboratory Tests Test 06/09/19 12:36 06/09/19 13:05 06/09/19 17:50 06/09/19 20:26 Bedside Glucose 148 106 227 H Blood Urea Nitrogen 21 H Creatinine 0.58 Vancomycin Level Trough 17.4 Test 06/10/19 03:43 06/10/19 06:59 06/10/19 07:44 Bedside Glucose 133 140 White Blood Count 10.8 Red Blood Count 6.33 H Hemoglobin 12.2 Hematocrit 44.1 Mean Corpuscular Volume 69.7 L Mean Corpuscular 19.3 L Hemoglobin Mean Corpuscular 27.7 L Hemoglobin Concent Red Cell Distribution 18.6 H Width Platelet Count 135 L Mean Platelet Volume Immature Granulocytes % 0.400 Neutrophils % 62.7 Lymphocytes % 24.8 Monocytes % 10.8 Eosinophils % 1.1 Basophils % 0.2 Nucleated Red Blood 0.0 Cells % Immature Granulocytes # 0.040 H Neutrophils # 6.8 Lymphocytes # 2.7 Monocytes # 1.2 H Eosinophils # 0.1 Basophils # 0.0 Nucleated Red Blood 0.0 Cells # Sodium Level 140 Potassium Level 3.5 Chloride Level 100 Carbon Dioxide Level 39 H Anion Gap 1 L Blood Urea Nitrogen 19 Creatinine 0.51 Est Glomerular Filtrat > 60 Rate mL/min Glucose Level 140 Calcium Level 8.3 L Subjective 24 Hr Interval Summary Free Text/Dictation Patient feels better. Some occasional wheezing Exam/Review of Systems Exam Vitals Vital Signs Date Temp Pulse Resp B/P (MAP) Pulse Ox O2 O2 Flow FiO2 Time Delivery Rate 06/10/19 3.0 08:24 06/10/19 Nasal 08:00 Cannula 06/10/19 97.6 96 16 126/87 100 07:14 (100) 06/07/19 35 22:47 Intake and Output 06/09/19 06/09/19 06/10/19 1515:00 23:00 07:00 IntakeIntake Total 200 ml 1250 ml BalanceBalance 200 ml 1250 ml Exam GENERAL: The patient is awake, alert, oriented, currently answering all questions appropriately. HEENT: Pupils equal, round, reactive to light. NECK: Supple, thick. HEART: Regular rate and rhythm. LUNGS: Some scattered expiratory wheezes the patient is able to speak full sentences. ABDOMEN: Obese, positive bowel sounds. EXTREMITIES: Trace edema. Results Results 24hrs Laboratory Tests Test 06/09/19 12:36 06/09/19 13:05 06/09/19 17:50 06/09/19 20:26 Bedside Glucose 148 106 227 H Blood Urea Nitrogen 21 H Creatinine 0.58 Vancomycin Level Trough 17.4 Test 06/10/19 03:43 06/10/19 06:59 06/10/19 07:44 Bedside Glucose 133 140 White Blood Count 10.8 Red Blood Count 6.33 H Hemoglobin 12.2 Hematocrit 44.1 Mean Corpuscular Volume 69.7 L Mean Corpuscular 19.3 L Hemoglobin Mean Corpuscular 27.7 L Hemoglobin Concent Red Cell Distribution 18.6 H Width Platelet Count 135 L Mean Platelet Volume Immature Granulocytes % 0.400 Neutrophils % 62.7 Lymphocytes % 24.8 Monocytes % 10.8 Eosinophils % 1.1 Basophils % 0.2 Nucleated Red Blood 0.0 Cells % Immature Granulocytes # 0.040 H Neutrophils # 6.8 Lymphocytes # 2.7 Monocytes # 1.2 H Eosinophils # 0.1 Basophils # 0.0 Nucleated Red Blood 0.0 Cells # Sodium Level 140 Potassium Level 3.5 Chloride Level 100 Carbon Dioxide Level 39 H Anion Gap 1 L Blood Urea Nitrogen 19 Creatinine 0.51 Est Glomerular Filtrat > 60 Rate mL/min Glucose Level 140 Calcium Level 8.3 L Medications Medication Current Medications Albuterol/ Ipratropium (Duoneb) 3 ml Q2H RESP THERAPY PRN HHN WHEEZING AND SOB; Start 06/05/19 at 01:30 Albuterol/ Ipratropium (Duoneb) 3 ml Q4H RESP THERAPY HHN Last administered on 06/09/19at 20:45; Admin Dose 3 ML; Start 06/05/19 at 05:00 Acetaminophen (Tylenol Tab) 650 mg Q6H PRN PO MILD PAIN(1-3)OR ELEVATED TEMP Last administered on 06/10/19at 04:16; Admin Dose 650 MG; Start 06/05/19 at 01:30 Ondansetron HCl (Zofran Inj) 4 mg Q6H PRN IV NAUSEA AND/OR VOMITING; Start 06/05/19 at 01:30 Insulin Aspart (Novolog Insulin Pen) NOVOLOG *MODERATE* ALGORITHM WITH MEALS BEDTIME SC Last administered on 06/09/19at 20:44; Admin Dose 2 UNIT; Start 06/05/19 at 07:55 Collagenase (Santyl) 1 applic DAILY TOP Last administered on 06/10/19at 08:13; Admin Dose 1 APPLIC; Start 06/05/19 at 13:00 Miscellaneous Information 1 ea NOTE XX ; Start 06/05/19 at 17:00 Glucose (Glutose) 15 gm Q15M PRN PO DECREASED GLUCOSE; Start 06/05/19 at 17:00 Glucose (Glutose) 22.5 gm Q15M PRN PO DECREASED GLUCOSE; Start 06/05/19 at 17:00 Dextrose (D50w Syringe) 25 ml Q15M PRN IV DECREASED GLUCOSE; Start 06/05/19 at 17:00 Dextrose (D50w Syringe) 50 ml Q15M PRN IV DECREASED GLUCOSE; Start 06/05/19 at 17:00 Glucagon (Glucagen) 1 mg Q15M PRN IM DECREASED GLUCOSE; Start 06/05/19 at 17:00 Glucose (Glutose) 15 gm Q15M PRN BUCCAL DECREASED GLUCOSE; Start 06/05/19 at 17:00 Guaifenesin/ Dextromethorphan (Robitussin Dm Liquid Cup) 10 ml Q6H PRN PO cough Last administered on 06/06/19at 12:32; Admin Dose 10 ML; Start 06/06/19 at 12:30 Vancomycin HCl (Vanco Iv Per Pharmacy) VANCOMYCIN PER PHARMACY PER PROTOCOL XX ; Start 06/07/19 at 10:00 Pantoprazole (Protonix Tab) 40 mg DAILY@06 PO Last administered on 06/10/19at 06:47; Admin Dose 40 MG; Start 06/08/19 at 06:00 Enoxaparin Sodium (Lovenox) 40 mg DAILY SC Last administered on 06/10/19at 08:17; Admin Dose 40 MG; Start 06/07/19 at 16:30 Potassium Chloride (Potassium Chloride Pwd/Soln) 40 meq DAILY PO Last admi nistered on 06/10/19at 08:13; Admin Dose 40 MEQ; Start 06/09/19 at 09:00 Levofloxacin (Levaquin) 500 mg DAILY@06 PO ; Start 06/11/19 at 06:00; Status UNV Furosemide (Lasix) 40 mg DAILY PO ; Start 06/10/19 at 11:00; Status UNV MINA FARAH MD Jun 10, 2019 10:47
[2019-06-10] MEDS: predniSONE 10 MG TAB PO SCH (11:31)
[2019-06-10] MEDS: FUROSEMIDE 40 MG TAB PO SCH (11:31)
--- NOTE | 2019-06-10 12:24 | CONS ---
Assessment/Plan Assessment/Plan Assessment/Plan (Daily) Assessment and recommendations; 1. Patient admitted with CHF exacerbation as well as COPD with chronic type II resp failure. 2. DM 3. RUMA ? Continue current treatment. patient will need nocturnal BiPAP. Consultation Date/Type/Reason Admit Date/Time Jun 04, 2019 at 22:30 Initial Consult Date Type of Consult Pulmonary Patient's condition is stable. Laying comfortably in bed. Shortness of breath is improving. Denies any coughing or wheezing. General exam; elderly female, overweight. Currently no distress. H HEENT exam; supple neck, positive JVD. No lymphadenopathy. Midline trachea. No thyromegaly. Patient has fair dentition. No neck masses. Chest exam; diminished but clear breath sounds. S1-S2 audible, no murmurs. Regular rhythm. Abdomen exam; soft, protuberant. Nontender. Organomegaly difficult to assess. Bowel sounds are audible. Extremity exam; peripheral edema clubbing. Pulses 2+. TECHNICAL WRITING LEAD/MGR exam; no focal deficit. Assessment and recommendations; 1. Patient admitted with CHF exacerbation with likely underlying chronic type II respiratory failure with severe hypercapnia with interval improvement. Maintained on BiPAP as needed. 2. Possibly acute bronchitis as well. 3. Likely underlying sleep apnea. 4. History of diabetes. Continue current supportive care. Discontinue Solu-Medrol. Obtain follow-up ABG. Patient likely will need BiPAP for home use. Date/Time of Note DATE: 06/10/19 TIME: 12:22 24 HR Interval Summary Free Text/Dictation Patient's condition is stable. Remains awake and alert. General exam; elderly female, currently no distress. H EENT exam; supple neck, positive JVD. No lymphadenopathy. Midline trachea. No thyromegaly. Patient has fair dentition. Chest exam; diminished but clear breath sounds. S1-S2 audible, no murmurs. Regular rhythm. Abdomen exam; soft, nontender. No organomegaly. Bowel sounds audible. Extremity exam; no peripheral edema clubbing. TECHNICAL WRITING LEAD/MGR exam; no focal deficit. Exam/Review of Systems Exam Vitals Vital Signs Date Temp Pulse Resp B/P (MAP) Pulse Ox O2 O2 Flow FiO2 Time Delivery Rate 06/10/19 98.0 84 17 104/53 100 11:01 (70) 06/10/19 Nasal 3.0 10:50 Cannula 06/07/19 35 22:47 Intake and Output 06/09/19 06/09/19 06/10/19 1515:00 23:00 07:00 IntakeIntake Total 200 ml 1250 ml BalanceBalance 200 ml 1250 ml Results Result Diagram: 06/10/19 0659 06/10/19 0659 Results 24hrs Laboratory Tests Test 06/09/19 12:36 06/09/19 13:05 06/09/19 17:50 06/09/19 20:26 Bedside Glucose 148 106 227 H Blood Urea Nitrogen 21 H Creatinine 0.58 Vancomycin Level Trough 17.4 Test 06/10/19 03:43 06/10/19 06:59 06/10/19 07:44 06/10/19 11:32 Bedside Glucose 133 140 127 White Blood Count 10.8 Red Blood Count 6.33 H Hemoglobin 12.2 Hematocrit 44.1 Mean Corpuscular Volume 69.7 L Mean Corpuscular 19.3 L Hemoglobin Mean Corpuscular 27.7 L Hemoglobin Concent Red Cell Distribution 18.6 H Width Platelet Count 135 L Mean Platelet Volume Immature Granulocytes % 0.400 Neutrophils % 62.7 Lymphocytes % 24.8 Monocytes % 10.8 Eosinophils % 1.1 Basophils % 0.2 Nucleated Red Blood 0.0 Cells % Immature Granulocytes # 0.040 H Neutrophils # 6.8 Lymphocytes # 2.7 Monocytes # 1.2 H Eosinophils # 0.1 Basophils # 0.0 Nucleated Red Blood 0.0 Cells # Sodium Level 140 Potassium Level 3.5 Chloride Level 100 Carbon Dioxide Level 39 H Anion Gap 1 L Blood Urea Nitrogen 19 Creatinine 0.51 Est Glomerular Filtrat > 60 Rate mL/min Glucose Level 140 Calcium Level 8.3 L Medications Medication Current Medications Albuterol/ Ipratropium (Duoneb) 3 ml Q2H RESP THERAPY PRN HHN WHEEZING AND SOB; Start 06/05/19 at 01:30 Albuterol/ Ipratropium (Duoneb) 3 ml Q4H RESP THERAPY HHN Last administered on 06/10/19at 10:49; Admin Dose 3 ML; Start 06/05/19 at 05:00 Acetaminophen (Tylenol Tab) 650 mg Q6H PRN PO MILD PAIN(1-3)OR ELEVATED TEMP Last administered on 06/10/19at 04:16; Admin Dose 650 MG; Start 06/05/19 at 01:30 Ondansetron HCl (Zofran Inj) 4 mg Q6H PRN IV NAUSEA AND/OR VOMITING; Start 06/05/19 at 01:30 Insulin Aspart (Novolog Insulin Pen) NOVOLOG *MODERATE* ALGORITHM WITH MEALS BEDTIME SC Last administered on 06/09/19at 20:44; Admin Dose 2 UNIT; Start 06/05/19 at 07:55 Collagenase (Santyl) 1 applic DAILY TOP Last administered on 06/10/19at 08:13; Admin Dose 1 APPLIC; Start 06/05/19 at 13:00 Miscellaneous Information 1 ea NOTE XX ; Start 06/05/19 at 17:00 Glucose (Glutose) 15 gm Q15M PRN PO DECREASED GLUCOSE; Start 06/05/19 at 17:00 Glucose (Glutose) 22.5 gm Q15M PRN PO DECREASED GLUCOSE; Start 06/05/19 at 17:00 Dextrose (D50w Syringe) 25 ml Q15M PRN IV DECREASED GLUCOSE; Start 06/05/19 at 17:00 Dextrose (D50w Syringe) 50 ml Q15M PRN IV DECREASED GLUCOSE; Start 06/05/19 at 17:00 Glucagon (Glucagen) 1 mg Q15M PRN IM DECREASED GLUCOSE; Start 06/05/19 at 17:00 Glucose (Glutose) 15 gm Q15M PRN BUCCAL DECREASED GLUCOSE; Start 06/05/19 at 17:00 Guaifenesin/ Dextromethorphan (Robitussin Dm Liquid Cup) 10 ml Q6H PRN PO cough Last administered on 06/06/19at 12:32; Admin Dose 10 ML; Start 06/06/19 at 12:30 Pantoprazole (Protonix Tab) 40 mg DAILY@06 PO Last administered on 06/10/19at 06:47; Admin Dose 40 MG; Start 06/08/19 at 06:00 Enoxaparin Sodium (Lovenox) 40 mg DAILY SC Last administered on 06/10/19at 08:17; Admin Dose 40 MG; Start 06/07/19 at 16:30 Potassium Chloride (Potassium Chloride Pwd/Soln) 40 meq DAILY PO Last administered on 06/10/19at 08:13; Admin Dose 40 MEQ; Start 06/09/19 at 09:00 Levofloxacin (Levaquin) 500 mg DAILY@06 PO ; Start 06/11/19 at 06:00 Furosemide (Lasix) 40 mg DAILY PO Last administered on 06/10/19at 11:31; Admin Dose 40 MG; Start 06/10/19 at 11:00 Prednisone (Prednisone) 30 mg DAILY PO Last administered on 06/10/19at 11:31; Admin Dose 30 MG; Start 06/10/19 at 11:00 MIGUEL WELLS Jun 10, 2019 12:24
[2019-06-10] MEDS: GUAIFENESIN/DM 5ML CUP PO PRN (21:26)
[2019-06-11] MEDS: ALBUTEROL/IPRATROPIUM (NEB) 3 ML AMP HHN SCH ×4 (00:17→13:00)
[2019-06-11 00:28] VITALS: PULSE 83
[2019-06-11 03:45] VITALS: BP 157/72; PULSE 93; RESP 20
[2019-06-11] MEDS: ACETAMINOPHEN 325 MG TAB PO PRN (04:58)
[2019-06-11] MEDS: PANTOPRAZOLE (EC) 40 MG TAB PO SCH (05:02)
[2019-06-11] MEDS: LEVOFLOXACIN 500 MG TAB PO SCH (05:02)
[2019-06-11 07:14] VITALS: BP 121/64; PULSE 83; RESP 17
[2019-06-11] MEDS: INSULIN ASPART [NOVOLOG] 3 ML PEN SC SCH ×4 (07:55→21:01)
[2019-06-11] MEDS: POTASSIUM CHLORIDE 20 MEQ POWDER FOR ORAL SOLN PO SCH (08:11)
[2019-06-11] MEDS: FUROSEMIDE 40 MG TAB PO SCH (08:11)
[2019-06-11] MEDS: ENOXAPARIN 40 MG/0.4 ML SYG SC SCH (08:12)
[2019-06-11] MEDS: COLLAGENASE 5 GM (UD JAR) TOP SCH (08:12)
[2019-06-11] MEDS: predniSONE 10 MG TAB PO SCH (10:32)
--- NOTE | 2019-06-11 10:37 | CONS ---
Consultation Date/Type/Reason Admit Date/Time Jun 04, 2019 at 22:30 Initial Consult Date Type of Consult Pulmonary Patient's condition is stable. Laying comfortably in bed. Shortness of breath is improving. Denies any coughing or wheezing. General exam; elderly female, overweight. Currently no distress. H HEENT exam; supple neck, positive JVD. No lymphadenopathy. Midline trachea. No thyromegaly. Patient has fair dentition. No neck masses. Chest exam; diminished but clear breath sounds. S1-S2 audible, no murmurs. Regular rhythm. Abdomen exam; soft, protuberant. Nontender. Organomegaly difficult to assess. Bowel sounds are audible. Extremity exam; peripheral edema clubbing. Pulses 2+. 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 Assessment and recommendations; 1. Patient admitted with CHF exacerbation with likely underlying chronic type II respiratory failure with severe hypercapnia with interval improvement. M aintained on BiPAP as needed. 2. Possibly acute bronchitis as well. 3. Likely underlying sleep apnea. 4. History of diabetes. Continue current supportive care. Discontinue Solu-Medrol. Obtain follow-up ABG. Patient likely will need BiPAP for home use. Date/Time of Note DATE: 06/11/19 TIME: 10:35 24 HR Interval Summary Free Text/Dictation Patient's condition is stable. Remains awake and alert. Has remained hemodynamically stable. Denies any coughing, wheezing. General exam; elderly woman, appears overweight. Laying comfortably in bed. Currently in no distress. H ENT exam; supple neck, no JVD. No lymphadenopathy. Midline trachea. No thyromegaly. Patient has fair dentition. No neck masses. Pupils are small bilaterally. Chest exam; diminished but clear breath sounds. S1-S2 audible, no murmurs. Regular rhythm. Abdomen exam; soft, protuberant. Nontender. Bowel sounds audible. Organomegaly difficult to assess. Extremity exam; trace edema. 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 Assessment and recommendations; 1. Patient with history of underlying chronic type II respiratory failure admitted with COPD exacerbation and acute bronchitis with interval improvement. Patient to exhibiting persistent hypercapnia on account of underlying COPD/sleep apnea. 2. History of diabetes 3. Coagulase negative staph aureus bacteremia with the most recent cultures being negative. Likely contaminant. Continue current supportive care. Continue Levaquin for total of 10 days. Consider discharge, patient will need nocturnal BiPAP. Decrease prednisone to 20 mg daily with further tapering down to 0 in the next 48 hours. Exam/Review of Systems Exam Vitals Vital Signs Date Temp Pulse Resp B/P (MAP) Pulse Ox O2 O2 Flow FiO2 Time Delivery Rate 06/11/19 103 22 97 Nasal 3.0 08:08 Cannula 06/11/19 97.7 121/64 07:14 (83) 06/11/19 35 00:28 Intake and Output 06/10/19 06/10/19 06/11/19 1515:00 23:00 07:00 IntakeIntake Total 350 ml 250 ml 350 ml BalanceBalance 350 ml 250 ml 350 ml Results Result Diagram: 06/10/19 0659 06/10/19 0659 Results 24hrs Laboratory Tests Test 06/10/19 11:32 06/10/19 17:20 06/10/19 20:12 06/11/19 08:16 Bedside Glucose 127 251 H 151 123 Medications Medication Current Medications Albuterol/ Ipratropium (Duoneb) 3 ml Q2H RESP THERAPY PRN HHN WHEEZING AND SOB; Start 06/05/19 at 01:30 Albuterol/ Ipratropium (Duoneb) 3 ml Q4H RESP THERAPY HHN Last administered on 06/11/19at 08:07; Admin Dose 3 ML; Start 06/05/19 at 05:00 Acetaminophen (Tylenol Tab) 650 mg Q6H PRN PO MILD PAIN(1-3)OR ELEVATED TEMP Last administered on 06/11/19at 04:58; Admin Dose 650 MG; Start 06/05/19 at 01:30 Ondansetron HCl (Zofran Inj) 4 mg Q6H PRN IV NAUSEA AND/OR VOMITING; Start 06/05/19 at 01:30 Insulin Aspart (Novolog Insulin Pen) NOVOLOG *MODERATE* ALGORITHM WITH MEALS BEDTIME SC Last administered on 06/10/19at 17:25; Admin Dose 6 UNIT; Start 06/05/19 at 07:55 Collagenase (Santyl) 1 applic DAILY TOP Last administered on 06/11/19at 08:12; Admin Dose 1 APPLIC; Start 06/05/19 at 13:00 Miscellaneous Information 1 ea NOTE XX ; Start 06/05/19 at 17:00 Glucose (Glutose) 15 gm Q15M PRN PO DECREASED GLUCOSE; Start 06/05/19 at 17:00 Glucose (Glutose) 22.5 gm Q15M PRN PO DECREASED GLUCOSE; Start 06/05/19 at 17:00 Dextrose (D50w Syringe) 25 ml Q15M PRN IV DECREASED GLUCOSE; Start 06/05/19 at 17:00 Dextrose (D50w Syringe) 50 ml Q15M PRN IV DECREASED GLUCOSE; Start 06/05/19 at 17:00 Glucagon (Glucagen) 1 mg Q15M PRN IM DECREASED GLUCOSE; Start 06/05/19 at 17:00 Glucose (Glutose) 15 gm Q15M PRN BUCCAL DECREASED GLUCOSE; Start 06/05/19 at 17:00 Guaifenesin/ Dextromethorphan (Robitussin Dm Liquid Cup) 10 ml Q6H PRN PO cough Last administered on 06/10/19at 21:26; Admin Dose 10 ML; Start 06/06/19 at 12:30 Pantoprazole (Protonix Tab) 40 mg DAILY@06 PO Last administered on 06/11/19at 05:02; Admin Dose 40 MG; Start 06/08/19 at 06:00 Enoxaparin Sodium (Lovenox) 40 mg DAILY SC Last administered on 06/11/19 08:12; Admin Dose 40 MG; Start 06/07/19 at 16:30 Potassium Chloride (Potassium Chloride Pwd/Soln) 40 meq DAILY PO Last administered on 06/11/19 08:11; Admin Dose 40 MEQ; Start 06/09/19 at 09:00 Levofloxacin (Levaquin) 500 mg DAILY@06 PO Last administered on 06/11/19at 05:02; Admin Dose 500 MG; Start 06/11/19 at 06:00 Furosemide (Lasix) 40 mg DAILY PO Last administered on 06/11/19 08:11; Admin Dose 40 MG; Start 06/10/19 at 11:00 Prednisone (Prednisone) 30 mg DAILY PO Last administered on 06/10/19 11:31; Admin Dose 30 MG; Start 06/10/19 at 11:00 MIGUEL WELLS Jun 11, 2019 10:37
[2019-06-11 11:06] VITALS: BP 113/77; PULSE 114; RESP 17
[2019-06-11] MEDS ORDERED: LORAZEPAM 0.5 MG TAB PO ONE (13:30)
[2019-06-11 14:54] VITALS: BP 137/59; PULSE 72; RESP 17
--- NOTE | 2019-06-11 15:11 | PN ---
Date/Time of Note Date/Time of Note DATE: 06/11/19 TIME: 15:09 Assessment/Plan VTE Prophylaxis Risk score (from Ns)>0 risk: 5 SCD applied (from Ns): Yes Pharmacological prophylaxis: NA/contraindicated Pharm contraindication: low risk/ambulating Lines/Catheters IV [facility]from [facility] Urinary Cath still in place: No Assessment/Plan Assessment/Plan .1 Shortness of breath, cough, with diffuse expiratory wheezing, likely secondary to chronic obstructive pulmonary disease exacerbation. SEPSIS 2. Hypercapnic respiratory failure, likely secondary to chronic obstructive pulmonary disease, plus the patient is on a bunch of sleeping medications, sedatives at home 3. Metabolic/respiratory acidosis. 4. Diabetes. 5. Hypertension. 6. Hyperlipidemia. 7. Depression. 8. Anxiety. 9. Morbid obesity 10. Uremia more likely due to UTI 11. UTI Assessment/Plan -bipap at night -Talked to the patient that she has to be compliant. -IV was removed -Antibiotics to p.o. -Lasix to 40 p.o. -Will give prednisone -Blood culture has been negative -Patient has having sinus tachycardia patient is not in pain d-dimer will be checked, we will try Ativan this patient seems anxious and we will switch to Xopenex breathing treatments -Ambulate caser in to arrange for BiPAP which was not arranged Result Diagram: 06/10/19 0659 06/10/19 0659 Results 24hrs Laboratory Tests Test 06/10/19 17:20 06/10/19 20:12 06/11/19 08:16 06/11/19 12:23 Bedside Glucose 251 H 151 123 175 Test 06/11/19 14:21 D-Dimer 393.46 D-Dimer Comment Subjective 24 Hr Interval Summary Free Text/Dictation Feels better today. However patient is tachycardic up to 120s Exam/Review of Systems Exam Vitals Vital Signs Date Temp Pulse Resp B/P (MAP) Pulse Ox O2 O2 Flow FiO2 Time Delivery Rate 06/11/19 97.9 72 17 137/59 93 14:54 (85) 06/11/19 Nasal 3.0 08:08 Cannula 06/11/19 35 00:28 Intake and Output 06/10/19 06/10/19 06/11/19 1515:00 23:00 07:00 IntakeIntake Total 350 ml 250 ml 350 ml BalanceBalance 350 ml 250 ml 350 ml Exam Exam GENERAL: The patient is awake, alert, oriented, currently answering all questions appropriately. HEENT: Pupils equal, round, reactive to light. NECK: Supple, thick. HEART: Regular rate and rhythm. LUNGS: Some scattered expiratory wheezes imporved the patient is able to speak full sentences. ABDOMEN: Obese, positive bowel sounds. EXTREMITIES: Trace edema. Results Results 24hrs Laboratory Tests Test 06/10/19 17:20 06/10/19 20:12 06/11/19 08:16 06/11/19 12:23 Bedside Glucose 251 H 151 123 175 Test 06/11/19 14:21 D-Dimer 393.46 D-Dimer Comment Medications Medication Current Medications Albuterol/ Ipratropium (Duoneb) 3 ml Q2H RESP THERAPY PRN HHN WHEEZING AND SOB; Start 06/05/19 at 01:30 Albuterol/ Ipratropium (Duoneb) 3 ml Q4H RESP THERAPY HHN Last administered on 06/11/19at 08:07; Admin Dose 3 ML; Start 06/05/19 at 05:00 Acetaminophen (Tylenol Tab) 650 mg Q6H PRN PO MILD PAIN(1-3)OR ELEVATED TEMP Last administered on 06/11/19at 04:58; Admin Dose 650 MG; Start 06/05/19 at 01:30 Ondansetron HCl (Zofran Inj) 4 mg Q6H PRN IV NAUSEA AND/OR VOMITING; Start 06/05/19 at 01:30 Insulin Aspart (Novolog Insulin Pen) NOVOLOG *MODERATE* ALGORITHM WITH MEALS BEDTIME SC Last administered on 06/11/19at 12:25; Admin Dose 2 UNIT; Start 06/05/19 at 07:55 Collagenase (Santyl) 1 applic DAILY TOP Last administered on 06/11/19at 08:12; Admin Dose 1 APPLIC; Start 06/05/19 at 13:00 Miscellaneous Information 1 ea NOTE XX ; Start 06/05/19 at 17:00 Glucose (Glutose) 15 gm Q15M PRN PO DECREASED GLUCOSE; Start 06/05/19 at 17:00 Glucose (Glutose) 22.5 gm Q15M PRN PO DECREASED GLUCOSE; Start 06/05/19 at 17:00 Dextrose (D50w Syringe) 25 ml Q15M PRN IV DECREASED GLUCOSE; Start 06/05/19 at 17:00 Dextrose (D50w Syringe) 50 ml Q15M PRN IV DECREASED GLUCOSE; Start 06/05/19 at 17:00 Glucagon (Glucagen) 1 mg Q15M PRN IM DECREASED GLUCOSE; Start 06/05/19 at 17:00 Glucose (Glutose) 15 gm Q15M PRN BUCCAL DECREASED GLUCOSE; Start 06/05/19 at 17:00 Guaifenesin/ Dextromethorphan (Robitussin Dm Liquid Cup) 10 ml Q6H PRN PO cough Last administered on 06/10/19at 21:26; Admin Dose 10 ML; Start 06/06/19 at 12:30 Pantoprazole (Protonix Tab) 40 mg DAILY@06 PO Last administered on 06/11/19at 05:02; Admin Dose 40 MG; Start 06/08/19 at 06:00 Enoxaparin Sodium (Lovenox) 40 mg DAILY SC Last administered on 06/11/19at 08:12; Admin Dose 40 MG; Start 06/07/19 at 16:30 Potassium Chloride (Potassium Chloride Pwd/Soln) 40 meq DAILY PO Last administered on 06/11/19at 08:11; Admin Dose 40 MEQ; Start 06/09/19 at 09:00 Levofloxacin (Levaquin) 500 mg DAILY@06 PO Last administered on 06/11/19at 05:02; Admin Dose 500 MG; Start 06/11/19 at 06:00 Furosemide (Lasix) 40 mg DAILY PO Last administered on 06/11/19at 08:11; Admin Dose 40 MG; Start 06/10/19 at 11:00 Prednisone (Prednisone) 20 mg DAILY PO ; Start 06/12/19 at 09:00; Stop 06/13/19 at 09:01 MINA FARAH MD Jun 11, 2019 15:11
[2019-06-11] MEDS: LEVALBUTEROL (NEB) 0.63 MG/3 ML AMP HHN SCH ×2 (17:11→20:11)
[2019-06-11 20:00] VITALS: BP 131/75; PULSE 125; RESP 18
[2019-06-11] MEDS: GUAIFENESIN/DM 5ML CUP PO PRN (20:56)
[2019-06-12 00:02] VITALS: BP 137/76; PULSE 80; RESP 18
[2019-06-12] MEDS: LEVALBUTEROL (NEB) 0.63 MG/3 ML AMP HHN SCH ×4 (00:17→14:21)
[2019-06-12] MEDS: ACETAMINOPHEN 325 MG TAB PO PRN ×2 (01:10→09:28)
[2019-06-12] MEDS ORDERED: LORAZEPAM 0.5 MG TAB PO ONE (02:30)
[2019-06-12 03:52] VITALS: BP 138/75; PULSE 83; RESP 20
[2019-06-12] MEDS: LEVOFLOXACIN 500 MG TAB PO SCH (05:31)
[2019-06-12] MEDS: PANTOPRAZOLE (EC) 40 MG TAB PO SCH (05:31)
[2019-06-12 07:30] VITALS: BP 133/79; PULSE 72; RESP 17
[2019-06-12] MEDS: INSULIN ASPART [NOVOLOG] 3 ML PEN SC SCH ×2 (07:55→12:28)
[2019-06-12] MEDS: COLLAGENASE 5 GM (UD JAR) TOP SCH (08:29)
[2019-06-12] MEDS: POTASSIUM CHLORIDE 20 MEQ POWDER FOR ORAL SOLN PO SCH (08:29)
[2019-06-12] MEDS: FUROSEMIDE 40 MG TAB PO SCH (08:30)
[2019-06-12] MEDS: ENOXAPARIN 40 MG/0.4 ML SYG SC SCH (08:38)
[2019-06-12] MEDS ORDERED: predniSONE 20 MG TAB PO SCH (09:00)
[2019-06-12] MEDS ORDERED: POTASSIUM CHLORIDE (SR) 20 MEQ TAB PO STA (09:44)
--- NOTE | 2019-06-12 10:34 | CONS ---
Consultation Date/Type/Reason Admit Date/Time Jun 04, 2019 at 22:30 Initial Consult Date Type of Consult Pulmonary Patient's condition is stable. Laying comfortably in bed. Shortness of breath is improving. Denies any coughing or wheezing. General exam; elderly female, overweight. Currently no distress. H HEENT exam; supple neck, positive JVD. No lymphadenopathy. Midline trachea. No thyromegaly. Patient has fair dentition. No neck masses. Chest exam; diminished but clear breath sounds. S1-S2 audible, no murmurs. Regular rhythm. Abdomen exam; soft, protuberant. Nontender. Organomegaly difficult to assess. Bowel sounds are audible. Extremity exam; peripheral edema clubbing. Pulses 2+. 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 Assessment and recommendations; 1. Patient admitted with CHF exacerbation with likely underlying chronic type II respiratory failure with severe hypercapnia with interval improvement. M aintained on BiPAP as needed. 2. Possibly acute bronchitis as well. 3. Likely underlying sleep apnea. 4. History of diabetes. Continue current supportive care. Discontinue Solu-Medrol. Obtain follow-up ABG. Patient likely will need BiPAP for home use. Date/Time of Note DATE: 06/12/19 TIME: 10:33 24 HR Interval Summary Free Text/Dictation Patient's condition is stable. Denies any shortness of breath, coughing or wheezing. General exam; elderly lady, appears overweight. Laying comfortably in bed. Currently no distress. H ENT exam; supple neck, no JVD. No lymphadenopathy. Midline trachea. No thyromegaly. Patient has fair dentition. Chest exam; diminished but clear breath sounds. S1-S2 audible, no murmurs. Regular rhythm. Abdomen exam; soft, protuberant. Nontender. Bowel sounds audible. Extremity exam; no peripheral edema. 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 Assessment and recommendations; 1. Patient admitted with hypercapnic respiratory failure due to combination of underlying COPD with likely obstructive sleep apnea with obesity hypoventilation syndrome. Clinically improving. 2. Acute bronchitis with interval resolution. 3. History of diabetes. Continue current supportive care. Patient will need nocturnal noninvasive positive pressure ventilation at home . Exam/Review of Systems Exam Vitals Vital Signs Date Temp Pulse Resp B/P (MAP) Pulse Ox O2 O2 Flow FiO2 Time Delivery Rate 06/12/19 98.8 72 17 133/79 97 07:30 (97) 06/12/19 Nasal 3.0 04:46 Cannula 06/11/19 35 00:28 Intake and Output 06/11/19 06/11/19 06/12/19 1515:00 23:00 07:00 IntakeIntake Total 550 ml 260 ml 550 ml BalanceBalance 550 ml 260 ml 550 ml Results Result Diagram: 06/10/19 0659 06/12/19 0610 Results 24hrs Laboratory Tests Test 06/11/19 12:23 06/11/19 14:21 06/11/19 17:32 06/11/19 20:54 Bedside Glucose 175 287 H 217 D-Dimer 393.46 D-Dimer Comment Test 06/12/19 06:10 06/12/19 08:01 Sodium Level 140 Potassium Level 3.4 L Chloride Level 100 Carbon Dioxide Level 37 H Anion Gap 3 L Blood Urea Nitrogen 19 Creatinine 0.52 Est Glomerular Filtrat > 60 Rate mL/min Glucose Level 106 Calcium Level 8.9 Bedside Glucose 106 Medications Medication Current Medications Acetaminophen (Tylenol Tab) 650 mg Q6H PRN PO MILD PAIN(1-3)OR ELEVATED TEMP Last administered on 06/12/19at 09:28; Admin Dose 650 MG; Start 06/05/19 at 01:30 Ondansetron HCl (Zofran Inj) 4 mg Q6H PRN IV NAUSEA AND/OR VOMITING; Start 06/05/19 at 01:30 Insulin Aspart (Novolog Insulin Pen) NOVOLOG *MODERATE* ALGORITHM WITH MEALS BEDTIME SC Last administered on 06/11/19at 21:01; Admin Dose 1 UNIT; Start 06/05/19 at 07:55 Collagenase (Santyl) 1 applic DAILY TOP Last administered on 06/12/19at 08:29; Admin Dose 1 APPLIC; Start 06/05/19 at 13:00 Miscellaneous Information 1 ea NOTE XX ; Start 06/05/19 at 17:00 Glucose (Glutose) 15 gm Q15M PRN PO DECREASED GLUCOSE; Start 06/05/19 at 17:00 Glucose (Glutose) 22.5 gm Q15M PRN PO DECREASED GLUCOSE; Start 06/05/19 at 17:00 Dextrose (D50w Syringe) 25 ml Q15M PRN IV DECREASED GLUCOSE; Start 06/05/19 at 17:00 Dextrose (D50w Syringe) 50 ml Q15M PRN IV DECREASED GLUCOSE; Start 06/05/19 at 17:00 Glucagon (Glucagen) 1 mg Q15M PRN IM DECREASED GLUCOSE; Start 06/05/19 at 17:00 Glucose (Glutose) 15 gm Q15M PRN BUCCAL DECREASED GLUCOSE; Start 06/05/19 at 17:00 Guaifenesin/ Dextromethorphan (Robitussin Dm Liquid Cup) 10 ml Q6H PRN PO cough Last administered on 06/11/19 20:56; Admin Dose 10 ML; Start 06/06/19 at 12:30 Pantoprazole (Protonix Tab) 40 mg DAILY@06 PO Last administered on 06/12/19 05:31; Admin Dose 40 MG; Start 06/08/19 at 06:00 Enoxaparin Sodium (Lovenox) 40 mg DAILY SC Last administered on 06/12/19 08:38; Admin Dose 40 MG; Start 06/07/19 at 16:30 Potassium Chloride (Potassium Chloride Pwd/Soln) 40 meq DAILY PO Last administered on 06/12/19 08:29; Admin Dose 40 MEQ; Start 06/09/19 at 09:00 Levofloxacin (Levaquin) 500 mg DAILY@06 PO Last administered on 06/12/19 05:31; Admin Dose 500 MG; Start 06/11/19 at 06:00 Furosemide (Lasix) 40 mg DAILY PO Last administered on 06/12/19 08:30; Admin Dose 40 MG; Start 06/10/19 at 11:00 Prednisone (Prednisone) 20 mg DAILY PO Last administered on 06/12/19 08:29; Admin Dose 20 MG; Start 06/12/19 at 09:00; Stop 06/13/19 at 09:01 Levalbuterol (Xopenex Neb) 0.63 mg Q4H RESP THERAPY HHN Last administered on 06/12/19 07:52; Admin Dose 0.63 MG; Start 06/11/19 at 17:00 MIGUEL WELLS Jun 12, 2019 10:34
[2019-06-12 11:33] VITALS: BP 149/94; PULSE 106; RESP 17
[2019-06-12] MEDS ORDERED: clonAZEPAM 0.5 MG TAB PO ONE (12:30)
--- NOTE | 2019-06-12 12:32 | PN ---
Date/Time of Note Date/Time of Note DATE: 06/12/19 TIME: 12:31 Assessment/Plan VTE Prophylaxis Risk score (from Nsg)>0 risk: 4 SCD applied (from Nsg): Yes Pharmacological prophylaxis: NA/contraindicated Pharm contraindication: low risk/ambulating Lines/Catheters IV Catheter Type (from Nrsg): Saline Lock Urinary Cath still in place: No Assessment/Plan Assessment/Plan Shortness of breath, cough, with diffuse expiratory wheezing, likely secondary to chronic obstructive pulmonary disease exacerbation. SEPSIS 2. Hypercapnic respiratory failure, likely secondary to chronic obstructive pulmonary disease, plus the patient is on a bunch of sleeping medications, se datives at home 3. Metabolic/respiratory acidosis. 4. Diabetes. 5. Hypertension. 6. Hyperlipidemia. 7. Depression. 8. Anxiety. 9. Morbid obesity 10. Uremia more likely due to UTI 11. UTI Assessment/Plan - HR at [facility]> will give her klonipin -bipap at night -Talked to the patient that she has to be compliant. -IV was removed -Antibiotics to p.o. -Lasix to 40 p.o. -Will give prednisone -Blood culture has been negative dc planning case management associate to arrange for BiPAP which was not arranged Result Diagram: Result Diagram: 06/10/19 0659 06/12/19 0610 Results 24hrs Laboratory Tests Test 06/11/19 14:21 06/11/19 17:32 06/11/19 20:54 06/12/19 06:10 D-Dimer 393.46 D-Dimer Comment Bedside Glucose 287 H 217 Sodium Level 140 Potassium Level 3.4 L Chloride Level 100 Carbon Dioxide Level 37 H Anion Gap 3 L Blood Urea Nitrogen 19 Creatinine 0.52 Est Glomerular Filtrat > 60 Rate mL/min Glucose Level 106 Calcium Level 8.9 Test 06/12/19 08:01 Bedside Glucose 106 Subjective 24 Hr Interval Summary Free Text/Dictation heart Rate is in 100s patient is requesting for her Klonopin Exam/Review of Systems Exam Vitals Vital Signs Date Temp Pulse Resp B/P (MAP) Pulse Ox O2 O2 Flow FiO2 Time Delivery Rate 06/12/19 98.7 106 17 149/94 97 11:33 (112) 06/12/19 Nasal 3.0 08:00 Cannula 06/11/19 35 00:28 Intake and Output 806/11/19 06/12/19 1515:00 23:00 07:00 IntakeIntake Total 550 ml 260 ml 550 ml BalanceBalance 550 ml 260 ml 550 ml Exam GENERAL: The patient is awake, alert, oriented, currently answering all questions appropriately. HEENT: Pupils equal, round, reactive to light. NECK: Supple, thick. HEART: Regular rate and rhythm. LUNGS: Some scattered expiratory wheezes imporved the patient is able to speak full sentences. ABDOMEN: Obese, positive bowel sounds. EXTREMITIES: Trace edema. Results Results 24hrs Laboratory Tests Test 06/11/19 14:21 06/11/19 17:32 06/11/19 20:54 06/12/19 06:10 D-Dimer 393.46 D-Dimer Comment Bedside Glucose 287 H 217 Sodium Level 140 Potassium Level 3.4 L Chloride Level 100 Carbon Dioxide Level 37 H Anion Gap 3 L Blood Urea Nitrogen 19 Creatinine 0.52 Est Glomerular Filtrat > 60 Rate mL/min Glucose Level 106 Calcium Level 8.9 Test 06/12/19 08:01 Bedside Glucose 106 Medications Medication Current Medications Acetaminophen (Tylenol Tab) 650 mg Q6H PRN PO MILD PAIN(1-3)OR ELEVATED TEMP Last administered on 06/12/19at 09:28; Admin Dose 650 MG; Start 06/05/19 at 01:30 Ondansetron HCl (Zofran Inj) 4 mg Q6H PRN IV NAUSEA AND/OR VOMITING; Start 06/05/19 at 01:30 Insulin Aspart (Novolog Insulin Pen) NOVOLOG *MODERATE* ALGORITHM WITH MEALS BEDTIME SC Last administered on 06/12/19at 12:28; Admin Dose 2 UNIT; Start 06/05/19 at 07:55 Collagenase (Santyl) 1 applic DAILY TOP Last administered on 06/12/19at 08:29; Admin Dose 1 APPLIC; Start 06/05/19 at 13:00 Miscellaneous Information 1 ea NOTE XX ; Start 06/05/19 at 17:00 Glucose (Glutose) 15 gm Q15M PRN PO DECREASED GLUCOSE; Start 06/05/19 at 17:00 Glucose (Glutose) 22.5 gm Q15M PRN PO DECREASED GLUCOSE; Start 06/05/19 at 17:00 Dextrose (D50w Syringe) 25 ml Q15M PRN IV DECREASED GLUCOSE; Start 06/05/19 at 17:00 Dextrose (D50w Syringe) 50 ml Q15M PRN IV DECREASED GLUCOSE; Start 06/05/19 at 17:00 Glucagon (Glucagen) 1 mg Q15M PRN IM DECREASED GLUCOSE; Start 06/05/19 at 17:00 Glucose (Glutose) 15 gm Q15M PRN BUCCAL DECREASED GLUCOSE; Start 06/05/19 at 17:00 Guaifenesin/ Dextromethorphan (Robitussin Dm Liquid Cup) 10 ml Q6H PRN PO cough Last administered on 06/11/19 20:56; Admin Dose 10 ML; Start 06/06/19 at 12:30 Pantoprazole (Protonix Tab) 40 mg DAILY@06 PO Last administered on 06/12/19 05:31; Admin Dose 40 MG; Start 06/08/19 at 06:00 Enoxaparin Sodium (Lovenox) 40 mg DAILY SC Last administered on 06/12/19 08:38; Admin Dose 40 MG; Start 06/07/19 at 16:30 Potassium Chloride (Potassium Chloride Pwd/Soln) 40 meq DAILY PO Last administered on 06/12/19 08:29; Admin Dose 40 MEQ; Start 06/09/19 at 09:00 Levofloxacin (Levaquin) 500 mg DAILY@06 PO Last administered on 06/12/19 05:31; Admin Dose 500 MG; Start 06/11/19 at 06:00 Furosemide (Lasix) 40 mg DAILY PO Last administered on 06/12/19 08:30; Admin Dose 40 MG; Start 06/10/19 at 11:00 Prednisone (Prednisone) 20 mg DAILY PO Last administered on 06/12/19 08:29; Admin Dose 20 MG; Start 06/12/19 at 09:00; Stop 06/13/19 at 09:01 Levalbuterol (Xopenex Neb) 0.63 mg Q4H RESP THERAPY HHN Last administered on 06/12/19 07:52; Admin Dose 0.63 MG; Start 06/11/19 at 17:00 Clonazepam (Klonopin) 1 mg ONCE ONCE PO ; Start 06/12/19 at 12:30; Stop 06/12/19 at 12:31; Status MINA SLAUGHTER MD Jun 12, 2019 12:32
--- NOTE | 2019-06-12 12:33 | PDOCDIS ---
Discharge Instructions DIAGNOSIS Discharge Diagnosis copd exacerbation CONDITION [id number] Patient Condition: [id number] Fair HOME CARE INSTRUCTIONS: [id number] Diet Instructions: [id number] Low Fat /Cholesterol ACTIVITY: [id number] Activity Restrictions: [id number] Slowly Increase Activity Rest between Activity Avoid heavy lifting FOLLOW UP/APPOINTMENTS Follow-up Plan fu PCP in1-[address] Schwab in 2-3 weeks fu her pscychaitrist use BIPAP at night avoid too much sedatives MINA FARAH MD Jun 12, 2019 12:33
[2019-06-12 15:17] VITALS: BP 132/74; PULSE 101; RESP 17
--- NOTE | 2019-06-26 21:24 | DS ---
DATE OF ADMISSION: 06/04/2019 DATE OF DISCHARGE: 06/12/2019 HISTORY OF PRESENTING ILLNESS AND HOSPITAL COURSE: This is a 64-year-old female with past medical hi story of diabetes, hypertension, depression, anxiety, dyslipidemia, chronic pain, COPD, asthma, multi ple admissions in the past secondary to COPD, was brought in secondary to shortness of breath and cou gh at home. According to the patient, she does not really remember what happened. The only thing sh e remembered she was having shortness of breath for the past few days and will notice her breathing w as getting bad and brought her to the emergency department. On arrival, vital signs showed temperatu re of 98.1, heart rate 110, respirations 19, blood pressure 117/77. The patient was on 2 liters nasa l cannula and was started on BiPAP. Labs showed bicarbonate of 41, sodium 144, BUN of 13, creatinine 0.54. UA showed nitrite positive. The patient had ABG that showed pH of 7.27, pCO2 of 96, pO2 of 6 4, bicarbonate 40. The patient was given Solu-Medrol, albuterol, Xopenex, Lasix, Rocephin and azithr omycin and admitted for further management. The patient also had chest x-ray that showed cardiomegal y with calcified atherosclerosis, patchy atelectasis versus minimal infiltrates or scattered atelecta sis in the remainder of the lung. The patient was kept on BiPAP during the hospitalization course. Blood cultures were done that showed coagulase negative staph; however they were contaminated. The erasmo hernández's condition was slowly improving every day with improvement in the respiratory status. The santo heidy was seen by Dr. Leon for pulmonary consultation and his recommendations were followed. Plan w as to continue Levaquin for total 10 days and decrease the steroids. The patient's condition slowly improved every day and did not require anymore BiPAP. The patient was ambulating and currently stabl e to be discharged home. FINAL DISCHARGE DIAGNOSES: 1. Underlying chronic type 2 respiratory failure, admitted with chronic obstructive pulmonary diseas e exacerbation with bronchitis with improvement. 2. Persistent company hypercapnia on account of underlying chronic obstructive pulmonary disease and sleep apnea. 3. Coagulase negative Staphylococcus aureus bacteremia with recent cultures being negative, likely c ontaminant. 4. Metabolic/respiratory acidosis. 5. Diabetes. 6. Hypertension. 7. Hyperlipidemia. 8. Depression. 9. Anxiety. 10. Morbid obesity. 11. Urinary tract infection. DISCHARGE CONDITION: Stable. DISCHARGE DIET: Two-gram sodium, carb-controlled diet. DISCHARGE MEDICATIONS: 1. Lasix 40. 2. Levaquin 500 for 5 more days. 3. Albuterol 4. Benztropine. 5. Soma. 6. P.r.n. diclofenac. 7. Gabapentin 300 oral daily. 8. Albuterol. 9. Zolpidem. 10. Prednisone tapering. FOLLOWUP: The patient will be followed with PCP in 1 to 2 weeks and also pulmonary 1 to 2 weeks and arrangement was made for CPAP at home. Dictated By: MINA ABDI/SOFIA Conf#: [id number] DID#: [id number] CC: PAULINE HERRERA MD;*End*
== END 2019-06-12 17:15 | disposition home health service (06) | DRG 190 ==
LOC: E/R 19:55 → TEL 22:30
PROVIDERS: ADMIT Internal Medicine; ATTEND Internal Medicine
PROC: 3E0F7GC Introduction of Other Therapeutic Substance into Respiratory Tract, Via Natural or Artificial Opening (ICD-10-PCS; principal; 2019-06-04)
DX: J44.1 Chronic obstructive pulmonary disease with (acute) exacerbation (principal); J96.01 Acute respiratory failure with hypoxia; J96.02 Acute respiratory failure with hypercapnia; J96.92 Respiratory failure, unspecified with hypercapnia; Z68.42 Body mass index [BMI] 45.0-49.9, adult; E87.2 Acidosis; E87.3 Alkalosis; N39.0 Urinary tract infection, site not specified; J96.10 Chronic respiratory failure, unspecified whether with hypoxia or hypercapnia; E11.40 Type 2 diabetes mellitus with diabetic neuropathy, unspecified; F17.200 Nicotine dependence, unspecified, uncomplicated; F32.9 Major depressive disorder, single episode, unspecified; F41.9 Anxiety disorder, unspecified; E78.5 Hyperlipidemia, unspecified; G89.4 Chronic pain syndrome; J45.909 Unspecified asthma, uncomplicated; E66.01 Morbid (severe) obesity due to excess calories; I11.0 Hypertensive heart disease with heart failure; I50.9 Heart failure, unspecified
CPT/HCPCS: 36415; 36600; 71045; 80048; 80053; 80202; 81003; 82565; 82803; 82962; 83036; 83690; 83735; 83880; 84100; 84484; 84520; 85025; 85378; 85610; 85730; 93005; 94640; 94660; 94664; 94760; 96374; 96375; 97162; J0456; J0696; J1120; J1650; J1815; J1885; J1940; J2920; J2930; J3370; J7050; J7512

== ENCOUNTER 2019-07-03 06:55 | Emergency (ER) | payer MEDICARE, OTHER ==
[~2019-07-03] VITALS: Ht 167.6 cm; Wt 110.0 kg
[~2019-07-03 06:55] MED LIST changes: +ACET500C5 PO; -BUPR150T6 PO; +CEPH500C PO; -CLON0.2T5 PO; -FLUO20CA22 PO; +FLUO40CA PO; +FURO20TA3 PO; -HYDR25TA6 PO; -IBUP-1542 PO; -LOSA100T15 PO; -METF100010 PO; +METF500T9 PO; -ONDA4TAB14 PO; +QUET300T71 PO; +TEMA30CA PO
[2019-07-03 06:58] VITALS: Ht 167.6 cm; Wt 110.0 kg
[2019-07-03] MEDS ORDERED: ACETAMINOPHEN 500 MG TAB PO STA (07:08)
[2019-07-03 09:52] VITALS: BP 107/86; PULSE 65; RESP 17
== END 2019-07-03 11:16 | disposition home or self-care (01) ==
LOC: E/R 06:55
DX: M79.605 Pain in left leg (principal); J44.9 Chronic obstructive pulmonary disease, unspecified; I50.9 Heart failure, unspecified; F17.200 Nicotine dependence, unspecified, uncomplicated; E11.9 Type 2 diabetes mellitus without complications; Z79.84 Long term (current) use of oral hypoglycemic drugs
CPT/HCPCS: 36415; 71045; 80053; 83880; 84484; 85025; 93005; 93970